=== PATIENT | male | born 1970 | race Caucasian/White ===

== ENCOUNTER 2017-07-26 08:00 | Outpatient (RCR) | payer BC, SELFPAY ==
[2017-07-10 00:21] VITALS: BP 144/87; PULSE 74; RESP 18; TEMP 37.1
[2017-07-12 08:12] VITALS: BP 148/92; PULSE 90; RESP 18; TEMP 36
[2017-07-19 08:14] VITALS: BP 126/89; PULSE 89; RESP 16; TEMP 36.4
--- NOTE | 2017-07-19 08:40 | PCM.WC.PN ---
(1) Ulcer of right foot with fat layer exposed Status: Chronic Current Visit: Yes Code(s): L97.512 - Non-pressure chronic ulcer of other part of right foot with fat layer exposed (2) Diabetes mellitus with neuropathy Status: Chronic Current Visit: Yes Qualifiers: Diabetes mellitus type: type 2 Code(s): E11.40 - Type 2 diabetes mellitus with diabetic neuropathy, unspecified (3) Hallux limitus of right foot Status: Chronic Current Visit: Yes Code(s): M20.5X1 - Other deformities of toe(s) (acquired), right foot (4) Malnutrition Status: Chronic Current Visit: Yes Code(s): E46 - Unspecified protein-calorie malnutrition Type of Wound Date of Service: 07/19/17 Chief Complaint: right great toe wound that is recurrent History of Wound: This 46-year-old pleasant male returns to clinic for recurrent right great toe ulceration. This is recurrent. He denies fever, chill, nausea, vomiting, loss of appetite. He kept his dressing intact over the last week as advised. Progress of Wound: Improving - Physical Exam Vital Signs Temp Pulse Resp BP 97.5 F L 89 16 126/89 H 07/19/17 08:14 07/19/17 08:14 07/19/17 08:14 07/19/17 08:14 General: Alert, Oriented x3, Cooperative Extremities: No cyanosis, Capillary Refill Less than 3 Seconds, No Calf Tenderness, Diminished Peripheral Pulses Skin: Ulcer/ Wound - Significant reduction in wound size. The base is 100% granular and healthy Wound Measurements and Assessment JENNIFER - Nurse 1 - General Ulcer Measurement Start: 07/12/17 08:12 Freq: Status: Active Protocol: Activity Type Activity Date Activity User E-Sign Co-Sign Detail Recorded Client Recorded Date Recorded By Document 07/19/17 08:14 MW [id number] 07/19/17 08:24 MW 07/19/17 08:14 Wound Center Nurse 1 [Ulcer Assessment Protocol: JENNIFER.WD.LOC] 2/#1 R Grt Toe -Combined with other wound No -Current Size (cm) - Length 0.2 -Current Size (cm) - Width 0.2 -Current Size (cm) - Depth 0.1 -Total Square Cm 0.04 -Date of Last Picture (Recall this 07/19/17 field) -Photo Taken Yes -Epithelialization None Present -Tunneling No -Undermining/Tunneling No -Circular Undermining No -Exudate Amt None Present (0 %) -Wound Margin Flat & Intact -Granulation Amt None Present (0 %) -Granulation Quality N/A -Slough/Fibrin Yes -Necrosis Amt Large (67-100%) -Necrotic Tissue Type Adherent Slough -Structure Exposed N/A -Texture (Shahnaz-wound Skin Appearance) Assessed Callus -Moisture (Shahnaz-wound Skin Appearance Assessed ) Dry/Scaly -Color (Shahnaz-wound Skin Appearance) No Abnormality Assessed -Temperature (Shahnaz-wound Skin No Abnormality Appearance) (Pt Warm) -Tenderness on Palpation (Shahnaz-wound Yes Skin Appearance) -Ulcer Cleansing Rinsed/ Irrigated with Saline -Foul Odor after Cleansing No -Anesthetic Used 5% Lidocaine Gel [Edema Assessment] -Lower Limb Edema Present No WC - Nurse 2 - General Ulcer CM Notes Start: 07/12/17 08:12 Freq: Status: Active Protocol: Activity Type Activity Date Activity User E-Sign Co-Sign Detail Recorded Client Recorded Date Recorded By Document 07/19/17 08:30 [id number] 07/19/17 08:32 ASUNCION 07/19/17 08:30 Wound Center Nurse 2 [Procedure/Treatment] 2/#1 R Grt Toe -Time 08:31 -Correct Patient Yes -Correct Side, Site, Position Yes -Correct Procedure Yes -Procedure Performed Yes -Type of Procedure Debridement -Clinical Debridement Subcutaneous -Post Debridement Size (cm) - Length 0.3 -Post Debridement Size (cm) - Width 0.2 -Post Debridement Size (cm) - Depth 0.1 -Total Square Cm 0.06 -Wound/Ulcer Outcome Not Healed -Ulcer Cleansing Rinsed/ Irrigated with Saline -Foul Odor after Cleansing No -Bioengineered Tissue No -Cetacaine [place] No -Bleeding Controlled with Pressure -Treatment Response Procedure Tolerated Well [See Physician Procedure note for Specifics] Pain Scale: 0-10 Numeric [Pain] -Is Patient Pain Free? Yes Musculoskeletal: No Tenderness to Palpation of Joints or Extremities, No Muscle Wasting, - - Decreased loaded first metatarsophalangeal joint right. Compartments are soft and there is no crepitus on palpation right foot Neurological: - - lack of epicritic sensation light touch bilateral lower extremity Psych/Mental Status: Normal Affect, Appropriate Debridement Note Post-Debridement Measurements/Treatment WC - Nurse 2 - General Ulcer CM Notes Start: 07/12/17 08:12 Freq: Status: Active Protocol: Activity Type Activity Date Activity User E-Sign Co-Sign Detail Recorded Client Recorded Date Recorded By Document 07/12/17 08:39 [id number] 07/12/17 08:40 Document 07/19/17 08:30 [id number] 07/19/17 08:32 07/12/17 07/19/17 08:39 08:30 Wound Center Nurse 2 2/#1 R Grt Toe -Time 08:39 08:31 -Correct Patient Yes Yes -Correct Side, Site, Position Yes Yes -Correct Procedure Yes Yes -Procedure Performed Yes Yes -Type of Procedure Debridement Debridement -Clinical Debridement Subcutaneous Subcutaneous -Post Debridement Size (cm) - Length 0.4 0.3 -Post Debridement Size (cm) - Width 0.3 0.2 -Post Debridement Size (cm) - Depth 0.1 0.1 -Total Square Cm 0.12 0.06 -Wound/Ulcer Outcome Not Healed Not Healed -Ulcer Cleansing Rinsed/ Rinsed/ Irrigated with Irrigated with Saline Saline -Foul Odor after Cleansing No No -Bioengineered Tissue Yes No -Type of bioengineered Tissue EPIFIX -Expiration Date 04/09/22 -Product Lot Number [id number] -Percent Used 100 -Cetacaine [place] No No -Bleeding Controlled with Pressure Pressure -Other [id number] saline -Treatment Response Procedure Procedure Tolerated Well Tolerated Well Pain Scale: 0-10 Numeric Is Patient Pain Free? Yes Yes Wound debrided: Plantar hallux Laterality: Right Wound Grade/Stage: Grade 1 Type of Debridement: Excisional debridement Anesthesia Used: 5% Lidocaine Gel Depth: in the subcutaneous layer Percentage of wound debrided: 100 Instrument Used: #15 blade Tissue Removed: Fibers, devitalized subcutaneous, biofilm, slough Severity: Fat Layer Exposed Amount of bleeding with debridement: Mild Bleeding Controlled with: Pressure Patient tolerated procedure well Assessment/Plan Active Problems Ulcer of right foot with fat layer exposed (Chronic) Diabetes mellitus with neuropathy (Chronic) Hallux limitus of right foot (Chronic) Malnutrition (Chronic) Assessment: right hallux diabetic foot ulceration. Diabetes type II with neuropathy. hallux limitus right. exogenous obesity Plan: Reviewed and discussed his case. Ulcer debridement was performed as noted in the clinical panel. Yana was applied today and it is noted the wound has significantly reduced in size. He was advised to change this dressing daily. He tolerated the procedure well. Continue offloading heel weightbear with his surgical shoe and offloading felt. I do recommend a curative foot surgical procedure, for example Alston arthroplasty. I recommend performing the surgery once his hemoglobin A1c is at a goal rate of less than 8%. A nutritional referral was provided and he has been attending. He relates this is helpful in regards to his improved sugar control, weight loss, and wound healing. It is noted he had to reschedule some of the classes due to his work schedule. . He understands his inability to adhere to a compliant plan by working walk on this each day is slowing his healing. He is now considered complex care program due to lack of healing and inability to keep weight off of the site. 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 He was reassured no infection is noted. To return to clinic in 1 week or call sooner for any problems.
--- NOTE | 2017-07-19 08:47 | PN.PCM_ITS ---
(1) Ulcer of right foot with fat layer exposed Status: Chronic Current Visit: Yes Code(s): L97.512 - Non-pressure chronic ulcer of other part of right foot with fat layer exposed (2) Diabetes mellitus with neuropathy Status: Chronic Current Visit: Yes Qualifiers: Diabetes mellitus type: type 2 Code(s): E11.40 - Type 2 diabetes mellitus with diabetic neuropathy, unspecified (3) Hallux limitus of right foot Status: Chronic Current Visit: Yes Code(s): M20.5X1 - Other deformities of toe(s) (acquired), right foot (4) Malnutrition Status: Chronic Current Visit: Yes Code(s): E46 - Unspecified protein- calorie malnutrition Type of Wound Date of Service: 07/19/17 Chief Complaint: right great toe wound that is recurrent History of Wound: This 46-year-old pleasant male returns to clinic for recurrent right great toe ulceration. This is recurrent. He denies fever, chill, nausea, vomiting, loss of appetite. He kept his dressing intact over the last week as advised. Progress of Wound: Improving - Physical Exam Vital Signs Temp Pulse Resp BP 97.5 F L 89 16 126/89 H 07/19/17 08:14 07/19/17 08:14 07/19/17 08:14 07/19/17 08:14 General: Alert, Oriented x3, Cooperative Extremities: No cyanosis, Capillary Refill Less than 3 Seconds, No Calf Tenderness, Diminished Peripheral Pulses Skin: Ulcer/ Wound - Significant reduction in wound size. The base is 100% granular and healthy Wound Measurements and Assessment JENNIFER - Nurse 1 - General Ulcer Measurement Start: 07/12/17 08:12 Freq: Status: Active Protocol: Activity Type Activity Date Activity User E-Sign Co-Sign Detail Recorded Client Recorded Date Recorded By Document 07/19/17 08:14 MW [id number] 07/19/17 08:24 MW 07/19/17 08:14 Wound Center Nurse 1 [Ulcer Assessment Protocol: JENNIFER.WD.LOC] 2/#1 R Grt Toe -Combined with other wound No -Current Size (cm) - Length 0.2 -Current Size (cm) - Width 0.2 -Current Size (cm) - Depth 0.1 -Total Square Cm 0.04 -Date of Last Picture (Recall this 07/19/17 field) -Photo Taken Yes -Epithelialization None Present -Tunneling No -Undermining/Tunneling No -Circular Undermining No -Exudate Amt None Present (0 %) -Wound Margin Flat & Intact -Granulation Amt None Present (0 %) -Granulation Quality N/A -Slough/Fibrin Yes -Necrosis Amt Large (67-100%) -Necrotic Tissue Type Adherent Slough -Structure Exposed N/A -Texture (Shahnaz-wound Skin Appearance) Assessed Callus -Moisture (Shahnaz-wound Skin Appearance Assessed ) Dry/Scaly -Color (Shahnaz-wound Skin Appearance) No Abnormality Assessed -Temperature (Shahnaz-wound Skin No Abnormality Appearance) (Pt Warm) -Tenderness on Palpation (Shahnaz-wound Yes Skin Appearance) -Ulcer Cleansing Rinsed/ Irrigated with Saline -Foul Odor after Cleansing No -Anesthetic Used 5% Lidocaine Gel [Edema Assessment] -Lower Limb Edema Present No WC - Nurse 2 - General Ulcer CM Notes Start: 07/12/17 08:12 Freq: Status: Active Protocol: Activity Type Activity Date Activity User E-Sign Co-Sign Detail Recorded Client Recorded Date Recorded By Document 07/19/17 08:30 [id number] 07/19/17 08:32 ASUNCION 07/19/17 08:30 Wound Center Nurse 2 [Procedure/Treatment] 2/#1 R Grt Toe -Time 08:31 -Correct Patient Yes -Correct Side, Site, Position Yes -Correct Procedure Yes -Procedure Performed Yes -Type of Procedure Debridement -Clinical Debridement Subcutaneous -Post Debridement Size (cm) - Length 0.3 -Post Debridement Size (cm) - Width 0.2 -Post Debridement Size (cm) - Depth 0.1 -Total Square Cm 0.06 -Wound/Ulcer Outcome Not Healed -Ulcer Cleansing Rinsed/ Irrigated with Saline -Foul Odor after Cleansing No -Bioengineered Tissue No -Cetacaine [place] No -Bleeding Controlled with Pressure -Treatment Response Procedure Tolerated Well [See Physician Procedure note for Specifics] Pain Scale: 0-10 Numeric [Pain] -Is Patient Pain Free? Yes Musculoskeletal: No Tenderness to Palpation of Joints or Extremities, No Muscle Wasting, - - Decreased loaded first metatarsophalangeal joint right. Compartments are soft and there is no crepitus on palpation right foot Neurological: - - lack of epicritic sensation light touch bilateral lower extremity Psych/Mental Status: Normal Affect, Appropriate Debridement Note Post-Debridement Measurements/Treatment WC - Nurse 2 - General Ulcer CM Notes Start: 07/12/17 08:12 Freq: Status: Active Protocol: Activity Type Activity Date Activity User E-Sign Co-Sign Detail Recorded Client Recorded Date Recorded By Document 07/12/17 08:39 [id number] 07/12/17 08:40 Document 07/19/17 08:30 [id number] 07/19/17 08:32 07/12/17 07/19/17 08:39 08:30 Wound Center Nurse 2 2/#1 R Grt Toe -Time 08:39 08:31 -Correct Patient Yes Yes -Correct Side, Site, Position Yes Yes -Correct Procedure Yes Yes -Procedure Performed Yes Yes -Type of Procedure Debridement Debridement -Clinical Debridement Subcutaneous Subcutaneous -Post Debridement Size (cm) - Length 0.4 0.3 -Post Debridement Size (cm) - Width 0.3 0.2 -Post Debridement Size (cm) - Depth 0.1 0.1 -Total Square Cm 0.12 0.06 -Wound/Ulcer Outcome Not Healed Not Healed -Ulcer Cleansing Rinsed/ Rinsed/ Irrigated with Irrigated with Saline Saline -Foul Odor after Cleansing No No -Bioengineered Tissue Yes No -Type of bioengineered Tissue EPIFIX -Expiration Date 04/09/22 -Product Lot Number [id number] -Percent Used 100 -Cetacaine [place] No No -Bleeding Controlled with Pressure Pressure -Other [id number] saline -Treatment Response Procedure Procedure Tolerated Well Tolerated Well Pain Scale: 0-10 Numeric Is Patient Pain Free? Yes Yes Wound debrided: Plantar hallux Laterality: Right Wound Grade/Stage: Grade 1 Type of Debridement: Excisional debridement Anesthesia Used: 5% Lidocaine Gel Depth: in the subcutaneous layer Percentage of wound debrided: 100 Instrument Used: #15 blade Tissue Removed: Fibers, devitalized subcutaneous, biofilm, slough Severity: Fat Layer Exposed Amount of bleeding with debridement: Mild Bleeding Controlled with: Pressure Patient tolerated procedure well Assessment/Plan Active Problems Ulcer of right foot with fat layer exposed (Chronic) Diabetes mellitus with neuropathy (Chronic) Hallux limitus of right foot (Chronic) Malnutrition (Chronic) Assessment: right hallux diabetic foot ulceration. Diabetes type II with neuropathy. hallux limitus right. exogenous obesity Plan: Reviewed and discussed his case. Ulcer debridement was performed as noted in the clinical panel. Yana was applied today and it is noted the wound has significantly reduced in size. He was advised to change this dressing daily. He tolerated the procedure well. Continue offloading heel weightbear with his surgical shoe and offloading felt. I do recommend a curative foot surgical procedure, for example Alston arthroplasty. I recommend performing the surgery once his hemoglobin A1c is at a goal rate of less than 8 %. A nutritional referral was provided and he has been attending. He relates this is helpful in regards to his improved sugar control, weight loss, and wound healing. It is noted he had to reschedule some of the classes due to his work schedule. . He understands his inability to adhere to a compliant plan by working walk on this each day is slowing his healing. He is now considered complex care program due to lack of healing and inability to keep weight off of the site. 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 He was reassured no infection is noted. To return to clinic in 1 week or call sooner for any problems.
[2017-07-26 08:11] VITALS: BP 138/88; PULSE 84; RESP 18; TEMP 36.5
--- NOTE | 2017-07-26 13:53 | PCM.WC.PN ---
(1) Ulcer of right foot with fat layer exposed Status: Resolved Code(s): L97.512 - Non-pressure chronic ulcer of other part of right foot with fat layer exposed (2) Diabetes mellitus with neuropathy Status: Chronic Qualifiers: Diabetes mellitus type: type 2 Code(s): E11.40 - Type 2 diabetes mellitus with diabetic neuropathy, unspecified (3) Hallux limitus of right foot Status: Chronic Code(s): M20.5X1 - Other deformities of toe(s) (acquired), right foot (4) Malnutrition Status: Chronic Code(s): E46 - Unspecified protein-calorie malnutrition Type of Wound Date of Service: 07/30/17 Chief Complaint: right great toe wound History of Wound: This 47-year-old pleasant male returns to clinic for recurrent right great toe ulceration. This is recurrent. He denies drainage this past week and thinks the wound has healed. He denies fever, chill, nausea, vomiting, loss of appetite. He has performed the recommended daily dressing care. Progress of Wound: Healed - Physical Exam Vital Signs Temp Pulse Resp BP 97.7 F L 84 18 138/88 H 07/26/17 08:11 07/26/17 08:11 07/26/17 08:11 07/26/17 08:11 General: Alert, Oriented x3, Cooperative Extremities: No cyanosis, No edema, Capillary Refill Less than 3 Seconds, No Calf Tenderness - Negative Rinku and Damon sign bilateral, Peripheral Pulses Normal Skin: Ulcer/ Wound - No purulence, no erythema, no streaking, no odor, no infection bilateral. There is full epithelialization at the previous ulcer site with no drainage; the ulcer is healed. Wound Measurements and Assessment - Nurse 1 - General Ulcer Measurement Start: 07/12/17 08:12 Freq: Status: Active Protocol: Activity Type Activity Date Activity User E-Sign Co-Sign Detail Recorded Client Recorded Date Recorded By Document 07/26/17 08:11 DL [id number] 07/26/17 08:17 DL 07/26/17 08:11 Wound Center Nurse 1 [Ulcer Assessment Protocol: JENNIFER.WD.LOC] 2/#1 R Grt Toe -Current Size (cm) - Length 0.1 -Current Size (cm) - Width 0.1 -Current Size (cm) - Depth 0.1 -Total Square Cm 0.01 -Photo Taken No -Exudate Amt None Present (0 %) -Wound Margin Thickened -Granulation Amt Large (67-100%) -Granulation Quality Pale -Necrosis Amt Small (1-33%) -Necrotic Tissue Type Adherent Slough -Structure Exposed N/A -Texture (Shahnaz-wound Skin Appearance) Callus -Moisture (Shahnaz-wound Skin Appearance Dry/Scaly ) -Color (Shahnaz-wound Skin Appearance) No Abnormality -Temperature (Shahnaz-wound Skin No Abnormality Appearance) (Pt Warm) -Ulcer Cleansing Rinsed/ Irrigated with Saline -Anesthetic Used 4% Lidocaine Solution - Nurse 2 - General Ulcer CM Notes Start: 07/12/17 08:12 Freq: Status: Active Protocol: Activity Type Activity Date Activity User E-Sign Co-Sign Detail Recorded Client Recorded Date Recorded By Document 07/26/17 08:29 [id number] 07/26/17 08:34 07/26/17 08:29 Wound Center Nurse 2 [Procedure/Treatment] -Time 08:29 -Correct Patient Yes -Correct Side, Site, Position Yes -Correct Procedure Yes -Procedure Performed Yes -Post Debridement Size (cm) - Length 0 -Post Debridement Size (cm) - Width 0 -Post Debridement Size (cm) - Depth 0 -Total Square Cm 0 -Wound/Ulcer Outcome Healed- Epithelialized -Ulcer Cleansing Rinsed/ Irrigated with Saline -Foul Odor after Cleansing No -Bioengineered Tissue No -Cetacaine [place] No -Bleeding Controlled with NA -Treatment Response Procedure Tolerated Well [See Physician Procedure note for Specifics] Pain Scale: 0-10 Numeric [Pain] -Is Patient Pain Free? Yes Musculoskeletal: No Tenderness to Palpation of Joints or Extremities, No Muscle Wasting, - - Limited hallux first metatarsal phalangeal joint range of motion consistent with hallux limitus right foot Neurological: - - Lack of epicritic sensation light touch bilateral lower extremities Psych/Mental Status: Normal Affect, Appropriate Debridement Note Post-Debridement Measurements/Treatment - Nurse 2 - General Ulcer CM Notes Start: 07/12/17 08:12 Freq: Status: Active Protocol: Activity Type Activity Date Activity User E-Sign Co-Sign Detail Recorded Client Recorded Date Recorded By Document 07/12/17 08:39 [id number] 07/12/17 08:40 Document 07/19/17 08:30 [id number] 07/19/17 08:32 JF Document 07/26/17 08:29 TM [id number] 07/26/17 08:34 TM 07/12/17 07/19/17 07/26/17 08:39 08:30 08:29 Wound Center Nurse 2 2/#1 R Grt Toe -Time 08:39 08:31 08:29 -Correct Patient Yes Yes Yes -Correct Side, Site, Position Yes Yes Yes -Correct Procedure Yes Yes Yes -Procedure Performed Yes Yes Yes -Type of Procedure Debridement Debridement -Clinical Debridement Subcutaneous Subcutaneous -Post Debridement Size (cm) - Length 0.4 0.3 0 -Post Debridement Size (cm) - Width 0.3 0.2 0 -Post Debridement Size (cm) - Depth 0.1 0.1 0 -Total Square Cm 0.12 0.06 0 -Wound/Ulcer Outcome Not Healed Not Healed Healed- Epithelialized -Ulcer Cleansing Rinsed/ Rinsed/ Rinsed/ Irrigated with Irrigated with Irrigated with Saline Saline Saline -Foul Odor after Cleansing No No No -Bioengineered Tissue Yes No No -Type of bioengineered Tissue EPIFIX -Expiration Date 04/09/22 -Product Lot Number [id number] -Percent Used 100 -Cetacaine [place] No No No -Bleeding Controlled with Pressure Pressure NA -Other [id number] saline -Treatment Response Procedure Procedure Procedure Tolerated Well Tolerated Well Tolerated Well Pain Scale: 0-10 Numeric Is Patient Pain Free? Yes Yes Yes No debridement was completed today - The ulcer site has healed Assessment/Plan Assessment: right hallux diabetic foot ulceration - Healed today. Diabetes type II with neuropathy. hallux limitus right. exogenous obesity Plan: Reviewed and discussed his case. Ulcer debridement was not performed because the ulcer is healed. He was advised it is okay to discontinue daily dressing care. He understands he is high risk for ulcer recurrence and he will check this site daily. He was advised to transition from his offloading surgical shoe to his work boot and sneaker with modified insole that has a cut out adjacent to his recently healed ulcer site. I do recommend a curative foot surgical procedure, for example Alston arthroplasty. I recommend performing the surgery once his hemoglobin A1c is at a goal rate of less than 8%. A nutritional referral was provided and he has been attending. He relates this is helpful in regards to his improved sugar control, weight loss, and wound healing. He was reassured no infection or ulcer is noted at this time. He is discharged from the wound care center today. He was advised to follow-up at the foot [facility] ankle center in 1 month with a repeat hemoglobin A1c level. If significant improvement is noted will consider performing a Alston arthroplasty. I answered all his questions.
== END 2017-08-09 23:59 ==
LOC: WC 08:00
PROVIDERS: Family Provider Nurse Practitioner Family; PCP Nurse Practitioner Family; Visit Provider Podiatrist
DX: E11.621 Type 2 diabetes mellitus with foot ulcer (principal); E11.40 Type 2 diabetes mellitus with diabetic neuropathy, unspecified; L97.512 Non-pressure chronic ulcer of other part of right foot with fat layer exposed; M20.5X1 Other deformities of toe(s) (acquired), right foot; E66.9 Obesity, unspecified; Z71.3 Dietary counseling and surveillance
CPT/HCPCS: 11042; 15275; 99213; Q4131; G0463

== ENCOUNTER 2017-07-31 17:08 | Outpatient (RCR) | payer BC, SELFPAY | END 2017-08-09 23:59 | LOC: DC 17:08 | PROVIDERS: Family Provider Nurse Practitioner Family; PCP Nurse Practitioner Family; Visit Provider Podiatrist | DX: E11.42 Type 2 diabetes mellitus with diabetic polyneuropathy (principal); E46 Unspecified protein-calorie malnutrition; L97.512 Non-pressure chronic ulcer of other part of right foot with fat layer exposed; Z71.3 Dietary counseling and surveillance | CPT/HCPCS: 97803; G0108 ==

== ENCOUNTER → 2017-08-10 06:10 | Outpatient (CLI) | payer BC, SELFPAY ==
[2017-08-10 08:56] LABS: Hemoglobin A1c 7.5 % (4.2-6.3)
== END ==
PROVIDERS: Family Provider Nurse Practitioner Family; PCP Nurse Practitioner Family; Visit Provider Podiatrist
DX: E11.40 Type 2 diabetes mellitus with diabetic neuropathy, unspecified (principal)
CPT/HCPCS: 36415; 83036

== ENCOUNTER 2017-08-16 16:42 | Outpatient (RCR) | payer BC, SELFPAY ==
[2017-07-26 08:11] VITALS: BP 138/88
== END 2017-09-06 23:59 ==
LOC: DC 16:42
PROVIDERS: Family Provider Nurse Practitioner Family; PCP Nurse Practitioner Family; Visit Provider Podiatrist
DX: E11.42 Type 2 diabetes mellitus with diabetic polyneuropathy (principal); E46 Unspecified protein-calorie malnutrition; L97.512 Non-pressure chronic ulcer of other part of right foot with fat layer exposed; Z71.3 Dietary counseling and surveillance
CPT/HCPCS: G0108; G0109

== ENCOUNTER 2017-11-16 16:29 | Outpatient (RCR) | payer BC, SELFPAY | END 2017-12-07 23:59 | LOC: DC 16:29 | PROVIDERS: Family Provider Nurse Practitioner Family; PCP Nurse Practitioner Family; Visit Provider Podiatrist | DX: E11.42 Type 2 diabetes mellitus with diabetic polyneuropathy (principal); E46 Unspecified protein-calorie malnutrition; L97.512 Non-pressure chronic ulcer of other part of right foot with fat layer exposed; Z71.3 Dietary counseling and surveillance ==

== ENCOUNTER 2018-02-21 16:08 | Emergency (ER) | payer BC, SELFPAY ==
[2018-02-21 16:09] VITALS: BP 152/85; PULSE 79; RESP 18; TEMP 36.8; O2SAT 99; BMI 46.3
--- NOTE | 2018-02-21 16:30 | ED.VISSUMM ---
- ER Visit Summary Date of Service: 02/21/18 Chief Complaint: Left hand pain History of Present Illness: The patient is a 47 M who presents with left hand pain that has been getting worse over the past week and a half. Patient denies any specific trauma or injury. Patient noted some swelling over the palmar aspect of his left hand. Patient states the pain is worse with flexion of his hands and wrists. Patient describes the pain as throbbing. Patient denies any paresthesias or weakness. Patient does not think there is a foreign body in his hand. Physical Examination: Vital signs are stable. Patient is afebrile. Patient is in no acute distress. Oral mucosa is pink and moist. Neck is supple. There is no JVD noted. There is some tenderness and edema over the palmar aspect of the left hand. There is no erythema or fluctuance. There is no tenderness over the median nerve. Sensation was intact to light touch in the radial, median, and ulnar areas. Strength is 5/5 in the radial, median, and ulnar areas. Physical exam is within normal limits. Test Results: X-rays of the left hand did not reveal any foreign body. Emergency Department Course and Treatment: Patient was instructed to keep the hand clean. Patient was given a prescription for Bactrim. Patient was instructed to follow-up with his primary care physician in 5-7 days. Patient understood and was agreeable with the plan. All questions were answered. Disposition: Discharge home Impression: Cellulitis left hand This note was generated with [employer] dictation software. It may contain incorrect words, spelling, and punctuation that were not noted in review of the chart prior to signing ED Disposition - Plan for ED Patient: Disposition: Home or Assisted Living Chief Complaint: Upper Extremity Injury Diagnosis: Cellulitis of hand, left Instructions: ED Infec Skin Cellulitis Prescriptions: Smz/Tmp Ds [Bactrim Ds] 1 tab PO BID #14 tab Referrals: Emil Carranza NP-C [Primary Care Provider] -
[2018-02-21 17:58] VITALS: PULSE 69; RESP 17; O2SAT 99
--- NOTE | 2018-02-21 17:58 | ED.RN ---
pt educated on written and verbal discharge instructions and home going prescriptions. educated on worsening s/sx of cellulitis, to return to ed for worsening sx. pt verbalizes understanding and denies any further questions. pt ambulates out of ed by self.
== END 2018-02-21 18:00 | disposition home or self-care (01) ==
PROVIDERS: Emergency Provider Emergency Medicine; Family Provider Nurse Practitioner Family; PCP Nurse Practitioner Family
DX: L03.114 Cellulitis of left upper limb (principal); E66.9 Obesity, unspecified; E11.9 Type 2 diabetes mellitus without complications; Z79.82 Long term (current) use of aspirin; Z79.4 Long term (current) use of insulin; Z79.84 Long term (current) use of oral hypoglycemic drugs
CPT/HCPCS: 73130; 99282

== ENCOUNTER 2018-03-15 12:04 | Outpatient (RCR) | payer BC, SELFPAY | END 2018-04-08 23:59 | LOC: DC 12:04 | PROVIDERS: Family Provider Nurse Practitioner Family; PCP Nurse Practitioner Family; Visit Provider Podiatrist | DX: E11.42 Type 2 diabetes mellitus with diabetic polyneuropathy (principal); E46 Unspecified protein-calorie malnutrition; L97.512 Non-pressure chronic ulcer of other part of right foot with fat layer exposed; Z71.3 Dietary counseling and surveillance ==

== ENCOUNTER 2018-07-29 13:50 | Observation (INO) | payer BC, SELFPAY ==
[2018-07-29] VITALS (8 sets, daily range): BP systolic 140–168; BP diastolic 77–97; PULSE 72–89; RESP 16–18; TEMP 36.8–36.9; O2SAT 96–99; BMI 47.7; BMI 47.0; BMI 47.1
--- NOTE | 2018-07-29 14:12 | EKG12_ITS ---
Test Reason : DIZZINESS Blood Pressure : / mmHG Vent. Rate : 092 BPM Atrial Rate : 092 BPM P-R Int : 162 ms QRS Dur : 092 ms QT Int : 342 ms P-R-T Axes : 064 -08 032 degrees QTc Int : 422 ms Sinus rhythm with occasional Premature ventricular complexes Otherwise normal ECG Confirmed by RENAE SIFUENTES, MEHDI ([id number]), editor city TABBY CASTILLO ([id number]) on 07/31/2018 12:58:28 PM Referred By: MR Confirmed By:MEHDI MACDONALD MD
--- NOTE | 2018-07-29 14:12 | CT_ITS ---
STUDY: CT BRAIN WITHOUT CONTRAST REASON FOR EXAM: Male, 48 years old. EPISODE AT WORK MONDAY OF LIGHT HEADED AND DISORIENTED, STILL FEELS OFF BALANCE AND FEELS LIKE HE IS LEANING TO THE LEFT, LT SIDE FEELS WEAKER THAN RIGHT, SLEEP APNEA, DB RADIATION DOSAGE (If Supplied By Facility): CTDIvol = ( 44.99 ) mGy, DLP = ( 779.24 ) mGycm TECHNIQUE: Transaxial CT imaging of the brain was performed without administration of intravenous contrast material. Individualized dose optimization techniques were used for this CT. COMPARISON: None. FINDINGS: Normal soft tissue structures. Normal calvarium. Normal size ventricles and extra-axial spaces for the patient's age. Normal white matter tracts of the cerebral hemispheres. Normal basal ganglia and thalami. Normal brainstem. Normal cerebellum. There is calcification of the anterior falx of doubtful clinical significance. There is no intracranial hemorrhage. There are no findings of an acute ischemic infarction. Normal visualized paranasal sinuses. CT/Brain/Head without Contrast IMPRESSION: Normal unenhanced CT scan of the brain. Electronically Signed: Christian Lam MD at 15:34 EST , Service support ,
--- NOTE | 2018-07-29 14:13 | CT_ITS ---
STUDY: CT CERVICAL SPINE WITHOUT CONTRAST REASON FOR EXAM: Male, 48 years old. EPISODE AT WORK MONDAY OF LIGHT HEADED AND DISORIENTED, STILL FEELS OFF BALANCE AND FEELS LIKE HE IS LEANING TO THE LEFT, LT SIDE FEELS WEAKER THAN RIGHT, SLEEP APNEA, DB RADIATION DOSAGE (If Supplied By Facility): CTDIvol = ( 31.73 ) mGy, DLP = ( 742.91 ) mGycm TECHNIQUE: High resolution transaxial imaging was performed without contrast material. Sagittal and coronal images were reconstructed. Individualized dose optimization techniques were used for this CT. COMPARISON: None FINDINGS: Normal craniovertebral junction. Normal anterior atlantoaxial articulation. Normal odontoid process. Normal cervical lordosis. Normal vertebral bodies and posterior osseous elements. C2-3: Normal endplates. Normal disc height and morphology. Normal central canal and intervertebral neuroforamina. C3-4: Normal endplates. Normal disc height and morphology. Normal central canal and intervertebral neuroforamina. C4-5: Normal endplates. Normal disc height and morphology. Normal central canal and intervertebral neuroforamina. C5-6: Normal endplates. Normal disc height and morphology. Normal central canal and intervertebral neuroforamina. C6-7: Normal endplates. Normal disc height and morphology. Normal central canal and intervertebral neuroforamina. C7-T1: Normal endplates. Normal disc height and morphology. Normal central canal and intervertebral neuroforamina. Normal visualized soft tissue structures. CT/Spine Cervical without Contras IMPRESSION: Normal unenhanced CT examination of the cervical spine. Electronically Signed: Christian Lam MD at 15:34 EST , Service support ,
[2018-07-29 15:00] LABS: Anion Gap 9 (5-15); BUN 13 mg/dL (7-18); BUN/Creat Ratio 17.4 RATIO (10-20); Calcium,Total 8.7 mg/dL (8.5-10.1); Chloride 106 mmol/L (98-107); Creatinine, Serum 0.74 mg/dL (0.70-1.30); EST Glomerular Filtration Rate 120 mL/min (>60); Est Glom Filt Rate - Afr Amer 145 mL/min (>60); Estimated Creatinine Clearance 127.42 ml/min; Glucose 279 mg/dL (74-106); Potassium 3.9 mmol/L (3.5-5.1); Sodium Level 141 mmol/L (136-145)
[2018-07-29 15:06] LABS: Absolute Lymphocyte Count 1.99 X10^3/ul (0.83-4.51); Absolute Neutrophil Count 5.5 X10^3/uL (2.0-7.7); Basophil# 0.05 X10^3/uL; Basophil% 0.6 % (0-1); Eosinophil# 0.12 X10^3/uL; Eosinophils% 1.5 % (0-5); Hematocrit 44.7 % (40-54); Hemoglobin 14.6 g/dl (13.0-16.5); Lymphocyte # 1.99 X10^3/ul (4.0); Lymphocyte % 24.6 % (19-41); Mean Corp Hgb Conc 32.7 g/gl (32-36); Mean Corpuscular Hgb 28.2 pg (27.0-32.0); Mean Corpuscular Volume 86.3 fL (80-94); Mean Platelet Vol. 11.4 fl (6.2-12.0); Monocyte# 0.42 X10^3/uL; Monocyte% 5.2 % (0-10); Neutrophil # 5.49 X10^3/uL (2.7-7.7); Neutrophil % 67.9 % (47-70); Platelet Count 154 K/mm3 (150-450); RBC Distribution Width CV 13.2 % (11.6-14.6); RBC Distribution Width SD 41.9 fl (35.1-43.9); Red Blood Count 5.18 M/mm3 (4.6-6.2); White Blood Count 8.1 K/mm3 (4.4-11.0)
[2018-07-29 15:08] LABS: POSITIVE COUNT NO; POSITIVE DIFFERENTIAL NO; POSITIVE MORPHOLOGY NO
[2018-07-29 15:12] LABS: Prothrombin Time (Protime)PT. 12.7 SECONDS (11.7-14.9)
[2018-07-29 15:13] LABS: Partial Thromboplast Time 28.4 Seconds (24.1-36.2)
--- NOTE | 2018-07-29 16:12 | ED.VISSUMM ---
- ER Visit Summary Date of Service: 07/29/18 Chief Complaint: Not feeling right History of Present Illness: The patient is a 48 M presenting for evaluation secondary to abnormal feeling. Patient states that since Monday he was at work and had a sudden onset where he almost passed out, went down to his knees, and upon standing he has been having issues with falling to his left, and left-sided numbness. He denies any visual changes. He denies any weakness associated with this or any speech difficulty. This been a continuous issue since then, with no exacerbating relieving factors. Denies any presence of chest pain. Patient does have an underlying history of diabetes high cholesterol and a family history of vascular disease. Review of systems otherwise negative. Physical Examination: Vital signs are within normal limits, patient is afebrile. General: Patient is well-nourished well-developed and in no acute distress. Head: Normocephalic, atraumatic Eyes: Pupils equal round and reactive bilaterally, extra occular motion intact bialterally ENT: Moist mucous membranes Neck: Supple, no lymphadenopathy, no JVD, no meningismus CVS: Heart regular rate and rhythm, no murmurs, rubs or gallops, radial pulses 2+ bilaterally Resp: Respirations nondistressed, lung sounds clear bilaterally Abdomen: Soft, nontender, nondistended, no palpable masses, normal bowel sounds Back: Nontender Extremities: Nontender, atraumatic, active full range of motion, no peripheral edema Skin: warm, no rashes, no petechia Neuro: Alert and oriented x 4, CN 2-12 intact, patient complains of left-sided paresthesias of the arm and the leg, NIH stroke scale is 1, normal cerebellar testing Psyc: Normal affect Test Results: EKG demonstrates sinus rate of 92 with PVCs no evidence of ischemia. CBC chemistry troponin are negative. CT imaging found to be negative of the brain. Emergency Department Course and Treatment: Patient presented with left-sided paresthesia. Workup was found to be negative. Patient's ABCD 2 score is moderate risk. I do believe that he requires inpatient rule out of stroke. Patient will be admitted under the hospitalist. Disposition: Admission Impression: 1. Left-sided paresthesia 2. History of diabetes hyperlipidemia and family history of cerebrovascular disease This note was generated with CerRxation software. It may contain incorrect words, spelling, and punctuation that were not noted in review of the chart prior to signing ED Disposition - Plan for ED Patient: Chief Complaint: Dizziness Referrals: Emil Carranza, PROFILING MACHINE SET UP OPERATOR-C [Primary Care Provider] -
--- NOTE | 2018-07-29 17:19 | CT_ITS ---
STUDY: CTA NECK WITH CONTRAST REASON FOR EXAM: Male, 48 years old. Left-sided weakness. RADIATION DOSAGE (If Supplied By Facility): CTDIvol = ( 25.88 ) mGy, DLP = ( 897.40 ) mGycm TECHNIQUE: CT angiography with multi-detector data acquisition was performed from the aortic arch to the skull base following intravenous administration of 100 ml of Isovue 370 contrast. MIP images were reconstructed from the axial data set. Post-processing of the angiographic images was performed, with multiplanar reformation and 3D reconstruction. Individualized dose optimization techniques were used for this CT. COMPARISON: None. FINDINGS: AORTIC ARCH: Normal visualized aortic arch. Normal origins of the brachiocephalic, left common carotid, and left subclavian arteries. RIGHT CAROTID ARTERIES: Normal right common carotid artery (CCA). Normal right common carotid bulb. Normal origin of the right internal carotid (ICA) artery without a hemodynamically significant stenosis. Normal visualized cervical portion of the right internal carotid artery. Normal origin of the right external carotid artery (ECA). LEFT CAROTID ARTERIES: Normal left common carotid artery (CCA). Normal left common carotid bulb. Normal origin of the left internal carotid (ICA) artery without a hemodynamically significant stenosis. Normal visualized cervical portion of the left internal carotid artery. Normal origin of the left external carotid artery (ECA). VERTEBRAL ARTERIES: There is enhancement within the bilateral vertebral arteries with a small left vertebral artery, and a dominant right vertebral artery. CT/CTA Neck W/WO Contrast IMPRESSION: Normal bilateral cervical carotid and vertebral arteries. Electronically Signed: Piero Redd MD at 19:07 EST , Service support ,
--- NOTE | 2018-07-29 17:19 | CT_ITS ---
STUDY: CTA OF THE BRAIN REASON FOR EXAM: Male, 48 years old. Left-sided weakness, off balance. RADIATION DOSAGE (If Supplied By Facility): CTDIvol = ( 25.88 ) mGy, DLP = ( 897.4 ) mGycm TECHNIQUE: CT angiography was performed with a multi-detector CT scanner. Data acquisition was obtained from the skull base through the vertex following intravenous administration of ml of . MIP images were reconstructed from the axial data set. Post-processing of the angiographic images was performed, with multiplanar reformation and 3D reconstruction. Individualized dose optimization techniques were used for this CT. COMPARISON: None. FINDINGS: Reformatted imaging is suboptimal. Normal bilateral petrous carotid arteries. Normal right cavernous carotid artery with a normal supraclinoid bifurcation. Normal left cavernous carotid artery with a normal supraclinoid bifurcation. Normal right A1 segments of the anterior cerebral artery. Normal left A1 segments of the anterior cerebral artery. Normal intact anterior communicating artery (ACOM). Normal bilateral A2 segments of the anterior cerebral arteries. Normal right M1 and M2 segments of the middle cerebral arteries, with a normal M1 bifurcation. Normal left M1 and M2 segments of the middle cerebral arteries, with a normal M1 bifurcation. There is non-visualization of the right posterior communicating artery (PCOM). There is non-visualization of the left posterior communicating artery (PCOM). There is a right dominant vertebral artery. The left vertebral artery terminates as the posterior inferior cerebellar artery. This is a normal variant. Normal basilar artery with a normal basilar bifurcation. The visualized bilateral superior cerebellar (SCA) arteries are normal. Normal bilateral P1, P2 and visualized P3 segments of the posterior cerebral arteries. There is no demonstrated aneurysm of the levelock of Nascimento. CT/CTA Head W/WO Contrast IMPRESSION: Normal levelock of Nascimento without a demonstrated aneurysm or significant stenosis. Electronically Signed: Jackie Newton MD at 19:40 EST Tel , Service support ,
--- NOTE | 2018-07-29 17:21 | HP.PCM_ITS ---
Problem List (1) Chest pain Status: Acute (2) Disequilibrium Status: Acute (3) Diabetes mellitus with neuropathy Status: Chronic Qualifiers: Diabetes mellitus type: type 2 (4) Exogenous obesity Status: Chronic (5) Ingrown nail Status: Chronic (6) Hallux limitus of right foot Status: Chronic (7) Diabetes mellitus, type II Status: Chronic Qualifiers: Diabetes mellitus complication detail: with polyneuropathy (8) Elevated BP without diagnosis of hypertension Status: Acute History of Present Illness Date of Admission: 07/29/18 Chief Complaint: dizziness, chest pain, palpitations, Left shoulder and arm pain The patient is a 48 year old M with a past medical history of diabetes mellitus type 2, asthma, diabetic polyneuropathy, morbid obesity, hyperlipidemia and multiple non-healing diabetic foot ulcers in the past who presented to the ED at [facility] on 07/29/2018 c/o not feeling right since Monday. He complains of lightheadedness and also pain in his left shoulder, pain in the left arm, transient shooting pain in the medial left calf. Denies vertigo, N/V, syncope and diaphoresis. He was at work on Monday and suddenly felt lightheaded. He did not fall down .....he caught himself on a table. He did not feel as though his blood sugar was low but did not check it. He finished work and when he got home the blood sugar was normal. He has had intermittent left shoulder pain and some left arm pain since then. He has numbness in the left arm/hand that gets worse when sleeping and wakes him up. He has no weakness of the LUE. Last night while standing playing darts for a long time he got a shooting Pain in the medial calf. It was very fleeting and he has had no left leg weakness. No difficulty swallowing and no trouble with speech. Has never had a CVA or a TIA. He feels lightheaded and like he is falling to the left. No falls however. CT scan of the brain in the ED was negative for any acute findings. CT cervical spine is normal. NIH is 0 at the time of my exam. Negative romberg. On further questioning he has been having Left chest pain that is associated with SOB and radiates to his left arm. He sometimes gets sweaty. Sometimes he has palpitations with this. sometimes the palpitations last and he has to lie down on the bed for a few minutes to make them go away. He gets CP with sex. Sometimes he has CP at rest. Has never had a stress test or a cardiac cath. There is a FH of CVD and strokes in his mother who at the age of 60. His father also had CVD and in his mid 70's. EKG in the ED without CP showed NSR with no significant ST or T wave changes. Past Medical History Past Medical History (Chronic Problems): Chronic Problems (Last Reviewed 07/29/18 @ 17:45 by Eugenia Mccollum DO) Diabetes mellitus, type II (Chronic) Diabetes mellitus with neuropathy (Chronic) Exogenous obesity (Chronic) Ingrown nail (Chronic) Hallux limitus of right foot (Chronic) Medical History: Medical History (Last Reviewed 07/29/18 @ 17:45 by Eugenia Mccollum DO) Diabetes type 2, controlled E11.9 Dx : 2007 Last exacerbation : DKA : never Hypoglycemic episode : never ER visit : never Early stage glaucoma H40.9 Vision problem H54.7 Allergies ibuprofen Adverse Reaction (Verified 07/29/18 13:50) Other Home Medications: Ambulatory Orders Medication Instructions Recorded Aspirin [Aspirin, Baby] 81 mg PO DAILY@0800 02/18/15 Dapagliflozin Propanediol [Farxiga] 5 mg PO DAILY 02/18/15 Metformin HCl [Glucophage] 1,000 mg PO BIDCM 02/18/15 insulin regular human U- 75 - 85 unit SC TIDCM ml 10/11/17 500concentrate 500 unit/mL subcutaneous soln Ascorbic Acid [Vitamin C] 500 mg PO DAILY@0800 07/29/18 Atorvastatin Calcium [Lipitor] 40 mg PO QHS 07/29/18 Cholecalciferol (VIT D3) [Vitamin 1,000 unit PO DAILY 07/29/18 D] Surgical History: noncontributory, - - podiatric surgeries Psychiatric History: No pertinent psych hx Lives: Spouse/ Significant Other Smoking Status: Current some day smoker Tobacco Use: Cigars Alcohol: Heavy - he does not drink during the week but on weekends he will down a 12 pack Drugs: None - *Family History Maternal Family History: Family History (Last Reviewed 07/29/18 @ 17:47 by Eugenia Mccollum DO) Daughter Asthma Seizures Son Seizures Sister Breast cancer Mother Diabetes Heart disease Hypertension CVA (cerebral vascular accident) Brother Diabetes Father Diabetes Heart disease Hypertension History Items: Heart Disease, Stroke Paternal Family History: Family History (Last Reviewed 07/29/18 @ 17:47 by uEgenia Mccollum DO) Daughter Asthma Seizures Son Seizures Sister Breast cancer Mother Diabetes Heart disease Hypertension CVA (cerebral vascular accident) Brother Diabetes Father Diabetes Heart disease Hypertension History Items: Heart Disease, - - his father was not really in his life and he does not know alot about the paternal side of his family Review of Systems Constitutional: Denies: Anorexia, Chills, Fever, Malaise, Weakness, Weight Change Eyes: Reports: - - has been having pain around the Left eye for the past week but denies any vision changes. Denies: Blurred vision, Vision Change HEENT: Reports: -. Denies: Head Aches, Sinus Congestion, Sinus Drainage, Sore Throat Cardiovascular: Reports: Chest Pressure, Chest Tightness, Light Headedness. Denies: Chest Pain, Edema, Orthopnea, Palpitations, Paroxysmal Noc. Dyspnea, Syncope Respiratory: Reports: Shortness of breath upon exertion. Denies: Cough, Shortness of breath at rest, Sputum production Gastrointestinal: Denies: Abdominal Pain, Nausea, Vomiting Genitourinary: Denies: Dysuria Musculoskeletal: Reports: Arm Pain - left, Shoulder Pain - left. Denies: Joint Pain, Joint Tenderness Skin: Denies: Rash, Wounds Neurological: Denies: Numbness, Tingling, Focal weakness Psychiatric: Denies: Anxiety, Depression, Homicidal Ideations, Suicidal Ideations Endocrine: Denies: Hx of Thyroiditis Hematologic/ Lymphatic: Denies: Easy Bruising, Easy Bleeding, Hx of blood clot VTE Information - Inpt Only VTE Present on Admission: No VTE Mechan Device Prophylaxis: Knee High BIANKA Hose VTE Pharm Prophylaxis ordered?: Yes Patient Problems: Active and Suspected Problems (Last Reviewed 07/29/18 @ 17:45 by Eugneia Mccollum DO) Chest pain (Acute) Disequilibrium (Acute) Elevated BP without diagnosis of hypertension (Acute) - Physical Exam General: Alert, Oriented x3, Cooperative, No apparent distress, Well developed, Well nourished HEENT: Atraumatic, PERRLA, EOMI, Normocephalic Oral: Moist Mucosa Neck: Supple, No JVD, Negative Carotid Bruits, No Nodes, No Nuchal Rigidity, Trachea Midline Lungs: Clear to auscultation, Normal air movement, No rhonchi, No wheeze, No rales Cardiovascular: Regular rate, Regular Rhythm, Normal S1, Normal S2, No murmurs, No rub noted, No Gallop, - - occasional PVC on the tele monitor Abdomen: Bowel Sounds Present, Soft, Non Tender, Non-Distended, Obese Extremities: No clubbing, No cyanosis, No edema, Capillary Refill Less than 3 Seconds, No Calf Tenderness, Peripheral Pulses Normal, - - he gets pain in the left shoulder and arm with Phalen's and rev phalen's. He has a + Tinel's sign on the left. He has pain in the anterior shoulder and pain increases with palpation along the proximal biceps tendon Skin: No rashes, No breakdown Musculoskeletal: No Tenderness to Palpation of Joints or Extremities, No Muscle Wasting Neurological: Cranial nerves II-XII grossly intact, Neuro grossly intact, Motor Exam 5/5 strength throughout, - - negative romberg. NIH is 0 Psych/Mental Status: Normal Affect, Appropriate Vital Signs Temp Pulse Resp BP Pulse Ox 98.3 F 83 18 140/80 H 96 07/29/18 13:54 07/29/18 15:42 07/29/18 15:42 07/29/18 15:42 07/29/18 15:42 Oxygen Delivery Method Room Air Weight: 328 lb Body Mass Index (BMI) 47.0 Laboratory Tests Past 24 Hrs 07/29/18 07/29/18 07/29/18 14:25 14:25 14:25 WBC 8.1 RBC 5.18 Hgb 14.6 Hct 44.7 MCV 86.3 MCH 28.2 MCHC 32.7 RDW 13.2 RDW Differential 41.9 Plt Count 154 MPV 11.4 Immature Gran % (Auto) 0.200 Neut % (Auto) 67.9 Lymph % (Auto) 24.6 [place] % (Auto) 5.2 Eos % (Auto) 1.5 Baso % (Auto) 0.6 Absolute Neuts (auto) 5.5 Absolute Lymphs (auto) 1.99 Total Counted Not Reportable PT 12.7 INR 1.0 APTT 28.4 Sodium 141 Potassium 3.9 Chloride 106 Carbon Dioxide 26.0 Anion Gap 9 BUN 13 Creatinine 0.74 Estim Creat Clear Calc 127.42 Est GFR (MDRD) Af Amer 145 Est GFR (MDRD) Non-Af 120 BUN/Creatinine Ratio 17.4 Glucose 279 H Calcium 8.7 Troponin I < 0.015 Assessment/Plan All Active Problems (Last Reviewed 07/29/18 @ 17:45 by Eugenia Mccollum, ) Chest pain (Acute) Disequilibrium (Acute) Elevated BP without diagnosis of hypertension (Acute) Diabetic toe ulcer (Resolved) Edema of right lower extremity (Resolved) Healed ulcer of right foot on examination (Resolved) Infected ulcer of skin (Resolved) Ulcer of right foot with fat layer exposed (Resolved) Ulcer of right foot with fat layer exposed (Resolved) Impressions 1. Non-specific lightheadedness and a feeling that he is falling to the left for 5 days with CTB negative for CVA. I doubt CVA. I think the left shoulder pain is due to Biceps tendonitis +/- CTS. I also think he has CTS on the left. The pain in the left medial calf with prolonged standing sounds radicular and was fleeting and not associated with weakness or paresthesias. NIH is 0. 2. CP in a pt with DMII (poorly controlled in the past), HLD, morbid obesity, smoker of cigars and strong FH of CVD is concerning. 3. Left Biceps tendonitis 4. left CTS 5. DM II 6. HLD 7. asthma - has not had to use his inhaler in over a year 8. morbid obesity 9. sustained palpitations intermittently 10. elevated BP in a pt who denies a hx of HTN Admit to a monitored bed on PCU ASA 81 mg PO daily SL NTG 0.4 mg PRN chest pain Serial Cardiac Enzymes Stat EKG PRN CP Chest XRAY Treadmill nuclear stress test in the AM if the cardiac enzymes are negative DVT prophylaxis ordered Start Lisinopril - on Losartan in the past for kidneys but, stopped and he does not know why CTA of the head and the neck tonight Code Visit OBSV E&M: 38160 Initial observation care L3
--- NOTE | 2018-07-29 17:27 | EKG12_ITS ---
Test Reason : CHEST PAIN Blood Pressure : / mmHG Vent. Rate : 085 BPM Atrial Rate : 085 BPM P-R Int : 160 ms QRS Dur : 090 ms QT Int : 342 ms P-R-T Axes : 051 -08 035 degrees QTc Int : 406 ms Normal sinus rhythm Normal ECG When compared with ECG of 29-JUL-2018 14:22, MANUAL COMPARISON REQUIRED, DATA IS UNCONFIRMED Confirmed by RENAE SIFUENTES, MEHDI ([id number]), video effects editor TABBY CASTILLO ([id number]) on 07/31/2018 1:13:54 PM Referred By: MARIANA Confirmed By:MEHDI MACDONALD MD
[2018-07-29 18:03] LABS: Magnesium 1.7 mg/dL (1.6-2.6)
[2018-07-29 18:06] LABS: Bedside Glucose 85 mg/dL (70-110)
[2018-07-29 18:39] LABS: Hemoglobin A1c 9.1 % (4.2-6.3)
[2018-07-29] MEDS: Atorvastatin Calcium 40 MG Tablet PO (22:06)
[2018-07-29 22:16] LABS: Bedside Glucose 70 mg/dL (70-110)
[2018-07-30] VITALS (7 sets, daily range): BP systolic 141–159; BP diastolic 78–90; PULSE 67–90; RESP 15–18; TEMP 36.5–36.8; O2SAT 95–99
--- NOTE | 2018-07-30 03:36 | NURSING ---
0330 PT REQUESTS BGT. RESULT IS 69. INTERVENTIONS TAKEN PER PROTOCOL. WILL CONTINUE TO MONITOR.
[2018-07-30 04:36] LABS: Bedside Glucose 69 mg/dL (70-110)
[2018-07-30 04:36] LABS: Bedside Glucose 69 mg/dL (70-110)
[2018-07-30 05:26] LABS: Bedside Glucose 85 mg/dL (70-110)
--- NOTE | 2018-07-30 05:55 | EKG12_ITS ---
Test Reason : AM EKG Blood Pressure : / mmHG Vent. Rate : 074 BPM Atrial Rate : 074 BPM P-R Int : 166 ms QRS Dur : 094 ms QT Int : 376 ms P-R-T Axes : 065 -03 010 degrees QTc Int : 417 ms Normal sinus rhythm Normal ECG When compared with ECG of 29-JUL-2018 17:32, MANUAL COMPARISON REQUIRED, DATA IS UNCONFIRMED Confirmed by RENAE SIFUENTES, MEHDI ([id number]), web editor TABBY CASTILLO ([id number]) on 07/31/2018 1:12:53 PM Referred By: MARIANA Confirmed By:MEHDI MACDONALD MD
[2018-07-30 06:11] LABS: Bedside Glucose 92 mg/dL (70-110)
[2018-07-30] MEDS: Dextrose 50%-Water 25 GM/50 ML DISP.SYRIN IV (06:23)
[2018-07-30] MEDS: 0.9% NaCl Peripheral Flush Adult/Peds IV (06:23)
[2018-07-30 06:27] LABS: Absolute Neutrophil Count 6.5 X10^3/uL (2.0-7.7); Basophil# 0.06 X10^3/uL; Basophil% 0.6 % (0-1); Eosinophil# 0.16 X10^3/uL; Eosinophils% 1.7 % (0-5); Hematocrit 42.8 % (40-54); Hemoglobin 14.3 g/dl (13.0-16.5); Lymphocyte % 24.1 % (19-41); Mean Corp Hgb Conc 33.4 g/gl (32-36); Mean Corpuscular Hgb 28.9 pg (27.0-32.0); Mean Corpuscular Volume 86.5 fL (80-94); Mean Platelet Vol. 11.4 fl (6.2-12.0); Monocyte# 0.48 X10^3/uL; Neutrophil # 6.51 X10^3/uL (2.7-7.7); Neutrophil % 68.4 % (47-70); Platelet Count 168 K/mm3 (150-450); RBC Distribution Width CV 13.5 % (11.6-14.6); RBC Distribution Width SD 41.5 fl (35.1-43.9); Red Blood Count 4.95 M/mm3 (4.6-6.2); White Blood Count 9.5 K/mm3 (4.4-11.0)
[2018-07-30] MEDS: Aspirin 81 MG TAB.CHEW PO (06:36)
[2018-07-30] MEDS: Lisinopril 5 MG Tablet PO (06:36)
[2018-07-30 06:43] LABS: AST(SGOT) 16 U/L (15-37); Alanine Aminotransfer ALT/SGPT 28 U/L (16-61); Albumin, Serum 3.2 g/dL (3.2-5.0); Alkaline Phosphatase 62 U/L (45-117); Anion Gap 7 (5-15); BUN 14 mg/dL (7-18); BUN/Creat Ratio 17.5 RATIO (10-20); Calcium,Total 8.4 mg/dL (8.5-10.1); Chloride 106 mmol/L (98-107); Cholesterol 128 mg/dL (200); EST Glomerular Filtration Rate 110 mL/min (>60); Est Glom Filt Rate - Afr Amer 134 mL/min (>60); Estimated Creatinine Clearance 117.86 ml/min; Globulin 3.2 g/dL (2.2-4.2); Glucose 90 mg/dL (74-106); High Density Lipoprotein 40 mg/dL; Magnesium 1.8 mg/dL (1.6-2.6); POSITIVE COUNT NO; POSITIVE DIFFERENTIAL NO; POSITIVE MORPHOLOGY NO; Potassium 3.6 mmol/L (3.5-5.1); Protein, Total 6.4 g/dL (6.4-8.2); Sodium Level 141 mmol/L (136-145); Triglycerides 137 mg/dL; Very Low Density Lipoprotein 27 mg/dL (5-40)
[2018-07-30 06:46] LABS: International Normalized Ratio 1.1; Prothrombin Time (Protime)PT. 13.8 SECONDS (11.7-14.9)
--- NOTE | 2018-07-30 07:45 | RAD_ITS ---
STUDY: X-RAY CHEST REASON FOR EXAM: Male, 48 years old. Dyspnea and shortness of breath. TECHNIQUE: PA and lateral views of the chest. COMPARISON: None. FINDINGS: The lungs are clear and expanded. There is no demonstrated pleural abnormality. Normal size heart. Normal mediastinum and eneida. Normal visualized pulmonary arteries. Normal visualized aortic arch and descending thoracic aorta. There are mild degenerative changes of the visualized thoracic spine. Normal visualized ribs, clavicles, and shoulders. There is no demonstrated abnormality of the visualized soft tissue structures of the upper abdomen. RAD/Chest PA and Lateral IMPRESSION: Normal x-ray examination of the chest. Electronically Signed: Eliceo Taylor MD at 11:17 EST Tel [phone], Service support ,
--- NOTE | 2018-07-30 08:31 | STRESSREP ---
Stress Test Report Upsloping ST changes only were noted not meeting criteria for ischemia. No arrhythmias were noted no clinical angina was noted. The patient complained of shortness of breath. The resting blood pressure was 148/86 with a peak blood pressure 192/94. Myocardial perfusion protocol. 14.8 mCi of technetium 99m sestamibi was injected at rest. The patient exercised according to regular De protocol for 6 minutes and 40 seconds at peak exercise 44.5 mCi of technetium 99m sestamibi was injected stress images were obtained stress and rest images were reconstructed and compared in the short axis vertical long horizontal long axis. Gated images were also obtained next Perfusion SPECT analysis: Review of the stress images demonstrate normal uptake of tracer noted in all areas of myocardium. The resting images similarly demonstrate normal uptake of tracer noted in all areas of myocardium. No areas of reversibility are noted suggest ischemia no previous infarct is noted. Gated SPECT analysis: The gated ejection fraction is noted to be 56%. Conclusion: Normal exercise myocardial perfusion stress test. Preserved ejection fraction. Exercise myocardial perfusion stress test. 48-year-old male with a history of chest pain. Medications: Lipitor, Humulin, Zestril,. Stress protocol: Resting EKG demonstrates normal sinus rhythm with a rate of 73 bpm normal intervals are noted resting blood pressure 148/86 mmHg. The patient exercised according to regular De protocol for total duration of 6 minutes and 40 seconds completing 40 seconds into stage III of the De protocol. The patient maintained sinus rhythm throughout the recording. At rest there were no ST or T wave changes noted suggest ischemia at peak exercise
[2018-07-30] MEDS: Empagliflozin 10 MG Tablet PO (08:59)
[2018-07-30] MEDS: Enoxaparin 40 MG/0.4 ML Syringe SC (09:00)
[2018-07-30 09:06] LABS: Bedside Glucose 149 mg/dL (70-110)
--- NOTE | 2018-07-30 10:14 | PCM.DC ---
- Discharge Diagnoses Current Active Problems: Current Active and Chronic Problems (Last Reviewed 07/29/18 @ 17:45 by Eugenia Mccollum DO) Chest pain (Acute) Disequilibrium (Acute) Diabetes mellitus, type II (Chronic) Elevated BP without diagnosis of hypertension (Acute) You will use the following diet at home:: Calorie/Carbohydrate Controlled (specify 1200, 1400, etc) Discharge Activity: Return to Normal Activity Call your doctor if you observe: Shortness of breath, Dizziness, Fainting spells, Chest pain Allergies/Adverse Reactions: Allergies ibuprofen Adverse Reaction (Verified 07/29/18 13:50) Other Medications to take at Discharge Aspirin [Aspirin, Baby] 81 mg PO DAILY@0800 02/18/15 Dapagliflozin Propanediol [Farxiga] 5 mg PO DAILY 02/18/15 Metformin HCl [Glucophage] 1,000 mg PO BIDCM 02/18/15 insulin regular human U- 500concentrate 500 unit/mL subcutaneous soln 75 - 85 unit SC TIDCM ml 10/11/17 Ascorbic Acid [Vitamin C] 500 mg PO DAILY@0800 07/29/18 Atorvastatin Calcium [Lipitor] 40 mg PO QHS 07/29/18 Cholecalciferol (VIT D3) [Vitamin D3] 1,000 unit PO DAILY 07/29/18 Lisinopril [Zestril] 10 mg PO DAILY #30 tablet 07/30/18 The following prescriptions were given: Lisinopril [Zestril] 10 mg PO DAILY #30 tablet Primary Care Physician: Emil Carranza NP-C [Primary Care Provider] - Please follow up with your Primary Care Physician in: 1 Week Test Results: Test results from this visit will be discussed in further detail at your follow-up appointment, if applicable. Please Follow Up With: Jeison Monge MD - Ortho, When: Call for appt for shoulder pain, left hand/arm pain Please Follow Up With: Lola Thibodeaux NP-C When: 1 Week Proposed Discharge Date: 07/30/18
--- NOTE | 2018-07-30 10:18 | DCINST_ITS ---
- Discharge Diagnoses Current Active Problems: Current Active and Chronic Problems (Last Reviewed 07/29/18 @ 17:45 by Eugenia Mccollum DO) Chest pain (Acute) Disequilibrium (Acute) Diabetes mellitus, type II (Chronic) Elevated BP without diagnosis of hypertension (Acute) You will use the following diet at home:: Calorie/Carbohydrate Controlled (specify 1200, 1400, etc) Discharge Activity: Return to Normal Activity Call your doctor if you observe: Shortness of breath, Dizziness, Fainting spells, Chest pain Allergies/Adverse Reactions: Allergies ibuprofen Adverse Reaction (Verified 07/29/18 13:50) Other Medications to take at Discharge Aspirin [Aspirin, Baby] 81 mg PO DAILY@0800 02/18/15 Dapagliflozin Propanediol [Farxiga] 5 mg PO DAILY 02/18/15 Metformin HCl [Glucophage] 1,000 mg PO BIDCM 02/18/15 insulin regular human U- 500concentrate 500 unit/mL subcutaneous soln 75 - 85 unit SC TIDCM ml 10/11/17 Ascorbic Acid [Vitamin C] 500 mg PO DAILY@0800 07/29/18 Atorvastatin Calcium [Lipitor] 40 mg PO QHS 07/29/18 Cholecalciferol (VIT D3) [Vitamin D3] 1,000 unit PO DAILY 07/29/18 Lisinopril [Zestril] 10 mg PO DAILY #30 tablet 07/30/18 The following prescriptions were given: Lisinopril [Zestril] 10 mg PO DAILY #30 tablet Primary Care Physician: Emil Carranza NP-C [Primary Care Provider] - Please follow up with your Primary Care Physician in: 1 Week Test Results: Test results from this visit will be discussed in further detail at your follow- up appointment, if applicable. Please Follow Up With: Jeison Monge MD - Ortho, When: Call for appt for shoulder pain, left hand/arm pain Please Follow Up With: Lola Thibodeaux NP-C When: 1 Week Proposed Discharge Date: 07/30/18
--- NOTE | 2018-07-30 10:21 | PCM.DC.SUM ---
<Brinda Pérez - Last Filed: 07/30/18 10:43> Discharge Date and Diagnosis Date of Admission: 07/29/18 Date of Discharge: 07/30/18 - Primary Discharge Diagnosis Active and Suspected Problems (Last Reviewed 07/29/18 @ 17:45 by Eugenia Mccollum DO) 1. Atypical chest pain- ACS ruled out 2. Elevated BP without diagnosis of hypertension 3. Lightheadedness, suspected secondary to #2 4. Left shoulder pain, suspected biceps tendonitis 5. Suspected left hand carpel tunnel syndrome 6. Type 2 diabetes mellitus, poorly controlled 7. Hyperlipidemia 8. Mild intermittent asthma 9. 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 Electronically Signed: Christian Lam MD at 15:34 EST , Service support , Cervical Spine CT 07/29/18 14:13 IMPRESSION: Normal unenhanced CT examination of the cervical spine. Electronically Signed: Christian Lam MD at 15:34 EST , Service support , Head CTA 07/29/18 17:19 IMPRESSION: Normal clark's point of [place] without a demonstrated aneurysm or significant stenosis. Electronically Signed: Jackie Newton MD at 19:40 EST Tel , Service support , Neck CTA 07/29/18 17:19 IMPRESSION: Normal bilateral cervical carotid and vertebral arteries. Electronically Signed: Piero Redd MD at 19:07 EST , Service support , Operations: None Procedures: 2-D Echocardiogram, Stress test Summary of Care Provided: The patient is a 48 year old M admitted 07/29/18 due to dizziness, chest pain, palpitations and left shoulder/left arm pain. 1. Atypical chest pain- ACS ruled out. Troponin negative. EKG without ST-T changes. Patient underwent nuclear stress test which was negative for ischemia. Echocardiogram completed, results pending. Will be reviewed prior to discharge. 2. Elevated BP without diagnosis of hypertension-started on lisinopril 10 mg daily. Will need further outpatient monitoring. 3. Lightheadedness, suspected secondary to #2-brain CT, cervical spine CT, head and neck CTA all normal. 4. Left shoulder pain, suspected biceps tendonitis-refer to ortho as outpatient. This has been an ongoing sx for patient. He does repetitive movement for work. 5. Suspected left hand carpel tunnel syndrome-refer to ortho as outpatient. Sx have been ongoing. He does repetitive movement for work. 6. Type 2 diabetes mellitus, poorly controlled-hemoglobin A1c 9.1%. Patient follows NADINE Thibodeaux. Follow up in 1 Week. 7. Hyperlipidemia- continue statin. 8. Mild intermittent asthma-no acute exacerbation. 9. Morbid obesity-encouraged diet and lifestyle modifications. General: Alert, Oriented x3, Cooperative, No apparent distress HEENT: Atraumatic, PERRLA, EOMI, Normocephalic Oral: Moist Mucosa Neck: Supple, No JVD, Negative Carotid Bruits, No Nodes Lungs: Clear to auscultation, Normal air movement Cardiovascular: Regular rate, Regular Rhythm, Normal S1, Normal S2, No murmurs Abdomen: Bowel Sounds Present, Soft, Non Tender, Non-Distended, Obese Extremities: No clubbing, No cyanosis, No edema Skin: No rashes, No breakdown Musculoskeletal: No Tenderness to Palpation of Joints or Extremities, No Muscle Wasting Neurological: Cranial nerves II-XII grossly intact, Neuro grossly intact Psych/Mental Status: Normal Affect, Appropriate Patient seen and examined prior to discharge. Physical assessment as noted above. Patient is stable for discharge with follow up recommendations as noted above. This patient was seen by JUSTIN Monterroso under the supervision of Dr. Salazar. - Physical Exam Vital Signs Temp Pulse Resp BP Pulse Ox 98.3 F 83 18 141/78 H 95 07/30/18 08:25 07/30/18 08:25 07/30/18 08:25 07/30/18 08:25 07/30/18 08:25 Oxygen Delivery Method Room Air Weight: 328 lb Body Mass Index (BMI) 47.0 Intake and Output for Last 24 Hours 07/28/18 07/29/18 07/30/18 23:59 23:59 23:59 Intake Total 100 / 100 1600 / 1600 Balance 100 / 100 1600 / 1600 Laboratory Tests Past 24 Hrs 07/29/18 07/29/18 07/29/18 14:25 14:25 14:25 WBC 8.1 RBC 5.18 Hgb 14.6 Hct 44.7 MCV 86.3 MCH 28.2 MCHC 32.7 RDW 13.2 RDW Differential 41.9 Plt Count 154 MPV 11.4 Immature Gran % (Auto) 0.200 Neut % (Auto) 67.9 Lymph % (Auto) 24.6 [place] % (Auto) 5.2 Eos % (Auto) 1.5 Baso % (Auto) 0.6 Absolute Neuts (auto) 5.5 Absolute Lymphs (auto) 1.99 Total Counted Not Reportable PT 12.7 INR 1.0 APTT 28.4 Sodium 141 Potassium 3.9 Chloride 106 Carbon Dioxide 26.0 Anion Gap 9 BUN 13 Creatinine 0.74 Estim Creat Clear Calc 127.42 Est GFR (MDRD) Af Amer 145 Est GFR (MDRD) Non-Af 120 BUN/Creatinine Ratio 17.4 Glucose 279 H Hemoglobin A1c Calcium 8.7 Magnesium Total Bilirubin AST ALT Alkaline Phosphatase Troponin I < 0.015 Total Protein Albumin Globulin Albumin/Globulin Ratio Triglycerides Cholesterol LDL Cholesterol VLDL Cholesterol HDL Cholesterol 07/29/18 07/29/18 07/29/18 14:25 17:35 20:30 WBC RBC Hgb Hct MCV MCH MCHC RDW RDW Differential Plt Count MPV Immature Gran % (Auto) Neut % (Auto) Lymph % (Auto) [place] % (Auto) Eos % (Auto) Baso % (Auto) Absolute Neuts (auto) Absolute Lymphs (auto) Total Counted PT INR APTT Sodium Potassium Chloride Carbon Dioxide Anion Gap BUN Creatinine Estim Creat Clear Calc Est GFR (MDRD) Af Amer Est GFR (MDRD) Non-Af BUN/Creatinine Ratio Glucose Hemoglobin A1c 9.1 H Calcium Magnesium 1.7 Total Bilirubin AST ALT Alkaline Phosphatase Troponin I < 0.015 < 0.015 Total Protein Albumin Globulin Albumin/Globulin Ratio Triglycerides Cholesterol LDL Cholesterol VLDL Cholesterol HDL Cholesterol 07/30/18 07/30/18 07/30/18 05:33 05:33 05:33 WBC 9.5 RBC 4.95 Hgb 14.3 Hct 42.8 MCV 86.5 MCH 28.9 MCHC 33.4 RDW 13.5 RDW Differential 41.5 Plt Count 168 MPV 11.4 Immature Gran % (Auto) 0.200 Neut % (Auto) 68.4 Lymph % (Auto) 24.1 [place] % (Auto) 5.0 Eos % (Auto) 1.7 Baso % (Auto) 0.6 Absolute Neuts (auto) 6.5 Absolute Lymphs (auto) 2.30 Total Counted Not Reportable PT 13.8 INR 1.1 APTT 29.0 Sodium 141 Potassium 3.6 Chloride 106 Carbon Dioxide 28.0 Anion Gap 7 BUN 14 Creatinine 0.80 Estim Creat Clear Calc 117.86 Est GFR (MDRD) Af Amer 134 Est GFR (MDRD) Non-Af 110 BUN/Creatinine Ratio 17.5 Glucose 90 Hemoglobin A1c Calcium 8.4 L Magnesium 1.8 Total Bilirubin 0.30 AST 16 ALT 28 Alkaline Phosphatase 62 Troponin I Total Protein 6.4 Albumin 3.2 Globulin 3.2 Albumin/Globulin Ratio 1.0 Triglycerides 137 Cholesterol 128 LDL Cholesterol 61 VLDL Cholesterol 27 HDL Cholesterol 40 POC Glucose 07/30/18 07/30/18 07/30/18 08:58 06:03 05:20 POC Glucose 149 H 92 85 07/30/18 07/30/18 07/29/18 04:31 03:25 22:06 POC Glucose 69 L 69 L 70 07/29/18 18:02 POC Glucose 85 Discharge Diet: 1800 Calorie Control Diet, Carb Control Diet Discharge Activity: Return to Normal Activity Call your doctor if you observe: Shortness of breath, Dizziness, Fainting spells, Chest pain Home Medications: Medications to take at Discharge Aspirin [Aspirin, Baby] 81 mg PO DAILY@0800 02/18/15 Dapagliflozin Propanediol [Farxiga] 5 mg PO DAILY 02/18/15 Metformin HCl [Glucophage] 1,000 mg PO BIDCM 02/18/15 insulin regular human U- 500concentrate 500 unit/mL subcutaneous soln 75 - 85 unit SC TIDCM ml 10/11/17 Ascorbic Acid [Vitamin C] 500 mg PO DAILY@0800 07/29/18 Atorvastatin Calcium [Lipitor] 40 mg PO QHS 07/29/18 Cholecalciferol (VIT D3) [Vitamin D3] 1,000 unit PO DAILY 07/29/18 Lisinopril [Zestril] 10 mg PO DAILY #30 tablet 07/30/18 Following Prescrptions Were Given to Patient: Lisinopril [Zestril] 10 mg PO DAILY #30 tablet Primary Care Physician: Emil Carranza, [employer]UTIONS DIRECTOR-C [Primary Care Provider] - Please follow up with your Primary Care Physician in: 1 Week Please Follow Up With: Jeison Monge MD - Ortho, When: Call for appt for shoulder pain, left hand/arm pain Please Follow Up With: Lola Thibodeaux NP-C When: 1 Week Disposition: Home Minutes spent on discharge:: 35 Patient Condition:: Stable Medical Necessity - Tobacco Use Smoking Status: Current some day smoker Tobacco Use: Cigars Meaningful Use Info Meaningful Use Diagnoses (Choose all that apply): None applicable <German Salazar - Last Filed: 07/30/18 15:27> Discharge Date and Diagnosis - Secondary Discharge Diagnosis Chronic Problems (Last Reviewed 07/29/18 @ 17:45 by Eugenia Mccollum DO) Diabetes mellitus, type II (Chronic) 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 Data reviewed. I agree with the above note by the nurse practitioner. The patient is a 48 year old M presents with chest pain. Patient underwent a stress test that was unremarkable. Patient was complained of some dizziness but that overall seem to be improved. Patient was also noted to be on the lisinopril. Patient continue with that. Patient also did complain of some somatic complaints in his left upper extremity. Involving the medial aspect of his forearm. Concern is the patient may have some ulnar neuropathy and advised to try to keep his arm straight while asleep either talking his arm between his legs or wrapping with a towel or some other substance substance to prevent from bending his arm when he sleeps. Patient will be following up with orthopedics for further evaluation. [] - Physical Exam General: Alert, Cooperative, No apparent distress HEENT: Atraumatic, Normocephalic Oral: Moist Mucosa, No Gingival or Mucosal Lesions/ Ulcerations Lungs: Clear to auscultation, Normal air movement, No rhonchi, No wheeze Cardiovascular: Regular rate, Regular Rhythm, Normal S1, Normal S2, No murmurs Vital Signs Temp Pulse Resp BP Pulse Ox 36.8 C 78 18 149/83 H 95 07/30/18 08:25 07/30/18 11:04 07/30/18 08:25 07/30/18 11:04 07/30/18 08:25 Oxygen Delivery Method Room Air Weight: 148.778 kg Body Mass Index (BMI) 47.0 Intake and Output for Last 24 Hours 07/28/18 07/29/18 07/30/18 23:59 23:59 23:59 Intake Total 100 / 100 1600 / 1600 Balance 100 / 100 1600 / 1600 Laboratory Tests Past 24 Hrs 07/29/18 07/29/18 07/29/18 14:25 17:35 20:30 WBC RBC Hgb Hct MCV MCH MCHC RDW RDW Differential Plt Count MPV Immature Gran % (Auto) Neut % (Auto) Lymph % (Auto) [place] % (Auto) Eos % (Auto) Baso % (Auto) Absolute Neuts (auto) Absolute Lymphs (auto) Total Counted PT INR APTT Sodium Potassium Chloride Carbon Dioxide Anion Gap BUN Creatinine Estim Creat Clear Calc Est GFR (MDRD) Af Amer Est GFR (MDRD) Non-Af BUN/Creatinine Ratio Glucose Hemoglobin A1c 9.1 H Calcium Magnesium 1.7 Total Bilirubin AST ALT Alkaline Phosphatase Troponin I < 0.015 < 0.015 Total Protein Albumin Globulin Albumin/Globulin Ratio Triglycerides Cholesterol LDL Cholesterol VLDL Cholesterol HDL Cholesterol 07/30/18 07/30/18 07/30/18 05:33 05:33 05:33 WBC 9.5 RBC 4.95 Hgb 14.3 Hct 42.8 MCV 86.5 MCH 28.9 MCHC 33.4 RDW 13.5 RDW Differential 41.5 Plt Count 168 MPV 11.4 Immature Gran % (Auto) 0.200 Neut % (Auto) 68.4 Lymph % (Auto) 24.1 [place] % (Auto) 5.0 Eos % (Auto) 1.7 Baso % (Auto) 0.6 Absolute Neuts (auto) 6.5 Absolute Lymphs (auto) 2.30 Total Counted Not Reportable PT 13.8 INR 1.1 APTT 29.0 Sodium 141 Potassium 3.6 Chloride 106 Carbon Dioxide 28.0 Anion Gap 7 BUN 14 Creatinine 0.80 Estim Creat Clear Calc 117.86 Est GFR (MDRD) Af Amer 134 Est GFR (MDRD) Non-Af 110 BUN/Creatinine Ratio 17.5 Glucose 90 Hemoglobin A1c Calcium 8.4 L Magnesium 1.8 Total Bilirubin 0.30 AST 16 ALT 28 Alkaline Phosphatase 62 Troponin I Total Protein 6.4 Albumin 3.2 Globulin 3.2 Albumin/Globulin Ratio 1.0 Triglycerides 137 Cholesterol 128 LDL Cholesterol 61 VLDL Cholesterol 27 HDL Cholesterol 40 POC Glucose 07/30/18 07/30/18 07/30/18 08:58 06:03 05:20 POC Glucose 149 H 92 85 07/30/18 07/30/18 07/29/18 04:31 03:25 22:06 POC Glucose 69 L 69 L 70 07/29/18 18:02 POC Glucose 85 Discharge Diet: 1800 Calorie Control Diet, Carb Control Diet Discharge Activity: Return to Normal Activity Call your doctor if you observe: Shortness of breath, Dizziness, Fainting spells, Chest pain Disposition: Home Minutes spent on discharge:: 35 Patient Condition:: Stable Medical Necessity - Tobacco Use Smoking Status: Current some day smoker Tobacco Use: Cigars Meaningful Use Info Meaningful Use Diagnoses (Choose all that apply): None applicable Code Visit OBSV E&M: 24777 Observation care discharge
--- NOTE | 2018-07-30 10:26 | DS.PCM_ITS ---
<Brinda Pérez - Last Filed: 07/30/18 10:43> Discharge Date and Diagnosis Date of Admission: 07/29/18 Date of Discharge: 07/30/18 - Primary Discharge Diagnosis Active and Suspected Problems (Last Reviewed 07/29/18 @ 17:45 by Eugenia Mccollum DO) 1. Atypical chest pain- ACS ruled out 2. Elevated BP without diagnosis of hypertension 3. Lightheadedness, suspected secondary to #2 4. Left shoulder pain, suspected biceps tendonitis 5. Suspected left hand carpel tunnel syndrome 6. Type 2 diabetes mellitus, poorly controlled 7. Hyperlipidemia 8. Mild intermittent asthma 9. 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 Electronically Signed: Christian Lam MD at 15:34 EST , Service support , Cervical Spine CT 07/29/18 14:13 IMPRESSION: Normal unenhanced CT examination of the cervical spine. Electronically Signed: Christian aLm MD at 15:34 EST , Service support , Head CTA 07/29/18 17:19 IMPRESSION: Normal [place] without a demonstrated aneurysm or significant stenosis. Electronically Signed: Jackie Newton MD at 19:40 EST Tel , Service support , Neck CTA 07/29/18 17:19 IMPRESSION: Normal bilateral cervical carotid and vertebral arteries. Electronically Signed: Piero Redd MD at 19:07 EST , Service support , Operations: None Procedures: 2-D Echocardiogram, Stress test Summary of Care Provided: The patient is a 48 year old M admitted 07/29/18 due to dizziness, chest pain, palpitations and left shoulder/left arm pain. 1. Atypical chest pain- ACS ruled out. Troponin negative. EKG without ST-T changes. Patient underwent nuclear stress test which was negative for ischemia. Echocardiogram completed, results pending. Will be reviewed prior to discharge. 2. Elevated BP without diagnosis of hypertension-started on lisinopril 10 mg daily. Will need further outpatient monitoring. 3. Lightheadedness, suspected secondary to #2-brain CT, cervical spine CT, head and neck CTA all normal. 4. Left shoulder pain, suspected biceps tendonitis-refer to ortho as outpatient. This has been an ongoing sx for patient. He does repetitive movement for work. 5. Suspected left hand carpel tunnel syndrome-refer to ortho as outpatient. Sx have been ongoing. He does repetitive movement for work. 6. Type 2 diabetes mellitus, poorly controlled-hemoglobin A1c 9.1%. Patient follows [facility] Thibodeaux. Follow up in 1 Week. 7. Hyperlipidemia- continue statin. 8. Mild intermittent asthma-no acute exacerbation. 9. Morbid obesity-encouraged diet and lifestyle modifications. General: Alert, Oriented x3, Cooperative, No apparent distress HEENT: Atraumatic, PERRLA, EOMI, Normocephalic Oral: Moist Mucosa Neck: Supple, No JVD, Negative Carotid Bruits, No Nodes Lungs: Clear to auscultation, Normal air movement Cardiovascular: Regular rate, Regular Rhythm, Normal S1, Normal S2, No murmurs Abdomen: Bowel Sounds Present, Soft, Non Tender, Non-Distended, Obese Extremities: No clubbing, No cyanosis, No edema Skin: No rashes, No breakdown Musculoskeletal: No Tenderness to Palpation of Joints or Extremities, No Muscle Wasting Neurological: Cranial nerves II-XII grossly intact, Neuro grossly intact Psych/Mental Status: Normal Affect, Appropriate Patient seen and examined prior to discharge. Physical assessment as noted above. Patient is stable for discharge with follow up recommendations as noted above. This patient was seen by JUSTIN Monterroso under the supervision of Dr. Salazar. - Physical Exam Vital Signs Temp Pulse Resp BP Pulse Ox 98.3 F 83 18 141/78 H 95 07/30/18 08:25 07/30/18 08:25 07/30/18 08:25 07/30/18 08:25 07/30/18 08:25 Oxygen Delivery Method Room Air Weight: 328 lb Body Mass Index (BMI) 47.0 Intake and Output for Last 24 Hours 07/28/18 07/29/18 07/30/18 23:59 23:59 23:59 Intake Total 100 / 100 1600 / 1600 Balance 100 / 100 1600 / 1600 Laboratory Tests Past 24 Hrs 07/29/18 07/29/18 07/29/18 14:25 14:25 14:25 WBC 8.1 RBC 5.18 Hgb 14.6 Hct 44.7 MCV 86.3 MCH 28.2 MCHC 32.7 RDW 13.2 RDW Differential 41.9 Plt Count 154 MPV 11.4 Immature Gran % (Auto) 0.200 Neut % (Auto) 67.9 Lymph % (Auto) 24.6 Dickens % (Auto) 5.2 Eos % (Auto) 1.5 Baso % (Auto) 0.6 Absolute Neuts (auto) 5.5 Absolute Lymphs (auto) 1.99 Total Counted Not Reportable PT 12.7 INR 1.0 APTT 28.4 Sodium 141 Potassium 3.9 Chloride 106 Carbon Dioxide 26.0 Anion Gap 9 BUN 13 Creatinine 0.74 Estim Creat Clear Calc 127.42 Est GFR (MDRD) Af Amer 145 Est GFR (MDRD) Non-Af 120 BUN/Creatinine Ratio 17.4 Glucose 279 H Hemoglobin A1c Calcium 8.7 Magnesium Total Bilirubin AST ALT Alkaline Phosphatase Troponin I < 0.015 Total Protein Albumin Globulin Albumin/Globulin Ratio Triglycerides Cholesterol LDL Cholesterol VLDL Cholesterol HDL Cholesterol 07/29/18 07/29/18 07/29/18 14:25 17:35 20:30 WBC RBC Hgb Hct MCV MCH MCHC RDW RDW Differential Plt Count MPV Immature Gran % (Auto) Neut % (Auto) Lymph % (Auto) Dickens % (Auto) Eos % (Auto) Baso % (Auto) Absolute Neuts (auto) Absolute Lymphs (auto) Total Counted PT INR APTT Sodium Potassium Chloride Carbon Dioxide Anion Gap BUN Creatinine Estim Creat Clear Calc Est GFR (MDRD) Af Amer Est GFR (MDRD) Non-Af BUN/Creatinine Ratio Glucose Hemoglobin A1c 9.1 H Calcium Magnesium 1.7 Total Bilirubin AST ALT Alkaline Phosphatase Troponin I < 0.015 < 0.015 Total Protein Albumin Globulin Albumin/Globulin Ratio Triglycerides Cholesterol LDL Cholesterol VLDL Cholesterol HDL Cholesterol 07/30/18 07/30/18 07/30/18 05:33 05:33 05:33 WBC 9.5 RBC 4.95 Hgb 14.3 Hct 42.8 MCV 86.5 MCH 28.9 MCHC 33.4 RDW 13.5 RDW Differential 41.5 Plt Count 168 MPV 11.4 Immature Gran % (Auto) 0.200 Neut % (Auto) 68.4 Lymph % (Auto) 24.1 Dickens % (Auto) 5.0 Eos % (Auto) 1.7 Baso % (Auto) 0.6 Absolute Neuts (auto) 6.5 Absolute Lymphs (auto) 2.30 Total Counted Not Reportable PT 13.8 INR 1.1 APTT 29.0 Sodium 141 Potassium 3.6 Chloride 106 Carbon Dioxide 28.0 Anion Gap 7 BUN 14 Creatinine 0.80 Estim Creat Clear Calc 117.86 Est GFR (MDRD) Af Amer 134 Est GFR (MDRD) Non-Af 110 BUN/Creatinine Ratio 17.5 Glucose 90 Hemoglobin A1c Calcium 8.4 L Magnesium 1.8 Total Bilirubin 0.30 AST 16 ALT 28 Alkaline Phosphatase 62 Troponin I Total Protein 6.4 Albumin 3.2 Globulin 3.2 Albumin/Globulin Ratio 1.0 Triglycerides 137 Cholesterol 128 LDL Cholesterol 61 VLDL Cholesterol 27 HDL Cholesterol 40 POC Glucose 07/30/18 07/30/18 07/30/18 08:58 06:03 05:20 POC Glucose 149 H 92 85 07/30/18 07/30/18 07/29/18 04:31 03:25 22:06 POC Glucose 69 L 69 L 70 07/29/18 18:02 POC Glucose 85 Discharge Diet: 1800 Calorie Control Diet, Carb Control Diet Discharge Activity: Return to Normal Activity Call your doctor if you observe: Shortness of breath, Dizziness, Fainting spells, Chest pain Home Medications: Medications to take at Discharge Aspirin [Aspirin, Baby] 81 mg PO DAILY@0800 02/18/15 Dapagliflozin Propanediol [Farxiga] 5 mg PO DAILY 02/18/15 Metformin HCl [Glucophage] 1,000 mg PO BIDCM 02/18/15 insulin regular human U- 500concentrate 500 unit/mL subcutaneous soln 75 - 85 unit SC TIDCM ml 10/11/17 Ascorbic Acid [Vitamin C] 500 mg PO DAILY@0800 07/29/18 Atorvastatin Calcium [Lipitor] 40 mg PO QHS 07/29/18 Cholecalciferol (VIT D3) [Vitamin D3] 1,000 unit PO DAILY 07/29/18 Lisinopril [Zestril] 10 mg PO DAILY #30 tablet 07/30/18 Following Prescrptions Were Given to Patient: Lisinopril [Zestril] 10 mg PO DAILY #30 tablet Primary Care Physician: Emil Carranza, [employer]-C [Primary Care Provider] - Please follow up with your Primary Care Physician in: 1 Week Please Follow Up With: Jeison Monge MD - Ortho, When: Call for appt for shoulder pain, left hand/arm pain Please Follow Up With: Lola Thibodeaux NP-C When: 1 Week Disposition: Home Minutes spent on discharge:: 35 Patient Condition:: Stable Medical Necessity - Tobacco Use Smoking Status: Current some day smoker Tobacco Use: Cigars Meaningful Use Info Meaningful Use Diagnoses (Choose all that apply): None applicable <German Salazar - Last Filed: 07/30/18 15:27> Discharge Date and Diagnosis - Secondary Discharge Diagnosis Chronic Problems (Last Reviewed 07/29/18 @ 17:45 by Eugenia Mccollum DO) Diabetes mellitus, type II (Chronic) 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 Data reviewed. I agree with the above note by the nurse practitioner. The patient is a 48 year old M presents with chest pain. Patient underwent a stress test that was unremarkable. Patient was complained of some dizziness but that overall seem to be improved. Patient was also noted to be on the lisinopril. Patient continue with that. Patient also did complain of some somatic complaints in his left upper extremity. Involving the medial aspect of his forearm. Concern is the patient may have some ulnar neuropathy and advised to try to keep his arm straight while asleep either talking his arm between his legs or wrapping with a towel or some other substance substance to prevent from bending his arm when he sleeps. Patient will be following up with orthopedics for further evaluation. [] - Physical Exam General: Alert, Cooperative, No apparent distress HEENT: Atraumatic, Normocephalic Oral: Moist Mucosa, No Gingival or Mucosal Lesions/ Ulcerations Lungs: Clear to auscultation, Normal air movement, No rhonchi, No wheeze Cardiovascular: Regular rate, Regular Rhythm, Normal S1, Normal S2, No murmurs Vital Signs Temp Pulse Resp BP Pulse Ox 36.8 C 78 18 149/83 H 95 07/30/18 08:25 07/30/18 11:04 07/30/18 08:25 07/30/18 11:04 07/30/18 08:25 Oxygen Delivery Method Room Air Weight: 148.778 kg Body Mass Index (BMI) 47.0 Intake and Output for Last 24 Hours 07/28/18 07/29/18 07/30/18 23:59 23:59 23:59 Intake Total 100 / 100 1600 / 1600 Balance 100 / 100 1600 / 1600 Laboratory Tests Past 24 Hrs 07/29/18 07/29/18 07/29/18 14:25 17:35 20:30 WBC RBC Hgb Hct MCV MCH MCHC RDW RDW Differential Plt Count MPV Immature Gran % (Auto) Neut % (Auto) Lymph % (Auto) Dickens % (Auto) Eos % (Auto) Baso % (Auto) Absolute Neuts (auto) Absolute Lymphs (auto) Total Counted PT INR APTT Sodium Potassium Chloride Carbon Dioxide Anion Gap BUN Creatinine Estim Creat Clear Calc Est GFR (MDRD) Af Amer Est GFR (MDRD) Non-Af BUN/Creatinine Ratio Glucose Hemoglobin A1c 9.1 H Calcium Magnesium 1.7 Total Bilirubin AST ALT Alkaline Phosphatase Troponin I < 0.015 < 0.015 Total Protein Albumin Globulin Albumin/Globulin Ratio Triglycerides Cholesterol LDL Cholesterol VLDL Cholesterol HDL Cholesterol 07/30/18 07/30/18 07/30/18 05:33 05:33 05:33 WBC 9.5 RBC 4.95 Hgb 14.3 Hct 42.8 MCV 86.5 MCH 28.9 MCHC 33.4 RDW 13.5 RDW Differential 41.5 Plt Count 168 MPV 11.4 Immature Gran % (Auto) 0.200 Neut % (Auto) 68.4 Lymph % (Auto) 24.1 Dickens % (Auto) 5.0 Eos % (Auto) 1.7 Baso % (Auto) 0.6 Absolute Neuts (auto) 6.5 Absolute Lymphs (auto) 2.30 Total Counted Not Reportable PT 13.8 INR 1.1 APTT 29.0 Sodium 141 Potassium 3.6 Chloride 106 Carbon Dioxide 28.0 Anion Gap 7 BUN 14 Creatinine 0.80 Estim Creat Clear Calc 117.86 Est GFR (MDRD) Af Amer 134 Est GFR (MDRD) Non-Af 110 BUN/Creatinine Ratio 17.5 Glucose 90 Hemoglobin A1c Calcium 8.4 L Magnesium 1.8 Total Bilirubin 0.30 AST 16 ALT 28 Alkaline Phosphatase 62 Troponin I Total Protein 6.4 Albumin 3.2 Globulin 3.2 Albumin/Globulin Ratio 1.0 Triglycerides 137 Cholesterol 128 LDL Cholesterol 61 VLDL Cholesterol 27 HDL Cholesterol 40 POC Glucose 07/30/18 07/30/18 07/30/18 08:58 06:03 05:20 POC Glucose 149 H 92 85 07/30/18 07/30/18 07/29/18 04:31 03:25 22:06 POC Glucose 69 L 69 L 70 07/29/18 18:02 POC Glucose 85 Discharge Diet: 1800 Calorie Control Diet, Carb Control Diet Discharge Activity: Return to Normal Activity Call your doctor if you observe: Shortness of breath, Dizziness, Fainting spells, Chest pain Disposition: Home Minutes spent on discharge:: 35 Patient Condition:: Stable Medical Necessity - Tobacco Use Smoking Status: Current some day smoker Tobacco Use: Cigars Meaningful Use Info Meaningful Use Diagnoses (Choose all that apply): None applicable Code Visit OBSV E&M: 27616 Observation care discharge
--- NOTE | 2018-07-30 10:49 | PHA.DC.MC ---
Pharmacy Service has performed discharge medication reconciliation and counseling for this patient. The patient's discharge medication list was reviewed for discrepancies and discrepancies were resolved. The patient was counseled on the following discharge medications and changes in medications for homegoing were reviewed. LISINOPRIL 10M TABLET PO DAILY The Reason for Use, instructions for use, and potential side effects were reviewed for all new medications. The patient's questions regarding all of their medications were answered. The patient was able to verbally demonstrate an understanding of their discharge medications. Of note, pt takes U-500 medication at home. Pt was able to inform me he takes the injector pen formulation of this medication. Was able to demonstrate competency in use, signs and symptoms of hypoglycemia, and how to treat hypoglycemia. All patient questions were addressed and answered. Home Medications Aspirin [Aspirin, Baby] 81 mg PO DAILY@0800 02/18/15 Dapagliflozin Propanediol [Farxiga] 5 mg PO DAILY 02/18/15 Metformin HCl [Glucophage] 1,000 mg PO BIDCM 02/18/15 insulin regular human U- 500concentrate 500 unit/mL subcutaneous soln 75 - 85 unit SC TIDCM ml 10/11/17 Ascorbic Acid [Vitamin C] 500 mg PO DAILY@0800 07/29/18 Atorvastatin Calcium [Lipitor] 40 mg PO QHS 07/29/18 Cholecalciferol (VIT D3) [Vitamin D3] 1,000 unit PO DAILY 07/29/18 Lisinopril [Zestril] 10 mg PO DAILY #30 tablet 07/30/18
--- OUTSIDE RECORDS SUMMARY | 2018-10-01 11:51 | XMS RPT_ITS ---
:1970 Author Organization [facility] Support Name Relationship Address Phone KITTY Unavailable [address] + [place] [address] ERNESTO COLLINS Unavailable [address] [place] [address] JODI COLLINS JR Unavailable Unavailable + [place] [address] KITTY Unavailable [address] + [place] [address] ERNESTO COLLINS Unavailable [address] [place] [address] JODI COLLINS JR Unavailable Unavailable + [place] [address] KITTY Unavailable [address] + [place] [address] ERNESTO COLLINS Unavailable [address] [place] [address] JODI COLLINS JR Unavailable Unavailable + [place] [address] ERNESTO COLLINS Unavailable Unavailable + JODI COLLINS Unavailable Unavailable + JODI COLLINS Unavailable Unavailable + KITTY Unavailable [address] + [place] [address] ERNESTO COLLINS Unavailable [address] [place] [address] JODI COLLINS JR Unavailable Unavailable + [place] [address] KITTY Unavailable [address] + [place] [address] ERNESTO COLLINS Unavailable [address] [place] [address] JODI COLLINS JR Unavailable Unavailable + [place] [address] KITTY Unavailable [address] + [place] [address] ERNESTO COLLINS Unavailable [address] [place] [address] JODI COLLINS JR Unavailable Unavailable + [place] [address] KITTY Unavailable [address] + [place] [address] ERNESTO COLLINS Unavailable [address] [place] [address] JODI COLLINS JR Unavailable [address] + [facility] [place] [address] ERNESTO COLLINS Unavailable Unavailable + JODI COLLINS Unavailable Unavailable + JODI COLLINS Unavailable Unavailable + KITTY Unavailable [address] + [place] [address] ERNESTO COLLINS Unavailable [address] [place] [address] JODI COLLINS JR Unavailable [address] + [facility] [place] [address] KITTY Unavailable [address] + [place] [address] ERNESTO COLLINS Unavailable [address] [place] [address] JODI COLLINS JR Unavailable [address] + [place] [address] KITTY Unavailable [address] + [place] [address] ERNESTO COLLINS Unavailable [address] [place] [address] JODI COLLINS JR Unavailable [address] + [place] [address] KITTY Unavailable [address] + [place] [address] ERNESTO COLLINS Unavailable [address] [place] [address] JODI COLLINS JR Unavailable [address] + [place] [address] KITTY Unavailable [address] + [place] [address] BRET COLLINSN Unavailable [address] [place] [address] JODI COLLINS JR Unavailable [address] + [place] [address] Care Team Providers Name Role Phone EMIL CARRANZA CNP Attending Unavailable EMIL CARRANZA CNP Primary Care Unavailable EMIL CARRANZA CNP Attending Unavailable TEREEMIL DELAROSA CNP Primary Care Unavailable Emil Carranza HEALTHCARE CUSTOMER SERVICE-C Primary Care Unavailable Sementi, Neda Admitting Unavailable Jopperi, German Attending Unavailable Sementi, Neda Admitting Unavailable Mariana, Neda Attending Unavailable Emil Carranza HEALTHCARE CUSTOMER SERVICE-C Primary Care Unavailable Timoteoti, Neda Consulting Unavailable Abbyone, Latrice Attending Unavailable Rj, Latrice Referring Unavailable Emil Carranza HEALTHCARE CUSTOMER SERVICE-C Primary Care Unavailable Abbyone, Latrice Attending Unavailable Emil Carranza HEALTHCARE CUSTOMER SERVICE-C Primary Care Unavailable Rj, Latrice Attending Unavailable Emil Carranza HEALTHCARE CUSTOMER SERVICE-C Primary Care Unavailable Sementi, Neda Admitting Unavailable Brinda Pérez NP-Sofi Attending Unavailable Emil Carranza HEALTHCARE CUSTOMER SERVICE-C Primary Care Unavailable Jovannapperi, German Consulting Unavailable Abbyone, Latrice Attending Unavailable Abbyone, Latrice Referring Unavailable Emil Carranza HEALTHCARE CUSTOMER SERVICE-C Primary Care Unavailable Lola Thibodeaux HEALTHCARE CUSTOMER SERVICE-C Attending Unavailable Emil Carranza HEALTHCARE CUSTOMER SERVICE-C Referring Unavailable Emil Carranza HEALTHCARE CUSTOMER SERVICE-C Primary Care Unavailable Abbyone, Latrice Attending Unavailable Rj, Latrice Referring Unavailable Emil Carranza HEALTHCARE CUSTOMER SERVICE-C Primary Care Unavailable Lola Thibodeaux HEALTHCARE CUSTOMER SERVICE-C Attending Unavailable Emil Cararnza HEALTHCARE CUSTOMER SERVICE-C Referring Unavailable Emil Carranza HEALTHCARE CUSTOMER SERVICE-C Primary Care Unavailable German Peralta Attending Unavailable Fascione, Latrice Attending Unavailable Fascione, Latrice Referring Unavailable Emil Carranza HEALTHCARE CUSTOMER SERVICE-C Primary Care Unavailable PROBLEMS PROBLEMS DATE TYPE CONDITION / CODE ATTENDING STATUS SOURCE 05/21/2018 Admitting Hyperlipidemia, TERE AQUACULTURIST, Active [facility] Diagnosis unspecified / EMIL VyasSouleymane Fanny E78.5(ICD-10) Repository 05/21/2018 Admitting Essential (primary) TERE AQUACULTURIST, Active [facility] Diagnosis hypertension / EMIL Jeane Fanny I10(ICD-10) Repository 04/09/2018 Unknown E11.42 - Type 2 Fascione, Active [place] diabetes mellitus [facility] with diabetic Hospital polyneuropathy / Repository E11.42(ICD-10) 08/10/2017 Unknown I82.401 - Acute Fascione, Active [place] embolism and [facility] thrombosis of Hospital unspecified deep Repository veins of right lower extremity / I82.401(ICD-10) 08/10/2017 Unknown R60.0 - Localized Fascione, Active [place] edema / [facility] R60.0(ICD-10) Hospital Repository 08/10/2017 Unknown M79.604 - Pain in Fascione, Active [place] right leg / [facility] M79.604(ICD-10) Hospital Repository PROCEDURES PROCEDURES No Procedure Records FoundRESULTS RESULTS 12 LEAD ELECTROCARDIOGRAM Observed: 07/31/2018 Status: F Source: [place] 1:14 PM [facility] REPOSITORY [facility] Cardiovascular Services [address] [place] [address] 12 Lead EKG 07/29/18 1732 MR#: [id number] Acct: [id number] Name: JODI COLLINS Rep #: [id number] : 1970 48 From: Turner Morales MD Attending Dr: German Salazar DO Status: DIS ETTA Ordering Dr: Eugenia Mccollum DO Date: 07/29/18 Location: [facility] Sex: M C Admitted: 07/29/18 Test Reason : CHEST PAIN Blood Pressure : / mmHG Vent. Rate : 085 BPM Atrial Rate : 085 BPM P-R Int : 160 ms QRS Dur : 090 ms QT Int : 342 ms P-R-T Axes : 051 -08 035 degrees QTc Int : 406 ms Normal sinus rhythm Normal ECG When compared with ECG of 29-JUL-2018 14:22, MANUAL COMPARISON REQUIRED, DATA IS UNCONFIRMED Confirmed by TURNER MORALES MD ([id number]), content editor TABBY CASTILLO ([id number]) on 07/31/2018 1:13:54 PM Referred By: MARIANA Confirmed By:TURNER MORALES MD 07/31/18 1314 Date Turner Morales MD CC: HEALTHCARE CUSTOMER SERVICE-C Emil Carranza; Neda Mccollum; German Salazar DO Signed 12 LEAD ELECTROCARDIOGRAM Observed: 07/31/2018 Status: F Source: [place] 1:13 PM [facility] REPOSITORY [facility] Cardiovascular Services [address] [place] [address] 12 Lead EKG 07/30/18 0527 MR#: [id number] Acct: [id number] Name: JODI COLLINS Rep #: [id number] : 1970 48 From: Turner Morales MD Attending Dr: German Salazar DO Status: DIS ETTA Ordering Dr: Eugenia Mccollum DO Date: 07/30/18 Location: [facility] Sex: M C Admitted: 07/29/18 Test Reason : AM EKG Blood Pressure : / mmHG Vent. Rate : 074 BPM Atrial Rate : 074 BPM P-R Int : 166 ms QRS Dur : 094 ms QT Int : 376 ms P-R-T Axes : 065 -03 010 degrees QTc Int : 417 ms Normal sinus rhythm Normal ECG When compared with ECG of 29-JUL-2018 17:32, MANUAL COMPARISON REQUIRED, DATA IS UNCONFIRMED Confirmed by TURNER MORALES MD ([id number]), content editor TABBY CASTILLO ([id number]) on 07/31/2018 1:12:53 PM Referred By: MARIANA Confirmed By:TURNER MORALES MD 07/31/18 1313 Date Turner Morales MD CC: HEALTHCARE CUSTOMER SERVICE-C Emil Carranza; Neda Mccollum; German Salazar DO Signed 12 LEAD ELECTROCARDIOGRAM Observed: 07/31/2018 Status: F Source: [place] 12:58 PM [facility] REPOSITORY [facility] Cardiovascular Services [address] [place] [address] 12 Lead EKG 07/29/18 1422 MR#: [id number] Acct: [id number] Name: KARINAJODI Eugenia Rep #: [id number] : 1970 48 From: Turner Morales MD Attending Dr: German Salazar DO Status: DIS ETTA Ordering Dr: Jatin Levin MD Date: 07/29/18 Location: [facility] Sex: M C Admitted: 07/29/18 Test Reason : DIZZINESS Blood Pressure : / mmHG Vent. Rate : 092 BPM Atrial Rate : 092 BPM P-R Int : 162 ms QRS Dur : 092 ms QT Int : 342 ms P-R-T Axes : 064 -08 032 degrees QTc Int : 422 ms Sinus rhythm with occasional Premature ventricular complexes Otherwise normal ECG Confirmed by TURNER MORALES MD ([id number]), content editor TABBY CASTILLO ([id number]) on 07/31/2018 12:58:28 PM Referred By: MR Confirmed By:TURNER MORALES MD 07/31/18 1258 Date Turner Morales MD CC: HEALTHCARE CUSTOMER SERVICE-Sofi Carranza; German Salazar DO; Jatin Levin Signed STRESS REPORT Observed: 07/30/2018 Status: F Source: [place] 4:27 PM [facility] REPOSITORY [facility] Cardiovascular Services [address] [place] [address] MR#: [id number] Acct: [id number] Name: JODI COLLINS Rep #: [id number] : 1970 48 From: Turner Morales MD Primary Care: JUSTIN Hernandez Status: DIS ETTA Ordering Dr: Sex: M C Stress Test Report Upsloping ST changes only were noted not meeting criteria for ischemia. No arrhythmias were noted no clinical angina was noted. The patient complained of shortness of breath. The resting blood pressure was 148/86 with a peak blood pressure 192/94. Myocardial perfusion protocol. 14.8 mCi of technetium 99m sestamibi was injected at rest. The patient exercised according to regular De protocol for 6 minutes and 40 seconds at peak exercise 44.5 mCi of technetium 99m sestamibi was injected stress images were obtained stress and rest images were reconstructed and compared in the short axis vertical long horizontal long axis. Gated images were also obtained next Perfusion SPECT analysis: Review of the stress images demonstrate normal uptake of tracer noted in all areas of myocardium. The resting images similarly demonstrate normal uptake of tracer noted in all areas of myocardium. No areas of reversibility are noted suggest ischemia no previous infarct is noted. Gated SPECT analysis: The gated ejection fraction is noted to be 56%. Conclusion: Normal exercise myocardial perfusion stress test. Preserved ejection fraction. Exercise myocardial perfusion stress test. 48-year-old male with a history of chest pain. Medications: Lipitor, Humulin, Zestril,. Stress protocol: Resting EKG demonstrates normal sinus rhythm with a rate of 73 bpm normal intervals are noted resting blood pressure 148/86 mmHg. The patient exercised according to regular De protocol for total duration of 6 minutes and 40 seconds completing 40 seconds into stage III of the De protocol. The patient maintained sinus rhythm throughout the recording. At rest there were no ST or T wave changes noted suggest ischemia at peak exercise 07/30/18 1627 <Electronically signed by Turner Morales MD> Date Turner Morales MD CC: HEALTHCARE CUSTOMER SERVICE-C Emil Salazar DO Date Dictated: 07/30/18830 Date Transcribed: 07/30/18830 Veterinary Parasitologist: [place] Signed DISCHARGE SUMMARY Observed: 07/30/2018 Status: F Source: [place] 3:28 PM [facility] REPOSITORY [facility] Medical Records Department [address] [place] [address] Discharge Summary 07/30/18 1021 MR#: [id number] Acct: [id number] Name: JODI COLLINS Rep #: [id number] : 1970 48 From: Brinda Pérez HEALTHCARE CUSTOMER SERVICE-C PCP: MONTY HernandezC Status: DIS ETTA Y Location: [place] [address] <Brinda Pérez - Last Filed: 07/30/18 10:43> Discharge Date and Diagnosis Date of Admission: 07/29/18 Date of Discharge: 07/30/18 - Primary Discharge Diagnosis Active and Suspected Problems (Last Reviewed 07/29/18 @ 17:45 by Eugenia Mccollum DO) 1. Atypical chest pain- ACS ruled out 2. Elevated BP without diagnosis of hypertension 3. Lightheadedness, suspected secondary to #2 4. Left shoulder pain, suspected biceps tendonitis 5. Suspected left hand carpel tunnel syndrome 6. Type 2 diabetes mellitus, poorly controlled 7. Hyperlipidemia 8. Mild intermittent asthma 9. 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 Electronically Signed: Christian Lam MD at 15:34 EST , Service support , Cervical Spine CT 07/29/18 14:13 IMPRESSION: Normal unenhanced CT examination of the cervical spine. Electronically Signed: Christian Lam MD at 15:34 EST , Service support , Head CTA 07/29/18 17:19 IMPRESSION: Normal [place] without a demonstrated aneurysm or significant stenosis. Electronically Signed: Jackie Newton MD at 19:40 EST Tel , Service support , Neck CTA 07/29/18 17:19 IMPRESSION: Normal bilateral cervical carotid and vertebral arteries. Electronically Signed: Piero Redd MD at 19:07 EST , Service support , Operations: None Procedures: 2-D Echocardiogram, Stress test Summary of Care Provided: The patient is a 48 year old M admitted 07/29/18 due to dizziness, chest pain, palpitations and left shoulder/left arm pain. 1. Atypical chest pain- ACS ruled out. Troponin negative. EKG without ST-T changes. Patient underwent nuclear stress test which was negative for ischemia. Echocardiogram completed, results pending. Will be reviewed prior to discharge. 2. Elevated BP without diagnosis of hypertension-started on lisinopril 10 mg daily. Will need further outpatient monitoring. 3. Lightheadedness, suspected secondary to #2-brain CT, cervical spine CT, head and neck CTA all normal. 4. Left shoulder pain, suspected biceps tendonitis-refer to ortho as outpatient. This has been an ongoing sx for patient. He does repetitive movement for work. 5. Suspected left hand carpel tunnel syndrome-refer to ortho as outpatient. Sx have been ongoing. He does repetitive movement for work. 6. Type 2 diabetes mellitus, poorly controlled-hemoglobin A1c 9.1%. Patient follows NADINE Thibodeaux. Follow up in 1 Week. 7. Hyperlipidemia- continue statin. 8. Mild intermittent asthma-no acute exacerbation. 9. Morbid obesity-encouraged diet and lifestyle modifications. General: Alert, Oriented x3, Cooperative, No apparent distress HEENT: Atraumatic, PERRLA, EOMI, Normocephalic Oral: Moist Mucosa Neck: Supple, No JVD, Negative Carotid Bruits, No Nodes Lungs: Clear to auscultation, Normal air movement Cardiovascular: Regular rate, Regular Rhythm, Normal S1, Normal S2, No murmurs Abdomen: Bowel Sounds Present, Soft, Non Tender, Non-Distended, Obese Extremities: No clubbing, No cyanosis, No edema Skin: No rashes, No breakdown Musculoskeletal: No Tenderness to Palpation of Joints or Extremities, No Muscle Wasting Neurological: Cranial nerves II-XII grossly intact, Neuro grossly intact Psych/Mental Status: Normal Affect, Appropriate Patient seen and examined prior to discharge. Physical assessment as noted above. Patient is stable for discharge with follow up recommendations as noted above. This patient was seen by JUSTIN Monterroso under the supervision of Dr. Salazar. - Physical Exam Vital Signs Temp Pulse Resp BP Pulse Ox 98.3 F 83 18 141/78 H 95 07/30/18 08:25 07/30/18 08:25 07/30/18 08:25 07/30/18 08:25 07/30/18 08:25 Oxygen Delivery Method Room Air Weight: 328 lb Body Mass Index (BMI) 47.0 Intake and Output for Last 24 Hours Intake Total 100 / 100 1600 / 1600 Balance 100 / 100 1600 / 1600 Laboratory Tests Past 24 Hrs WBC 8.1 RBC 5.18 Hgb 14.6 Hct 44.7 WBC RBC Hgb Hct MCV MCH MCHC RDW RDW Differential WBC 9.5 RBC 4.95 Hgb 14.3 Hct 42.8 MCV 86.5 MCH 28.9 MCHC 33.4 POC Glucose POC Glucose 149 H 92 85 POC Glucose 69 L 69 L 70 POC Glucose 85 Discharge Diet: 1800 Calorie Control Diet, Carb Control Diet Discharge Activity: Return to Normal Activity Call your doctor if you observe: Shortness of breath, Dizziness, Fainting spells, Chest pain Home Medications: Medications to take at Discharge Aspirin [Aspirin, Baby] 81 mg PO DAILY@0800 02/18/15 Dapagliflozin Propanediol [Farxiga] 5 mg PO DAILY 02/18/15 Metformin HCl [Glucophage] 1,000 mg PO BIDCM 02/18/15 insulin regular human U- 500concentrate 500 unit/mL subcutaneous soln 75 - 85 unit SC TIDCM ml 10/11/17 Ascorbic Acid [Vitamin C] 500 mg PO DAILY@0800 07/29/18 Atorvastatin Calcium [Lipitor] 40 mg PO QHS 07/29/18 Cholecalciferol (VIT D3) [Vitamin D3] 1,000 unit PO DAILY 07/29/18 Lisinopril [Zestril] 10 mg PO DAILY #30 tablet 07/30/18 Following Prescrptions Were Given to Patient: Lisinopril [Zestril] 10 mg PO DAILY #30 tablet Primary Care Physician: Emil Carranza NP-C [Primary Care Provider] - Please follow up with your Primary Care Physician in: 1 Week Please Follow Up With: Jeison Monge MD - Ortho, When: Call for appt for shoulder pain, left hand/arm pain Please Follow Up With: Lola Thibodeaux NP-C When: 1 Week Disposition: Home Minutes spent on discharge:: 35 Patient Condition:: Stable Medical Necessity - Tobacco Use Smoking Status: Current some day smoker Tobacco Use: Cigars Meaningful Use Info Meaningful Use Diagnoses (Choose all that apply): None applicable <German Salazar - Last Filed: 07/30/18 15:27> Discharge Date and Diagnosis - Secondary Discharge Diagnosis Chronic Problems (Last Reviewed 07/29/18 @ 17:45 by Eugenia Mccollum DO) Diabetes mellitus, type II (Chronic) 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 Data reviewed. I agree with the above note by the nurse practitioner. The patient is a 48 year old M presents with chest pain. Patient underwent a stress test that was unremarkable. Patient was complained of some dizziness but that overall seem to be improved. Patient was also noted to be on the lisinopril. Patient continue with that. Patient also did complain of some somatic complaints in his left upper extremity. Involving the medial aspect of his forearm. Concern is the patient may have some ulnar neuropathy and advised to try to keep his arm straight while asleep either talking his arm between his legs or wrapping with a towel or some other substance substance to prevent from bending his arm when he sleeps. Patient will be following up with orthopedics for further evaluation. [] - Physical Exam General: Alert, Cooperative, No apparent distress HEENT: Atraumatic, Normocephalic Oral: Moist Mucosa, No Gingival or Mucosal Lesions/ Ulcerations Lungs: Clear to auscultation, Normal air movement, No rhonchi, No wheeze Cardiovascular: Regular rate, Regular Rhythm, Normal S1, Normal S2, No murmurs Vital Signs Temp Pulse Resp BP Pulse Ox 36.8 C 78 18 149/83 H 95 07/30/18 08:25 07/30/18 11:04 07/30/18 08:25 07/30/18 11:04 07/30/18 08:25 Oxygen Delivery Method Room Air Weight: 148.778 kg Body Mass Index (BMI) 47.0 Intake and Output for Last 24 Hours Intake Total 100 / 100 1600 / 1600 Balance 100 / 100 1600 / 1600 Laboratory Tests Past 24 Hrs WBC RBC Hgb Hct MCV MCH MCHC RDW RDW Differential WBC 9.5 RBC 4.95 Hgb 14.3 Hct 42.8 MCV 86.5 MCH 28.9 MCHC 33.4 POC Glucose POC Glucose 149 H 92 85 POC Glucose 69 L 69 L 70 POC Glucose 85 Discharge Diet: 1800 Calorie Control Diet, Carb Control Diet Discharge Activity: Return to Normal Activity Call your doctor if you observe: Shortness of breath, Dizziness, Fainting spells, Chest pain Disposition: Home Minutes spent on discharge:: 35 Patient Condition:: Stable Medical Necessity - Tobacco Use Smoking Status: Current some day smoker Tobacco Use: Cigars Meaningful Use Info Meaningful Use Diagnoses (Choose all that apply): None applicable Code Visit OBSV E AND M: 77658 Observation care discharge 07/30/18 1043 <Electronically signed by Brinda ANDERSON> Date Brinda ANDERSON 07/30/18 1528<Electronically signed by German Salazar DO> Cosigner Signature (if applicable): Date German Salazar DO CC: JUSTIN Pérez; JUSTIN Carranza; German Salazar DO Signed DISCHARGE INSTRUCTION Observed: 07/30/2018 Status: F Source: [place] 10:21 AM [facility] REPOSITORY [facility] Medical Records Department [address] [place] [address] Instructions for Home/Discharge Instructions 07/30/18 1014 MR#: [id number] Acct: [id number] Name: JODI COLLINS Rep #: [id number] : 1970 48 From: Brinda ANDERSON PCP: JUSTIN Hernandez Status: ADM ETTA - Discharge Diagnoses Current Active Problems: Current Active and Chronic Problems (Last Reviewed 07/29/18 @ 17:45 by Eugenia Mccollum DO) Chest pain (Acute) Disequilibrium (Acute) Diabetes mellitus, type II (Chronic) Elevated BP without diagnosis of hypertension (Acute) You will use the following diet at home:: Calorie/Carbohydrate Controlled (specify 1200, 1400, etc) Discharge Activity: Return to Normal Activity Call your doctor if you observe: Shortness of breath, Dizziness, Fainting spells, Chest pain Allergies/Adverse Reactions: Allergies ibuprofen Adverse Reaction (Verified 07/29/18 13:50) Other Medications to take at Discharge Aspirin [Aspirin, Baby] 81 mg PO DAILY@0800 02/18/15 Dapagliflozin Propanediol [Farxiga] 5 mg PO DAILY 02/18/15 Metformin HCl [Glucophage] 1,000 mg PO BIDCM 02/18/15 insulin regular human U- 500concentrate 500 unit/mL subcutaneous soln 75 - 85 unit SC TIDCM ml 10/11/17 Ascorbic Acid [Vitamin C] 500 mg PO DAILY@0800 07/29/18 Atorvastatin Calcium [Lipitor] 40 mg PO QHS 07/29/18 Cholecalciferol (VIT D3) [Vitamin D3] 1,000 unit PO DAILY 07/29/18 Lisinopril [Zestril] 10 mg PO DAILY #30 tablet 07/30/18 The following prescriptions were given: Lisinopril [Zestril] 10 mg PO DAILY #30 tablet Primary Care Physician: Emil Carranza NP-C [Primary Care Provider] - Please follow up with your Primary Care Physician in: 1 Week Test Results: Test results from this visit will be discussed in further detail at your follow-up appointment, if applicable. Please Follow Up With: Jeison Monge MD - Ortho, When: Call for appt for shoulder pain, left hand/arm pain Please Follow Up With: Lola Thibodeaux NP-C When: 1 Week Proposed Discharge Date: 07/30/18 07/30/18 1021 <Electronically signed by Brinda ANDERSON> Date Brinda ANDERSON CC: JUSTIN Carranza Signed BEDSIDE GLUCOSE Collected: 07/30/2018 Status: F Source: [place] 8:58 AM [facility] REPOSITORY TYPE CODE TESTS RESULT OUT OF REFERENCE UNITS RANGE LAB L501.080 70-110 mg/dL High BEDSIDE GLU 149 Result Comment: MANAGEMENT OF PATIENT CARE PER NURSING PROTOCOL Performed By: #### L501.080 #### [facility] Point of Care [address] [place], [place] [address] BEDSIDE GLUCOSE Collected: 07/30/2018 Status: F Source: [place] 6:03 AM [facility] REPOSITORY TYPE CODE TESTS RESULT OUT OF RANGE REFERENCE UNITS LAB L501.080 70-110 mg/dL Normal BEDSIDE GLU 92 Result Comment: MANAGEMENT OF PATIENT CARE PER NURSING PROTOCOL Performed By: #### L501.080 #### [facility] Point of Care [address] [facility] [place] [address] CBC W/DIFF, AUTOMATED Collected: 07/30/2018 Status: F Source: [place] 5:33 AM [facility] REPOSITORY TYPE CODE TESTS RESULT OUT OF RANGE REFERENCE UNITS LAB L100.1000 4.4-11.0 K/mm3 Normal WBC 9.5 LAB L100.1200 4.6-6.2 M/mm3 Normal RBC 4.95 LAB L100.1300 13.0-16.5 g/dl Normal HGB 14.3 LAB L100.1400 40-54 % Normal HCT 42.8 LAB L100.1500 80-94 fL Normal MCV 86.5 LAB L100.1600 27.0-32.0 pg Normal MCH 28.9 LAB L100.1700 32-36 g/gl Normal MCHC 33.4 LAB L100.1810 11.6-14.6 % Normal RDW CV 13.5 LAB L100.1820 35.1-43.9 fl Normal RDW SD 41.5 LAB L100.1900 150-450 K/mm3 Normal PLT 168 LAB L100.2000 6.2-12.0 fl Normal MPV 11.4 LAB L100.2100 47-70 % Normal NEUT% 68.4 LAB L100.2200 19-41 % Normal LY% 24.1 LAB L100.2300 0-10 % Normal MONO% 5.0 LAB L100.2400 0-5 % Normal EO% 1.7 LAB L100.2500 0-1 % Normal BASO% 0.6 LAB L100.2550 0.0-0.9 % Normal IM GRAN % 0.200 Result Comment: IG% - Immature Granulocytes (promyelocytes, myelocytes and metamyelocytes) > 1% indicates that a LEFT SHIFT is Present. LAB L100.2620 2.0-7.7 X10 3/uL Normal Absolute Neut 6.5 LAB L100.2720 0.83-4.51 X10 3/ul Normal Absolute Lymph 2.30 Performed By: #### L100.0100 #### [facility] [address] [place], [address] COMPREHENSIVE METABOLIC Collected: 07/30/2018 Status: F Source: [facility] 5:33 AM [facility] REPOSITORY TYPE CODE TESTS RESULT OUT OF RANGE REFERENCE UNITS LAB L501.0100 74-106 mg/dL Normal GLU 90 Result Comment: Please note revised GLUCOSE reference range effective 2017. LAB L501.1000 7-18 mg/dL Normal BUN 14 LAB L501.1100 0.70-1.30 mg/dL Normal CREAT,SERUM 0.80 Result Comment: The validity of the calculated GFR AND GFRAA in patients over 70 years has not been determined. Clinical correlation is essential. LAB L501.1110 >60 mL/min Normal EST GFR 110 Result Comment: Non- GFR Calc LAB L501.1115 >60 mL/min Normal EST GFR - AA 134 Result Comment: GFR Calc LAB L501.1255 ml/min Normal Estimated CRCL 117.86 LAB L501.1300 10-20 RATIO BUN/CRE Normal 17.5 LAB L501.1500 6.4-8. g/dL 2 T PROT Normal 6.4 LAB L501.1800 3.2-5. g/dL 0 ALB Normal 3.2 LAB L501.1950 2.2-4. g/dL 2 GLOB Normal 3.2 LAB L501.2000 0.9-2. RATIO 4 A/G Normal 1.0 LAB L501.2200 8.5-10 mg/dL Low .1 CA 8.4 LAB L501.4100 15-37 U/L AST Normal 16 LAB L501.4305 45-117 U/L ALK P Normal 62 LAB L501.4405 16-61 U/L ALT Normal 28 LAB L501.4600 0.20-1 mg/dL .00 T BILI Normal 0.30 LAB L501.5300 136-14 mmol/L 5 NA Normal 141 LAB L501.5600 3.5-5. mmol/L 1 K Normal 3.6 LAB L501.5900 98-107 mmol/L CL Normal 106 LAB L501.6100 21.0-3 mmol/L 2.0 CO2 Normal 28.0 LAB L501.6200 5-15 GAP Normal 7 Performed By: #### L500.4050, L500.4100, L501.5200 #### [facility] [address] [place], [address] LIPID PROFILE Collected: 07/30/2018 Status: F Source: [facility] 5:33 AM [facility] REPOSITORY TYPE CODE TESTS RESULT OUT OF RANGE REFERENCE UNITS LAB L501.4900 200 mg/dL Normal CHOL 128 Result Comment: <200 mg/dL Desirable 200-240 mg/dL Borderline >240 mg/dL High Risk LAB L501.5000 mg/dL Normal TRIG 137 Result Comment: The drugs N-Acetylcysteine and Metamizole may falsely depress this assay. Serum Triglycerides Reference Interval Normal <150 mg/dL Borderline high 150 - 199 mg/dL High 200 - 499 mg/dL Very High > or = 500 mg/dL LAB L501.6400 mg/dL Normal HDL 40 Result Comment: The drugs N-Acetylcysteine and Metamizole may falsely depress this assay. Reference Range HDL <40 mg/dL Low HDL Cholesterol HDL >or= 60 mg/dL High HDL Cholesterol LAB L501.6500 0-130 mg/dL Normal LDL 61 LAB L501.6600 5-40 mg/dL Normal VLDL 27 Performed By: #### L500.4050, L500.4100, L501.5200 #### [facility] [address] [place], [address] MAGNESIUM Collected: 07/30/2018 Status: F Source: [facility] 5:33 AM [facility] REPOSITORY TYPE CODE TESTS RESULT OUT OF RANGE REFERENCE UNITS LAB L501.5200 1.6-2.6 mg/dL Normal MG 1.8 Performed By: #### L500.4050, L500.4100, L501.5200 #### [facility] [address] [place], [address] PROTHROMBIN TIME W/INR Collected: 07/30/2018 Status: F Source: [facility] 5:33 AM [facility] REPOSITORY TYPE CODE TESTS RESULT OUT OF RANGE REFERENCE UNITS LAB L300.4150 11.7-14.9 SECONDS Normal PROTIME 13.8 LAB L300.4200 Normal INR 1.1 Performed By: #### L300.3900, L300.4310 #### [facility] [address] [place], [address] PARTIAL THROMBOPLAST Collected: 07/30/2018 Status: F Source: [facility] TIME 5:33 AM [facility] REPOSITORY TYPE CODE TESTS RESULT OUT OF RANGE REFERENCE UNITS LAB L300.4310 24.1-36.2 Seconds Normal PTT 29.0 Performed By: #### L300.3900, L300.4310 #### [facility] [address] [place], [address] BEDSIDE GLUCOSE Collected: 07/30/2018 Status: F Source: [facility] 5:20 AM [facility] REPOSITORY TYPE CODE TESTS RESULT OUT OF RANGE REFERENCE UNITS LAB L501.080 70-110 mg/dL Normal BEDSIDE GLU 85 Result Comment: MANAGEMENT OF PATIENT CARE PER NURSING PROTOCOL Performed By: #### L501.080 #### [facility] Point of Care [address] [place] [address] BEDSIDE GLUCOSE Collected: 07/30/2018 Status: F Source: [facility] 4:31 AM [facility] REPOSITORY TYPE CODE TESTS RESULT OUT OF REFERENCE UNITS RANGE LAB L501.080 70-110 mg/dL Low BEDSIDE GLU 69 Result Comment: MANAGEMENT OF PATIENT CARE PER NURSING PROTOCOL Performed By: #### L501.080 #### [facility] Point of Care [address] [place] [address] BEDSIDE GLUCOSE Collected: 07/30/2018 Status: F Source: [facility] 3:25 AM [facility] REPOSITORY TYPE CODE TESTS RESULT OUT OF REFERENCE UNITS RANGE LAB L501.080 70-110 mg/dL Low BEDSIDE GLU 69 Result Comment: MANAGEMENT OF PATIENT CARE PER NURSING PROTOCOL Performed By: #### L501.080 #### [facility] Point of Care [address] [place] [address] CHEST PA AND LATERAL Observed: 07/30/2018 Status: F Source: [facility] 12:00 AM [facility] REPOSITORY [facility] Imaging Services [address] [place] [address] Chest PA and Lateral MR#: [id number] Acct: [id number] Name: JODI COLLINS Rep #: [id number] : 1970 M 48 From: Eliceo Tyalor MD PCP: JUSTIN Hernandez Status: ADM ETTA Study: Chest PA and Lateral Date of Exam: 07/30/18 Exam# [id number] Ordering Dr: Eugenia Mccollum DO STUDY: X-RAY CHEST REASON FOR EXAM: Male, 48 years old. Dyspnea and shortness of breath. TECHNIQUE: PA and lateral views of the chest. COMPARISON: None. FINDINGS: The lungs are clear and expanded. There is no demonstrated pleural abnormality. Normal size heart. Normal mediastinum and eneida. Normal visualized pulmonary arteries. Normal visualized aortic arch and descending thoracic aorta. There are mild degenerative changes of the visualized thoracic spine. Normal visualized ribs, clavicles, and shoulders. There is no demonstrated abnormality of the visualized soft tissue structures of the upper abdomen. RAD/Chest PA and Lateral IMPRESSION: Normal x-ray examination of the chest. Electronically Signed: Eliceo Taylor MD at 11:17 EST Tel [phone], Service support , CC: JUSTIN Carranza; Neda Mccollum Veterinary Parasitologist: Signed BEDSIDE GLUCOSE Collected: 07/29/2018 Status: F Source: [facility] 10:06 PM [facility] REPOSITORY TYPE CODE TESTS RESULT OUT OF RANGE REFERENCE UNITS LAB L501.080 70-110 mg/dL Normal BEDSIDE GLU 70 Result Comment: MANAGEMENT OF PATIENT CARE PER NURSING PROTOCOL Performed By: #### L501.080 #### [facility] Point of Care [address] [place] [address] TROPONIN-I Collected: 07/29/2018 Status: F Source: [facility] 8:30 PM [facility] REPOSITORY Order Comment: 'TROP' Serial specimen #1, #2 or #3: 3 TYPE CODE TESTS RESULT OUT OF RANGE REFERENCE UNITS LAB L501.4010 <0.045 ng/mL Normal < 0.015 TROPONIN-I Result Comment: TROPONIN-I EXPECTED VALUES <0.045 Negative 0.045 - 0.590 Consistent with Cardiac Damage > OR = 0.600 Critical Value Not every elevated troponin is indicative of VA. These values should be used with clinical judgement in examining the patient's clinical picture for diagnosis. To establish a diagnosis of VA versus myocardial injury, there must be a demonstrated rise and/or fall in the troponin values, in addition to ischemic symptoms, EKG changes, new regional wall motion abnormality, and/or angiographical evidence. PLEASE NOTE: REFERENCE RANGES EDITED 17 Performed By: #### L501.4010 #### [facility] [address] [place], [address] HISTORY AND PHYSICAL Observed: 07/29/2018 Status: F Source: [facility] EXAM 6:07 PM [facility] REPOSITORY [facility] Medical Records Department [address] [place] [address] History and Physical 07/29/18 1717 MR#: [id number] Acct: [id number] Name: JODI COLLINS Rep #: [id number] : 1970 48 From: Eugenia Mccollum DO PCP: Emil Carranza, HEALTHCARE CUSTOMER SERVICE-C Status: ADM ETTA Y Location: [place] [address] Problem List (1) Chest pain Status: Acute (2) Disequilibrium Status: Acute (3) Diabetes mellitus with neuropathy Status: Chronic Qualifiers: Diabetes mellitus type: type 2 (4) Exogenous obesity Status: Chronic (5) Ingrown nail Status: Chronic (6) Hallux limitus of right foot Status: Chronic (7) Diabetes mellitus, type II Status: Chronic Qualifiers: Diabetes mellitus complication detail: with polyneuropathy (8) Elevated BP without diagnosis of hypertension Status: Acute History of Present Illness Date of Admission: 07/29/18 Chief Complaint: dizziness, chest pain, palpitations, Left shoulder and arm pain The patient is a 48 year old M with a past medical history of diabetes mellitus type 2, asthma, diabetic polyneuropathy, morbid obesity, hyperlipidemia and multiple non-healing diabetic foot ulcers in the past who presented to the ED at [facility] on 07/29/2018 c/o not feeling right since Monday. He complains of lightheadedness and also pain in his left shoulder, pain in the left arm, transient shooting pain in the medial left calf. Denies vertigo, N/V, syncope and diaphoresis. He was at work on Monday and suddenly felt lightheaded. He did not fall down .....he caught himself on a table. He did not feel as though his blood sugar was low but did not check it. He finished work and when he got home the blood sugar was normal. He has had intermittent left shoulder pain and some left arm pain since then. He has numbness in the left arm/hand that gets worse when sleeping and wakes him up. He has no weakness of the LUE. Last night while standing playing darts for a long time he got a shooting Pain in the medial calf. It was very fleeting and he has had no left leg weakness. No difficulty swallowing and no trouble with speech. Has never had a CVA or a TIA. He feels lightheaded and like he is falling to the left. No falls however. CT scan of the brain in the ED was negative for any acute findings. CT cervical spine is normal. NIH is 0 at the time of my exam. Negative romberg. On further questioning he has been having Left chest pain that is associated with SOB and radiates to his left arm. He sometimes gets sweaty. Sometimes he has palpitations with this. sometimes the palpitations last and he has to lie down on the bed for a few minutes to make them go away. He gets CP with sex. Sometimes he has CP at rest. Has never had a stress test or a cardiac cath. There is a FH of CVD and strokes in his mother who at the age of 60. His father also had CVD and in his mid 70's. EKG in the ED without CP showed NSR with no significant ST or T wave changes. Past Medical History Past Medical History (Chronic Problems): Chronic Problems (Last Reviewed 07/29/18 @ 17:45 by Eugenia Mccollum DO) Diabetes mellitus, type II (Chronic) Diabetes mellitus with neuropathy (Chronic) Exogenous obesity (Chronic) Ingrown nail (Chronic) Hallux limitus of right foot (Chronic) Medical History: Medical History (Last Reviewed 07/29/18 @ 17:45 by Eugenia Mccollum DO) Diabetes type 2, controlled E11.9 Dx : 2007 Last exacerbation : DKA : never Hypoglycemic episode : never ER visit : never Early stage glaucoma H40.9 Vision problem H54.7 Allergies ibuprofen Adverse Reaction (Verified 07/29/18 13:50) Other Home Medications: Ambulatory Orders Medication Instructions Recorded Aspirin [Aspirin, Baby] 81 mg PO DAILY@0800 02/18/15 Dapagliflozin Propanediol [Farxiga] 5 mg PO DAILY 02/18/15 Surgical History: noncontributory, - - podiatric surgeries Psychiatric History: No pertinent psych hx Lives: Spouse/ Significant Other Smoking Status: Current some day smoker Tobacco Use: Cigars Alcohol: Heavy - he does not drink during the week but on weekends he will down a 12 pack Drugs: None - *Family History Maternal Family History: Family History (Last Reviewed 07/29/18 @ 17:47 by Eugenia Mccollum DO) Daughter Asthma Seizures Son Seizures Sister Breast cancer Mother Diabetes Heart disease Hypertension CVA (cerebral vascular accident) Brother Diabetes Father Diabetes Heart disease Hypertension History Items: Heart Disease, Stroke Paternal Family History: Family History (Last Reviewed 07/29/18 @ 17:47 by Eugenia Mccollum DO) Daughter Asthma Seizures Son Seizures Sister Breast cancer Mother Diabetes Heart disease Hypertension CVA (cerebral vascular accident) Brother Diabetes Father Diabetes Heart disease Hypertension History Items: Heart Disease, - - his father was not really in his life and he does not know alot about the paternal side of his family Review of Systems Constitutional: Denies: Anorexia, Chills, Fever, Malaise, Weakness, Weight Change Eyes: Reports: - - has been having pain around the Left eye for the past week but denies any vision changes. Denies: Blurred vision, Vision Change HEENT: Reports: -. Denies: Head Aches, Sinus Congestion, Sinus Drainage, Sore Throat Cardiovascular: Reports: Chest Pressure, Chest Tightness, Light Headedness. Denies: Chest Pain, Edema, Orthopnea, Palpitations, Paroxysmal Noc. Dyspnea, Syncope Respiratory: Reports: Shortness of breath upon exertion. Denies: Cough, Shortness of breath at rest, Sputum production Gastrointestinal: Denies: Abdominal Pain, Nausea, Vomiting Genitourinary: Denies: Dysuria Musculoskeletal: Reports: Arm Pain - left, Shoulder Pain - left. Denies: Joint Pain, Joint Tenderness Skin: Denies: Rash, Wounds Neurological: Denies: Numbness, Tingling, Focal weakness Psychiatric: Denies: Anxiety, Depression, Homicidal Ideations, Suicidal Ideations Endocrine: Denies: Hx of Thyroiditis Hematologic/ Lymphatic: Denies: Easy Bruising, Easy Bleeding, Hx of blood clot VTE Information - Inpt Only VTE Present on Admission: No VTE Mechan Device Prophylaxis: Knee High BIANKA Hose VTE Pharm Prophylaxis ordered?: Yes Patient Problems: Active and Suspected Problems (Last Reviewed 07/29/18 @ 17:45 by Eugenia Mccollum DO) Chest pain (Acute) Disequilibrium (Acute) Elevated BP without diagnosis of hypertension (Acute) - Physical Exam General: Alert, Oriented x3, Cooperative, No apparent distress, Well developed, Well nourished HEENT: Atraumatic, PERRLA, EOMI, Normocephalic Oral: Moist Mucosa Neck: Supple, No JVD, Negative Carotid Bruits, No Nodes, No Nuchal Rigidity, Trachea Midline Lungs: Clear to auscultation, Normal air movement, No rhonchi, No wheeze, No rales Cardiovascular: Regular rate, Regular Rhythm, Normal S1, Normal S2, No murmurs, No rub noted, No Gallop, - - occasional PVC on the tele monitor Abdomen: Bowel Sounds Present, Soft, Non Tender, Non-Distended, Obese Extremities: No clubbing, No cyanosis, No edema, Capillary Refill Less than 3 Seconds, No Calf Tenderness, Peripheral Pulses Normal, - - he gets pain in the left shoulder and arm with Phalen's and rev phalen's. He has a + Tinel's sign on the left. He has pain in the anterior shoulder and pain increases with palpation along the proximal biceps tendon Skin: No rashes, No breakdown Musculoskeletal: No Tenderness to Palpation of Joints or Extremities, No Muscle Wasting Neurological: Cranial nerves II-XII grossly intact, Neuro grossly intact, Motor Exam 5/5 strength throughout, - - negative romberg. NIH is 0 Psych/Mental Status: Normal Affect, Appropriate Vital Signs Temp Pulse Resp BP Pulse Ox 98.3 F 83 18 140/80 H 96 07/29/18 13:54 07/29/18 15:42 07/29/18 15:42 07/29/18 15:42 07/29/18 15:42 Oxygen Delivery Method Room Air Weight: 328 lb Body Mass Index (BMI) 47.0 Laboratory Tests Past 24 Hrs Assessment/Plan All Active Problems (Last Reviewed 07/29/18 @ 17:45 by Eugenia Mccollum DO) Chest pain (Acute) Disequilibrium (Acute) Elevated BP without diagnosis of hypertension (Acute) Diabetic toe ulcer (Resolved) Edema of right lower extremity (Resolved) Healed ulcer of right foot on examination (Resolved) Infected ulcer of skin (Resolved) Ulcer of right foot with fat layer exposed (Resolved) Ulcer of right foot with fat layer exposed (Resolved) Impressions 1. Non-specific lightheadedness and a feeling that he is falling to the left for 5 days with CTB negative for CVA. I doubt CVA. I think the left shoulder pain is due to Biceps tendonitis +/- CTS. I also think he has CTS on the left. The pain in the left medial calf with prolonged standing sounds radicular and was fleeting and not associated with weakness or paresthesias. NIH is 0. 2. CP in a pt with DMII (poorly controlled in the past), HLD, morbid obesity, smoker of cigars and strong FH of CVD is concerning. 3. Left Biceps tendonitis 4. left CTS 5. DM II 6. HLD 7. asthma - has not had to use his inhaler in over a year 8. morbid obesity 9. sustained palpitations intermittently 10. elevated BP in a pt who denies a hx of HTN Admit to a monitored bed on PCU ASA 81 mg PO daily SL NTG 0.4 mg PRN chest pain Serial Cardiac Enzymes Stat EKG PRN CP Chest XRAY Treadmill nuclear stress test in the AM if the cardiac enzymes are negative DVT prophylaxis ordered Start Lisinopril - on Losartan in the past for kidneys but, stopped and he does not know why CTA of the head and the neck tonight Code Visit OBSV E AND M: [id number] Initial observation care L3 07/29/18 1807 <Electronically signed by Eugenia Mccollum DO> Date Eugenia Mccollum DO Cosign Signature: Date (if applicable) CC: HEALTHCARE CUSTOMER SERVICE-C Emil Carranza; Neda Mccollum; Emil Krishna MD Signed BEDSIDE GLUCOSE Collected: 07/29/2018 Status: F Source: [facility] 6:02 PM [facility] REPOSITORY TYPE CODE TESTS RESULT OUT OF RANGE REFERENCE UNITS LAB L501.080 70-110 mg/dL Normal BEDSIDE GLU 85 Result Comment: MANAGEMENT OF PATIENT CARE PER NURSING PROTOCOL Performed By: #### L501.080 #### [facility] Point [place] [address] TROPONIN-I Collected: 07/29/2018 Status: F Source: [facility] 5:35 PM [facility] REPOSITORY Order Comment: 'TROP' Serial specimen #1, #2 or #3: 2 TYPE CODE TESTS RESULT OUT OF RANGE REFERENCE UNITS LAB L501.4010 <0.045 ng/mL Normal < 0.015 TROPONIN-I Result Comment: TROPONIN-I EXPECTED VALUES <0.045 Negative 0.045 - 0.590 Consistent with Cardiac Damage > OR = 0.600 Critical Value Not every elevated troponin is indicative of VA. These values should be used with clinical judgement in examining the patient's clinical picture for diagnosis. To establish a diagnosis of VA versus myocardial injury, there must be a demonstrated rise and/or fall in the troponin values, in addition to ischemic symptoms, EKG changes, new regional wall motion abnormality, and/or angiographical evidence. PLEASE NOTE: REFERENCE RANGES EDITED 17 Performed By: #### L501.4010, L501.5200 #### [facility] [address] [place], [address] MAGNESIUM Collected: 07/29/2018 Status: F Source: [facility] 5:35 PM [facility] REPOSITORY Order Comment: 'TROP' Serial specimen #1, #2 or #3: 2 TYPE CODE TESTS RESULT OUT OF RANGE REFERENCE UNITS LAB L501.5200 1.6-2.6 mg/dL Normal MG 1.7 Performed By: #### L501.4010, L501.5200 #### [facility] [address] [place], [address] CTA NECK W/WO Observed: 07/29/2018 Status: F Source: [facility] CONTRAST 5:20 PM [facility] REPOSITORY [facility] Imaging Services [address] [place] [address] CTA Neck W/WO Contrast MR#: [id number] Acct: [id number] Name: JODI COLLINS Eugenia Rep #: [id number] : 1970 M 48 From: Piero Redd MD PCP: MONTY HernandezC Status: ADM ETTA Study: CTA Neck W/WO Contrast Date of Exam: 07/29/18 Exam# [id number] Ordering Dr: Eugenia Mccollum DO STUDY: CTA NECK WITH CONTRAST REASON FOR EXAM: Male, 48 years old. Left-sided weakness. RADIATION DOSAGE (If Supplied By Facility): CTDIvol = ( 25.88 ) mGy, DLP = ( 897.40 ) mGycm TECHNIQUE: CT angiography with multi-detector data acquisition was performed from the aortic arch to the skull base following intravenous administration of 100 ml of Isovue 370 contrast. MIP images were reconstructed from the axial data set. Post-processing of the angiographic images was performed, with multiplanar reformation and 3D reconstruction. Individualized dose optimization techniques were used for this CT. COMPARISON: None. FINDINGS: AORTIC ARCH: Normal visualized aortic arch. Normal origins of the brachiocephalic, left common carotid, and left subclavian arteries. RIGHT CAROTID ARTERIES: Normal right common carotid artery (CCA). Normal right common carotid bulb. Normal origin of the right internal carotid (ICA) artery without a hemodynamically significant stenosis. Normal visualized cervical portion of the right internal carotid artery. Normal origin of the right external carotid artery (ECA). LEFT CAROTID ARTERIES: Normal left common carotid artery (CCA). Normal left common carotid bulb. Normal origin of the left internal carotid (ICA) artery without a hemodynamically significant stenosis. Normal visualized cervical portion of the left internal carotid artery. Normal origin of the left external carotid artery (ECA). VERTEBRAL ARTERIES: There is enhancement within the bilateral vertebral arteries with a small left vertebral artery, and a dominant right vertebral artery. CT/CTA Neck W/WO Contrast IMPRESSION: Normal bilateral cervical carotid and vertebral arteries. Electronically Signed: Piero Redd MD at 19:07 EST , Service support , CC: JUSTIN Mccollum Veterinary Parasitologist: Signed CTA HEAD W/WO Observed: 07/29/2018 Status: F Source: [facility] CONTRAST 5:20 PM [facility] REPOSITORY [facility] Imaging Services [address] [place] [id number] CTA Head W/WO Contrast MR#: [id number] Acct: [id number] Name: JODI COLLINS Rep #: [id number] : 1970 M 48 From: Jackie Newton MD PCP: Emil Carranza, HEALTHCARE CUSTOMER SERVICE-C Status: ADM ETTA Study: CTA Head W/WO Contrast Date of Exam: 07/29/18 Exam# [id number] Ordering Dr: Eugenia Mccollum DO STUDY: CTA OF THE BRAIN REASON FOR EXAM: Male, 48 years old. Left-sided weakness, off balance. RADIATION DOSAGE (If Supplied By Facility): CTDIvol = ( 25.88 ) mGy, DLP = ( 897.4 ) mGycm TECHNIQUE: CT angiography was performed with a multi-detector CT scanner. Data acquisition was obtained from the skull base through the vertex following intravenous administration of ml of . MIP images were reconstructed from the axial data set. Post-processing of the angiographic images was performed, with multiplanar reformation and 3D reconstruction. Individualized dose optimization techniques were used for this CT. COMPARISON: None. FINDINGS: Reformatted imaging is suboptimal. Normal bilateral petrous carotid arteries. Normal right cavernous carotid artery with a normal supraclinoid bifurcation. Normal left cavernous carotid artery with a normal supraclinoid bifurcation. Normal right A1 segments of the anterior cerebral artery. Normal left A1 segments of the anterior cerebral artery. Normal intact anterior communicating artery (ACOM). Normal bilateral A2 segments of the anterior cerebral arteries. Normal right M1 and M2 segments of the middle cerebral arteries, with a normal M1 bifurcation. Normal left M1 and M2 segments of the middle cerebral arteries, with a normal M1 bifurcation. There is non-visualization of the right posterior communicating artery (PCOM). There is non-visualization of the left posterior communicating artery (PCOM). There is a right dominant vertebral artery. The left vertebral artery terminates as the posterior inferior cerebellar artery. This is a normal variant. Normal basilar artery with a normal basilar bifurcation. The visualized bilateral superior cerebellar (SCA) arteries are normal. Normal bilateral P1, P2 and visualized P3 segments of the posterior cerebral arteries. There is no demonstrated aneurysm of the [place]. CT/CTA Head W/WO Contrast IMPRESSION: Normal [place] without a demonstrated aneurysm or significant stenosis. Electronically Signed: Jackie Newton MD at 19:40 EST Tel , Service support , CC: JUSTIN Carranza; Neda Mccollum Veterinary Parasitologist: Signed EMERGENCY DEPARTMENT Observed: 07/29/2018 Status: F Source: [facility] SUMMARY 4:15 PM [facility] RE[facility] Medical Records Department [address] [place] [address] Emergency Department Summary 07/29/18 1612 MR#: [id number] Acct: [id number] Name: JODI COLLINS Rep #: [id number] : 1970 48 From: Jatin Levin MD PCP: JUSTIN Hernandez Status: ADM ETTA - ER Visit Summary Date of Service: 07/29/18 Chief Complaint: Not feeling right History of Present Illness: The patient is a 48 M presenting for evaluation secondary to abnormal feeling. Patient states that since Monday he was at work and had a sudden onset where he almost passed out, went down to his knees, and upon standing he has been having issues with falling to his left, and left-sided numbness. He denies any visual changes. He denies any weakness associated with this or any speech difficulty. This been a continuous issue since then, with no exacerbating relieving factors. Denies any presence of chest pain. Patient does have an underlying history of diabetes high cholesterol and a family history of vascular disease. Review of systems otherwise negative. Physical Examination: Vital signs are within normal limits, patient is afebrile. General: Patient is well-nourished well-developed and in no acute distress. Head: Normocephalic, atraumatic Eyes: Pupils equal round and reactive bilaterally, extra occular motion intact bialterally ENT: Moist mucous membranes Neck: Supple, no lymphadenopathy, no JVD, no meningismus CVS: Heart regular rate and rhythm, no murmurs, rubs or gallops, radial pulses 2+ bilaterally Resp: Respirations nondistressed, lung sounds clear bilaterally Abdomen: Soft, nontender, nondistended, no palpable masses, normal bowel sounds Back: Nontender Extremities: Nontender, atraumatic, active full range of motion, no peripheral edema Skin: warm, no rashes, no petechia Neuro: Alert and oriented x 4, CN 2-12 intact, patient complains of left-sided paresthesias of the arm and the leg, NIH stroke scale is 1, normal cerebellar testing Psyc: Normal affect Test Results: EKG demonstrates sinus rate of 92 with PVCs no evidence of ischemia. CBC chemistry troponin are negative. CT imaging found to be negative of the brain. Emergency Department Course and Treatment: Patient presented with left-sided paresthesia. Workup was found to be negative. Patient's ABCD 2 score is moderate risk. I do believe that he requires inpatient rule out of stroke. Patient will be admitted under the hospitalist. Disposition: Admission Impression: 1. Left-sided paresthesia 2. History of diabetes hyperlipidemia and family history of cerebrovascular disease This note was generated with FreeDrive dictation software. It may contain incorrect words, spelling, and punctuation that were not noted in review of the chart prior to signing ED Disposition - Plan for ED Patient: Chief Complaint: Dizziness Referrals: Emil Carranza NP-C [Primary Care Provider] - What to do if you have Problems For any increased pain, shortness of breath, bleeding, nausea or vomiting, chest pain, or any unexpected problems, contact your Primary Care Provider. Call [facility] ([phone]) or report to the closest Emergency Room. Call 911 if necessary. 07/29/18 9245 <Electronically signed by Jatin Levin MD> Date Jatin Levin MD Cosigner Signature (If Indicated): Date CC: JUSTIN Nuneznis Tere BASIC METABOLIC Collected: 07/29/2018 Status: F Source: [facility] PROFILE (BMP) 2:25 PM [facility] REPOSITORY TYPE CODE TESTS RESULT OUT OF RANGE REFERENCE UNITS LAB L501.0100 74-106 mg/dL High GLU 279 Result Comment: Glucose result greater than or equal to 200 mg/dL suggests DIABETES MELLITUS per A.D.A. criteria. Please note revised GLUCOSE reference range effective 2017. LAB L501.1000 7-18 mg/dL Normal BUN 13 LAB L501.1100 0.70-1.30 mg/dL Normal CREAT,SERUM 0.74 Result Comment: The validity of the calculated GFR AND GFRAA in patients over 70 years has not been determined. Clinical correlation is essential. LAB L501.1110 >60 mL/min Normal EST GFR 120 Result Comment: Non- GFR Calc LAB L501.1115 >60 mL/min Normal EST GFR - AA 145 Result Comment: GFR Calc LAB L501.1255 ml/min Normal Estimated CRCL 127.42 LAB L501.1300 10-20 RATIO BUN/CRE Normal 17.4 LAB L501.2200 8.5-10 mg/dL .1 CA Normal 8.7 LAB L501.5300 136-14 mmol/L 5 NA Normal 141 LAB L501.5600 3.5-5. mmol/L 1 K Normal 3.9 LAB L501.5900 98-107 mmol/L CL Normal 106 LAB L501.6100 21.0-3 mmol/L 2.0 CO2 Normal 26.0 LAB L501.6200 5-15 GAP Normal 9 Performed By: #### L500.2500, L501.4010 #### [facility] [address] [place], [address] TROPONIN-I Collected: 07/29/2018 Status: F Source: [facility] 2:25 PM [facility] REPOSITORY TYPE CODE TESTS RESULT OUT OF RANGE REFERENCE UNITS LAB L501.4010 <0.045 ng/mL Normal < 0.015 TROPONIN-I Result Comment: TROPONIN-I EXPECTED VALUES <0.045 Negative 0.045 - 0.590 Consistent with Cardiac Damage > OR = 0.600 Critical Value Not every elevated troponin is indicative of VA. These values should be used with clinical judgement in examining the patient's clinical picture for diagnosis. To establish a diagnosis of VA versus myocardial injury, there must be a demonstrated rise and/or fall in the troponin values, in addition to ischemic symptoms, EKG changes, new regional wall motion abnormality, and/or angiographical evidence. PLEASE NOTE: REFERENCE RANGES EDITED 17 Performed By: #### L500.2500, L501.4010 #### [facility] [place] [address], [address] CBC W/DIFF, AUTOMATED Collected: 07/29/2018 Status: F Source: [facility] 2:25 PM [facility] REPOSITORY TYPE CODE TESTS RESULT OUT OF RANGE REFERENCE UNITS LAB L100.1000 4.4-11.0 K/mm3 Normal WBC 8.1 LAB L100.1200 4.6-6.2 M/mm3 Normal RBC 5.18 LAB L100.1300 13.0-16.5 g/dl Normal HGB 14.6 LAB L100.1400 40-54 % Normal HCT 44.7 LAB L100.1500 80-94 fL Normal MCV 86.3 LAB L100.1600 27.0-32.0 pg Normal MCH 28.2 LAB L100.1700 32-36 g/gl Normal MCHC 32.7 LAB L100.1810 11.6-14.6 % Normal RDW CV 13.2 LAB L100.1820 35.1-43.9 fl Normal RDW SD 41.9 LAB L100.1900 150-450 K/mm3 Normal PLT 154 LAB L100.2000 6.2-12.0 fl Normal MPV 11.4 LAB L100.2100 47-70 % Normal NEUT% 67.9 LAB L100.2200 19-41 % Normal LY% 24.6 LAB L100.2300 0-10 % Normal MONO% 5.2 LAB L100.2400 0-5 % Normal EO% 1.5 LAB L100.2500 0-1 % Normal BASO% 0.6 LAB L100.2550 0.0-0.9 % Normal IM GRAN % 0.200 Result Comment: IG% - Immature Granulocytes (promyelocytes, myelocytes and metamyelocytes) > 1% indicates that a LEFT SHIFT is Present. LAB L100.2620 2.0-7.7 X10 3/uL Normal Absolute Neut 5.5 LAB L100.2720 0.83-4.51 X10 3/ul Normal Absolute Lymph 1.99 Performed By: #### L100.0100 #### [facility] [address] [place], [address] PROTHROMBIN TIME W/INR Collected: 07/29/2018 Status: F Source: [facility] 2:25 PM [facility] REPOSIT[facility] TYPE CODE TESTS RESULT OUT OF RANGE REFERENCE UNITS LAB L300.4150 11.7-14.9 SECONDS Normal PROTIME 12.7 LAB L300.4200 Normal INR 1.0 Performed By: #### L300.3900, L300.4310 #### [facility] [address] [place], [address] PARTIAL THROMBOPLAST Collected: 07/29/2018 Status: F Source: [facility] TIME 2:25 PM [facility] REPOSITORY TYPE CODE TESTS RESULT OUT OF RANGE REFERENCE UNITS LAB L300.4310 24.1-36.2 Seconds Normal PTT 28.4 Performed By: #### L300.3900, L300.4310 #### [facility] [address] [place], [address] HEMOGLOBIN A1C Collected: 07/29/2018 Status: F Source: [facility] 2:25 PM [facility] REPOSITORY TYPE CODE TESTS RESULT OUT OF RANGE REFERENCE UNITS LAB L501.9985 4.2-6.3 % High HGB A1C 9.1 Performed By: #### L501.9985 #### [facility] [address] [place], [address] BRAIN/HEAD WITHOUT Observed: 07/29/2018 Status: F Source: [facility] CONTRAST 2:14 PM [facility] REPOSITORY [facility] Imaging Services [address] [place] [address] Brain/Head without Contrast MR#: [id number] Acct: [id number] Name: JODI COLLINS Eugenia Rep #: [id number] : 1970 M 48 From: Christian Lam MD PCP: Emil Carranza NP-C Status: REG ER Study: Brain/Head without Contrast Date of Exam: 07/29/18 Exam# [id number] Ordering Dr: Jatin Levin MD STUDY: CT BRAIN WITHOUT CONTRAST REASON FOR EXAM: Male, 48 years old. EPISODE AT WORK MONDAY OF LIGHT HEADED AND DISORIENTED, STILL FEELS OFF BALANCE AND FEELS LIKE HE IS LEANING TO THE LEFT, LT SIDE FEELS WEAKER THAN RIGHT, SLEEP APNEA, DB RADIATION DOSAGE (If Supplied By Facility): CTDIvol = ( 44.99 ) mGy, DLP = ( 779.24 ) mGycm TECHNIQUE: Transaxial CT imaging of the brain was performed without administration of intravenous contrast material. Individualized dose optimization techniques were used for this CT. COMPARISON: None. FINDINGS: Normal soft tissue structures. Normal calvarium. Normal size ventricles and extra-axial spaces for the patient's age. Normal white matter tracts of the cerebral hemispheres. Normal basal ganglia and thalami. Normal brainstem. Normal cerebellum. There is calcification of the anterior falx of doubtful clinical significance. There is no intracranial hemorrhage. There are no findings of an acute ischemic infarction. Normal visualized paranasal sinuses. CT/Brain/Head without Contrast IMPRESSION: Normal unenhanced CT scan of the brain. Electronically Signed: Christian Lam MD at 15:34 EST , Service support , CC: HEALTHCARE CUSTOMER SERVICE-C Emil Carranza; Jatin Levin Veterinary Parasitologist: Signed SPINE CERVICAL Observed: 07/29/2018 Status: F Source: [place] WITHOUT CONTRAS 2:14 PM [facility] REPOS[facility] Imaging Services [address] [place] [address] Spine Cervical without Contras MR#: [id number] Acct: [id number] Name: JODI COLLINS Rep #: [id number] : 1970 M 48 From: Christian Lam MD PCP: Emil Carranza, HEALTHCARE CUSTOMER SERVICE-C Status: REG ER Study: Spine Cervical without Contras Date of Exam: 07/29/18 Exam# [id number] Ordering Dr: Jatin Levin MD STUDY: CT CERVICAL SPINE WITHOUT CONTRAST REASON FOR EXAM: Male, 48 years old. EPISODE AT WORK MONDAY OF LIGHT HEADED AND DISORIENTED, STILL FEELS OFF BALANCE AND FEELS LIKE HE IS LEANING TO THE LEFT, LT SIDE FEELS WEAKER THAN RIGHT, SLEEP APNEA, DB RADIATION DOSAGE (If Supplied By Facility): CTDIvol = ( 31.73 ) mGy, DLP = ( 742.91 ) mGycm TECHNIQUE: High resolution transaxial imaging was performed without contrast material. Sagittal and coronal images were reconstructed. Individualized dose optimization techniques were used for this CT. COMPARISON: None FINDINGS: Normal craniovertebral junction. Normal anterior atlantoaxial articulation. Normal odontoid process. Normal cervical lordosis. Normal vertebral bodies and posterior osseous elements. C2-3: Normal endplates. Normal disc height and morphology. Normal central canal and intervertebral neuroforamina. C3-4: Normal endplates. Normal disc height and morphology. Normal central canal and intervertebral neuroforamina. C4-5: Normal endplates. Normal disc height and morphology. Normal central canal and intervertebral neuroforamina. C5-6: Normal endplates. Normal disc height and morphology. Normal central canal and intervertebral neuroforamina. C6-7: Normal endplates. Normal disc height and morphology. Normal central canal and intervertebral neuroforamina. C7-T1: Normal endplates. Normal disc height and morphology. Normal central canal and intervertebral neuroforamina. Normal visualized soft tissue structures. CT/Spine Cervical without Contras IMPRESSION: Normal unenhanced CT examination of the cervical spine. Electronically Signed: Christian Lam MD at 15:34 EST , Service support , CC: JUSTIN Carranza; Jatin Levin Veterinary Parasitologist: Signed CBC Collected: 05/21/2018 Status: F Source: [facility] 3:35 [facility] REPOSITORY TYPE CODE TESTS RESULT OUT OF REFERENCE UNITS RANGE LAB WBC(LOINC) 4.60-10.80 10 3/mcL High WBC 11.70 LAB RBCCT(LOINC 4.04-6.13 10 6/mcL ) RBC 5.73 LAB HGB(LOINC) 14.0-18.0 G/dL Hgb 15.7 LAB HCT(LOINC) 42.0-52.0 % Hct 48.0 LAB MCV(LOINC) 80.0-94.0 fL MCV 83.7 LAB MCH(LOINC) 27.0-31.2 pg MCH 27.4 LAB MCHC(LOINC) 31.8-35.4 G/dL MCHC 32.7 LAB RDW(LOINC) 11.5-14.5 % RDW 14.4 LAB PLT(LOINC) 130-400 10 3/mcL Platelet 187 LAB MPV(LOINC) 7.4-10.4 fL MPV 9.8 Performed By: #### CBC, ADIFF, ANEU #### [address] [address] #### CMP, LIPID, GFR #### [address] [address] .AUTO DIFF Collected: 05/21/2018 Status: F Source: [facility] 3:35 [facility] REPOSITORY TYPE CODE TESTS RESULT OUT OF REFERENCE UNITS RANGE LAB MAYTE(LOINC) 37.0-80.0 % Neutrophil % 72.6 LAB LYM(LOINC) 10.0-50.0 % Lymphocyte % 20.9 LAB MON(LOINC) 1.7-13.0 % Monocyte % 4.9 LAB EO(LOINC) 0.0-7.0 % Eosinophil % 0.8 LAB BAS(LOINC) 0.0-2.5 % Basophil % 0.8 LAB ABLYM(LOIN 0.77-3.85 10 3/mcL C) Lymphocyte, 2.40 Absolute LAB BRYAN(LOINC 0.15-1.00 10 3/mcL ) Monocyte, 0.60 Absolute LAB AEOS(LOINC 0.00-0.40 10 3/mcL ) Eosinophil, 0.10 Absolute LAB ABAS(LOINC 0.00-0.19 10 3/mcL ) Basophil, 0.10 Absolute Performed By: #### CBC, ADIFF, ANEU #### [address] [address] #### CMP, LIPID, GFR #### [address] [address] .NEUABS Collected: 05/21/2018 Status: F Source: [facility] 3:35 PM [facility] REPOSITORY TYPE CODE TESTS RESULT OUT OF REFERENCE UNITS RANGE LAB ANEU(LOINC) 2.85-6.16 10 3/mcL High Neutrophil, 8.50 Absolute Performed By: #### CBC, ADIFF, ANEU #### [address] [address] #### CMP, LIPID, GFR #### [address] [address] CMP Collected: 05/21/2018 Status: F Source: [facility] 3:35 PM [facility] REPOSITORY TYPE CODE TESTS RESULT OUT OF REFERENCE UNITS RANGE LAB GLU(LOINC) 70-105 mg/dL Glucose Level 78 LAB NA(LOINC) 136-145 mmol/L Sodium Level 138 LAB K(LOINC) 3.5-5.1 mmol/L Potassium Level 4.1 LAB CL(LOINC) 98-107 mmol/L Chloride 100 LAB CO2(LOINC) 22-29 mmol/L CO2 High 30 LAB EBAL(LOINC mEq/L ) Electrolyte Balance 8.0 LAB BUN(LOINC) 7-18 mg/dL BUN 18 LAB CRE(LOINC) 0.70-1.30 mg/dL Creatinine Lvl (s) 0.86 LAB BC(LOINC) 7-27 ratio BUN/Creatinine 21 Ratio LAB CA(LOINC) 8.4-10.2 mg/dL Calcium Lvl 9.1 LAB PROT(LOINC 6.4-8.2 G/dL ) Total Protein 7.4 LAB ALB(LOINC) 3.5-5.0 G/dL Albumin Level 4.1 LAB GLB(LOINC) G/dL Globulin 3.3 LAB AG(LOINC) 1.1-2.5 ratio A/G Ratio 1.2 LAB BILT(LOINC 0.2-1.0 mg/dL ) Bili Total 0.5 LAB AP(LOINC) 40-135 U/L Alk Phos 68 LAB AST(LOINC) 10-40 U/L AST/SGOT 23 LAB ALT(LOINC) 10-35 U/L ALT/SGPT 32 Performed By: #### CBC, ADIFF, ANEU #### [address] [address] #### CMP, LIPID, GFR #### [address] [address] LIPID Collected: 05/21/2018 Status: F Source: [facility] 3:35 PM [facility] REPOSITORY TYPE CODE TESTS RESULT OUT OF REFERENCE UNITS RANGE LAB CHOL(LOINC 0-200 mg/dL ) Cholesterol High 216 Result Comment: Cholesterol Reference Interval: Less than 200 Desirable 200-239 Borderline high risk 240 and above High risk LAB TRIG(LOINC) 0-150 mg/dL Triglycerides High 156 Result Comment: Triglyceride Reference Interval: Less than 150 Normal 150-199 Borderline high risk 200-499 High risk 500 or higher Very high risk LAB HD(LOINC) 40-60 mg/dL HDL Cholesterol 44 LAB LDL(LOINC) 0-130 mg/dL LDL High Cholesterol 141 Performed By: #### CBC, ADIFF, ANEU #### [address] [address] #### CMP, LIPID, GFR #### [address] [address] .GFR Collected: 05/21/2018 Status: F Source: [employer] 3:35 PM [facility] REPOSITORY TYPE CODE TESTS RESULT OUT OF REFERENCE UNITS RANGE LAB GFRAA(LOINC ml/min/1.73 ) sqm GFR 116 [place] Result Comment: GFR Population mean for , Non- Americans Ages 20-29 = 116 mL/min/1.73 sq.m. Ages 30-39 = 107 mL/min/1.73 sq.m. Ages 40-49 = 99 mL/min/1.73 sq.m. Ages 50-59 = 93 mL/min/1.73 sq.m. Ages 60-69 = 85 mL/min/1.73 sq.m. Ages 70+ = 75 mL/min/1.73 sq.m. Chronic Kidney Disease: Less than 60 mL/min/1.73 square meters End Stage Renal Disease: Less than 15 mL/min/1.73 square meters LAB GFRNO(LOINC) ml/min/1.73sqm GFR Non- 96 Result Comment: GFR Population mean for , Non- Americans Ages 20-29 = 116 mL/min/1.73 sq.m. Ages 30-39 = 107 mL/min/1.73 sq.m. Ages 40-49 = 99 mL/min/1.73 sq.m. Ages 50-59 = 93 mL/min/1.73 sq.m. Ages 60-69 = 85 mL/min/1.73 sq.m. Ages 70+ = 75 mL/min/1.73 sq.m. Chronic Kidney Disease: Less than 60 mL/min/1.73 square meters End Stage Renal Disease: Less than 15 mL/min/1.73 square meters Performed By: #### CBC, ADIFF, ANEU #### [address] [address] #### CMP, LIPID, GFR #### [address] [address] EMERGENCY DEPARTMENT Observed: 02/21/2018 Status: F Source: [facility] SUMMARY 11:39 PM [facility] REPOSIT[facility] Medical Records Department [address] [place] [address] Emergency Department Summary 02/21/18 1630 MR#: [id number] Acct: [id number] Name: JODI COLLINS Rep #: [id number] : 1970 47 From: German Peralta DO PCP: JUSTIN Hernandez Status: DEP ER - ER Visit Summary Date of Service: 02/21/18 Chief Complaint: Left hand pain History of Present Illness: The patient is a 47 M who presents with left hand pain that has been getting worse over the past week and a half. Patient denies any specific trauma or injury. Patient noted some swelling over the palmar aspect of his left hand. Patient states the pain is worse with flexion of his hands and wrists. Patient describes the pain as throbbing. Patient denies any paresthesias or weakness. Patient does not think there is a foreign body in his hand. Physical Examination: Vital signs are stable. Patient is afebrile. Patient is in no acute distress. Oral mucosa is pink and moist. Neck is supple. There is no JVD noted. There is some tenderness and edema over the palmar aspect of the left hand. There is no erythema or fluctuance. There is no tenderness over the median nerve. Sensation was intact to light touch in the radial, median, and ulnar areas. Strength is 5/5 in the radial, median, and ulnar areas. Physical exam is within normal limits. Test Results: X-rays of the left hand did not reveal any foreign body. Emergency Department Course and Treatment: Patient was instructed to keep the hand clean. Patient was given a prescription for Bactrim. Patient was instructed to follow-up with his primary care physician in 5-7 days. Patient understood and was agreeable with the plan. All questions were answered. Disposition: Discharge home Impression: Cellulitis left hand This note was generated with FreeDrive dictation software. It may contain incorrect words, spelling, and punctuation that were not noted in review of the chart prior to signing ED Disposition - Plan for ED Patient: Disposition: Home or Assisted Living Chief Complaint: Upper Extremity Injury Diagnosis: Cellulitis of hand, left Instructions: ED Infec Skin Cellulitis Prescriptions: Smz/Tmp Ds [Bactrim Ds] 1 tab PO BID #14 tab Referrals: Emil Carranza, HEALTHCARE CUSTOMER SERVICE-C [Primary Care Provider] - What to do if you have Problems For any increased pain, shortness of breath, bleeding, nausea or vomiting, chest pain, or any unexpected problems, contact your Primary Care Provider. Call [facility] ([phone]) or report to the closest Emergency Room. Call 911 if necessary. 02/21/18 2020 <Electronically signed by German Peralta DO> Date German Peralta DO Cosigner Signature (If Indicated): Date CC: HEALTHCARE CUSTOMER SERVICE-C Emil Carranza HAND MIN 3 VIEWS Observed: 02/21/2018 Status: F Source: [place] 4:26 PM [facility] RE[facility] Imaging Services [address] [place] [address] Hand Min 3 Views MR#: [id number] Acct: [id number] Name: JODI COLLINS Rep #: [id number] : 1970 M 47 From: Joaquim Nino MD PCP: JUSTIN Hernandez Status: REG ER Study: Hand Min 3 Views Date of Exam: 02/21/18 Exam# [id number] Ordering Dr: German Peralta DO STUDY: X-RAY - LEFT HAND REASON FOR EXAM: Male, 47 years old. Pain times several days, no known injury TECHNIQUE: 3 view(s) of the hand. COMPARISON: None. FINDINGS: Normal radiocarpal articulation. Normal distal radioulnar joint. Normal visualized carpal bones. Normal carpal articulations Normal carpometacarpal articulation of the thumb. Normal second through fifth carpometacarpal joints. Normal metacarpi. Normal metacarpophalangeal joint of the thumb. Normal interphalangeal joint of the thumb. Normal proximal and distal phalanges of the thumb. Normal metacarpophalangeal joints of the second through fifth fingers. Normal proximal and distal interphalangeal joints of the second through fifth fingers. Normal phalanges of the second through fifth fingers. The soft tissue structures are unremarkable. RAD/Hand Min 3 Views IMPRESSION: Normal x-ray examination of the hand. Electronically Signed: Joaquim Nino MD at 17:08 EDT , Service support , CC: JUSTIN Carranza; German Peralta DO Veterinary Parasitologist: Signed CBC Collected: 11/19/2017 Status: F Source: [facility] 1:10 PM [facility] REPOSITORY TYPE CODE TESTS RESULT OUT OF REFERENCE UNITS RANGE LAB WBC(LOINC) 4.60-10.80 10 3/mcL WBC 9.60 LAB RBCCT(LOINC 4.04-6.13 10 6/mcL ) RBC 5.38 LAB HGB(LOINC) 14.0-18.0 G/dL Hgb 14.9 LAB HCT(LOINC) 42.0-52.0 % Hct 43.5 LAB MCV(LOINC) 80.0-94.0 fL MCV 80.9 LAB MCH(LOINC) 27.0-31.2 pg MCH 27.7 LAB MCHC(LOINC) 31.8-35.4 G/dL MCHC 34.3 LAB RDW(LOINC) 11.5-14.5 % RDW 14.2 LAB PLT(LOINC) 130-400 10 3/mcL Platelet 152 LAB MPV(LOINC) 7.4-10.4 fL MPV 9.6 Performed By: #### CBC, ADIFF, ANEU, LIPID, CMP, GFR, A1C #### [place] [address] .AUTO DIFF Collected: 11/19/2017 Status: F Source: [facility] 1:10 [facility] REPOSITORY TYPE CODE TESTS RESULT OUT OF REFERENCE UNITS RANGE LAB MAYTE(LOINC) 37.0-80.0 % Neutrophil % 70.8 LAB LYM(LOINC) 10.0-50.0 % Lymphocyte % 21.8 LAB MON(LOINC) 1.7-13.0 % Monocyte % 5.0 LAB EO(LOINC) 0.0-7.0 % Eosinophil % 1.3 LAB BAS(LOINC) 0.0-2.5 % Basophil % 1.1 LAB ABLYM(LOIN 0.77-3.85 10 3/mcL C) Lymphocyte, 2.10 Absolute LAB BRYAN(LOINC 0.15-1.00 10 3/mcL ) Monocyte, 0.50 Absolute LAB AEOS(LOINC 0.00-0.40 10 3/mcL ) Eosinophil, 0.10 Absolute LAB ABAS(LOINC 0.00-0.19 10 3/mcL ) Basophil, 0.10 Absolute Performed By: #### CBC, ADIFF, ANEU, LIPID, CMP, GFR, A1C #### [place] [address] [place], [place] [address] .NEUABS Collected: 11/19/2017 Status: F Source: [facility] 1:10 PM [facility] REPOSITORY TYPE CODE TESTS RESULT OUT OF REFERENCE UNITS RANGE LAB ANEU(LOINC) 2.85-6.16 10 3/mcL High Neutrophil, 6.80 Absolute Performed By: #### CBC, ADIFF, ANEU, LIPID, CMP, GFR, A1C #### [facility] [address] [place], [place] [address] LIPID Collected: 11/19/2017 Status: F Source: [facility] 1:10 PM [facility] REPOSITORY TYPE CODE TESTS RESULT OUT OF REFERENCE UNITS RANGE LAB CHOL(LOINC 131-200 mg/dL ) Cholesterol 134 Result Comment: Cholesterol Reference Interval: Less than 200 Desirable 200-239 Borderline high risk 240 and above High risk LAB TRIG(LOINC) 40-150 mg/dL Triglycerides 81 Result Comment: Triglyceride Reference Interval: Less than 150 Normal 150-199 Borderline high risk 200-499 High risk 500 or higher Very high risk LAB HD(LOINC) 35-90 mg/dL HDL Cholesterol 51 Result Comment: HDL Reference Interval: Less than 40 Low - high risk 60 or above Optimal/lowers risk LAB LDL(LOINC) 0-130 mg/dL LDL Cholesterol 67 Result Comment: LDL is a calculated result and requires a 12-hr fast. LDL Reference Interval: Less than 100 Optimal 100-129 Near or above optimal 130-159 Borderline high risk 160-189 High risk 190 and above Very high risk Performed By: #### CBC, ADIFF, ANEU, LIPID, CMP, GFR, A1C #### [facility] [address] [place], [place] [address] CMP Collected: 11/19/2017 Status: F Source: [facility] 1:10 PM [facility] REPOSITORY TYPE CODE TESTS RESULT OUT OF REFERENCE UNITS RANGE LAB GLU(LOINC) 70-105 mg/dL Glucose High Level 124 LAB NA(LOINC) 136-146 mEq/L Sodium Level 141 LAB K(LOINC) 3.5-5.1 mEq/L Potassium Level 4.0 LAB CL(LOINC) 98-107 mEq/L Chloride 107 LAB CO2(LOINC) 22-29 mEq/L CO2 28 LAB EBAL(LOINC mEq/L ) Electrolyte Balance 6.0 LAB BUN(LOINC) 7.0-18.0 mg/dL BUN 16.7 LAB CRE(LOINC) 0.6-1.2 mg/dL Creatinine Lvl (s) 0.8 LAB BC(LOINC) 7-27 ratio BUN/Creatinine 21 Ratio LAB CA(LOINC) 8.4-10.2 mg/dL Calcium Lvl 9.4 LAB PROT(LOINC 6.0-8.3 G/dL ) Total Protein 6.8 LAB ALB(LOINC) 3.5-5.0 G/dL Albumin Level 4.1 LAB GLB(LOINC) G/dL Globulin 2.7 LAB AG(LOINC) 1.1-2.5 ratio A/G Ratio 1.5 LAB BILT(LOINC 0.2-1.0 mg/dL ) Bili Total 0.6 LAB AP(LOINC) 40-135 IU/L Alk Phos 76 LAB AST(LOINC) 10-40 IU/L AST/SGOT 19 LAB ALT(LOINC) 10-35 IU/L ALT/SGPT 21 Performed By: #### CBC, ADIFF, ANEU, LIPID, CMP, GFR, A1C #### [address] [address] .GFR Collected: 11/19/2017 Status: F Source: [facility] 1:10 PM [facility] REPOSITORY TYPE CODE TESTS RESULT OUT OF REFERENCE UNITS RANGE LAB GFRAA(LOINC ml/min/1.73 ) sqm GFR 128 Moroccan Result Comment: GFR Population mean for , Non- Americans Ages 20-29 = 116 mL/min/1.73 sq.m. Ages 30-39 = 107 mL/min/1.73 sq.m. Ages 40-49 = 99 mL/min/1.73 sq.m. Ages 50-59 = 93 mL/min/1.73 sq.m. Ages 60-69 = 85 mL/min/1.73 sq.m. Ages 70+ = 75 mL/min/1.73 sq.m. Chronic Kidney Disease: Less than 60 mL/min/1.73 square meters End Stage Renal Disease: Less than 15 mL/min/1.73 square meters LAB GFRNO(LOINC) ml/min/1.73sqm GFR Non- >60 Result Comment: GFR Population mean for , Non- Americans Ages 20-29 = 116 mL/min/1.73 sq.m. Ages 30-39 = 107 mL/min/1.73 sq.m. Ages 40-49 = 99 mL/min/1.73 sq.m. Ages 50-59 = 93 mL/min/1.73 sq.m. Ages 60-69 = 85 mL/min/1.73 sq.m. Ages 70+ = 75 mL/min/1.73 sq.m. Chronic Kidney Disease: Less than 60 mL/min/1.73 square meters End Stage Renal Disease: Less than 15 mL/min/1.73 square meters Performed By: #### CBC, ADIFF, ANEU, LIPID, CMP, GFR, A1C #### [address] [place], [place] [address] A1C Collected: 11/19/2017 Status: F Source: [employer] 1:10 PM [facility] REPOSITORY TYPE CODE TESTS RESULT OUT OF RANGE REFERENCE UNITS LAB A1C(LOINC) 4.8-5.9 % High Hgb A1c 6.9 Performed By: #### CBC, ADIFF, ANEU, LIPID, CMP, GFR, A1C #### [address] [place], [place] [address] ENDOCRINOLOGY VISIT Observed: 10/18/2017 Status: F Source: [facility] REPORT 10:07 AM [facility] REPOSITORY [facility] [address] [place] [address]. [address] [place] [address] OFFICE VISIT Date of Service: 10/11/17 MR#: [id number] Acct: [id number] Name: JODI COLLINS Rep #: [id number] : 1970 Provider: Lola Thibodeaux NP Age/Sex: 47/M Location: [facility] [place] Status: Signed HPI History of present illness Jodi Collins is a 47 year old male who presents for consult of diabetes type 2. Diagnosed in 2007. Accompanied by his . Has recently been under the care of the wound center for a foot ulcer that he states happened because of his work boots. Currently on U-500 insulin at 85 units twice daily. Takes insulin as prescribed. Pt denies difficulty with injections or self monitoring of BG. Denies any signs of infection or irritation at site of injections. At time of visit: -Pt denies symptoms of hypertensive emergency (CP,SOB,SEBASTIAN, or blurred vision) and hypotension(dizziness or lightheadedness) -Pt denies symptoms of hypoglycemia ( sweaty, confusion, anxiety, tremor, hunger, palpitations) and hyperglycemia ( polydipsia, polyuria) -Pt denies potential medication adverse effect. Hypoglycemia Aware of hypoglycemia: yes Able to self treat low BG: Yes Frequent low Blood sugar: No Has supply of glucagon: Yes Diet 3 meals daily Occ snacks Does not carb count SMBG Checks 2-4 times daily. 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 Type: type 2, insulin-requiring Glucose control symptoms: Reports high post-meal glucose Cardiopulmonary symptoms: Denies chest pain at rest, dyspnea on exertion, lightheadedness or myalgias GI symptoms: Denies constipation, diarrhea, nausea/dyspepsia or vomiting Skin and extremity symptoms: Denies erectile dysfunction Other symptoms: Denies blurry vision or change in vision Self monitoring: Yes Glucose testing: demonstrates correct use of meter Sick day education - understands ketone testing: Yes Physical activity: regular Exam Const General: healthy appearing, comfortable Nutritional Appearance: overweight Orientation: oriented x3 HENMT Head: normal to inspection, normocephalic Ears: hearing grossly normal bilaterally Mouth: oral mucosae normal, moist mucous membranes Eyes Eyelids: eyelids normal Conjunctivae: conjunctivae normal Pupils: PERRL Resp Effort AND Inspection: normal respiratory effort, able to speak in complete sentences, symmetric chest movement Auscultation: Bilateral: Clear to Auscultation Cardio Rate: regular rate Rhythm: regular rhythm Heart Sounds: S1 normal, S2 normal GI Inspection: normal to inspection Auscultation: normal bowel sounds Palpation: soft Skin General: no rashes or lesions noted Nails: normal Diabetic Foot Monofilament test: Left foot: abnormal, Right foot: abnormal Neuro General: moves all extremities Cognition: normal cognition Speech: speech normal Gait: normal gait Extrem General: normal to inspection, edema Psych Mental Status: mental status grossly normal Mood: congruent mood Affect: normal affect Speech and Movement: speech and movement normal Attitude: cooperative Thought Process: normal Thought Content: normal Intake Vital Signs10/11/17 Height 5 ft 10 in 10/11/17 Weight: 335 lb 6 oz 10/11/17 Body Mass Index (BMI) 48.1 10/11/17 Blood Pressure 123/82 10/11/17 Blood Pressure Location Lt popliteal 10/11/17 Blood Pressure Position Sitting 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: No Accompanied by: Is patient in pain?: No Allergies ibuprofen Adverse Reaction (Verified 10/11/17 16:13) Other Medications Aspirin [Aspirin, Baby] 81 mg PO DAILY@0800 02/18/15 [History Confirmed 10/11/17] Dapagliflozin Propanediol [Farxiga] 5 mg PO DAILY 02/18/15 [History Confirmed 10/11/17] Metformin HCl [Glucophage] 1,000 mg PO BIDCM 02/18/15 [History Confirmed 10/11/17] Atorvastatin Calcium [Lipitor] 20 mg PO DAILY 11/02/16 [History Confirmed 10/11/17] insulin regular human U-500concentrate 500 unit/mL subcutaneous soln 85 unit SC QHS ml 10/11/17 [History Confirmed 10/11/17] liraglutide 0.6 mg/0.1 mL (18 mg/3 mL) subcutaneous pen injector 1.8 mg SC QDAY ml 10/11/17 [History Confirmed 10/11/17] losartan 50 mg tablet 100 mg PO DAILY tab 10/11/17 [History Confirmed 10/11/17] Nurse's Note: blood sugars : low : 60 high : 260 PFSH Medical History Diabetes type 2, controlled (Acute) Early stage glaucoma (Acute) Vision problem (Acute) Family History Daughter Asthma Seizures Son Seizures Sister Breast cancer Mother Diabetes Heart disease Hypertension CVA (cerebral vascular accident) Brother Diabetes Father Diabetes Heart disease Hypertension Social History Smoking Status: Never smoker second hand exposure: No alcohol intake: current substance use type: does not use ROS Const Constitutional: No anorexia, body ache, chills, fatigue, fever(s), frequent falls, decreased energy, malaise, night sweats, weakness, weight change, sleep problems, abnormal sleep pattern, change in appetite, other, headache(s) or excessive sweating Eyes Eyes: Positive for other (injection in R eye for bleeding blood vessel in back of eye); no blurry vision, change in vision, double vision, discharge, dry eyes, bulging eyes, floaters, visual disturbances, eye pain, light sensitivity, spots in vision or tunnel vision ENT ENT: No abnormal hearing, ear pain, ear discharge, ear pressure, hearing loss, tinnitus, dizziness/vertigo, balance problems, nosebleed/epistaxis, nasal congestion, nasal obstruction, nose pain, sinus pressure, sinus pain, nasal discharge, post nasal drip, headache(s), facial pain, dental pain, dry mouth, bad breath, hoarseness, lip swelling, mouth lesions, mouth pain, sore throat, tongue swelling, throat swelling, other, difficulty swallowing or neck pain Cardio Cardiology: No chest pain at rest, chest pain with exertion, leg pain with exertion, excessive sweating, shortness of breath, dyspnea on exertion, generalized swelling, irregular heart rhythm, lightheadedness, orthopnea, radiating jaw, neck or arm pain, fast heart rate, slow heart rate, palpitations or other Gastro GI: No abdominal pain, belching, bloating, change in bowel habits, change in stool character, coffee ground emesis, constipation, cramping, diarrhea, heartburn, difficulty swallowing, feeling full early, excessive flatus, incontinent of stools, Vomiting blood/hematemesis, blood in stool, loose stools, Black,tarry stools, nausea/dyspepsia, pain with swallowing, vomiting or other Genitourinary Male: No difficulty urinating, burning urination, painful urination, urinary incontinence, urinary frequency, urinary urgency, urinary hesitancy, urinary retention, blood in urine, Frequent nighttime urination/ nocturia, post void dribbling, suprapubic fullness, side pain, sexual problems, genital lesions, genital itching, erectile dysfunction, penile discharge, difficulty with ejaculations, blood in semen, scrotal swelling, testicle lump, testicle pain or other Musc Musculoskeletal: No abnormal walking, joint pain, back pain, deformity, joint swelling, limited range of motion, loss of height, muscle cramps, muscle weakness, decreased muscle mass, body aches, neck pain, numbness, radiating pain into limb, stiffness, tingling or other Skin Skin: No acne, hair loss, change in hair, nail changes, boil, change in skin color, dry skin, redness, excessive hair growth, yellowing of the skin, lesions, itching, rash, skin pain, skin ulcer, sores, skin swelling, wounds or other Breast Breast: No other Neuro Neurology: No frequent falls, weakness, visual disturbances, abnormal hearing, headache(s), abnormal walking, numbness or tingling Psych Psychiatric: No abnormal sleep pattern, No change in appetite Endo Endocrine: No fatigue, other or excessive sweating Aller/Imm Allergy/Immunologic: No lip swelling, tongue swelling, throat swelling or itchy eyes Assessment AND Plan 1. Uncontrolled type 2 diabetes mellitus with complication, with long-term current use of insulin E11.8; E11.65; Z79.4 Patient Instructions Check BG routinely before meals. Use of glucose tablets to treat any low BG Maintain consist diet plan Avoid snack machine at work Monitor feet daily. Good foot wear necessary Orders Orders: Plan Detail Additional Comments 1. Please schedule follow up in 3-4 weeks. 2. Lab work one week before appointment. 3. Discussed importance of regular exercise and recommend starting or continuing a regular exercise program for good health. 4. The patient was encouraged to lose weight for good health 5. The importance of monitoring blood sugar regularly was reviewed. 6. The importance of monitoring the HBA1c level regularly was reviewed. 7. The importance of prper foot care and regularly checking feet to prevent sores and loss of limbs was reviewed. 8. The importance of keeping BP at or below 130/80 to prevent stroke, heart attacks, kidney failure, blindness was reviewed. Spent approximately 60 minutes with patient with over 50% of time spent in discussion and counseling regarding medication adjustment, symptoms and treatment of hypoglycemia, diet adherence, and checking BG before driving. 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 1. Little interest or pleasure in doing things: not at all 2. Feeling down, depressed, or hopeless: not at all Total score: 0 If score is 2 or greater, continue Source: Developed by Drs. Kalyan Wang, Jayla Hendricks, Mauricio Lagunas and colleagues, with an educational shyla from [employer]. Scoring: Total Score Depression Severity Action 1-4 Minimal depression No action needed 5-9 Mild depression Repeat PHQ-9 at follow up 10-14 Moderate depression Make tx plan,consider counseling, fup, prescription 10/18/17 1007 <Electronically signed by Lola ANDERSON> Date Lola ANDERSON Cosigner Signature: Date (if applicable) CC: HEMOGLOBIN A1C Collected: 08/10/2017 Status: F Source: [facility] 6:15 AM [facility] REPOSITORY TYPE CODE TESTS RESULT OUT OF RANGE REFERENCE UNITS LAB L501.9985 4.2-6.3 % High HGB A1C 7.5 Performed By: #### L501.9985 #### [facility] [address] [place], [place], [address] ALLERGIES ALLERGIES DATE TYPE / CODE NAME / CODE REACTION SEVERITY SOURCE 07/29/2018 Drug ibuprofen/F0 Other Unknown [facility] Allergy/4160 [id number]([facility] [address](SNOMED ORM) Repository CT) ENCOUNTERS ENCOUNTERS ADMIT/DISCHARGE ACCOUNT NUMBER ADMITTING ENCOUNTER LOCATION SOURCE CLASS 07/29/2018/07/30/19 [id number] S[facility]i, Ambulatory [address] ding:PCAni Repository : [id number]: 1 07/29/2018 [id number] S[facility]i, Ambulatory BMSBuilding: Cailin Neda [facility] Repository 07/29/2018 [id number] Sementi, Ambulatory BMSBuilding: [place] Neda [facility] Repository 05/21/2018/05/25/20 [id number] Ambulatory BBuilding:DR Childress 18 On license of [facility] Repository 04/19/2018 [id number] Ambulatory [facility] ding:DC Repository 03/15/2018/04/08/20 [id number] Ambulatory Cailin [facility] [address] [facility] ding:DC Repository 02/21/2018/02/22/20 [id number] Emergency Cailin Cailin [address] [facility] ding:ED Repository 02/12/2018 [id number] Ambulatory BMSBuilding: Cailin BMS.[facility] Repository 11/19/2017/11/20/19 [id number] Ambulatory FIOR Fior[address] ding:OLAB [facility] Repository 11/16/2017/12/08/19 [id number] Ambulatory Cailin [facility] [address] [facility] ding:DC Repository 10/11/2017/10/12/19 [id number] Ambulatory BMSBuilding: Cailin [address] Repository 08/20/2017 [id number] [facility] 08/16/2017/09/06/19 [id number] Ambulatory [facility] [address] [facility] ding:DC Repository 08/10/2017 [id number] [facility] PAYERS PAYERS ENCOUNTER GUARANTOR PAYER SUBSCRIBER SOURCE 07/29/2018 JODI COLLINS128 Insurance:ANTHEMPolicy WELLMANDOB: [facility] BOX Number: [id number] [address] [id number] Repository [place] [address]Ron: ve Date:6959-31-43MU [address] [place] [address]BM: 07/29/2018 Secondary NOT GIVENUNK [facility] Insurance:SELF PAY [facility] Number: Effective Repository Date:2018-07-29 07/29/2018 JODI COLLINS128 Insurance:ANTHEMPolicy WELLMANDOB: [facility] BOX Number: [id number] [address] [id number] [place]ository [place] [address]Ucd: ve Date:9614-84-06KZ [address], [place] () [address]YQ: 07/29/2018 Secondary NOT GIVENUNK Cailin Insurance:SELF PAY [facility] Number: Effective Repository Date:2018-07-29 07/29/2018 JODI Bello Primary JODI Simeon [id number] Insurance:ANTHEMPolicy WELLMANDOB: [facility] BOX Number: [id number] Repository [place] [address]Tkw: ve Date:8103-67-43CJ [address]NDWFCBF, [place] () [address]KS: 07/29/2018 Secondary NOT GIVENUNK [facility] Insurance:SELF PAY [facility] Number: Effective Repository Date:2018-07-29 05/21/2018 JODI Bello Primary JODI Bello [facility] WELLMANDOB: Insurance:ANTHEM BLUE WELLMANDOB: Foundation [id number] CROSS INSCOPolicy [id number] Repository [address] Number: [address], [id number], [place] [address]Rbf: 330) ve Date:2018-05-21 450[address]Jnr: [id number] [phone] ()Tel: (012) Name:[facility] () () [id number] Montes De [place] 000-0000 () [address]MQ: 04/19/2018 JODI Bello Primary JODI Simeon [id number] Insurance:ANTHEMPolicy WELLMANDOB: [facility] BOX Number: [id number] [id number] Repository [place] [address]Kci: ve Date:5383-10-22JG [address]TJJPNQL, [place] () [address]VZ: 04/19/2018 Secondary NOT GIVENUNK [facility] Insurance:SELF PAY [facility] Number: Effective Repository Date:2018-04-09 03/15/2018 JODI Bello Primary JODI COLLINS128 Insurance:ANTHEMPolicy WELLMANDOB: Community [address] Number: [id number], [id number] Repository [place] [address]Qos: ve Date:8827-02-79BH [address]XDROVQI [facility]) [address]NZ: 03/15/2018 Secondary NOT GIVENUNK Cailin Insurance:SELF PAY [facility] Number: Effective Repository Date:2017-12-08 02/21/2018 JODI Bello Primary [facility]I [facility]ello [facility] Insurance:ANTHEMPolicy WELLMANDOB: Community [facility] BOX Number: [id number] [id number] Repository [place] [address]Wix: ve Date:9924-80-58LR [address]OHEHW[address], [facility]) [address]IM: 02/21/2018 Secondary NOT GIVENUNK [facility] Insurance:SELF PAY [facility] Number: Effective Repository Date:2018-02-21 02/12/2018 JODI ZAPATA Cailin [id number] Insurance:ANTHEMPolicy WELLMANDOB: Community [address] Number: [id number], [id number] Repository [place] [address]Oov: ve Date:9481-15-27IM [address]BDXBJJS, [facility]) [address]VH: 02/12/2018 Secondary NOT GIVENUNK [facility] Insurance:SELF PAY [facility] Number: Effective Repository Date:2017-11-20 11/19/2017 JODI Bello Primary JODI Bello [facility] WELLMANDOB: Insurance:ANTHEM BLUE WELLMANDOB: Foundation [id number] CROSS COMMERCIALPolicy [id number] Repository [address] Number: [address], [place] [id number] [facility] [place] [address]Vwn: (330) ve Date:2017-11-19 1988[address]Ysj: [id number] [phone] (HP)Tel: ([phone]) Name:SAPPHIRE GARCIA (HP) () JESSICA Orellana 000-0000 () [address]ZX: 11/16/2017 JODI Primary JODI Simeon [id number] Insurance:ANTHEMPolicy WELLMANDOB: Community [address] Number: [id number] Repository [place] [address]Zrv: ve Date:6520-30-40AP [address] JESSICA ORELLANA () [address]FI: 11/16/2017 Secondary NOT GIVENUNK Cailin Insurance:SELF PAY Community [facility] Number: Effective Repository Date:2017-09-07 10/11/2017 JODI Primary JODI Simeon [id number] Insurance:ANTHEMPolicy WELLMANDOB: Community [address] Number: [id number] Repository [place] [address]Hyi: ve Date:8783-61-15UA [address] J[address] ORELLANA () [address]TY: 10/11/2017 Secondary NOT GIVENUNK Cailin Insurance:SELF PAY Community [facility] Number: Effective Repository Date:2017-10-11 08/20/2017 Jodi Primary Jodi Simeon [id number] Insurance:ANTHEMPolicy WellmanDOB: Community [address]: [id number] Repository [place] [address]Qnu: ve Date:9954-51-46SO [address] J[address] ORELLANA () [address]JO: 08/20/2017 Secondary NOT GIVENUNK Cailin Insurance:SELF PAY Community [facility] Number: Effective Repository Date:2017-08-10 08/16/2017 Jodi Primary Jodi Simeon [id number] Insurance:ANTHEMPolicy WellmanDOB: Community [address]: [id number] [id number] Repository [place] [address]Yir: ve Date:4201-66-47ED [address], [place] () [address]XB: 08/16/2017 Secondary NOT GIVENUNK [place] Insurance:SELF PAY [facility] Number: Effective Repository Date:2017-08-10 08/10/2017 Jodi Primary Jodi Cailin [id number] Insurance:ANTHEMPolicy WellmanDOB: Community [address] Number: [id number] [id number] Repository [place] [address]Kgk: ve Date:8388-27-33MI [address]LKZWGTX, [place] () [address]DI: 08/10/2017 Secondary NOT GIVENUNK Cailin Insurance:SELF PAY [facility] Number: Effective Repository Date:2017-08-10
== END 2018-07-30 10:15 | disposition home or self-care (01) ==
LOC: ED 14:17 → PCU 16:14
PROVIDERS: Admitting Provider Internal Medicine; Emergency Provider Emergency Medicine; Family Provider Nurse Practitioner Family; PCP Nurse Practitioner Family
DX: R07.89 Other chest pain (principal); R03.0 Elevated blood-pressure reading, without diagnosis of hypertension; R42 Dizziness and giddiness; E11.65 Type 2 diabetes mellitus with hyperglycemia; E78.5 Hyperlipidemia, unspecified; M25.512 Pain in left shoulder; E66.01 Morbid (severe) obesity due to excess calories; Z68.42 Body mass index [BMI] 45.0-49.9, adult; Z71.3 Dietary counseling and surveillance; J45.20 Mild intermittent asthma, uncomplicated; R29.6 Repeated falls; R29.701 NIHSS score 1; R20.2 Paresthesia of skin; M20.5X1 Other deformities of toe(s) (acquired), right foot; E11.42 Type 2 diabetes mellitus with diabetic polyneuropathy; Z79.899 Other long term (current) drug therapy; Z79.4 Long term (current) use of insulin; Z79.82 Long term (current) use of aspirin; F17.290 Nicotine dependence, other tobacco product, uncomplicated
CPT/HCPCS: 36415; 70450; 70496; 70498; 71046; 72125; 78452; 80048; 80053; 80061; 82962; 83036; 83735; 84484; 85025; 85610; 85730; 93005; 93017; 94660; 96372; 96374; 99218; 99283; A9500; Q9967; A4216; G0378

== ENCOUNTER 2020-01-29 23:13 | Emergency (ER) | payer BC, SELFPAY ==
[2018-07-29 17:05] VITALS: BMI 47.0
[2020-01-29 23:14] VITALS: BP 175/93; PULSE 89; RESP 16; TEMP 36.2; O2SAT 96; BMI 47.3
--- NOTE | 2020-01-29 23:25 | ED.DCSUM_ITS ---
- ER Visit Summary Date of Service: 01/29/20 Chief Complaint: Right lower leg redness History of Present Illness: The patient is a 49 M who has right lower leg redness and pain. Started 3 days ago. He states the inner portion of his right lower leg is been painful. Is worse when people touch it. He denies fevers. No trauma to the area. He has no history of DVT in the past. He has no swelling of the leg. No calf tenderness. He has no trouble ambulating. He is a diabetic. Physical Examination: Vitals are reviewed. Right leg exam reveals a 4 x 3 cm area of cellulitis on the right inner lower leg. There is no abscess. It is tender to palpation. He has no calf tenderness. His distal pulses are 2+ and equal. Test Results: None performed Emergency Department Course and Treatment: The patient appears to have a cellulitis of the right lower leg. He has no fever or tachycardia. I feel he can be treated as an outpatient. I will give him Cuero and Keflex here tonight. Keflex for home. He will call his doctor later this week for follow-up Treatment Plan: [] Disposition: Discharge Impression: Right lower leg cellulitis This note was generated with [employer] dictation software. It may contain incorrect words, spelling, and punctuation that were not noted in review of the chart prior to signing ED Disposition - Plan for ED Patient: Disposition: Home or Assisted Living Instructions: Cellulitis Prescriptions: Cephalexin [Keflex] 500 mg PO Q6 #40 cap Transmission Status: Pending to [facility]/pharmacy #[id number] Referrals: Emil Carranza, BAKARI-C [Primary Care Provider] -
[2020-01-29] MEDS: Cephalexin 250 MG Capsule 500 MG PO (23:31)
[2020-01-29] MEDS: HYDROcodone Bitartrate/Apap 5/325 Tablet PO (23:32)
== END 2020-01-30 00:03 | disposition home or self-care (01) ==
LOC: ED 23:40
PROVIDERS: Emergency Provider Emergency Medicine; PCP Nurse Practitioner Family
DX: L03.115 Cellulitis of right lower limb (principal); E11.9 Type 2 diabetes mellitus without complications
CPT/HCPCS: 99283

== ENCOUNTER → 2020-05-07 06:58 | Outpatient (CLI) | payer BC, SELFPAY ==
--- NOTE | 2020-05-07 07:12 | RAD_ITS ---
STUDY: X-RAY - LUMBAR SPINE REASON FOR EXAM: Male, 49 years old. CHRONIC LBP W/ RADIATION TOWARD LEFT SIDE TECHNIQUE: 2 view(s) of the lumbar spine were obtained. COMPARISON: None FINDINGS: Normal lumbar lordosis. There is no substantial scoliosis. There is a normal alignment of the vertebrae. Normal vertebral bodies and endplates. Normal disc space heights. The soft tissue structures are unremarkable. RAD/Lumbar Spine 2 or 3 Views IMPRESSION: Normal x-ray examination of the lumbar spine. Electronically Signed: Emil العلي MD at 9:15 EDT Tel , Service support ,
--- NOTE | 2020-05-07 07:12 | RAD_ITS ---
STUDY: X-RAY - CERVICAL SPINE REASON FOR EXAM: Male, 49 years old. CHRONIC NECK PAIN, KYPHOSIS NECK. PAIN RADIATES TOWARD LUE TECHNIQUE: 3 view(s) of the cervical spine were obtained. COMPARISON: None FINDINGS: Normal anterior atlantoaxial articulation. Normal odontoid process. Normal cervical lordosis. Normal vertebral bodies and endplates. Normal disc space heights. Normal visualized intervertebral neuroforamina. The soft tissue structures are unremarkable. RAD/Cerv Spine 2 or 3 Views IMPRESSION: Normal x-ray examination of the visualized cervical spine. Electronically Signed: Emil العلي MD at 9:17 EDT Tel , Service support ,
[2020-05-07 08:12] LABS: Hematocrit 48.4 % (40-54); Hemoglobin 15.7 g/dL (13.0-16.5); Mean Corp Hgb Conc 32.4 g/dL (32-36); Mean Corpuscular Volume 86.4 fL (80-94); Mean Platelet Vol. 11.4 fl (6.2-12.0); Platelet Count 184 K/mm3 (150-450); RBC Distribution Width CV 12.8 % (11.6-14.6); RBC Distribution Width SD 39.9 fl (35.1-43.9); White Blood Count 8.4 K/mm3 (4.4-11.0)
[2020-05-07 08:33] LABS: Hemoglobin A1c 8.7 % (3.8-5.6)
[2020-05-07 08:48] LABS: AST(SGOT) 20 U/L (15-37); Alanine Aminotransfer ALT/SGPT 30 U/L (16-61); Albumin, Serum 3.9 g/dL (3.2-5.0); Alkaline Phosphatase 76 U/L (45-117); Anion Gap 6 (5-15); BUN 18 mg/dL (7-18); BUN/Creat Ratio 22.6 RATIO (10-20); Calcium,Total 9.1 mg/dL (8.5-10.1); Chloride 107 mmol/L (98-107); Cholesterol 156 mg/dL (200); EST Glomerular Filtration Rate 110 mL/min (>60); Est Glom Filt Rate - Afr Amer 133 mL/min (>60); Globulin 3.8 g/dL (2.2-4.2); Glucose 150 mg/dL (74-106); High Density Lipoprotein 43 mg/dL; Potassium 4.2 mmol/L (3.5-5.1); Protein, Total 7.7 g/dL (6.4-8.2); Sodium Level 139 mmol/L (136-145); Triglycerides 145 mg/dL; Very Low Density Lipoprotein 29 mg/dL (5-40)
[2020-05-07 08:54] LABS: Vitamin D,25 Hydroxy 23.8 ng/mL
== END ==
PROVIDERS: PCP Nurse Practitioner Family; Referring Provider Nurse Practitioner Family; Visit Provider Nurse Practitioner Family
DX: M54.2 Cervicalgia (principal); I10 Essential (primary) hypertension; M54.9 Dorsalgia, unspecified; M40.209 Unspecified kyphosis, site unspecified; R63.8 Other symptoms and signs concerning food and fluid intake; E11.9 Type 2 diabetes mellitus without complications; E78.5 Hyperlipidemia, unspecified; E55.9 Vitamin D deficiency, unspecified
CPT/HCPCS: 36415; 72040; 72100; 80053; 80061; 82306; 83036; 85027

== ENCOUNTER 2020-06-25 19:27 | Observation (INO) | payer BC, SELFPAY ==
[2020-06-25] VITALS (7 sets, daily range): BP systolic 151–182; BP diastolic 79–94; PULSE 75–82; RESP 16–18; TEMP 36.2–36.9; O2SAT 94–99; BMI 47.1; BMI 48.8
--- NOTE | 2020-06-25 19:34 | EKG12_ITS ---
Test Reason : CHEST DISCOMFORT Blood Pressure : / mmHG Vent. Rate : 085 BPM Atrial Rate : 085 BPM P-R Int : 128 ms QRS Dur : 092 ms QT Int : 354 ms P-R-T Axes : 054 004 037 degrees QTc Int : 421 ms Normal sinus rhythm Normal ECG Confirmed by SEAMUS SIFUENTES, YENIFER ([id number]), general expeditor JAIRO GR ([id number]) on 07/01/2020 9:43:38 A M Referred By: JASON LUNDY Confirmed By:IVAN WAY MD
[2020-06-25] MEDS: Aspirin 81 MG TAB.CHEW 324 MG PO (19:39)
--- NOTE | 2020-06-25 19:41 | ED.VISSUMM ---
- ER Visit Summary Date of Service: 06/25/20 Chief Complaint: Chest pain History of Present Illness: The patient is a 49 M presenting with chest pain. Patient states he has had intermittent chest pain for the past 2 to 3 days. Pain is midsternal chest pressure. He states today the pain started radiating to his left arm. He has associated shortness of breath. He has had a mild cough. Denies fever. He was tested at work for Covid a few weeks ago and was negative. He has diabetes, he takes blood pressure and cholesterol medicine. He is not a smoker. Physical Examination: Vitals are stable. Patient is afebrile. Alert no acute distress. HEENT exam is unremarkable. Neck is supple. Lungs are clear and equal bilaterally. Heart is regular rate and rhythm. Abdomen is soft obese nontender nondistended. Extremities are unremarkable. Skin is warm and dry. No focal neurologic deficit. Remainder of exam is unremarkable. Emergency Department Course and Treatment: Patient was given aspirin, morphine, Zofran. EKG is sinus rhythm rate of 85 with no acute ischemic changes. Chest x-ray read by myself and radiology shows no acute cardiopulmonary findings or changes. Mild chronic elevation of the right diaphragm. CBC, chemistries unremarkable other than glucose 266. Troponin is negative. On reevaluation, patient is resting comfortably. Discussed with hospitalist for observation. Disposition: Observation Impression: Chest pain This note was generated with [employer] dictation software. It may contain incorrect words, spelling, and punctuation that were not noted in review of the chart prior to signing ED Disposition - Plan for ED Patient: Referrals: Emil Carranza ENERGY EFFICIENCY SPECIALIST, ENERGY EFFICIENCY SPECIALIST-C [Primary Care Provider] -
--- NOTE | 2020-06-25 19:45 | RAD_ITS ---
STUDY: X-RAY CHEST REASON FOR EXAM: Male, 49 years old. PT C/O INTERMITTENT CHEST DISCOMFORT OVER THE LAST COUPLE DAYS BUT TODAY ALSO HAD TINGLING IN HIS LEFT ARM TECHNIQUE: 1 view COMPARISON: Prior chest of 07/30/2018 FINDINGS: The lungs are clear and expanded. Chronic mild elevation of the right diaphragm. Normal size heart. Normal mediastinum and eneida. Normal visualized pulmonary arteries. Normal visualized aortic arch and descending thoracic aorta. Normal visualized thoracic spine. Normal visualized ribs, clavicles, and shoulders. There is no demonstrated abnormality of the visualized soft tissue structures of the upper abdomen. RAD/Chest 1 View (Portable) IMPRESSION: No acute cardiopulmonary findings or changes. Mild chronic elevation of the right diaphragm. Electronically Signed: Suzan Perez MD at 19:56 EST , Service support ,
[2020-06-25 19:50] LABS: Absolute Lymphocyte Count 2.59 X10^3/uL (0.83-4.51); Absolute Neutrophil Count 6.4 X10^3/uL (2.0-7.7); Basophil# 0.07 X10^3/uL; Basophil% 0.7 % (0-1); Eosinophil# 0.16 X10^3/uL; Eosinophils% 1.6 % (0-5); Hematocrit 43.6 % (40-54); Hemoglobin 14.5 g/dL (13.0-16.5); Lymphocyte # 2.59 X10^3/ul (4.0); Lymphocyte % 26.1 % (19-41); Mean Corp Hgb Conc 33.3 g/dL (32-36); Mean Corpuscular Hgb 28.7 pg (27.0-32.0); Mean Corpuscular Volume 86.3 fL (80-94); Mean Platelet Vol. 11.8 fl (6.2-12.0); Monocyte# 0.64 X10^3/uL; Monocyte% 6.5 % (0-10); NRBC Flagged by Analyzer 0 % (0-5); Neutrophil # 6.42 X10^3/uL (2.7-7.7); Neutrophil % 64.8 % (47-70); Platelet Count 175 K/mm3 (150-450); RBC Distribution Width CV 13.2 % (11.6-14.6); RBC Distribution Width SD 40.7 fl (35.1-43.9); Red Blood Count 5.05 M/mm3 (4.6-6.2); White Blood Count 9.9 K/mm3 (4.4-11.0)
[2020-06-25 20:10] LABS: Anion Gap 4 (5-15); BUN 19 mg/dL (7-18); BUN/Creat Ratio 18.4 RATIO (10-20); Calcium,Total 8.9 mg/dL (8.5-10.1); Chloride 102 mmol/L (98-107); Creatinine, Serum 1.03 mg/dL (0.70-1.30); EST Glomerular Filtration Rate 82 mL/min (>60); Est Glom Filt Rate - Afr Amer 99 mL/min (>60); Estimated Creatinine Clearance 93.41 ml/min; Glucose 266 mg/dL (74-106); Potassium 4.2 mmol/L (3.5-5.1); Sodium Level 135 mmol/L (136-145)
--- NOTE | 2020-06-25 20:20 | HP.PCM_ITS ---
Problem List (1) Chest pain Status: Acute (2) Diabetes mellitus, type II Status: Chronic Qualifiers: Diabetes mellitus complication detail: with polyneuropathy (3) Diabetes mellitus with neuropathy Status: Chronic Qualifiers: Diabetes mellitus type: type 2 (4) Exogenous obesity Status: Chronic (5) Ingrown nail Status: Chronic (6) Hallux limitus of right foot Status: Chronic History of Present Illness Date of Admission: 06/25/20 Chief Complaint: Chest pain The patient is a 49 year old M with a significant history of diabetes mellitus; morbid obesity; obstructive sleep apnea on home CPAP who presents to the emergency department with a 3-day history of constant substernal chest pain. He described chest pain as pressure. He rates his chest pain as 8 on a scale of 1- 10. Acute chest pain worsens with lying down to sleep at night. He denies any ameliorating factors to the pain. At work on the day of presentation he developed numbness to his right arm which scared him so he came to the ED. He denies any nausea or vomiting. He reports shortness of breath. He has diaphoresis which is no change from his baseline. Further patient reports shooting pain in his left leg. He also reports a flushing sensation at the back of his neck. Further he also reports lower back pain. He reported that about 2 months ago he was evaluated for lower back pain and neck pain. He denies loss of taste or smell sensation. Reportedly a coworker tested positive for Covid and so all workers at his job was tested. This was about 2 and half weeks ago. His Covid test at that time was negative. Past Medical History Past Medical History (Chronic Problems): Chronic Problems (Last Reviewed 06/25/20 @ 21:[address] Maksim Lee MD) Diabetes mellitus, type II (Chronic) Diabetes mellitus with neuropathy (Chronic) Exogenous obesity (Chronic) Ingrown nail (Chronic) Hallux limitus of right foot (Chronic) Medical History: Medical History (Last Reviewed 06/25/20 @ 21:[address] Maksim Lee MD) Diabetes type 2, controlled E11.9 Dx : 2007 Last exacerbation : DKA : never Hypoglycemic episode : never ER visit : never Early stage glaucoma H40.9 Vision problem H54.7 Allergies ibuprofen Adverse Reaction (Verified 06/25/20 19:29) Other Home Medications: Ambulatory Orders Medication Instructions Recorded Aspirin [Aspirin, Baby] 81 mg PO DAILY@0800 02/18/15 Dapagliflozin Propanediol [Farxiga] 5 mg PO DAILY 02/18/15 metFORMIN HCl [Glucophage] 1,000 mg PO BIDCM 02/18/15 insulin regular hum U-500 conc 500 75 - 85 unit SC TIDCM ml 10/11/17 unit/mL subcutaneous soln Ascorbic Acid [Vitamin C] 500 mg PO DAILY@0800 07/29/18 Atorvastatin Calcium [Lipitor] 40 mg PO QHS 07/29/18 Losartan Potassium 100 mg PO DAILY 01/29/20 Ergocalciferol (Vitamin D2) 50,000 unit PO WE 06/25/20 [Vitamin D2] Surgical History: - - podiatric surgeries. Circumcision about 20 years ago. Psychiatric History: No pertinent psych hx Smoking Status: Never smoker Tobacco Use: Non-smoker Alcohol: Heavy - On weekends. - *Family History Maternal Family History: Family History (Last Reviewed 06/25/20 @ 21:[address] Maksim Lee MD) Daughter Asthma Seizures Son Seizures Sister Breast cancer Mother Diabetes Heart disease Hypertension CVA (cerebral vascular accident) Brother Diabetes Father Diabetes Heart disease Hypertension History Items: Heart Disease, Stroke Paternal Family History: Family History (Last Reviewed 06/25/20 @ 21:[address] Maksim Lee MD) Daughter Asthma Seizures Son Seizures Sister Breast cancer Mother Diabetes Heart disease Hypertension CVA (cerebral vascular accident) Brother Diabetes Father Diabetes Heart disease Hypertension History Items: Heart Disease, - Review of Systems Constitutional: Denies: Chills, Fever, Weight Change HEENT: Denies: Head Aches, Sinus Congestion, Sinus Drainage Cardiovascular: Reports: Chest Pressure. Denies: Palpitations Respiratory: Reports: Shortness of Breath. Denies: Cough, Sputum production Gastrointestinal: Denies: Abdominal Pain, Nausea, Vomiting Genitourinary: Denies: Dysuria Musculoskeletal: Reports: Arm Pain, Back Pain, Leg Pain, Neck Pain. Denies: Joint Pain, Joint Tenderness Skin: Denies: Rash, Wounds Neurological: Denies: Numbness, Tingling, Focal weakness Psychiatric: Denies: Anxiety, Depression, Homicidal Ideations, Suicidal Ideations Hematologic/ Lymphatic: Denies: Easy Bruising, Easy Bleeding VTE Information - Inpt Only VTE Present on Admission: No VTE Mechan Device Prophylaxis: SCD's VTE Pharm Prophylaxis ordered?: No Patient Problems: Active and Suspected Problems (Last Reviewed 06/25/20 @ 21:[address] Maksim Lee MD) Chest pain (Acute) - Physical Exam Vitals/I&O's: Vital Signs Temp Pulse Resp BP Pulse Ox 97.2 F L 82 16 182/94 H 97 06/25/20 19:27 06/25/20 19:27 06/25/20 19:27 06/25/20 19:27 06/25/20 19:38 Oxygen Delivery Method Room Air Weight: 153.314 kg Body Mass Index (BMI) 47.1 General: Alert, Oriented x3, Cooperative, - - Morbidly obese HEENT: Atraumatic, PERRLA, EOMI, Normocephalic Neck: Supple, No JVD, Negative Carotid Bruits, Trachea Midline Lungs: Clear to auscultation, Normal air movement, No rhonchi, No wheeze, No rales Cardiovascular: Regular rate, Normal S1, Normal S2, No murmurs Abdomen: Bowel Sounds Present, Soft, Non Tender Extremities: No edema, Capillary Refill Less than 3 Seconds Skin: No rashes, No breakdown Musculoskeletal: No Tenderness to Palpation of Joints or Extremities Neurological: Cranial nerves II-XII grossly intact Psych/Mental Status: Normal Affect, Appropriate Laboratory Results 06/25/20 19:36: WBC 9.9, RBC 5.05, Hgb 14.5, Hct 43.6, MCV 86.3, MCH 28.7, MCHC 33.3, RDW Std Deviation 40.7, RDW Coeff of Annalise 13.2, Plt Count 175, MPV 11.8, Immature Gran % (Auto) 0.300, Neut % (Auto) 64.8, Lymph % (Auto) 26.1, [place] % (Auto) 6.5, Eos % (Auto) 1.6, Baso % (Auto) 0.7, Absolute Neuts (auto) 6.4, Absolute Lymphs (auto) 2.59, Nucleated RBC % 0 06/25/20 19:36: Sodium 135 L, Potassium 4.2, Chloride 102, Carbon Dioxide 29.0, Anion Gap 4 L, BUN 19 H, Creatinine 1.03, Estim Creat Clear Calc 93.41, Est GFR (MDRD) Af Amer 99, Est GFR (MDRD) Non-Af 82, BUN/Creatinine Ratio 18.4, Glucose 266 H, Calcium 8.9, Troponin I < 0.015 Assessment/Plan All Active Problems (Last Reviewed 06/25/20 @ 21:[address] Maksim Lee MD) Chest pain (Acute) Diabetic toe ulcer (Resolved) Edema of right lower extremity (Resolved) Healed ulcer of right foot on examination (Resolved) Infected ulcer of skin (Resolved) Ulcer of right foot with fat layer exposed (Resolved) Ulcer of right foot with fat layer exposed (Resolved) The patient is a 49 year old M with a significant history of diabetes mellitus; morbid obesity; obstructive sleep apnea on home CPAP who presents emergency department with a 3-day history of constant substernal chest pain that scared him after he developed an numbness of his left; and with a negative treadmill stress test on 07/29/2019. Chest pain Place on a monitored bed at PCU. Actual CXR image was independently visualized. No acute cardiopulmonary process was noted. Actual EKG tracing was independently visualized. EKG tracing showed sinus rhythm. Old records reviewed: Treadmill stress test on 07/29/2019 was unremarkable. ASA 324mg ordered.ASA 81 mg p.o. daily ordered SL NTG 0.4 mg prn as needed for chest pain ordered Morphine as needed for pain ordered. Patient refused morphine at the ED for pain. We will check lipid panel. Statin: Home Lipitor continued Stat EKG as needed for chest pain Treadmill stress test in the AM if the cardiac enzymes are negative Diabetes mellitus with poly-neuropathy Patient with hyperglycemia on presentation. History of hypoglycemia on previous admission SGLT2 inhibitors at home hold in the hospital setting. On 75 to 85 units of regular insulin with meals. Typically he eats twice a day and take insulin twice a day. In the hospital setting and while n.p.o. we will order Accu-Chek every 6 hours with short acting correction insulin. Hypertension Highest systolic blood pressure on presentation was 182; highest diastolic blood pressure Patient denies being hypertensive. Reportedly he takes losartan for diabetes. On review of medical records he had listed a diagnosis of elevated blood pressure without hypertension. With patient being on high-dose losartan and with still systolic blood pressure 151-182; and diastolic blood pressure 79-94 and a previous history of elevated blood pressure in the hospital setting likely patient has hypertension. Continue losartan. As needed hydralazine ordered. Trend blood pressure and adjust blood pressure medications. Chronic pain/diabetic polyneuropathy Patient to follow-up outpatient with his chronic pain. Acetaminophen as needed for pain. Obstructive sleep apnea Continue home CPAP. Alcoholism Drink heavily on the weekends On weekdays he does not drink and he does not withdrawal. Counselled. Morbid obesity: BMI:47.1. Complicates care. Lifestyle modification recommended. DVT prophylaxis SCD while planning for cardiac work up for chest pain OBSV E&M: [id number] Initial observation care L2
--- NOTE | 2020-06-25 21:43 | EKG12_ITS ---
Test Reason : AM EKG Blood Pressure : / mmHG Vent. Rate : 068 BPM Atrial Rate : 068 BPM P-R Int : 144 ms QRS Dur : 092 ms QT Int : 392 ms P-R-T Axes : 019 002 014 degrees QTc Int : 416 ms Normal sinus rhythm Normal ECG Confirmed by NICK SIFUENTES, TONYA ([id number]), editor news AMBER VOSS ([id number]) on 07/02/2020 9:08:41 AM Referred By: DR CHILDRESS Confirmed By:TONYA ROMERO MD
[2020-06-25] MEDS: Atorvastatin Calcium 40 MG Tablet PO (22:14)
--- NOTE | 2020-06-25 23:09 | PCS.PANDOC ---
PANDEMIC DOCUMENTATION INITIATED: Date: 06/25/20 Time: 2199
[2020-06-25 23:45] LABS: Bedside Glucose 190 mg/dL (70-110)
[2020-06-26] VITALS (9 sets, daily range): BP systolic 142–158; BP diastolic 71–98; PULSE 63–83; RESP 16–17; TEMP 36.4–36.9; O2SAT 96–99
[2020-06-26 02:24] LABS: Cholesterol 183 mg/dL (200); High Density Lipoprotein 33 mg/dL; Triglycerides 393 mg/dL; Very Low Density Lipoprotein 79 mg/dL (5-40)
--- NOTE | 2020-06-26 05:55 | EKG12_ITS ---
Test Reason : CP ADMIT Blood Pressure : / mmHG Vent. Rate : 071 BPM Atrial Rate : 071 BPM P-R Int : 154 ms QRS Dur : 094 ms QT Int : 380 ms P-R-T Axes : 058 -02 018 degrees QTc Int : 412 ms Normal sinus rhythm Normal ECG Confirmed by NICK SIFUENTES, TONYA ([id number]), editor at large AMBER VOSS ([id number]) on 07/02/2020 9:09:29 AM Referred By: DR CHILDRESS Confirmed By:TONYA ROMERO MD
[2020-06-26] MEDS: Aspirin E.C. 81 MG Tablet PO (06:26)
[2020-06-26] MEDS: Losartan Potassium 100 MG Tablet PO (06:26)
[2020-06-26 06:30] LABS: Bedside Glucose 190 mg/dL (70-110)
[2020-06-26] MEDS: Acetaminophen 325 MG Tablet 650 MG PO (10:20)
[2020-06-26] MEDS: Ascorbic Acid 500 MG Tablet PO (10:20)
[2020-06-26] MEDS: Insulin Lispro 100 UNIT/ML INSULN.PEN SC (11:28)
[2020-06-26 11:30] LABS: Bedside Glucose 225 mg/dL (70-110)
--- NOTE | 2020-06-26 15:25 | DCINST_ITS ---
- Discharge Diagnoses Current Active Problems: Current Active and Chronic Problems (Last Reviewed 06/25/20 @ 21:[address] 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) Ingrown nail (Chronic) Hallux limitus of right foot (Chronic) You will use the following diet at home:: Calorie/Carbohydrate Controlled (specify 1200, 1400, etc), Cardiac Discharge Activity: Return to Normal Activity Call your doctor if you observe: Shortness of breath, Dizziness, Fainting spells, Chest pain Allergies/Adverse Reactions: Allergies ibuprofen Adverse Reaction (Verified 06/25/20 21:47) Other Medications to take at Discharge Aspirin [Aspirin, Baby] 81 mg PO DAILY@0800 02/18/15 Dapagliflozin Propanediol [Farxiga] 5 mg PO DAILY 02/18/15 metFORMIN HCl [Glucophage] 1,000 mg PO BIDCM 02/18/15 insulin regular hum U-500 conc 500 unit/mL subcutaneous soln 75 - 85 unit SC TIDCM ml 10/11/17 Ascorbic Acid [Vitamin C] 500 mg PO DAILY@0800 07/29/18 Atorvastatin Calcium [Lipitor] 40 mg PO QHS 07/29/18 Losartan Potassium 100 mg PO DAILY 01/29/20 Ergocalciferol (Vitamin D2) [Vitamin D2] 50,000 unit PO WE 06/25/20 Primary Care Physician: Emil Carranza LOGISTICS MANAGEMENT SPECIALIST, LOGISTICS MANAGEMENT SPECIALIST-C [Primary Care Provider] - Please follow up with your Primary Care Physician in: 1 Week Test Results: Test results from this visit will be discussed in further detail at your follow- up appointment, if applicable. Proposed Discharge Date: 06/26/20
--- NOTE | 2020-06-26 15:28 | PCM.DC.SUM ---
Discharge Date and Diagnosis - Problem List Patient Problems: Active and Suspected Problems (Last Reviewed 06/25/20 @ 21:[address] Maksim Lee MD) Chest pain (Acute) Date of Admission: 06/25/20 Date of Discharge: 06/26/20 - Primary Discharge Diagnosis Acute Problems: Active Problems (Last Reviewed 06/25/20 @ 21:[address] Maksim Lee MD) Chest pain (Acute) - Secondary Discharge Diagnosis Chronic Problems: Chronic Problems (Last Reviewed 06/25/20 @ 21:[address] 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 Mild chronic elevation of the right diaphragm. Electronically Signed: Suzan Perez MD at 19:56 EST , Service support , Operations: None Procedures: Stress test Summary of Care Provided: The patient is a 49 year old M admitted 06/25/2020 due to chest pain. 1. Chest pain- ACS ruled out. Troponin negative. EKG without ST-T changes. Patient underwent nuclear stress test which was negative for ischemia. Echocardiogram completed, results pending. Will be reviewed prior to discharge. 2. Hypertension-started on lisinopril 10 mg daily. Will need further outpatient monitoring. 3. . Suspected left hand carpel tunnel syndrome-refer to ortho as outpatient. Sx have been ongoing. He does repetitive movement for work. 6. Type 2 diabetes mellitus-hemoglobin A1c 8.7% April 2020. Patient follows [facility]. Continue outpatient follow-up. 7. Hyperlipidemia- continue statin. 8. Mild intermittent asthma-no acute exacerbation. 9. Morbid obesity-encouraged diet and lifestyle modifications. Patient Problems: Active and Suspected Problems (Last Reviewed 06/25/20 @ 21:[address] Maksim Lee MD) Chest pain (Acute) - Physical Exam Vitals/I&O's: Vital Signs Temp Pulse Resp BP Pulse Ox 97.7 F L 69 16 142/71 H 96 06/26/20 10:19 06/26/20 14:48 06/26/20 10:19 06/26/20 10:19 06/26/20 10:19 Oxygen Flow Rate (L/min) 2 Oxygen Delivery Method Room Air Weight: 349 lb 13.977 oz Body Mass Index (BMI) 48.8 Intake and Output for Last 24 Hours 06/24/20 06/25/20 06/26/20 23:59 23:59 23:59 Intake Total 150 / 150 0 / 0 Balance 150 / 150 0 / 0 Laboratory Results 06/25/20 19:36: WBC 9.9, RBC 5.05, Hgb 14.5, Hct 43.6, MCV 86.3, MCH 28.7, MCHC 33.3, RDW Std Deviation 40.7, RDW Coeff of Annalise 13.2, Plt Count 175, MPV 11.8, Immature Gran % (Auto) 0.300, Neut % (Auto) 64.8, Lymph % (Auto) 26.1, [place] % (Auto) 6.5, Eos % (Auto) 1.6, Baso % (Auto) 0.7, Absolute Neuts (auto) 6.4, Absolute Lymphs (auto) 2.59, Nucleated RBC % 0 06/25/20 19:36: Sodium 135 L, Potassium 4.2, Chloride 102, Carbon Dioxide 29.0, Anion Gap 4 L, BUN 19 H, Creatinine 1.03, Estim Creat Clear Calc 93.41, Est GFR (MDRD) Af Amer 99, Est GFR (MDRD) Non-Af 82, BUN/Creatinine Ratio 18.4, Glucose 266 H, Calcium 8.9, Troponin I < 0.015 06/25/20 22:40: Troponin I < 0.015 06/25/20 23:40: POC Glucose 190 H 06/26/20 01:55: Triglycerides 393 H, Cholesterol 183, LDL Cholesterol 71, VLDL Cholesterol 79 H, HDL Cholesterol 33 L 06/26/20 01:55: Troponin I < 0.015 06/26/20 06:22: POC Glucose 190 H 06/26/20 11:24: POC Glucose 225 H Current Medications Acetaminophen (Acetaminophen 325 Mg Tablet) 650 mg PO Q6H PRN PRN PRN Reason: Pain Score 1-10/Temp > 100.7 F Last Admin: 06/26/20 10:20 Dose: 650 mg Documented by: Ascorbic Acid (Ascorbic Acid 500 Mg Tablet) 500 mg PO DAILY@0800 [facility] Last Admin: 06/26/20 10:20 Dose: 500 mg Documented by: Aspirin (Aspirin E.C. 81 Mg Tablet) 81 mg PO DAILY@0800 [facility] Last Admin: 06/26/20 06:26 Dose: 81 mg Documented by: Atorvastatin Calcium (Atorvastatin Calcium 40 Mg Tablet) 40 mg PO QHS [facility] Last Admin: 06/25/20 22:14 Dose: 40 mg Documented by: Dextrose (Dextrose 50%-Water 25 Gm/50 Ml Disp.Syrin) 0 gm IV X1 PRN; Protocol PRN Reason: Hypoglycemia Ergocalciferol (Ergocalciferol 50,000 Unit Capsule) 50,000 unit PO WE [facility] Glucagon (Glucagon 1 Mg/Ml Syringe) 1 mg IM .X1 PRN PRN Reason: Hypoglycemia Hydralazine HCl (Hydralazine 20 Mg/Ml Vial) 10 mg IV Q6H PRN PRN PRN Reason: SBP > 160; OR DBP > 120 Sodium Chloride () 250 mls @ 15 mls/hr IV .[id number] PRN PRN Reason: Saline Flush Sodium Chloride () 250 mls @ 15 mls/hr IV .[id number] PRN PRN Reason: Additional IVPB Infusion Insulin Human Lispro (Insulin Lispro 100 Unit/Ml Insuln.Pen) 0 unit SC Q6 [facility]; Protocol Last Admin: 06/26/20 11:28 Dose: 2 u Documented by: Losartan Potassium (Losartan Potassium 100 Mg Tablet) 100 mg PO DAILY [facility] Last Admin: 06/26/20 06:26 Dose: 100 mg Documented by: Melatonin (Melatonin 3 Mg Tablet) 3 mg PO QHS PRN PRN PRN Reason: INSOMNIA Morphine Sulfate (Morphine 2 Mg/Ml Syringe) 2 mg IV Q3H PRN PRN PRN Reason: Pain Score 6-10 Nitroglycerin (Nitroglycerin (Inpatient Use) 0.4 Mg Tab.Subl) 0.4 mg SUBLINGUAL Q5M PRN PRN Reason: CHEST PAIN Ondansetron HCl (Ondansetron 4 Mg/2 Ml Vial) 4 mg IV Q8H PRN PRN PRN Reason: NAUSEA/VOMITING Senna/Docusate Sodium (Senna/Docusate Sodium 1 Tablet) 2 tablet PO BID PRN PRN PRN Reason: Constipation Sodium Chloride (0.9% Saline Lock 10 Ml Syringe) 10 - 40 ml IV UD PRN PRN Reason: SALINE FLUSH Discharge Diet: Low fat/ Low Cholesterol, Carb Control Diet Discharge Activity: Return to Normal Activity Call your doctor if you observe: Shortness of breath, Dizziness, Fainting spells, Chest pain Home Medications: Medications to take at Discharge Aspirin [Aspirin, Baby] 81 mg PO DAILY@0800 02/18/15 Dapagliflozin Propanediol [Farxiga] 5 mg PO DAILY 02/18/15 metFORMIN HCl [Glucophage] 1,000 mg PO BIDCM 02/18/15 insulin regular hum U-500 conc 500 unit/mL subcutaneous soln 75 - 85 unit SC TIDCM ml 10/11/17 Ascorbic Acid [Vitamin C] 500 mg PO DAILY@0800 07/29/18 Atorvastatin Calcium [Lipitor] 40 mg PO QHS 07/29/18 Losartan Potassium 100 mg PO DAILY 01/29/20 Ergocalciferol (Vitamin D2) [Vitamin D2] 50,000 unit PO WE 06/25/20 Primary Care Physician: Emil Carranza RADIOLOGY RECEPTIONIST, RADIOLOGY RECEPTIONIST-C [Primary Care Provider] - Please follow up with your Primary Care Physician in: 1 Week Disposition: Home Minutes spent on discharge:: 35 Patient Condition:: Stable Medical Necessity - Tobacco Use Smoking Status: Never smoker Tobacco Use: Non-smoker Meaningful Use Info Meaningful Use Diagnoses (Choose all that apply): None applicable
--- NOTE | 2020-06-26 15:39 | PN_ITS ---
<BetoBrinda RIGHT OF WAY MAINTENANCE SUPERVISOR - Last Filed: 06/26/20 15:45> Patient Problems: Active and Suspected Problems (Last Reviewed 06/25/20 @ 21:[address] Maksim lowe MD) Chest pain (Acute) Subjective: Patient seen and examined. Underwent a stress test this morning, report pending however per cardiology, noted to have nonsustained V. tach during stress test. He states he felt short of breath during testing however denies further chest pressure. - Physical Exam Vitals/I&O's: Vital Signs Temp Pulse Resp BP Pulse Ox 98.0 F 73 16 151/73 H 96 06/26/20 15:29 06/26/20 15:29 06/26/20 15:29 06/26/20 15:29 06/26/20 15:29 Oxygen Flow Rate (L/min) 2 Oxygen Delivery Method Room Air Weight: 349 lb 13.977 oz Body Mass Index (BMI) 48.8 Intake and Output for Last 24 Hours 06/24/20 06/25/20 06/26/20 23:59 23:59 23:59 Intake Total 150 / 150 0 / 0 Balance 150 / 150 0 / 0 General: Alert, Oriented x3, Cooperative HEENT: Atraumatic, PERRLA, EOMI, Normocephalic Neck: Supple, No JVD, Negative Carotid Bruits Lungs: Clear to auscultation, Normal air movement Cardiovascular: Regular rate, No murmurs Abdomen: Bowel Sounds Present, Soft, Non Tender, Non-Distended, Obese Extremities: No clubbing, No cyanosis, No edema, Capillary Refill Less than 3 Seconds Skin: No rashes, No breakdown Musculoskeletal: No Tenderness to Palpation of Joints or Extremities Neurological: Cranial nerves II-XII grossly intact, Neuro grossly intact Psych/Mental Status: Normal Affect, Appropriate Laboratory Results 06/25/20 19:36: WBC 9.9, RBC 5.05, Hgb 14.5, Hct 43.6, MCV 86.3, MCH 28.7, MCHC 33.3, RDW Std Deviation 40.7, RDW Coeff of Annalise 13.2, Plt Count 175, MPV 11.8, Immature Gran % (Auto) 0.300, Neut % (Auto) 64.8, Lymph % (Auto) 26.1, Yates % (Auto) 6.5, Eos % (Auto) 1.6, Baso % (Auto) 0.7, Absolute Neuts (auto) 6.4, Absolute Lymphs (auto) 2.59, Nucleated RBC % 0 06/25/20 19:36: Sodium 135 L, Potassium 4.2, Chloride 102, Carbon Dioxide 29.0, Anion Gap 4 L, BUN 19 H, Creatinine 1.03, Estim Creat Clear Calc 93.41, Est GFR (MDRD) Af Amer 99, Est GFR (MDRD) Non-Af 82, BUN/Creatinine Ratio 18.4, Glucose 266 H, Calcium 8.9, Troponin I < 0.015 06/25/20 22:40: Troponin I < 0.015 06/25/20 23:40: POC Glucose 190 H 06/26/20 01:55: Triglycerides 393 H, Cholesterol 183, LDL Cholesterol 71, VLDL Cholesterol 79 H, HDL Cholesterol 33 L 06/26/20 01:55: Troponin I < 0.015 06/26/20 06:22: POC Glucose 190 H 06/26/20 11:24: POC Glucose 225 H Current Medications Acetaminophen (Acetaminophen 325 Mg Tablet) 650 mg PO Q6H PRN PRN PRN Reason: Pain Score 1-10/Temp > 100.7 F Last Admin: 06/26/20 10:20 Dose: 650 mg Documented by: Ascorbic Acid (Ascorbic Acid 500 Mg Tablet) 500 mg PO DAILY@0800 [facility] Last Admin: 06/26/20 10:20 Dose: 500 mg Documented by: Aspirin (Aspirin E.C. 81 Mg Tablet) 81 mg PO DAILY@0800 [facility] Last Admin: 06/26/20 06:26 Dose: 81 mg Documented by: Atorvastatin Calcium (Atorvastatin Calcium 40 Mg Tablet) 40 mg PO QHS [facility] Last Admin: 06/25/20 22:14 Dose: 40 mg Documented by: Dextrose (Dextrose 50%-Water 25 Gm/50 Ml Disp.Syrin) 0 gm IV X1 PRN; Protocol PRN Reason: Hypoglycemia Ergocalciferol (Ergocalciferol 50,000 Unit Capsule) 50,000 unit PO [facility] Glucagon (Glucagon 1 Mg/Ml Syringe) 1 mg IM .X1 PRN PRN Reason: Hypoglycemia Hydralazine HCl (Hydralazine 20 Mg/Ml Vial) 10 mg IV Q6H PRN PRN PRN Reason: SBP > 160; OR DBP > 120 Sodium Chloride () 250 mls @ 15 mls/hr IV .[id number] PRN PRN Reason: Saline Flush Sodium Chloride () 250 mls @ 15 mls/hr IV .[id number] PRN PRN Reason: Additional IVPB Infusion Insulin Human Lispro (Insulin Lispro 100 Unit/Ml Insuln.Pen) 0 unit SC Q6 [facility]; Protocol Last Admin: 06/26/20 11:28 Dose: 2 u Documented by: Losartan Potassium (Losartan Potassium 100 Mg Tablet) 100 mg PO DAILY [facility] Last Admin: 06/26/20 06:26 Dose: 100 mg Documented by: Melatonin (Melatonin 3 Mg Tablet) 3 mg PO QHS PRN PRN PRN Reason: INSOMNIA Morphine Sulfate (Morphine 2 Mg/Ml Syringe) 2 mg IV Q3H PRN PRN PRN Reason: Pain Score 6-10 Nitroglycerin (Nitroglycerin (Inpatient Use) 0.4 Mg Tab.Subl) 0.4 mg SUBLINGUAL Q5M PRN PRN Reason: CHEST PAIN Ondansetron HCl (Ondansetron 4 Mg/2 Ml Vial) 4 mg IV Q8H PRN PRN PRN Reason: NAUSEA/VOMITING Senna/Docusate Sodium (Senna/Docusate Sodium 1 Tablet) 2 tablet PO BID PRN PRN PRN Reason: Constipation Sodium Chloride (0.9% Saline Lock 10 Ml Syringe) 10 - 40 ml IV UD PRN PRN Reason: SALINE FLUSH Medical Necessity - Tobacco Use Smoking Status: Never smoker Tobacco Use: Non-smoker Assessment/Plan All Active Problems (Last Reviewed 06/25/20 @ 21:[address] Maksim Lee MD) Chest pain (Acute) Diabetic toe ulcer (Resolved) Edema of right lower extremity (Resolved) Healed ulcer of right foot on examination (Resolved) Infected ulcer of skin (Resolved) Ulcer of right foot with fat layer exposed (Resolved) Ulcer of right foot with fat layer exposed (Resolved) 1. Chest pain, abnormal stress test-consult cardiology. Stress report pending however per cardiology, episode of nonsustained V. tach during stress test along with shortness of breath. Plan for heart cath on Monday. Continue aspirin, statin. 2. Hypertension-stable, continue home losartan regimen. 3. Type 2 diabetes mellitus-hemoglobin A1c 8.7% April 2020. Patient follows NADINE [place]. Hold oral regimen. Accu-Cheks with sliding scale insulin. 4. Hyperlipidemia- continue statin. Lipid panel elevated. 5. Mild intermittent asthma-no acute exacerbation. 6. Morbid obesity-encouraged diet and lifestyle modifications. DVT prophylaxis-Lovenox subcu This patient was seen by JUSTIN Monterroso under the supervision of Dr. Tucker. <GarrettEmmanuel - Last Filed: 06/26/20 16:20> Objective: Patient was admitted with history of chest pain for last 3 days. Patient had chest pain in the morning. During exercise treadmill nuclear stress test he had 15 seconds of wide-complex tachycardia at peak exercise. Discussed with the creative services manager. Serial troponin enzymes are negative. - Physical Exam Vitals/I&O's: Vital Signs Temp Pulse Resp BP Pulse Ox 98.0 F 73 16 151/73 H 96 06/26/20 15:29 06/26/20 15:29 06/26/20 15:29 06/26/20 15:29 06/26/20 15:29 Oxygen Flow Rate (L/min) 2 Oxygen Delivery Method Room Air Weight: 349 lb 13.977 oz Body Mass Index (BMI) 48.8 Intake and Output for Last 24 Hours 06/24/20 06/25/20 06/26/20 23:59 23:59 23:59 Intake Total 150 / 150 0 / 0 Balance 150 / 150 0 / 0 Laboratory Results 06/25/20 19:36: WBC 9.9, RBC 5.05, Hgb 14.5, Hct 43.6, MCV 86.3, MCH 28.7, MCHC 33.3, RDW Std Deviation 40.7, RDW Coeff of Annalise 13.2, Plt Count 175, MPV 11.8, Immature Gran % (Auto) 0.300, Neut % (Auto) 64.8, Lymph % (Auto) 26.1, Yates % (Auto) 6.5, Eos % (Auto) 1.6, Baso % (Auto) 0.7, Absolute Neuts (auto) 6.4, Absolute Lymphs (auto) 2.59, Nucleated RBC % 0 06/25/20 19:36: Sodium 135 L, Potassium 4.2, Chloride 102, Carbon Dioxide 29.0, Anion Gap 4 L, BUN 19 H, Creatinine 1.03, Estim Creat Clear Calc 93.41, Est GFR (MDRD) Af Amer 99, Est GFR (MDRD) Non-Af 82, BUN/Creatinine Ratio 18.4, Glucose 266 H, Calcium 8.9, Troponin I < 0.015 06/25/20 22:40: Troponin I < 0.015 06/25/20 23:40: POC Glucose 190 H 06/26/20 01:55: Triglycerides 393 H, Cholesterol 183, LDL Cholesterol 71, VLDL Cholesterol 79 H, HDL Cholesterol 33 L 06/26/20 01:55: Troponin I < 0.015 06/26/20 06:22: POC Glucose 190 H 06/26/20 11:24: POC Glucose 225 H Current Medications Acetaminophen (Acetaminophen 325 Mg Tablet) 650 mg PO Q6H PRN PRN PRN Reason: Pain Score 1-10/Temp > 100.7 F Last Admin: 06/26/20 10:20 Dose: 650 mg Documented by: Ascorbic Acid (Ascorbic Acid 500 Mg Tablet) 500 mg PO DAILY@0800 [facility] Last Admin: 06/26/20 10:20 Dose: 500 mg Documented by: Aspirin (Aspirin E.C. 81 Mg Tablet) 81 mg PO DAILY@0800 [facility] Last Admin: 06/26/20 06:26 Dose: 81 mg Documented by: Atorvastatin Calcium (Atorvastatin Calcium 40 Mg Tablet) 40 mg PO QHS [facility] Last Admin: 06/25/20 22:14 Dose: 40 mg Documented by: Dextrose (Dextrose 50%-Water 25 Gm/50 Ml Disp.Syrin) 0 gm IV X1 PRN; Protocol PRN Reason: Hypoglycemia Enoxaparin Sodium (Enoxaparin 40 Mg/0.4 Ml Syringe) 40 mg SC DAILY [facility] Ergocalciferol (Ergocalciferol 50,000 Unit Capsule) 50,000 unit PO [facility] Glucagon (Glucagon 1 Mg/Ml Syringe) 1 mg IM .X1 PRN PRN Reason: Hypoglycemia Hydralazine HCl (Hydralazine 20 Mg/Ml Vial) 10 mg IV Q6H PRN PRN PRN Reason: SBP > 160; OR DBP > 120 Sodium Chloride () 250 mls @ 15 mls/hr IV .[id number] PRN PRN Reason: Saline Flush Sodium Chloride () 250 mls @ 15 mls/hr IV .[id number] PRN PRN Reason: Additional IVPB Infusion Insulin Human Lispro (Insulin Lispro 100 Unit/Ml Insuln.Pen) 0 unit SC Q6 [facility]; Protocol Last Admin: 06/26/20 11:28 Dose: 2 u Documented by: Losartan Potassium (Losartan Potassium 100 Mg Tablet) 100 mg PO DAILY [facility] Last Admin: 06/26/20 06:26 Dose: 100 mg Documented by: Melatonin (Melatonin 3 Mg Tablet) 3 mg PO QHS PRN PRN PRN Reason: INSOMNIA Morphine Sulfate (Morphine 2 Mg/Ml Syringe) 2 mg IV Q3H PRN PRN PRN Reason: Pain Score 6-10 Nitroglycerin (Nitroglycerin (Inpatient Use) 0.4 Mg Tab.Subl) 0.4 mg SUBLINGUAL Q5M PRN PRN Reason: CHEST PAIN Ondansetron HCl (Ondansetron 4 Mg/2 Ml Vial) 4 mg IV Q8H PRN PRN PRN Reason: NAUSEA/VOMITING Senna/Docusate Sodium (Senna/Docusate Sodium 1 Tablet) 2 tablet PO BID PRN PRN PRN Reason: Constipation Sodium Chloride (0.9% Saline Lock 10 Ml Syringe) 10 - 40 ml IV UD PRN PRN Reason: SALINE FLUSH Assessment/Plan This patient was seen in conjunction with RIGHT OF WAY MAINTENANCE SUPERVISORBrinda. I have independently interviewed and examined the patient and reviewed pertinent history, examination findings, laboratory and plan of management. I have reviewed the note and agree with the documented findings with the few additional points. In brief, patient is 49-year-old patient gentleman with morbid obesity BMI 48.8 kg/m? was admitted with chest pain for last 3 days along with mild shortness of breath. Serial troponin enzymes are negative. Patient had 15 seconds of wide- complex tachycardia at peak exercise. On further discussion with creative services manager Dr. Hwang who further discussed with federal appellate law clerk. He advised patient can go home and follow-up in the office. Other comorbidities including type 2 diabetes mellitus, dyslipidemia, mild intermittent asthma as mentioned above. Last A1c 8.7 in April 2020. I have discussed my assessment with Brinda VILLEGAS and orders have been reviewed.
--- NOTE | 2020-06-26 15:59 | STRESSREP_ITS ---
Stress Test Report Date: 06/26/2020 Procedure: Exercise tolerance test/imaging study Indications: Chest pain Consent: Per the patient Procedure: The patient exercised on a De protocol for 6 minutes and 32 seconds achieving a peak heart rate of 148 bpm (86% predicted maximal heart rate) with a peak blood pressure 170/86 mmHg and a peak MET capacity of 7.8 METs. The baseline ECG demonstrated normal sinus rhythm or pain. The peak exercise ECG demonstrated sinus tachycardia with no significant ischemic ST-T changes. However patient briefly went into nonsustained ventricular tachycardia lasting about 15 seconds at peak exercise into recovery. EKG during recovery revealed sinus rhythm The functional capacity was considered [decreased for age]. Patient had mild chest pressure at baseline that continued during exercise. The examination was discontinued secondary to dyspnea. Impression: 1. Technically adequate (percent predicted maximal heart rate greater than 85%) exercise tolerance test 2. Stress test is[negative] for ST segment changes but positive for nonsustained V. tach lasting about 15 seconds at peak exercise 3. Patient had chest pain at baseline that continued during exercise 4. Functional capacity is decreased for age 5. Nuclear images pending Myocardial perfusion imaging study: Technique: The patient was injected with [] mCi of technetium 99m Cardiolite and subsequently rest SPECT Cardiolite nuclear imaging was obtained in the horizontal long, vertical long, and short axis views. The patient exercised on a De protocol. Please see above for details. The patient was injected with [] mCi of technetium 99m Cardiolite and subsequently stress SPECT Cardiolite nuclear imaging was obtained in the horizontal long, vertical long, and short axis views. A gated Cardiolite study at peak stress was obtained. Interpretation: Rest and stress SPECT Cardiolite nuclear imaging status post realignment, normalization, and attenuation correction, demonstrates overall normal myocardial radioisotope uptake on the stress images after attenuation correction. The gated Cardiolite study demonstrates no significant regional wall motion abnormalities. The reported LVEF is to 56%. Impression: 1. There is no evidence of significant ischemia or infarction. 2. The gated Cardiolite study reports an LVEF of 56%. This note was generated with KitCheck[employer] software. It may contain incorrect words, spelling, and punctuation that were not noted in checking the note before signing.
--- NOTE | 2020-06-26 16:49 | PCM.DC ---
- Discharge Diagnoses Current Active Problems: Current Active and Chronic Problems (Last Reviewed 06/25/20 @ 21:[address] 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) Ingrown nail (Chronic) Hallux limitus of right foot (Chronic) You will use the following diet at home:: Calorie/Carbohydrate Controlled (specify 1200, 1400, etc), Cardiac Discharge Activity: Return to Normal Activity Call your doctor if you observe: Shortness of breath, Dizziness, Fainting spells, Chest pain Allergies/Adverse Reactions: Allergies ibuprofen Adverse Reaction (Verified 06/25/20 21:47) Other Medications to take at Discharge Aspirin [Aspirin, Baby] 81 mg PO DAILY@0800 02/18/15 Dapagliflozin Propanediol [Farxiga] 5 mg PO DAILY 02/18/15 metFORMIN HCl [Glucophage] 1,000 mg PO BIDCM 02/18/15 insulin regular hum U-500 conc 500 unit/mL subcutaneous soln 75 - 85 unit SC TIDCM ml 10/11/17 Ascorbic Acid [Vitamin C] 500 mg PO DAILY@0800 07/29/18 Atorvastatin Calcium [Lipitor] 40 mg PO QHS 07/29/18 Losartan Potassium 100 mg PO DAILY 01/29/20 Ergocalciferol (Vitamin D2) [Vitamin D2] 50,000 unit PO WE 06/25/20 Primary Care Physician: Emil Carranza MACHINE SHOP REPAIR TECHNICIAN, MACHINE SHOP REPAIR TECHNICIAN-C [Primary Care Provider] - Please follow up with your Primary Care Physician in: 1 Week Test Results: Test results from this visit will be discussed in further detail at your follow-up appointment, if applicable. Please Follow Up With: Agnes Hwnag MD When: 2 Weeks Proposed Discharge Date: 06/26/20
--- NOTE | 2020-06-26 17:41 | DS.PCM_ITS ---
<Brinda Pérez SIGN FABRICATOR - Last Filed: 06/26/20 18:00> Discharge Date and Diagnosis - Problem List Patient Problems: Active and Suspected Problems (Last Reviewed 06/25/20 @ 21:[address] Maksim Lee MD) Chest pain (Acute) Date of Admission: 06/25/20 Date of Discharge: 06/26/20 - Primary Discharge Diagnosis Acute Problems: Active Problems (Last Reviewed 06/25/20 @ 21:[address] Maksim Lee MD) 1. Chest pain, ACS ruled out 2. Hypertension 3. Type 2 diabetes mellitus 4. Hyperlipidemia 5. Mild intermittent asthma 6. Morbid obesity - Secondary Discharge Diagnosis Chronic Problems: Chronic Problems (Last Reviewed 06/25/20 @ 21:[address] 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 Mild chronic elevation of the right diaphragm. Electronically Signed: Suzan Perez MD at 19:56 EST , Service support , Operations: None Procedures: Stress test Summary of Care Provided: The patient is a 49 year old M admitted 06/25/2020 due to chest pain. 1. Chest pain, ACS ruled out-stress test without evidence of ischemia. Initially suspected nonsustained V. tach however upon further review per cardiology appears to be sinus tachycardia with aberrant conduction. EKG portion negative for exercise induced EKG changes of ischemia. Ejection fraction 56%. Continue home aspirin, statin. Follow-up with cardiology in 2 weeks. 2. Hypertension-stable, continue home losartan regimen. 3. Type 2 diabetes mellitus-hemoglobin A1c 8.7% April 2020. Patient follows NAD[facility] Thibodeaux. Continue home oral and insulin regimen. 4. Hyperlipidemia- continue statin. Lipid panel elevated. Outpatient follow- up. 5. Mild intermittent asthma-no acute exacerbation. 6. Morbid obesity-encouraged diet and lifestyle modifications. General: Alert, Oriented x3, Cooperative HEENT: Atraumatic, PERRLA, EOMI, Normocephalic Neck: Supple, No JVD, Negative Carotid Bruits Lungs: Clear to auscultation, Normal air movement Cardiovascular: Regular rate, No murmurs Abdomen: Bowel Sounds Present, Soft, Non Tender, Non-Distended, Obese Extremities: No clubbing, No cyanosis, No edema, Capillary Refill Less than 3 Seconds Skin: No rashes, No breakdown Musculoskeletal: No Tenderness to Palpation of Joints or Extremities Neurological: Cranial nerves II-XII grossly intact, Neuro grossly intact Psych/Mental Status: Normal Affect, Appropriate Patient seen and examined prior to discharge. Physical assessment as noted above. Patient is stable for discharge with follow up recommendations as noted above. This patient was seen by JUSTIN Monterroso under the supervision of Dr. Tucker. Patient Problems: Active and Suspected Problems (Last Reviewed 06/25/20 @ 21:[address] Maksim Lee MD) Chest pain (Acute) - Physical Exam Vitals/I&O's: Vital Signs Temp Pulse Resp BP Pulse Ox 98.0 F 73 16 151/73 H 96 06/26/20 15:29 06/26/20 15:29 06/26/20 15:29 06/26/20 15:29 06/26/20 15:29 Oxygen Flow Rate (L/min) 2 Oxygen Delivery Method Room Air Weight: 349 lb 13.977 oz Body Mass Index (BMI) 48.8 Intake and Output for Last 24 Hours 06/24/20 06/25/20 06/26/20 23:59 23:59 23:59 Intake Total 150 / 150 0 / 0 Balance 150 / 150 0 / 0 Laboratory Results 06/25/20 19:36: WBC 9.9, RBC 5.05, Hgb 14.5, Hct 43.6, MCV 86.3, MCH 28.7, MCHC 33.3, RDW Std Deviation 40.7, RDW Coeff of Annalise 13.2, Plt Count 175, MPV 11.8, Immature Gran % (Auto) 0.300, Neut % (Auto) 64.8, Lymph % (Auto) 26.1, Conway % (Auto) 6.5, Eos % (Auto) 1.6, Baso % (Auto) 0.7, Absolute Neuts (auto) 6.4, Absolute Lymphs (auto) 2.59, Nucleated RBC % 0 06/25/20 19:36: Sodium 135 L, Potassium 4.2, Chloride 102, Carbon Dioxide 29.0, Anion Gap 4 L, BUN 19 H, Creatinine 1.03, Estim Creat Clear Calc 93.41, Est GFR (MDRD) Af Amer 99, Est GFR (MDRD) Non-Af 82, BUN/Creatinine Ratio 18.4, Glucose 266 H, Calcium 8.9, Troponin I < 0.015 06/25/20 22:40: Troponin I < 0.015 06/25/20 23:40: POC Glucose 190 H 06/26/20 01:55: Triglycerides 393 H, Cholesterol 183, LDL Cholesterol 71, VLDL Cholesterol 79 H, HDL Cholesterol 33 L 06/26/20 01:55: Troponin I < 0.015 06/26/20 06:22: POC Glucose 190 H 06/26/20 11:24: POC Glucose 225 H Current Medications Acetaminophen (Acetaminophen 325 Mg Tablet) 650 mg PO Q6H PRN PRN PRN Reason: Pain Score 1-10/Temp > 100.7 F Last Admin: 06/26/20 10:20 Dose: 650 mg Documented by: Ascorbic Acid (Ascorbic Acid 500 Mg Tablet) 500 mg PO DAILY@0800 [facility] Last Admin: 06/26/20 10:20 Dose: 500 mg Documented by: Aspirin (Aspirin E.C. 81 Mg Tablet) 81 mg PO DAILY@0800 [facility] Last Admin: 06/26/20 06:26 Dose: 81 mg Documented by: Atorvastatin Calcium (Atorvastatin Calcium 40 Mg Tablet) 40 mg PO QHS [facility] Last Admin: 06/25/20 22:14 Dose: 40 mg Documented by: Dextrose (Dextrose 50%-Water 25 Gm/50 Ml Disp.Syrin) 0 gm IV X1 PRN; Protocol PRN Reason: Hypoglycemia Enoxaparin Sodium (Enoxaparin 40 Mg/0.4 Ml Syringe) 40 mg SC DAILY [facility] Ergocalciferol (Ergocalciferol 50,000 Unit Capsule) 50,000 unit PO [facility] RAMON Glucagon (Glucagon 1 Mg/Ml Syringe) 1 mg IM .X1 PRN PRN Reason: Hypoglycemia Hydralazine HCl (Hydralazine 20 Mg/Ml Vial) 10 mg IV Q6H PRN PRN PRN Reason: SBP > 160; OR DBP > 120 Sodium Chloride () 250 mls @ 15 mls/hr IV .[id number] PRN PRN Reason: Saline Flush Sodium Chloride () 250 mls @ 15 mls/hr IV .[id number] PRN PRN Reason: Additional IVPB Infusion Insulin Human Lispro (Insulin Lispro 100 Unit/Ml Insuln.Pen) 0 unit SC Q6 [facility]; Protocol Last Admin: 06/26/20 11:28 Dose: 2 u Documented by: Losartan Potassium (Losartan Potassium 100 Mg Tablet) 100 mg PO DAILY [facility] Last Admin: 06/26/20 06:26 Dose: 100 mg Documented by: Melatonin (Melatonin 3 Mg Tablet) 3 mg PO QHS PRN PRN PRN Reason: INSOMNIA Morphine Sulfate (Morphine 2 Mg/Ml Syringe) 2 mg IV Q3H PRN PRN PRN Reason: Pain Score 6-10 Nitroglycerin (Nitroglycerin (Inpatient Use) 0.4 Mg Tab.Subl) 0.4 mg SUBLINGUAL Q5M PRN PRN Reason: CHEST PAIN Ondansetron HCl (Ondansetron 4 Mg/2 Ml Vial) 4 mg IV Q8H PRN PRN PRN Reason: NAUSEA/VOMITING Senna/Docusate Sodium (Senna/Docusate Sodium 1 Tablet) 2 tablet PO BID PRN PRN PRN Reason: Constipation Sodium Chloride (0.9% Saline Lock 10 Ml Syringe) 10 - 40 ml IV UD PRN PRN Reason: SALINE FLUSH Discharge Diet: Low fat/ Low Cholesterol, Carb Control Diet Discharge Activity: Return to Normal Activity Call your doctor if you observe: Shortness of breath, Dizziness, Fainting spells, Chest pain Home Medications: Medications to take at Discharge Aspirin [Aspirin, Baby] 81 mg PO DAILY@0800 02/18/15 Dapagliflozin Propanediol [Farxiga] 5 mg PO DAILY 02/18/15 metFORMIN HCl [Glucophage] 1,000 mg PO BIDCM 02/18/15 insulin regular hum U-500 conc 500 unit/mL subcutaneous soln 75 - 85 unit SC TIDCM ml 10/11/17 Ascorbic Acid [Vitamin C] 500 mg PO DAILY@0800 07/29/18 Atorvastatin Calcium [Lipitor] 40 mg PO QHS 07/29/18 Losartan Potassium 100 mg PO DAILY 01/29/20 Ergocalciferol (Vitamin D2) [Vitamin D2] 50,000 unit PO WE 06/25/20 Primary Care Physician: Emil Carranza SIGN FABRICATOR, SIGN FABRICATOR-C [Primary Care Provider] - Please follow up with your Primary Care Physician in: 1 Week Please Follow Up With: Agnes Hwang MD When: 2 Weeks Disposition: Home Minutes spent on discharge:: 35 Patient Condition:: Stable Medical Necessity - Tobacco Use Smoking Status: Never smoker Tobacco Use: Non-smoker Meaningful Use Info Meaningful Use Diagnoses (Choose all that apply): None applicable <Emmanuel Tucker - Last Filed: 06/27/20 15:44> Discharge Date and Diagnosis - Primary Discharge Diagnosis Acute Problems: Active Problems (Last Reviewed 06/25/20 @ 21:[address] Maksim Lee MD) Chest pain (Acute) - Secondary Discharge Diagnosis Chronic Problems: Chronic Problems (Last Reviewed 06/25/20 @ 21:[address] 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 I have independently interviewed and examined the patient and reviewed pertinent history, examination findings, laboratory and plan of management. I have reviewed the note and agree with the documented findings with the few additional points. In brief, patient is 49-year-old patient gentleman with morbid obesity BMI 48.8 kg/m? was admitted with chest pain for last 3 days along with mild shortness of breath. Serial troponin enzymes are negative. Patient had 15 seconds of wide- complex tachycardia at peak exercise. On further discussion with electric meter installer Dr. Hwang who further discussed with agency legal counsel. Cardiac rhythm was actually sinus tachycardia with aberrancy. He advised patient can go home and follow-up in the office in 2 weeks. Patient will be taken as outpatient cardiac cath. Blood pressure is controlled Other comorbidities including type 2 diabetes mellitus, dyslipidemia, mild intermittent asthma as mentioned above. Last A1c 8.7 in April 2020. I have discussed my assessment with Brinda VILLEGAS and orders have been reviewed. [] Objective: Please see progress note of the same date for physical exam findings - Physical Exam Vitals/I&O's: Vital Signs Temp Pulse Resp BP Pulse Ox 98.0 F 83 16 155/77 H 97 06/26/20 18:31 06/26/20 18:31 06/26/20 18:31 06/26/20 18:31 06/26/20 18:31 Oxygen Flow Rate (L/min) 2 Oxygen Delivery Method Room Air Weight: 349 lb 13.977 oz Body Mass Index (BMI) 48.8 Intake and Output for Last 24 Hours 06/25/20 06/26/20 06/27/20 23:59 23:59 23:59 Intake Total 150 / 150 0 / 0 Balance 150 / 150 0 / 0 OBSV E&M: 15433 Observation care discharge
== END 2020-06-26 16:50 | disposition home or self-care (01) ==
LOC: ED 19:58 → PCU 20:34
PROVIDERS: Admitting Provider Hospitalist; Emergency Provider Emergency Medicine; PCP Nurse Practitioner Family; Visit Provider Internal Medicine
DX: R07.89 Other chest pain (principal); M79.602 Pain in left arm; E11.42 Type 2 diabetes mellitus with diabetic polyneuropathy; M20.5X1 Other deformities of toe(s) (acquired), right foot; Z68.42 Body mass index [BMI] 45.0-49.9, adult; E66.01 Morbid (severe) obesity due to excess calories; G47.33 Obstructive sleep apnea (adult) (pediatric); I10 Essential (primary) hypertension; G89.29 Other chronic pain; F10.20 Alcohol dependence, uncomplicated; E78.5 Hyperlipidemia, unspecified; J45.20 Mild intermittent asthma, uncomplicated; Z79.899 Other long term (current) drug therapy; Z79.82 Long term (current) use of aspirin; Z79.4 Long term (current) use of insulin
CPT/HCPCS: 36415; 71045; 78452; 80048; 80061; 82962; 84484; 85025; 93005; 93017; 99218; 99285; A9500; G0378

== ENCOUNTER 2020-07-08 06:53 | Outpatient (CLI) | payer BC, SELFPAY ==
[2020-07-06 12:53] VITALS: BMI 47.8
[2020-07-06 15:01] LABS: Prothrombin Time (Protime)PT. 12.8 SECONDS (11.7-14.9)
[2020-07-06 15:02] LABS: Partial Thromboplast Time 26.1 Seconds (24.1-36.2)
[2020-07-07 09:39] VITALS: BMI 47.8
--- NOTE | 2020-07-07 10:38 | ECHOCS_ITS ---
Reason For Study: CHEST PAIN Procedure This was a 2D Doppler, Color Flow transthoracic echocardiogram. The study was technically difficult. Contrast injection was performed. Exam performed in department. Left Ventricle Normal LV size. The estimated ejection fraction is 60 %. No evidence for diastolic dysfunction. No regional wall motion abnormalities noted. Right Ventricle Normal RV size. Normal systolic function. Atria Normal left atrium. Normal right atrium. No doppler evidence for ASD. Mitral Valve There is no mitral valve stenosis. No mitral valve insufficiency. Tricuspid Valve There is no tricuspid stenosis. Trivial tricuspid valve insufficiency. Unable to estimate RV systolic pressure due to insufficient tricuspid regurgitant envelope. Aortic Valve Trisinus/trileaflet aortic valve. There is no aortic stenosis. No aortic valve insufficiency. Pulmonic Valve There is no pulmonic valvular stenosis. No pulmonic valve insufficiency. Great Vessels Normal aortic root. Pericardium/Pleural No pericardial effusion. Medication 22 gauge I.V. with prn adaptor inserted into right arm. Diluted definity 5.0ml given slow IV push to enhance endocardial definition. MMode/2D Measurements & Calculations LVIDd: 5.4 cm IVSd: 0.95 cm Ao root diam: 4.3 cm LVIDs: 3.8 cm LVPWd: 1.0 cm RVDd: 4.7 cm FS: 28.9 % LAV(MOD-bp): 69.4 ml EDV(MOD-sp4): 198.2 ml SV(MOD-sp4): 110.8 ml LAV(MOD-bp) Indexed: 26.2 ml/m2 ESV(MOD-sp4): 87.5 ml LAV(MOD-sp2): 63.6 ml EF(MOD-sp4): 55.9 % LAV(MOD-sp4): 65.8 ml LA dimension(2D): 4.6 cm LA A4 area: 21.4 cm2 RA A4 area: 16.5 cm2 Time Measurements MV dec time: 0.28 sec Doppler Measurements & Calculations MV E max erwin: 100.1 cm/sec Lat Peak E' Erwin: 9.3 cm/sec Med Peak E' Erwin: 5.9 cm/sec MV A max erwin: 83.5 cm/sec E/E' lat: 10.8 E/E' med: 17.0 MV E/A: 1.2 Ao V2 max: 133.0 cm/sec LV V1 max: 110.4 cm/sec PA V2 max: 105.8 cm/sec Ao max P.1 mmHg LV V1 max P.9 mmHg TR max erwin: 264.7 cm/sec TR max P.0 mmHg Interpretation Summary No evidence for diastolic dysfunction. The estimated ejection fraction is 60 %. The study was technically difficult. Contrast injection was performed. Ordering Physician: Agnes Hwang Referring Physician: CIARA JENKINS Performed By: Dayana Garcia, RDCS, RVT
[2020-07-08 09:31] LABS: Blood Gas Specimen Type VEN; VBG BASE EXCESS 2 mmol/L (-1.0-3.5); VBG Bicarbonate 28 mmol/L (22-26); VBG PO2 39 mmHg (25-40); VBG SO2 70 % (50-70); VBG TCO2 29 mmol/L (23-33); VBG pCO2 51.9 mmHg (41-51); VBG pH 7.33 (7.32-7.42)
[2020-07-08 09:40] LABS: Blood Gas Specimen Type VEN; VBG BASE EXCESS 1 mmol/L (-1.0-3.5); VBG Bicarbonate 27 mmol/L (22-26); VBG Bicarbonate 28 mmol/L (22-26); VBG PO2 39 mmHg (25-40); VBG PO2 41 mmHg (25-40); VBG SO2 67 % (50-70); VBG SO2 71 % (50-70); VBG TCO2 29 mmol/L (23-33); VBG pCO2 51.9 mmHg (41-51); VBG pCO2 55.1 mmHg (41-51); VBG pH 7.31 (7.32-7.42); VBG pH 7.33 (7.32-7.42)
--- NOTE | 2020-07-08 10:10 | CL.D_ITS ---
Patient Name: JODI COLLINS Study Date: 07/08/2020 Performing: Manjula Hwang MD Ht: 70.86 inches 180 cm : 1970 Wt: 343.92 lbs 156 kg Age: 49 Gender: male BSA: 2.65 PROCEDURE(S) PERFORMED [id number]/COR CLINICAL PROFILE AND INDICATIONS Indications: Suspected CAD Heart Failure: None Stress/Imaging Stress Test w/SPECT MPI: Yes Result: NegativeStress Test with SPECT MPI: Negative CAD Presentations: Unstable angina. CONCLUSIONS Non obstructive CAD. No significant . Normal right heart pressures. Mildly elevated LVEDP and PCWP RECOMMENDATIONS Weight loss, Low Na diet. HCTZ 25mg daily DESCRIPTION OF PROCEDURE The patient arrived to the procedure lab. The risks and benefits of the procedure as well as a full d escription of our services here and current unavailability of surgical backup were fully explained to the patient and/or their significant other prior to the catheterization. The Timeout was completed, verifying the correct patient and procedure. The patient's procedural site was prepped and draped in the usual fashion. Local anesthetic was given subcutaneously to right radial region with Lidocaine 2% . Using a modified Seldinger technique, arterial access was obtained via the right radial artery, a 6 Fr sheath was inserted. A 7Fr thermal dilution catheter was inserted and right heart pressures were recorded, it was then advanced to PA position for cardiac outputs. O2 saturations were then obtained. The Thermal dilution catheter was then removed. Left Coronary Artery selective angiography was perfo rmed in multiple views using a 5 Fr. fL 5 catheter. LV to AO pullback pressures were then recorded. Right Coronary Artery selective angiography was then performed in multiple views using a 5 Fr. JR 4 catheter.The arterial sheath was pulled and a TR Band was applied for hemostasis-13 cc air. The venous sheath was then pulled and manual compression applied until hemostasis achieved CORONARY ANGIOGRAPHY DOMINANCE: Right Dominant LEFT HEART ASSESSMENT Left Ventricular Ejection Fraction: by Echo 60 % LVEDP: 17 mmHg RIGHT HEART ASSESSMENT Aneta CO: 6.16 Aneta CI: 2.32 PW: / 18 PA: 32/9 19 RV: 35/6 12 RA: 14/13 10 PVR: 12 SVR: 1285 LEFT MAIN: No significant disease noted LEFT ANTERIOR DESCENDING ARTERY: MID LAD: 25 % Stenosis CIRCUMFLEX ARTERY: DISTAL CIRC: 20 % Stenosis RIGHT CORONARY ARTERY: Mild luminal irregularities VALVE FINDINGS: No Aortic Valve Stenosis COMPLICATIONS No Complications PROCEDURE MEDICATIONS Versed 1 mg IV Fentanyl 50 mcg IV SUMMARY OF HEMODYNAMIC DATA Time AIR REST ECG 07:12:58 PA 32/9 (19) PA 09:26:19 PW 21/23 (18) PV 09:27:01 RV 35/6, 12 09:28:46 RA 14/13 (10) SV 09:29:47 AO 139/74 (109) SA 09:34:39 LV 146/2, 17 09:40:20 LV 135/5, 17 09:40:27 LVp 145/6, 14 09:40:42 AOp 140/83 (108) 09:40:47 Type SV CO (l/m) CI (l/m/ HR Time AIR REST Aneta 79.00 6.16 2.32 78 07:12:58 Label % O2 Pres/Loc Time AIR REST PA 70 PA 09:38:21 AO 96 PV 09:38:25 RV 71 09:38:41 RA 67 SV 09:38:49 Signed By Manjula Hwang MD On 07/08/2020 10:09:19 Manjula Hwang MD
== END 2020-07-08 11:55 | disposition home or self-care (01) ==
LOC: CLSP 06:54
PROVIDERS: PCP Nurse Practitioner Family; Referring Provider Specialist; Visit Provider Specialist
DX: R07.89 Other chest pain (principal); I10 Essential (primary) hypertension; E55.9 Vitamin D deficiency, unspecified; E78.5 Hyperlipidemia, unspecified; E11.40 Type 2 diabetes mellitus with diabetic neuropathy, unspecified; G47.33 Obstructive sleep apnea (adult) (pediatric); Z79.4 Long term (current) use of insulin; Z79.82 Long term (current) use of aspirin; Z79.899 Other long term (current) drug therapy
CPT/HCPCS: 36415; 82803; 85610; 85730; 93306; 93456; 99152; 99153; J7040; Q9957; A4216; C1769; C1894; C8929; Q9967

== ENCOUNTER → 2020-11-13 14:40 | Outpatient (CLI) | payer BC, SELFPAY ==
[2020-10-29 14:29] VITALS: BMI 46.8
[2020-11-13 17:32] LABS: Absolute Lymphocyte Count 2.07 X10^3/uL (0.83-4.51); Absolute Neutrophil Count 8.2 X10^3/uL (2.0-7.7); Basophil# 0.07 X10^3/uL; Basophil% 0.6 % (0-1); Eosinophil# 0.05 X10^3/uL; Eosinophils% 0.5 % (0-5); Hematocrit 46.1 % (40-54); Hemoglobin 14.9 g/dL (13.0-16.5); Lymphocyte # 2.07 X10^3/ul (0.83-4.51); Mean Corp Hgb Conc 32.3 g/dL (32-36); Mean Corpuscular Hgb 27.9 pg (27.0-32.0); Mean Corpuscular Volume 86.2 fL (80-94); Mean Platelet Vol. 11.9 fl (6.2-12.0); Monocyte% 4.6 % (0-10); NRBC Flagged by Analyzer 0 % (0-5); Neutrophil # 8.16 X10^3/uL (2.7-7.7); Neutrophil % 75.1 % (47-70); Platelet Count 211 K/mm3 (150-450); RBC Distribution Width CV 13.1 % (11.6-14.6); RBC Distribution Width SD 40.2 fl (35.1-43.9); Red Blood Count 5.35 M/mm3 (4.6-6.2); White Blood Count 10.9 K/mm3 (4.4-11.0)
[2020-11-13 17:43] LABS: Vitamin B12 512 pg/mL (211-911); Vitamin D,25 Hydroxy 31.9 ng/mL
[2020-11-13 17:48] LABS: Hemoglobin A1c 9.4 % (3.8-5.6)
[2020-11-13 17:49] LABS: ALB/GLOB Ratio 1.1 RATIO (0.9-2.4); AST(SGOT) 20 U/L (15-37); Alanine Aminotransfer ALT/SGPT 34 U/L (16-61); Albumin, Serum 4.1 g/dL (3.2-5.0); Alkaline Phosphatase 81 U/L (45-117); Anion Gap 9 (5-15); BUN 22 mg/dL (7-18); BUN/Creat Ratio 22.7 RATIO (10-20); CPK Total, Creatine Kinase 210 U/L (39-308); Calcium,Total 9.2 mg/dL (8.5-10.1); Chloride 101 mmol/L (98-107); Cholesterol 170 mg/dL (200); Creatinine, Serum 0.97 mg/dL (0.70-1.30); EST Glomerular Filtration Rate 88 mL/min (>60); Est Glom Filt Rate - Afr Amer 106 mL/min (>60); Ferritin 79 ng/mL (26-388); Globulin 3.7 g/dL (2.2-4.2); Glucose 182 mg/dL (74-106); High Density Lipoprotein 51 mg/dL; Potassium 4.1 mmol/L (3.5-5.1); Protein, Total 7.8 g/dL (6.4-8.2); Sodium Level 137 mmol/L (136-145); Thyroid Stim Hormone (TSH) 1.25 uIU/mL (0.358-3.74); Triglycerides 132 mg/dL; Very Low Density Lipoprotein 26 mg/dL (5-40)
[2020-11-13 17:50] LABS: Microalbumin:Creatinine Ratio 250.9 mg/g CRE (<30 mg/g CRE)
[2020-11-20 12:08] LABS: VITAMIN B6 40.1 ug/L (5.3-46.7)
[2020-11-20 13:58] LABS: Vitamin B1, Thiamine 128.3 nmol/L (66.5-200.0)
== END ==
LOC: MFPLAB 14:41
PROVIDERS: PCP Family Medicine; Referring Provider Family Medicine; Visit Provider Family Medicine
DX: E11.42 Type 2 diabetes mellitus with diabetic polyneuropathy (principal); R25.2 Cramp and spasm; E55.9 Vitamin D deficiency, unspecified
CPT/HCPCS: 36415; 80053; 80061; 82043; 82306; 82550; 82570; 82607; 82728; 83036; 83735; 84207; 84425; 84443; 85025

== ENCOUNTER → 2020-12-29 08:55 | Outpatient (CLI) | payer BC, SELFPAY ==
[2020-10-29 14:29] VITALS: BMI 46.8
--- NOTE | 2020-12-29 08:59 | NM_ITS ---
CLINICAL: 50-year-old diabetic male with reported history of early satiety. SEMI-SOLID PHASE 99m Tc SULFUR COLLOID GASTRIC EMPTYING STUDY COMPARISON: None available FINDINGS: The patient was administered 1.1 mCi of 99m Tc sulfur colloid mixed with oatmeal and consumed per os. Image acquisitions in the anterior-posterior projections for a total of 60 minutes. There is prompt visualization of the stomach. There is no gastroesophageal reflux identified. First order kinetics are maintained throughout the duration of the acquisitions. The T ? linear fit was calculated to be 57.96 minutes, (Normal: 12-56 minutes). NM/Gastric Emptying Study IMPRESSION: 1. MILDLY ABNORMAL 99m Tc sulfur colloid semi-solid phase (oatmeal) gastric emptying imaging examination. A. There is mild delayed semi-solid phase gastric emptying compared to normal controls with maintained first order kinetics throughout all components of the examination. (Bisi et al, J Nucl Med Tech 38: 186, 2010). Electronically Signed: Emil Bueno DO at 22:39 EDT Tel , Service support ,
== END ==
PROVIDERS: PCP Family Medicine; Referring Provider Family Medicine; Visit Provider Family Medicine
DX: R68.81 Early satiety (principal)
CPT/HCPCS: 78264; A9541

== ENCOUNTER → 2021-01-08 15:26 | Outpatient (CLI) | payer BC, SELFPAY ==
[2020-10-29 14:29] VITALS: BMI 46.8
[2021-01-08 17:53] LABS: Hemoglobin A1c 7.5 % (3.8-5.6)
[2021-01-08 17:54] LABS: ALB/GLOB Ratio 1.1 RATIO (0.9-2.4); AST(SGOT) 18 U/L (15-37); Alanine Aminotransfer ALT/SGPT 30 U/L (16-61); Albumin, Serum 3.9 g/dL (3.2-5.0); Alkaline Phosphatase 66 U/L (45-117); Anion Gap 7 (5-15); BUN 20 mg/dL (7-18); BUN/Creat Ratio 19.8 RATIO (10-20); Calcium,Total 9.4 mg/dL (8.5-10.1); Chloride 101 mmol/L (98-107); Cholesterol 144 mg/dL (200); Creatinine, Serum 1.01 mg/dL (0.70-1.30); EST Glomerular Filtration Rate 83 mL/min (>60); Est Glom Filt Rate - Afr Amer 101 mL/min (>60); Globulin 3.5 g/dL (2.2-4.2); Glucose 105 mg/dL (74-106); High Density Lipoprotein 46 mg/dL; Protein, Total 7.4 g/dL (6.4-8.2); Sodium Level 137 mmol/L (136-145); Triglycerides 102 mg/dL; Very Low Density Lipoprotein 20 mg/dL (5-40)
== END ==
PROVIDERS: PCP Family Medicine; Visit Provider Family Medicine
DX: E11.65 Type 2 diabetes mellitus with hyperglycemia (principal)
CPT/HCPCS: 36415; 80053; 80061; 83036

== ENCOUNTER 2021-03-09 14:54 | Outpatient (RCR) | payer BC, SELFPAY ==
[2020-10-29 14:29] VITALS: BMI 46.8
== END 2021-03-09 23:59 ==
LOC: DC 14:54
PROVIDERS: PCP Family Medicine; Visit Provider Family Medicine
DX: E11.65 Type 2 diabetes mellitus with hyperglycemia (principal)
CPT/HCPCS: G0108

== ENCOUNTER 2021-03-23 14:43 | Emergency (ER) | payer BC, SELFPAY ==
[2021-03-23 14:44] VITALS: BP 168/92; PULSE 93; RESP 16; TEMP 36.4; O2SAT 98; BMI 47.3
--- NOTE | 2021-03-23 15:45 | VDLE_ITS ---
Reason For Study: pain Procedure LEFT This is a venous duplex using B-mode, color GSV is normal. flow and spectral Doppler. CFV is compressible, spontaneous, phasic, Exam performed portable in ED. competent, and demonstrates normal The exam was abbreviated due to the COVID 19 augmentation. protocol. FV is compressible, spontaneous, phasic, The exam was diagnostic. competent and demonstrates normal A preliminary report was called and/or faxed augmentation. to Dr. Peralta. POP V is compressible, spontaneous, phasic, competent and demonstrates normal augmentation. T/P Trunk is compressible. PTV is compressible. LT PerV is compressible. VL/Venous Duplex US, Unilateral Interpretation Summary There is no evidence of left lower extremity deep vein thrombosis. Left great s aphenous vein appears patent and compressible segmentally. Abbreviated COVID-19 protocol utilized Ordering Physician: German Peralta Performed By: Alverto Mills RVT
[2021-03-23 16:28] LABS: Absolute Lymphocyte Count 2.23 X10^3/uL (0.83-4.51); Absolute Neutrophil Count 6.1 X10^3/uL (2.0-7.7); Basophil# 0.07 X10^3/uL; Basophil% 0.8 % (0-1); Eosinophil# 0.15 X10^3/uL; Eosinophils% 1.6 % (0-5); Hematocrit 46.2 % (40-54); Hemoglobin 15.4 g/dL (13.0-16.5); Lymphocyte # 2.23 X10^3/ul (0.83-4.51); Lymphocyte % 24.5 % (19-41); Mean Corp Hgb Conc 33.3 g/dL (32-36); Mean Corpuscular Hgb 28.6 pg (27.0-32.0); Mean Corpuscular Volume 85.9 fL (80-94); Monocyte# 0.55 X10^3/uL; NRBC Flagged by Analyzer 0 % (0-5); Neutrophil # 6.06 X10^3/uL (2.7-7.7); Neutrophil % 66.6 % (47-70); Platelet Count 181 K/mm3 (150-450); RBC Distribution Width CV 13.1 % (11.6-14.6); RBC Distribution Width SD 39.9 fl (35.1-43.9); Red Blood Count 5.38 M/mm3 (4.6-6.2); White Blood Count 9.1 K/mm3 (4.4-11.0)
--- NOTE | 2021-03-23 16:28 | ED.VIS.LOWEX ---
HPI History of Present Illness Chief Complaint: Lower Extremity Injury Informant: patient Onset/Context/Timing Onset: Weeks (2) Context: Gradual Onset Timing: Intermittent and Lasts (2-3 minutes) Quality of Pain: Sharp Location: Left lower leg Worsened by: Nothing Relieved by: Nothing Associated Symptoms Associated Symptoms: Positive for Parasthesia; Negative for Weakness and Loss of Funtion Narrative Narrative: Patient presents with pain in his left lower leg for the past 2 weeks. Patient states it comes and goes. Patient states last approximately 2 to 3 minutes. Patient describes the pain as sharp. Patient states nothing makes it better nothing makes it worse. Patient admits to intermittent warm sensation in his left lower leg. Patient denies any fevers or chills. Patient states he is diabetic. Patient denies any direct trauma or injury. [facility] Medical History (Updated 03/23/21 @ 17:[address] German Peralta, ) Chest pain Chest pain Chronic back pain Diabetes mellitus with neuropathy Diabetes type 2, controlled Disequilibrium Early stage glaucoma Elevated BP without diagnosis of hypertension Essential hypertension Exogenous obesity Hallux limitus of right foot History of vitamin D deficiency Hyperlipidemia Ingrown nail MONCHO on CPAP Vision problem Home Medications aspirin 81 mg PO DAILY@0800 02/18/15 [History Last Taken 07/08/20] dapagliflozin 5 mg PO DAILY 02/18/15 [History Last Taken 06/25/20] metformin 1,000 mg PO BIDCM 02/18/15 [History Last Taken 07/07/20] insulin regular hum U-500 conc 500 unit/mL subcutaneous soln 75 - 85 unit SC TIDCM ml 10/11/17 [History Last Taken 06/25/20] ascorbic acid (vitamin C) 500 mg PO DAILY@0800 07/29/18 [History Last Taken 06/25/20] atorvastatin 40 mg PO QHS 07/29/18 [History Last Taken 06/24/20] losartan 100 mg PO DAILY 01/29/20 [History Last Taken 07/08/20] ergocalciferol (vitamin D2) 50,000 unit PO WE 06/25/20 [History Last Taken 04/24/20] liraglutide 0.6 mg/0.1 mL (18 mg/3 mL) subcutaneous pen injector 1.8 mg SC QHS ml 07/06/20 [History Last Taken Unknown] hydrochlorothiazide 25 mg tablet 25 mg PO DAILY #90 tablet 10/29/20 [Rx Last Taken Unknown] Allergy/AdvReac Type Severity Reaction Status Date / Time ibuprofen AdvReac Other Verified 03/23/21 14:46 Family History Daughter Asthma Seizures Son Seizures Sister Breast cancer Mother Diabetes Heart disease Hypertension CVA (cerebral vascular accident) Brother Diabetes Father Diabetes Heart disease Hypertension Surgical History History of right and left heart catheterization (07/08/20) Social History Smoking Status: Never smoker second hand exposure: No alcohol intake: current alcohol intake frequency: a few times a month substance use type: does not use caffeine: Yes Type: coffee Number of servings: 2 ROS ROS ED Constitutional Constitutional ED: Denies chills or fever(s) Eyes Eyes: Denies blurry vision or change in vision ENT ENT ED: Denies rhinorrhea or sore throat Cardiovascular Cardiovascular: Denies chest pain or palpitations Respiratory/Chest Respiratory/Chest: Denies cough or dyspnea Gastrointestinal Gastrointestinal: Denies nausea or vomiting Genitourinary Genitourinary ED: Denies dysuria or hematuria Musculoskeletal Musculoskeletal: Denies back pain or neck pain Integumentary Denies abscess or rash Neurologic Neurologic: Denies headache(s) or weakness Allergic/Immunologic Allergic/Immunologic ED: Denies mouth swelling or urticaria EXAM Physical Exam Const Vital Signs: 03/23/21 14:44 Temperature 97.6 F L Temperature Source Temporal Pulse Rate 93 Respiratory Rate 16 Blood Pressure 168/92 H Blood Pressure Mean 117 Pulse Ox 98 Oxygen Delivery Method Room Air Positive well nourished, well developed and obese General Appearance ED: well developed Nutritional Appearance: obese HEENT Reports moist mucous membranes Resp normal respiratory effort and clear to auscultation bilaterally Cardio regular rate and regular rhythm Extremity Extremity Narrative: There is some mild tenderness to the left calf. There is no edema or ecchymosis noted. There is no bony crepitance or step-off. There is no deformity noted. There is good range of motion of the left lower extremity. Pedal pulses are equal bilaterally. Sensation was intact to light touch in all digits. Neuro oriented x3, CN's II-XII intact bilaterally, moves all extremities and no sensory deficits noted Sensorium / Orientation: alert Motor Exam: strength 5/5 throughout Psych mental status grossly normal MDM MDM MDM Narrative Medical decision making narrative: Venous duplex of the left lower extremity was obtained and was negative. CBC and comprehensive metabolic profile were obtained. CBC and comprehensive metabolic profile were obtained and were essentially within normal limits. Glucose was elevated at 290. Patient was advised to have his findings. Patient was instructed to continue to monitor his blood sugars. Patient was instructed to follow-up with his primary care physician in 3 to 5 days. Patient understood and was agreeable with the plan. All questions were answered. Lab Data Attestation: I reviewed the patient's lab results. Labs: Laboratory Results - last 24 hr 03/23/21 03/23/21 16:18 16:18 WBC 9.1 RBC 5.38 Hgb 15.4 Hct 46.2 MCV 85.9 MCH 28.6 MCHC 33.3 RDW Std Deviation 39.9 RDW Coeff of Annalise 13.1 Plt Count 181 MPV 11.0 Immature Gran % (Auto) 0.500 Neut % (Auto) 66.6 Lymph % (Auto) 24.5 Deuel % (Auto) 6.0 Eos % (Auto) 1.6 Baso % (Auto) 0.8 Absolute Neuts (auto) 6.1 Absolute Lymphs (auto) 2.23 Nucleated RBC % 0 Sodium 138 Potassium 4.0 Chloride 102 Carbon Dioxide 27.0 Anion Gap 9 BUN 22 H Creatinine 1.15 Estim Creat Clear Calc 80.23 Est GFR (MDRD) Af Amer 87 Est GFR (MDRD) Non-Af 72 BUN/Creatinine Ratio 19.1 Glucose 290 H Calcium 9.6 Total Bilirubin 0.50 AST 17 ALT 32 Alkaline Phosphatase 84 Total Protein 7.8 Albumin 3.8 Globulin 4.0 Albumin/Globulin Ratio 1.0 Discharge Plan Triage Chief Complaint: Lower Extremity Injury ED Provider: German Peralta Dx/Rx/DC Orders Clinical Impression: Pain in left lower leg Instructions: ED Pain, Acute, Uncertain Cause Prescriptions: No Action insulin regular hum U-500 conc [Humulin R U-500 (Conc) Insulin] 500 unit/mL solution 75 - 85 unit SC TIDCM RF: 0 liraglutide 0.6 mg/0.1 mL (18 mg/3 mL) pen injector 1.8 mg SC QHS RF: 0 hydrochlorothiazide 25 mg tablet 25 mg PO DAILY Qty: 90 RF: 3 metformin 1,000 MG tablet 1,000 mg PO BIDCM RF: 0 aspirin 81 MG tablet,chewable 81 mg PO DAILY@0800 RF: 0 dapagliflozin 5 MG tablet 5 mg PO DAILY RF: 0 atorvastatin 40 MG tablet 40 mg PO QHS RF: 0 ascorbic acid (vitamin C) 500 MG tablet 500 mg PO DAILY@0800 RF: 0 losartan 100 MG tablet 100 mg PO DAILY RF: 0 ergocalciferol (vitamin D2) 50,000 UNIT capsule 50,000 unit PO WE RF: 0 Primary Care Provider: Jayme Cunha Referrals: Jayme Cunha MD [Primary Care Provider] - 3-5 Days Disposition Disposition: Home, Self Care
[2021-03-23 16:41] LABS: AST(SGOT) 17 U/L (15-37); Alanine Aminotransfer ALT/SGPT 32 U/L (16-61); Albumin, Serum 3.8 g/dL (3.2-5.0); Alkaline Phosphatase 84 U/L (45-117); Anion Gap 9 (5-15); BUN 22 mg/dL (7-18); BUN/Creat Ratio 19.1 RATIO (10-20); Calcium,Total 9.6 mg/dL (8.5-10.1); Chloride 102 mmol/L (98-107); Creatinine, Serum 1.15 mg/dL (0.70-1.30); EST Glomerular Filtration Rate 72 mL/min (>60); Est Glom Filt Rate - Afr Amer 87 mL/min (>60); Estimated Creatinine Clearance 80.23 ml/min; Glucose 290 mg/dL (74-106); Protein, Total 7.8 g/dL (6.4-8.2); Sodium Level 138 mmol/L (136-145)
[2021-03-23 17:25] VITALS: RESP 18
== END 2021-03-23 17:26 | disposition home or self-care (01) ==
PROVIDERS: Emergency Provider Emergency Medicine; PCP Family Medicine
DX: M79.662 Pain in left lower leg (principal); I10 Essential (primary) hypertension; E11.40 Type 2 diabetes mellitus with diabetic neuropathy, unspecified; E78.5 Hyperlipidemia, unspecified; G47.33 Obstructive sleep apnea (adult) (pediatric); E66.9 Obesity, unspecified; Z68.42 Body mass index [BMI] 45.0-49.9, adult; E55.9 Vitamin D deficiency, unspecified; H40.9 Unspecified glaucoma; G89.29 Other chronic pain; Z79.4 Long term (current) use of insulin; Z79.82 Long term (current) use of aspirin; Z79.899 Other long term (current) drug therapy
CPT/HCPCS: 80053; 85025; 93971; 99282

== ENCOUNTER 2021-03-25 16:34 | Outpatient (RCR) | payer BC, SELFPAY ==
[2021-03-10 00:16] VITALS: BMI 46.8
== END 2021-04-08 23:59 ==
LOC: DC 16:34
PROVIDERS: PCP Family Medicine; Visit Provider Family Medicine
DX: E11.65 Type 2 diabetes mellitus with hyperglycemia (principal)
CPT/HCPCS: G0108

== ENCOUNTER → 2021-04-13 15:14 | Outpatient (CLI) | payer BC, SELFPAY ==
[2021-04-13 17:38] LABS: Absolute Lymphocyte Count 2.23 X10^3/uL (0.83-4.51); Absolute Neutrophil Count 5.8 X10^3/uL (2.0-7.7); Basophil# 0.06 X10^3/uL; Basophil% 0.7 % (0-1); Eosinophil# 0.12 X10^3/uL; Eosinophils% 1.4 % (0-5); Hematocrit 45.6 % (40-54); Hemoglobin 14.8 g/dL (13.0-16.5); Lymphocyte # 2.23 X10^3/ul (0.83-4.51); Lymphocyte % 25.5 % (19-41); Mean Corp Hgb Conc 32.5 g/dL (32-36); Mean Corpuscular Hgb 28.6 pg (27.0-32.0); Mean Corpuscular Volume 88.2 fL (80-94); Mean Platelet Vol. 11.7 fl (6.2-12.0); Monocyte# 0.48 X10^3/uL; Monocyte% 5.5 % (0-10); NRBC Flagged by Analyzer 0 % (0-5); Neutrophil # 5.82 X10^3/uL (2.7-7.7); Neutrophil % 66.6 % (47-70); Platelet Count 183 K/mm3 (150-450); RBC Distribution Width CV 12.9 % (11.6-14.6); RBC Distribution Width SD 41.9 fl (35.1-43.9); Red Blood Count 5.17 M/mm3 (4.6-6.2); White Blood Count 8.7 K/mm3 (4.4-11.0)
[2021-04-13 17:53] LABS: AST(SGOT) 17 U/L (15-37); Alanine Aminotransfer ALT/SGPT 31 U/L (16-61); Albumin, Serum 3.8 g/dL (3.2-5.0); Alkaline Phosphatase 62 U/L (45-117); Anion Gap 9 (5-15); BUN 20 mg/dL (7-18); BUN/Creat Ratio 20.3 RATIO (10-20); Calcium,Total 9.2 mg/dL (8.5-10.1); Chloride 100 mmol/L (98-107); Cholesterol 149 mg/dL (200); Creatinine, Serum 0.99 mg/dL (0.70-1.30); EST Glomerular Filtration Rate 85 mL/min (>60); Est Glom Filt Rate - Afr Amer 103 mL/min (>60); Globulin 3.7 g/dL (2.2-4.2); Glucose 126 mg/dL (74-106); High Density Lipoprotein 46 mg/dL; Potassium 4.5 mmol/L (3.5-5.1); Protein, Total 7.5 g/dL (6.4-8.2); Sodium Level 138 mmol/L (136-145); Triglycerides 182 mg/dL; Very Low Density Lipoprotein 36 mg/dL (5-40)
[2021-04-13 18:14] LABS: Vitamin D,25 Hydroxy 36.5 ng/mL
[2021-04-13 18:26] LABS: Microalbumin,Random Urine 51.9 mg/L (NO RANGE EST.); Microalbumin:Creatinine Ratio 70.5 mg/g CRE (<30 mg/g CRE)
[2021-04-13 18:41] LABS: Hemoglobin A1c 7.8 % (3.8-5.6)
== END ==
LOC: MFPLAB 15:15
PROVIDERS: PCP Family Medicine; Referring Provider Family Medicine; Visit Provider Family Medicine
DX: E11.65 Type 2 diabetes mellitus with hyperglycemia (principal); E55.9 Vitamin D deficiency, unspecified
CPT/HCPCS: 36415; 80053; 80061; 82043; 82306; 82570; 83036; 85025

== ENCOUNTER 2021-07-16 15:08 | Outpatient (CLI) | payer BC, SELFPAY ==
[2021-07-16 17:41] LABS: Absolute Lymphocyte Count 1.96 X10^3/uL (0.83-4.51); Absolute Neutrophil Count 6.9 X10^3/uL (2.0-7.7); Basophil# 0.07 X10^3/uL; Basophil% 0.7 % (0-1); Eosinophil# 0.17 X10^3/uL; Eosinophils% 1.7 % (0-5); Hematocrit 45.4 % (40-54); Hemoglobin 15.1 g/dL (13.0-16.5); Lymphocyte # 1.96 X10^3/ul (0.83-4.51); Lymphocyte % 20.1 % (19-41); Mean Corp Hgb Conc 33.3 g/dL (32-36); Mean Corpuscular Hgb 28.7 pg (27.0-32.0); Mean Corpuscular Volume 86.3 fL (80-94); Mean Platelet Vol. 11.5 fl (6.2-12.0); Monocyte% 6.2 % (0-10); NRBC Flagged by Analyzer 0 % (0-5); Platelet Count 177 K/mm3 (150-450); RBC Distribution Width CV 13.1 % (11.6-14.6); RBC Distribution Width SD 40.6 fl (35.1-43.9); Red Blood Count 5.26 M/mm3 (4.6-6.2); White Blood Count 9.7 K/mm3 (4.4-11.0)
[2021-07-16 18:02] LABS: ALB/GLOB Ratio 1.1 RATIO (0.9-2.4); AST(SGOT) 12 U/L (15-37); Alanine Aminotransfer ALT/SGPT 29 U/L (16-61); Albumin, Serum 3.9 g/dL (3.2-5.0); Alkaline Phosphatase 74 U/L (45-117); Anion Gap 9 (5-15); BUN 21 mg/dL (7-18); BUN/Creat Ratio 21.2 RATIO (10-20); Calcium,Total 9.3 mg/dL (8.5-10.1); Chloride 102 mmol/L (98-107); Cholesterol 146 mg/dL (200); Creatinine, Serum 0.99 mg/dL (0.70-1.30); EST Glomerular Filtration Rate 85 mL/min (>60); Est Glom Filt Rate - Afr Amer 103 mL/min (>60); Globulin 3.7 g/dL (2.2-4.2); Glucose 102 mg/dL (74-106); High Density Lipoprotein 43 mg/dL; Magnesium 2.1 mg/dL (1.6-2.6); Potassium 3.7 mmol/L (3.5-5.1); Protein, Total 7.6 g/dL (6.4-8.2); Sodium Level 140 mmol/L (136-145); Triglycerides 127 mg/dL; Very Low Density Lipoprotein 25 mg/dL (5-40)
[2021-07-16 18:04] LABS: Vitamin D,25 Hydroxy 37.8 ng/mL
[2021-07-16 18:09] LABS: Microalbumin,Random Urine 85.1 mg/L (NO RANGE EST.); Microalbumin:Creatinine Ratio 93.7 mg/g CRE (<30 mg/g CRE)
[2021-07-16 18:11] LABS: Hemoglobin A1c 7.3 % (3.8-5.6)
== END 2021-07-16 23:59 | disposition short-term general hospital (02) ==
LOC: MFPLAB 15:09
PROVIDERS: PCP Family Medicine; Referring Provider Family Medicine; Visit Provider Family Medicine
DX: E11.65 Type 2 diabetes mellitus with hyperglycemia (principal); E11.69 Type 2 diabetes mellitus with other specified complication; E11.29 Type 2 diabetes mellitus with other diabetic kidney complication; E11.59 Type 2 diabetes mellitus with other circulatory complications; E55.9 Vitamin D deficiency, unspecified
CPT/HCPCS: 36415; 80053; 80061; 82043; 82306; 82570; 83036; 83735; 85025

== ENCOUNTER 2021-07-30 17:23 | Outpatient (CLI) | payer BC, SELFPAY | END 2021-07-30 23:59 | disposition short-term general hospital (02) | PROVIDERS: PCP Family Medicine; Visit Provider Family Medicine | DX: Z20.822 Contact with and (suspected) exposure to COVID-19 (principal) | CPT/HCPCS: 87635; U0003; U0005 ==

== ENCOUNTER 2021-10-20 14:44 | Outpatient (CLI) | payer BC, SELFPAY ==
[2021-10-20 17:53] LABS: Absolute Lymphocyte Count 2.21 X10^3/uL (0.83-4.51); Absolute Neutrophil Count 6.5 X10^3/uL (2.0-7.7); Basophil# 0.06 X10^3/uL; Basophil% 0.6 % (0-1); Eosinophils% 1.1 % (0-5); Hematocrit 45.7 % (40-54); Hemoglobin 15.1 g/dL (13.0-16.5); Lymphocyte # 2.21 X10^3/ul (0.83-4.51); Lymphocyte % 23.2 % (19-41); Mean Corpuscular Hgb 28.2 pg (27.0-32.0); Mean Corpuscular Volume 85.3 fL (80-94); Mean Platelet Vol. 11.6 fl (6.2-12.0); Monocyte# 0.58 X10^3/uL; Monocyte% 6.1 % (0-10); NRBC Flagged by Analyzer 0 % (0-5); Neutrophil # 6.54 X10^3/uL (2.7-7.7); Neutrophil % 68.7 % (47-70); Platelet Count 185 K/mm3 (150-450); RBC Distribution Width SD 39.6 fl (35.1-43.9); Red Blood Count 5.36 M/mm3 (4.6-6.2); White Blood Count 9.5 K/mm3 (4.4-11.0)
[2021-10-20 18:12] LABS: Vitamin D,25 Hydroxy 67.1 ng/mL
[2021-10-20 18:18] LABS: ALB/GLOB Ratio 1.1 RATIO (0.9-2.4); AST(SGOT) 25 U/L (15-37); Alanine Aminotransfer ALT/SGPT 33 U/L (16-61); Alkaline Phosphatase 69 U/L (45-117); Anion Gap 6 (5-15); BUN 21 mg/dL (7-18); BUN/Creat Ratio 20.8 RATIO (10-20); Calcium,Total 8.9 mg/dL (8.5-10.1); Chloride 103 mmol/L (98-107); Cholesterol 130 mg/dL (200); Creatinine, Serum 1.01 mg/dL (0.70-1.30); EST Glomerular Filtration Rate 83 mL/min (>60); Est Glom Filt Rate - Afr Amer 100 mL/min (>60); Globulin 3.5 g/dL (2.2-4.2); Glucose 103 mg/dL (74-106); High Density Lipoprotein 42 mg/dL; Potassium 4.2 mmol/L (3.5-5.1); Protein, Total 7.5 g/dL (6.4-8.2); Sodium Level 137 mmol/L (136-145); Thyroid Stim Hormone (TSH) 1.08 uIU/mL (0.358-3.74); Triglycerides 81 mg/dL; Very Low Density Lipoprotein 16 mg/dL (5-40)
[2021-10-20 18:31] LABS: Microalbumin,Random Urine 69.1 mg/L (NO RANGE EST.); Microalbumin:Creatinine Ratio 52.7 mg/g CRE (<30 mg/g CRE)
[2021-10-20 18:47] LABS: Hemoglobin A1c 7.5 % (3.8-5.6)
== END 2021-10-20 23:59 | disposition home or self-care (01) ==
LOC: MFPLAB 14:49
PROVIDERS: PCP Family Medicine; Referring Provider Family Medicine; Visit Provider Family Medicine
DX: E11.59 Type 2 diabetes mellitus with other circulatory complications (principal); E11.65 Type 2 diabetes mellitus with hyperglycemia; E11.29 Type 2 diabetes mellitus with other diabetic kidney complication; E11.69 Type 2 diabetes mellitus with other specified complication; E55.9 Vitamin D deficiency, unspecified
CPT/HCPCS: 36415; 80053; 80061; 82043; 82306; 82570; 83036; 84443; 85025

== ENCOUNTER 2022-01-17 15:00 | Outpatient (RCR) | payer BC, SELFPAY ==
--- NOTE | 2021-12-22 16:06 | HP.PTEVAL ---
Patient's Visit Information JODI COLLINS is a 51 year old M referred to Physical Therapy by Dr. Jayme Cunha MD with a diagnosis of R med epicondylitis. 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 Pt reports he has the most pain when he is performing heavy lifting at work, and when he is trying to sleep. Pt is R hand dominant. Pt reports he uses a wrench at work a lot which also tends to increase his pain. Pt reports occasional tingling and numbness in his hands at times, especially when he is sleeping. Pt notes he has had the same job for 7 years which requires very heavy lifting at times. Pt reports he also gets shoulder pain at time's which seems like it is the pain in his forearms moving up to his shoulders. Pt reports no Dx tests at this time. 5/10 pain at rest, 10/10 when pain is at its worst (when he is sleeping) - Pain R med elbow Pain Intensity (Out of 10): 5 Pain Intensity Range: 10 - Objective Neuro: B UE sensation is WNL to light touch. B bicipital reflex= 2/3. Palpation: Pt has significant soreness on medial epicondyle. Wrist ROM: R wrist flex= 65, ext= 48; L wrist flex= 47, ext= 47. elbow strength : B Elbows 5/5 throughout. 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 115 #F - Balance/Special Test Scores Quick DASH Score: 52.2725 - Goals Goal 1:: I with HEP Goal Time Frame: 2-4 Weeks Goal 2:: Decrease R medial epicondyle pain x 50% to aid with sleep Goal Time Frame: 2-4 Weeks Goal 3:: Increase R wrist ext ROM x 10 degrees to aid with decreasing pain Goal Time Frame: 2-4 Weeks - Rehabilitation Potential Physical Therapy Diagnosis: R medial elbow pain secondary to R medial epicondylitis Rehabilitation Potential: Good - Anticipated Interventions Patient/Client Instruction: Educate patient on: Condition, Plan of Care For the Purpose of:: To improve self management Therapeutic Exercise to Include: Strength training, Endurance training, Flexibilty training, Passive ROM, Active ROM For the Purpose of:: To decrease pain, To increase ROM Manual Therapy Techniques to Include: Soft tissue mobilization For the Purpose of:: To decrease pain Thank you for the opportunity to evaluate your patient. For Medicare and Medicare HMO plans, please review the plan of care and approve it. It will need to be FAXED BACK to us at [phone] for Medicare purposes. For Medicare only, by signing this I certify the plan of care. Please let me know if there are questions or concerns regarding this plan of care. Physician Signature: Date:
--- NOTE | 2022-01-17 15:32 | HP.PTDCSUM ---
It has been my pleasure to treat JODI COLLINS referred by Dr. Jayme Cunha MD, with the diagnosis of R med epicondylitis for a total of 6 visit(s). Discharge Date: Please see the following information for a summary of their discharge status. Subjective: I feel really good today R med elbow Pain Intensity (Out of 10): 1 % Improvement: 80 Objective/Function: R medial elbow pain is 1/10. Pt is I with HEP. R wrist ext ROM= 70 degrees. Rx goals achieved Goal 1:: I with HEP Goal Progress: Goal Met Goal 2:: Decrease R medial epicondyle pain x 50% to aid with sleep Goal Progress: Goal Met Goal 3:: Increase R wrist ext ROM x 10 degrees to aid with decreasing pain Goal Progress: Goal Met Plan: Discharge to HEP If there are questions or concerns regarding this patient's physical therapy, please feel free to call me at [phone]. Thank you for the referral of this patient. Sincerely, Neftaly York, PT, ATC Balance/Gait/Functional tests - Balance/Special Test Scores Quick DASH Score: 9.0900
== END 2022-01-17 19:00 | disposition home or self-care (01) ==
LOC: PT 15:00
PROVIDERS: PCP Family Medicine; Referring Provider Family Medicine; Visit Provider Family Medicine
DX: M77.00 Medial epicondylitis, unspecified elbow (principal)
CPT/HCPCS: 97035; 97110; 97161; 97164

== ENCOUNTER 2022-02-15 05:50 | Emergency (ER) | payer BC, SELFPAY ==
[2022-02-15 05:52] VITALS: BP 188/90; PULSE 86; RESP 16; TEMP 36.6; O2SAT 98; BMI 46.0
--- NOTE | 2022-02-15 05:57 | CT_ITS ---
STUDY: CT BRAIN WITHOUT CONTRAST REASON FOR EXAM: Male, 51 years old. Headache and confusion RADIATION DOSAGE (If Supplied By Facility): CTDIvol = ( 44.99 ) mGy, DLP = ( 812.98 ) mGycm TECHNIQUE: Transaxial CT imaging of the brain was performed without administration of intravenous contrast material. Individualized dose optimization techniques were used for this CT. COMPARISON: CT brain 07/29/2018 FINDINGS: BRAIN: Normal schwartz/white matter differentiation. VENTRICLES: No hydrocephalus. EXTRA-AXIAL SPACES: No hemorrhages, fluid collections, or masses. CALVARIUM/SKULL BASE: Normal. FACE/SINUSES: Small left mastoid fluid and cortical thickening. SOFT TISSUES: Normal. OTHER: None. CONCLUSION: 1. No intracranial hemorrhage, mass or acute territorial infarction. 2. Left mastoid fluid with cortical thickening, correlate for mastoiditis. Electronically Signed: Jose Gage MD at 6:27 EDT , CT/Brain/Head without Contrast IMPRESSION: undefined
--- NOTE | 2022-02-15 05:58 | EKG12_ITS ---
Test Reason : CP Blood Pressure : / mmHG Vent. Rate : 085 BPM Atrial Rate : 085 BPM P-R Int : 150 ms QRS Dur : 092 ms QT Int : 358 ms P-R-T Axes : 068 -05 043 degrees QTc Int : 426 ms Normal sinus rhythm Normal ECG Confirmed by NICK SIFUENTES, TONYA ([id number]), continuity editor JAIRO GR ([id number]) on 02/18/2022 1:56:03 PM Referred By: CINDA Confirmed By:TONYA ROMERO MD
--- NOTE | 2022-02-15 05:58 | RAD_ITS ---
INDICATION: Left-sided pain EXAMINATION/TECHNIQUE: X-RAY - XR Chest 2 Views COMPARISON: 06/25/2020 FINDINGS: LINES/DEVICES: None. LUNGS: No consolidation, edema or effusion. No pneumothorax. MEDIASTINUM AND CARDIOVASCULAR STRUCTURES: Cardiac silhouette not enlarged. Central airways and mediastinal contour are unremarkable. BONES AND SOFT TISSUES: Degenerative changes visualized spine. No acute osseous abnormality.. RAD/Chest PA and Lateral IMPRESSION: No acute cardiopulmonary disease. Electronically Signed: Jose Gage MD at 6:28 EDT ,
--- NOTE | 2022-02-15 05:59 | EDS_ITS ---
HPI History of Present Illness Chief Complaint: General Illness Detail of Chief Complaint: Read HPI narrative Informant: patient and spouse/S.O. Onset/Context/Timing Onset: Days (Onset last week Monday) Context: Sudden Onset Timing: Intermittent and Waxes and wanes Quality: Pain Location: Anteri thoracic back and left side of head or left chest, Current Severity: Mild Maximum Severity: Moderate Worsened by: Nothing specific Relieved by: Nothing Associated Symptoms Associated Symptoms: Confusion and disorientation per patient Narrative Narrative: Patient is a 51-year-old male with history of hypertension, hyperlipidemia, diabetes with neuropathy who presents with left-sided discomfort and associated confusion. There is been no slurring of the words. states there has been episodes where he takes longer to answer and forgot what he is side. He presently has left-sided head pain as well as left-sided torso pain. He denies dyspnea, dyspnea on exertion, orthopnea or PND. He does have obstructive sleep apnea and does use his CPAP machine. He denies history of VTE. He denies swelling of his legs, discoloration. He does have pain due to neuropathy he denies urologic symptoms. Review of prior records indicates he has history of shortness of breath and chest pain. He states he had a cardiac catheterization last year by Dr. Turner Morales and was told that he does have lesions that are 10 to 20%. Prior similar symptoms: No (With regards to the confusion) Recent Illness/Hospitalization: No [facility] Medical History Chronic back pain Diabetes mellitus with neuropathy Diabetes type 2, controlled Disequilibrium Early stage glaucoma Essential hypertension Exogenous obesity Hallux limitus of right foot History of vitamin D deficiency Hyperlipidemia Ingrown nail MONCHO on CPAP Vision problem Home Medications aspirin 81 mg chewable tablet 81 mg PO DAILY@0800 heart health 02/18/15 [History Last Taken 07/08/20] metformin 1,000 mg tablet 1,000 mg PO BIDCM diabetes 02/18/15 [History Last Taken 07/07/20] ascorbic acid (vitamin C) 500 mg tablet 500 mg PO DAILY@0800 vitamin 07/29/18 [History Last Taken 06/25/20] atorvastatin 40 mg tablet 40 mg PO QHS cholesterol 07/29/18 [History Last Taken 06/24/20] losartan 100 mg tablet 100 mg PO DAILY 01/29/20 [History Last Taken 07/08/20] ergocalciferol (vitamin D2) 1,250 mcg (50,000 unit) capsule 50,000 unit PO WE supplement 06/25/20 [History Last Taken 04/24/20] dapagliflozin 10 mg tablet 10 mg PO DAILY 10/21/21 [History Last Taken Unknown] furosemide 40 mg tablet (Lasix) 40 mg PO DAILY #90 tabs 10/21/21 [Rx Last Taken Unknown] insulin regular hum U-500 conc 500 unit/mL subcutaneous soln (Humulin R U-500 (Concentrated) Insulin) 30 unit subcut TIDCM diabetes 10/21/21 [History Last Taken Unknown] semaglutide 1 mg/dose (4 mg/3 mL) subcutaneous pen injector 1 mg subcut QWEEK 10/21/21 [History Last Taken Unknown] amoxicillin 875 mg-potassium clavulanate 125 mg tablet 875 mg PO Q12H #20 TABLETS 02/15/22 [Rx Last Taken Unknown] Allergy/AdvReac Type Severity Reaction Status Date / Time ibuprofen AdvReac Other Verified 02/15/22 05:55 Family History Daughter Asthma Seizures Son Seizures Sister Breast cancer Mother Diabetes Heart disease Hypertension CVA (cerebral vascular accident) Brother Diabetes Father Diabetes Heart disease Hypertension Surgical History History of right and left heart catheterization (07/08/20) Social History (Updated 02/15/22 @ 06:[address] Rony Gould MD) household members: spouse Smoking Status: Never smoker second hand exposure: No alcohol intake: current alcohol intake frequency: a few times a month substance use type: does not use caffeine: Yes Type: coffee Number of servings: 2 ROS ROS ED Constitutional Constitutional ED: Denies chills, fever(s), subjective, sweats or weight loss Eyes Eyes: Denies blurry vision, change in vision or diplopia ENT ENT ED: Denies ear pain, rhinorrhea or sore throat Cardiovascular Cardiovascular: Reports chest pain; Denies orthopnea, palpitations, paroxysmal nocturnal dyspnea or racing heartbeat Respiratory/Chest Respiratory/Chest: Denies cough, dyspnea on exertion, orthopnea, paroxysmal nocturnal dyspnea or sputum Gastrointestinal Gastrointestinal: Denies abdominal pain, constipation, diarrhea, melena or nausea Genitourinary Genitourinary ED: Denies dysuria, hematuria or urinary frequency Musculoskeletal Musculoskeletal: Reports back pain; Denies arthralgias, myalgias or neck pain Integumentary Denies Abrasions or rash Neurologic Neurologic: Reports headache(s); Denies paresthesias or weakness Endocrine Endocrinology: Denies cold intolerance or heat intolerance Hematologic/Lymphatic Hematologic/Lymphatic: Denies anemia, easy bleeding or easy bruising EXAM Physical Exam Const Vital Signs: 02/15/22 05:52 02/15/22 05:55 02/15/22 06:02 Temperature 97.9 F Temperature Source Temporal Pulse Rate 86 81 Respiratory Rate 16 22 H Respiratory Effort Normal Short of Breath Respiratory Pattern Normal Blood Pressure 188/90 H 159/85 H Blood Pressure Mean 122 109 Pulse Ox 98 97 Oxygen Delivery Method Room Air Room Air Positive well nourished, well developed and obese General Appearance ED: well developed and NAD; Negative for cyanotic, diaphoretic or pallor Nutritional Appearance: obese HEENT Reports dry mucous membranes HEENT Narrative: Head is atraumatic normocephalic. Ears normal. Nares patent. Uvula midline. There is no erythema or exudate. Mouth ED: Yes dry mucous membranes Mouth: dry mucous membranes Eyes PERRL and EOMs intact bilaterally General Eye ED: Negative for pale conjunctiva or scleral icterus Neck no lymphadenopathy, supple and no JVD Chest Wall inspection of chest normal and palpation of chest normal Resp normal respiratory effort and clear to auscultation bilaterally Cardio regular rate, regular rhythm, S1 normal heart sound and S2 normal heart sound Palpation: Negative for palpable S3 or palpable S4 GI normal to inspection, nondistended, normoactive bowel sounds, non-tender and non-distended; Negative for hepatosplenomegaly Back/Spine no CVA tenderness Cervical Spine: Negative for cervical spine tenderness Thoracic Spine / Upper Back: Negative for thoracic spinal tenderness Extremity Negative for normal to inspection Extremity Narrative: Stigmata of peripheral arterial disease. Pain to palpation. Discoloration due to venous stasis dermatitis. Pulses are diminished. Neuro oriented x3, CN's II-XII intact bilaterally and no sensory deficits noted Sensorium / Orientation: alert Psych mental status grossly normal Skin no rashes or lesions noted, no wounds and skin turgor normal General Skin Exam: Negative for jaundice or pallor MDM MDM MDM Narrative Medical decision making narrative: Patient with very atypical presentation. Chest pain does not sound or suggest cardiac however patient has multiple medical problems and diabetic neuropathy; therefore, an EKG and troponin was ordered. To evaluate his headache and confusion a CT of the head was obtained. CBC was obtained to assess white count differential. Electrolyte panel was obtained to assess CO2, glucose and electrolytes. Need to evaluate for metabolic or infectious cause. Patient is PERC negative. Lab Data Attestation: I reviewed the patient's lab results. Lab results narrative: With symptoms for greater than 12 hours and a troponin less than 8 a 2-hour troponin was not obtained. Negative predictive value is 100%. Blood sugar is elevated. He does have history of diabetes with poor control. Labs: Laboratory Results - last 24 hr 02/15/22 02/15/22 06:00 06:00 WBC 8.2 RBC 5.05 Hgb 14.6 Hct 43.8 MCV 86.7 MCH 28.9 MCHC 33.3 RDW Std Deviation 40.7 RDW Coeff of Annalise 13.2 Plt Count 143 L MPV 10.8 Sodium 135 L Potassium 4.1 Chloride 102 Carbon Dioxide 29.0 Anion Gap 4 L BUN 21 H Creatinine 0.91 Estim Creat Clear Calc 103.43 Est GFR (MDRD) Af Amer 113 Est GFR (MDRD) Non-Af 93 BUN/Creatinine Ratio 23.1 H Glucose 160 H Calcium 9.2 Troponin I High Sens 5 Radiography Diagnostic Testing: Clinical Impression(s) from Imaging Studies Brain CT 02/15/22 05:57 IMPRESSION: undefined Chest X-Ray 02/15/22 05:58 IMPRESSION: No acute cardiopulmonary disease. Electronically Signed: Jose Gage MD at 6:28 EDT , CT of the head per my review reveals no acute process. There is no evidence of sinusitis. Awaiting formal read by radiologist. After reading the interpretation of the CT patient was reexamined and he has tenderness over the left mastoid. She states that is where his pain is. He was given an Augmentin tablet in the Emergency Department discharged with a prescription for Augmentin. He was referred to ENT, Dr. Sameer Fraga. EKG Initial EKG: Attestation: I personally reviewed and interpreted this EKG as follows: Interpretation: Sinus Rhythm (The EKG is normal. Rate is 85. AL interval 250 ms. QRS duration 92 ms. QT duration 358 ms. Ute is normal.) Discharge Plan Triage Chief Complaint: General Illness ED Provider: Rony Gould Dx/Rx/DC Orders Clinical Impression: Acute mastoiditis of left side, Hyperlipidemia, Left-sided chest pain, Hyperglycemia due to type 2 diabetes mellitus, Hypertension Instructions: When Your Child Has Mastoiditis Prescriptions: New amoxicillin-pot clavulanate [amoxicillin-pot clavulanate] 875-125 mg tablet 875 mg PO Q12H Qty: 20 0RF No Action Humulin R U-500 (Conc) Insulin 500 unit/mL solution 30 unit SC TIDCM Farxiga 10 mg tablet 10 mg PO DAILY Label Comments: TAKE 1 TABLET BY MOUTH EVERY DAY Ozempic 1 mg/dose (4 mg/3 mL) pen injector 1 mg subcut QWEEK Label Comments: INJECT 1 MG UNDER THE SKIN WEEKLY furosemide [Lasix] 40 mg tablet 40 mg PO DAILY Qty: 90 3RF metformin 1,000 MG tablet 1,000 mg PO BIDCM aspirin 81 MG tablet,chewable 81 mg PO DAILY@0800 atorvastatin 40 MG tablet 40 mg PO QHS ascorbic acid (vitamin C) 500 MG tablet 500 mg PO DAILY@0800 losartan 100 MG tablet 100 mg PO DAILY ergocalciferol (vitamin D2) 50,000 UNIT capsule 50,000 unit PO WE Stand Alone Forms: ED Work / School Excuse Primary Care Provider: Jayme Cunha Referrals: Robin Fraga MD [Med Staff - Active Staff] - 3-5 Days Jayme Cunha MD [Primary Care Provider] - Disposition Disposition: Home, Self Care
[2022-02-15 06:02] VITALS: BP 159/85; PULSE 81; RESP 22; O2SAT 97
[2022-02-15 06:05] LABS: Hematocrit 43.8 % (40-54); Hemoglobin 14.6 g/dL (13.0-16.5); Mean Corp Hgb Conc 33.3 g/dL (32-36); Mean Corpuscular Hgb 28.9 pg (27.0-32.0); Mean Corpuscular Volume 86.7 fL (80-94); Mean Platelet Vol. 10.8 fl (6.2-12.0); Platelet Count 143 K/mm3 (150-450); RBC Distribution Width CV 13.2 % (11.6-14.6); RBC Distribution Width SD 40.7 fl (35.1-43.9); Red Blood Count 5.05 M/mm3 (4.6-6.2); White Blood Count 8.2 K/mm3 (4.4-11.0)
[2022-02-15 06:23] LABS: Anion Gap 4 (5-15); BUN 21 mg/dL (7-18); BUN/Creat Ratio 23.1 RATIO (10-20); Calcium,Total 9.2 mg/dL (8.5-10.1); Chloride 102 mmol/L (98-107); Creatinine, Serum 0.91 mg/dL (0.70-1.30); EST Glomerular Filtration Rate 93 mL/min (>60); Est Glom Filt Rate - Afr Amer 113 mL/min (>60); Estimated Creatinine Clearance 103.43 ml/min; Glucose 160 mg/dL (74-106); Potassium 4.1 mmol/L (3.5-5.1); Sodium Level 135 mmol/L (136-145); Troponin-I HS 5 pg/mL (3.0-78.0)
[2022-02-15] MEDS: Amox/Clavulanate 875 MG Tablet PO (07:32)
[2022-02-15 07:35] VITALS: BP 145/86; PULSE 82; RESP 22; O2SAT 96
== END 2022-02-15 07:42 | disposition home or self-care (01) ==
PROVIDERS: Emergency Provider Emergency Medicine; PCP Family Medicine; Visit Provider Emergency Medicine
DX: H70.002 Acute mastoiditis without complications, left ear (principal); E11.51 Type 2 diabetes mellitus with diabetic peripheral angiopathy without gangrene; E11.40 Type 2 diabetes mellitus with diabetic neuropathy, unspecified; E11.65 Type 2 diabetes mellitus with hyperglycemia; Z68.42 Body mass index [BMI] 45.0-49.9, adult; Z79.4 Long term (current) use of insulin; R07.89 Other chest pain; I10 Essential (primary) hypertension; E78.5 Hyperlipidemia, unspecified; G47.33 Obstructive sleep apnea (adult) (pediatric); Z79.899 Other long term (current) drug therapy; Z79.82 Long term (current) use of aspirin; E66.9 Obesity, unspecified; I87.2 Venous insufficiency (chronic) (peripheral)
CPT/HCPCS: 70450; 71046; 80048; 84484; 85027; 93005; 99284; A4216

== ENCOUNTER → 2022-03-15 | Outpatient (CLI) | payer BC, SELFPAY ==
[2022-03-15 18:10] LABS: Absolute Lymphocyte Count 2.13 X10^3/uL (0.83-4.51); Absolute Neutrophil Count 6.5 X10^3/uL (2.0-7.7); Basophil# 0.09 X10^3/uL; Eosinophils% 1.1 % (0-5); Hematocrit 47.9 % (40-54); Hemoglobin 15.2 g/dL (13.0-16.5); Lymphocyte # 2.13 X10^3/ul (0.83-4.51); Mean Corp Hgb Conc 31.7 g/dL (32-36); Mean Corpuscular Hgb 28.2 pg (27.0-32.0); Mean Corpuscular Volume 88.9 fL (80-94); Mean Platelet Vol. 11.8 fl (6.2-12.0); Monocyte# 0.44 X10^3/uL; Monocyte% 4.7 % (0-10); NRBC Flagged by Analyzer 0 % (0-5); Neutrophil # 6.49 X10^3/uL (2.7-7.7); Neutrophil % 69.9 % (47-70); Platelet Count 193 K/mm3 (150-450); RBC Distribution Width CV 13.2 % (11.6-14.6); RBC Distribution Width SD 42.5 fl (35.1-43.9); Red Blood Count 5.39 M/mm3 (4.6-6.2); White Blood Count 9.3 K/mm3 (4.4-11.0)
[2022-03-15 18:21] LABS: ALB/GLOB Ratio 1.1 RATIO (0.9-2.4); AST(SGOT) 18 U/L (15-37); Alanine Aminotransfer ALT/SGPT 28 U/L (16-61); Albumin, Serum 4.1 g/dL (3.2-5.0); Alkaline Phosphatase 64 U/L (45-117); Anion Gap 10 (5-15); BUN 27 mg/dL (7-18); BUN/Creat Ratio 24.5 RATIO (10-20); Calcium,Total 9.3 mg/dL (8.5-10.1); Chloride 102 mmol/L (98-107); Cholesterol 155 mg/dL (200); EST Glomerular Filtration Rate 75 mL/min (>60); Est Glom Filt Rate - Afr Amer 91 mL/min (>60); Globulin 3.9 g/dL (2.2-4.2); Glucose 113 mg/dL (74-106); High Density Lipoprotein 46 mg/dL; Potassium 4.4 mmol/L (3.5-5.1); Sodium Level 141 mmol/L (136-145); Triglycerides 222 mg/dL; Very Low Density Lipoprotein 44 mg/dL (5-40)
[2022-03-15 18:24] LABS: Vitamin D,25 Hydroxy 42.5 ng/mL
[2022-03-15 18:31] LABS: Hemoglobin A1c 7.7 % (3.8-5.6)
[2022-03-15 18:37] LABS: Microalbumin,Random Urine 74.6 mg/L (NO RANGE EST.); Microalbumin:Creatinine Ratio 88.5 mg/g CRE (<30 mg/g CRE)
== END | disposition home or self-care (01) ==
LOC: MFPLAB 14:57
PROVIDERS: PCP Family Medicine; Visit Provider Family Medicine
DX: E11.69 Type 2 diabetes mellitus with other specified complication (principal); E55.9 Vitamin D deficiency, unspecified
CPT/HCPCS: 36415; 80053; 80061; 82043; 82306; 82570; 83036; 85025

== ENCOUNTER → 2022-03-26 | Outpatient (CLI) | payer BC, SELFPAY ==
--- NOTE | 2022-03-26 10:27 | US_ITS ---
STUDY: ABDOMINAL ULTRASOUND REASON FOR EXAM: Male, 51 years old. Lower abdominal pain- bilateral TECHNIQUE: Transabdominal ultrasound was performed with real-time and static schwartz scale imaging. TECHNICAL QUALITY: Adequate. COMPARISON: None. FINDINGS: Liver: The liver measures 17.8 cm. There is increased echogenicity consistent with fatty infiltration. The bile ducts are within normal limits. There is hepatic color flow. The direction of portal flow is hepatopetal. There is no demonstrated mass lesion. Portal vein measurement: 12.9 mm. Gallbladder: Normal distended gallbladder. The gallbladder wall measures 2.9 mm. There is a negative sonographic Orozco''s sign. There is no pericholecystic fluid. There are no gallstones. Common Bile Duct (C.B.D.): The common bile duct measures 5.3 mm. Pancreas: Normal size of the visualized head and body of the pancreas. The tail of the pancreas is relatively obscured. There is normal echogenicity of the pancreas. There is no demonstrated pancreatic mass or cyst. Spleen: There is mild splenomegaly. The spleen measures 13.73 x 6.05 x 4.91 cm. Right Kidney: Normal size of the right kidney. The right kidney measures 14.13 x 7.55 x 6.18 cm. Normal renal cortex. The right cortex measures 2.0 cm. There is no demonstrated renal mass or cyst. There is no right hydronephrosis. Left Kidney: Normal size of the left kidney. The left kidney measures 14.93 x 6.22 x 5.55 cm. Normal renal cortex. The left cortex measures 2.2 cm. There is no demonstrated renal mass or cyst. There is no left hydronephrosis. Aorta: Proximal obscured. Mid 2.16 x 1.37 cm, distal 1.83 x 1.7 cm I.V.C.: The IVC is patent. There is no ascites. Additional imaging in the bilateral groin and lower abdominal regions did not demonstrate any mass or fluid collection. US/Abdomen Complete IMPRESSION: 1. Hepatic steatosis. 2. Mild splenomegaly. 3. Tail of the pancreas is obscured. If clinical suspicion of pancreatic pathology warrants additional imaging, CT is advised. Electronically Signed: Jose Elias Gomez MD at 12:15 EDT ,
== END | disposition home or self-care (01) ==
LOC: US 10:26
PROVIDERS: PCP Family Medicine; Referring Provider Nurse Practitioner Family; Visit Provider Nurse Practitioner Family
DX: R10.9 Unspecified abdominal pain (principal)
CPT/HCPCS: 76700

== ENCOUNTER 2022-05-26 12:29 | Outpatient (CLI) | payer BC, SELFPAY ==
--- NOTE | 2022-05-26 12:38 | NM_ITS ---
CLINICAL: 51-year-old male with history of early satiety. SEMI-SOLID PHASE 99m Tc SULFUR COLLOID GASTRIC EMPTYING STUDY COMPARISON: Gastric emptying study report 12/29/2020 FINDINGS: The patient was administered 1.0 mCi of 99m Tc sulfur colloid mixed with oatmeal and consumed per os. Image acquisitions in the anterior-posterior projections were obtained for 60 minutes. There is prompt visualization of the stomach. There is no gastroesophageal reflux identified. The T ? emptying was calculated to be 42.48 minutes, (Normal: 12-56 minutes) compared to 56.97 defined on the prior examination dated 12/29/2020. NM/Gastric Emptying Study IMPRESSION: 1. NORMAL 99m Tc sulfur colloid semi-solid phase (oatmeal) gastric emptying imaging examination. A. There is normal and preserved semi-solid phase gastric emptying compared to normal controls with maintained first order kinetics throughout all components of the examination. (Bisi et al, J Nucl Med Tech 38: 186, 2010). B. Overall compared to the previous semisolid phase gastric emptying study dated 12/29/2020, there is current normal semisolid phase emptying. Electronically Signed: Emil Bueno, at 17:41 EST ,
== END 2022-05-26 23:59 | disposition home or self-care (01) ==
LOC: NM 12:35
PROVIDERS: PCP Family Medicine; Referring Provider Family Medicine; Visit Provider Family Medicine
DX: R68.81 Early satiety (principal)
CPT/HCPCS: 78264; A9541

== ENCOUNTER → 2022-06-21 | Outpatient (CLI) | payer BC, SELFPAY ==
[2022-06-21 17:58] LABS: Absolute Lymphocyte Count 2.82 X10^3/uL (0.83-4.51); Absolute Neutrophil Count 6.6 X10^3/uL (2.0-7.7); Basophil# 0.07 X10^3/uL; Basophil% 0.7 % (0-1); Eosinophil# 0.12 X10^3/uL; Eosinophils% 1.2 % (0-5); Hematocrit 45.4 % (40-54); Hemoglobin 15.1 g/dL (13.0-16.5); Lymphocyte # 2.82 X10^3/ul (0.83-4.51); Lymphocyte % 27.8 % (19-41); Mean Corp Hgb Conc 33.3 g/dL (32-36); Mean Corpuscular Hgb 29.5 pg (27.0-32.0); Mean Corpuscular Volume 88.8 fL (80-94); Mean Platelet Vol. 11.6 fl (6.2-12.0); Monocyte# 0.53 X10^3/uL; Monocyte% 5.2 % (0-10); NRBC Flagged by Analyzer 0 % (0-5); Neutrophil # 6.57 X10^3/uL (2.7-7.7); Neutrophil % 64.7 % (47-70); Platelet Count 222 K/mm3 (150-450); RBC Distribution Width SD 41.9 fl (35.1-43.9); Red Blood Count 5.11 M/mm3 (4.6-6.2); White Blood Count 10.2 K/mm3 (4.4-11.0)
[2022-06-21 18:28] LABS: ALB/GLOB Ratio 1.3 RATIO (0.9-2.4); AST(SGOT) 18 U/L (15-37); Alanine Aminotransfer ALT/SGPT 44 U/L (16-61); Alkaline Phosphatase 76 U/L (45-117); Anion Gap 9 (5-15); BUN 23 mg/dL (7-18); BUN/Creat Ratio 18.5 RATIO (10-20); Calcium,Total 9.4 mg/dL (8.5-10.1); Chloride 100 mmol/L (98-107); Cholesterol 186 mg/dL (200); Creatinine, Serum 1.24 mg/dL (0.70-1.30); EST Glomerular Filtration Rate 65 mL/min (>60); Est Glom Filt Rate - Afr Amer 79 mL/min (>60); Globulin 3.1 g/dL (2.2-4.2); Glucose 286 mg/dL (74-106); High Density Lipoprotein 32 mg/dL; Potassium 4.3 mmol/L (3.5-5.1); Protein, Total 7.1 g/dL (6.4-8.2); Sodium Level 138 mmol/L (136-145); Triglycerides 749 mg/dL
[2022-06-21 18:31] LABS: Hemoglobin A1c 8.5 % (3.8-5.6)
[2022-06-21 18:37] LABS: Microalbumin,Random Urine 30.5 mg/L (NO RANGE EST.); Microalbumin:Creatinine Ratio 56.8 mg/g CRE (<30 mg/g CRE)
[2022-06-21 20:17] LABS: Vitamin D,25 Hydroxy 32.4 ng/mL
== END | disposition home or self-care (01) ==
LOC: MFPLAB 16:08
PROVIDERS: PCP Family Medicine; Referring Provider Family Medicine; Visit Provider Family Medicine
DX: E11.29 Type 2 diabetes mellitus with other diabetic kidney complication (principal); E55.9 Vitamin D deficiency, unspecified
CPT/HCPCS: 36415; 80053; 80061; 82043; 82306; 82570; 83036; 85025

== ENCOUNTER → 2022-06-24 | Outpatient (CLI) | payer BC, SELFPAY ==
[2022-06-29 14:39] LABS: Pancreatic Elastase, Fecal 480 (>200)
== END | disposition home or self-care (01) ==
LOC: LABSPEC 16:02
PROVIDERS: PCP Family Medicine; Referring Provider Family Medicine; Visit Provider Family Medicine
DX: K86.89 Other specified diseases of pancreas (principal)
CPT/HCPCS: 82653

== ENCOUNTER → 2022-08-11 | Outpatient (CLI) | payer BC, SELFPAY ==
[2022-08-11 17:00] LABS: Hematocrit 43.6 % (40-54); Hemoglobin 14.5 g/dL (13.0-16.5); Mean Corp Hgb Conc 33.3 g/dL (32-36); Mean Corpuscular Hgb 29.2 pg (27.0-32.0); Mean Corpuscular Volume 87.9 fL (80-94); Mean Platelet Vol. 11.7 fl (6.2-12.0); Platelet Count 182 K/mm3 (150-450); RBC Distribution Width CV 12.4 % (11.6-14.6); Red Blood Count 4.96 M/mm3 (4.6-6.2); White Blood Count 9.3 K/mm3 (4.4-11.0)
[2022-08-11 18:01] LABS: Anion Gap 8 (5-15); BUN 19 mg/dL (7-18); BUN/Creat Ratio 19.6 RATIO (10-20); Calcium,Total 9.3 mg/dL (8.5-10.1); Chloride 104 mmol/L (98-107); Creatinine, Serum 0.97 mg/dL (0.70-1.30); EST Glomerular Filtration Rate 87 mL/min (>60); Est Glom Filt Rate - Afr Amer 105 mL/min (>60); Glucose 221 mg/dL (74-106); Potassium 4.1 mmol/L (3.5-5.1); Sodium Level 138 mmol/L (136-145)
== END | disposition home or self-care (01) ==
LOC: LAB 15:55
PROVIDERS: PCP Family Medicine; Visit Provider Urology
DX: Z01.812 Encounter for preprocedural laboratory examination (principal)
CPT/HCPCS: 36415; 80048; 85027

== ENCOUNTER → 2022-08-17 | Outpatient (CLI) | payer BC, SELFPAY ==
--- NOTE | 2022-08-17 13:43 | EKG12_ITS ---
Test Reason : PRE OP Blood Pressure : / mmHG Vent. Rate : 080 BPM Atrial Rate : 080 BPM P-R Int : 158 ms QRS Dur : 090 ms QT Int : 372 ms P-R-T Axes : 051 -10 040 degrees QTc Int : 429 ms Normal sinus rhythm Normal ECG Confirmed by RENAE SIFUENTES, MEHDI ([id number]), editor department JAIRO GR ([id number]) on 08/18/2022 11:31:00 AM Referred By: Sami Chavez Confirmed By:MEHDI MACDONALD MD
== END | disposition home or self-care (01) ==
LOC: PSN 13:42
PROVIDERS: PCP Family Medicine; Referring Provider Urology; Visit Provider Urology
DX: Z01.810 Encounter for preprocedural cardiovascular examination (principal)
CPT/HCPCS: 93005

== ENCOUNTER → 2022-08-26 | Outpatient (CLI) | payer BC, OTHER, SELFPAY ==
--- NOTE | 2022-08-26 09:45 | EPI_PTH ---
PATIENT: [facility] COLLINS [facility] U[id number] AGE/SX: 52/M ROOM: RE08/26/[address]: Dr. Sami Chavez MD : 1970 BED: DIS: 08/26/2022 SPEC #: [id number] RECD: 08/26/22 15:09 STATUS: FABIO RE #: [id number] SANGITA: 08/26/22 09:[address]: Sami Chavez DEPT: SURGICAL PATHOLOGY RECD BY: Daria Boudreaux ENTERED: 08/29/22 08:45 SP TYPE: EPIDIDYMIS OTHR DR: Dr. Jayme Cunha MD [facility] Tissues: Epididymis, NOS Procedures: Surgery Specimen Level III HEADER OPERATION: Left epididymectomy PRE-OP DIAGNOSIS: Epididymitis TISSUE SUBMITTED: Epididymis and vas deferens MICROSCOPIC DIAGNOSIS Epididymis and vas deferens, epididymectomy: Epididymis and vas deferens with focal minimal chronic inflammation and reactive changes. JASON:ankush 08/30/2022 MICROSCOPIC DESCRIPTION Slides are reviewed. GROSS DESCRIPTION Received in fixative is one container labeled with the patient's name and designated epididymis and vas deferens. The specimen consists of epididymis and vas deferens. The epididymis measures 3.5 x 1.5 x 1.5 cm and vas deferens measures 4.0 cm in length and up to 0.7 cm in diameter. The specimen weighs 4.8 gm. Sections do not reveal any mass lesion. Also present in the container is a detached piece of soft tissue measuring 2.0 x 0.5 x 0.5 cm. Sections do not reveal any mass lesion. Claim Examiner sections are submitted in four cassettes as follows: 1 - epididymis and vas deferens resection margin, 2 - more sections of epididymis, 3 & 4 - epididymis. Cassette 4 also contains the detached piece of tissue. / JASON:ankush 08/29/2022 TC:5 CPT: 44995
== END | disposition home or self-care (01) ==
LOC: LABSPEC 16:28
PROVIDERS: PCP Family Medicine; Referring Provider Urology; Visit Provider Urology
DX: N45.1 Epididymitis (principal)
CPT/HCPCS: 88304

== ENCOUNTER → 2022-10-17 | Outpatient (CLI) | payer BC, SELFPAY ==
[2022-10-17 17:38] LABS: Absolute Lymphocyte Count 1.96 X10^3/uL (0.83-4.51); Absolute Neutrophil Count 6.3 X10^3/uL (2.0-7.7); Basophil# 0.07 X10^3/uL; Basophil% 0.8 % (0-1); Eosinophil# 0.09 X10^3/uL; Hematocrit 40.4 % (40-54); Hemoglobin 13.4 g/dL (13.0-16.5); Lymphocyte # 1.96 X10^3/ul (0.83-4.51); Lymphocyte % 22.1 % (19-41); Mean Corp Hgb Conc 33.2 g/dL (32-36); Mean Corpuscular Hgb 28.9 pg (27.0-32.0); Mean Corpuscular Volume 87.3 fL (80-94); Mean Platelet Vol. 11.5 fl (6.2-12.0); Monocyte% 4.5 % (0-10); NRBC Flagged by Analyzer 0 % (0-5); Neutrophil # 6.33 X10^3/uL (2.7-7.7); Neutrophil % 71.4 % (47-70); Platelet Count 174 K/mm3 (150-450); RBC Distribution Width CV 13.5 % (11.6-14.6); RBC Distribution Width SD 42.7 fl (35.1-43.9); Red Blood Count 4.63 M/mm3 (4.6-6.2); White Blood Count 8.9 K/mm3 (4.4-11.0)
[2022-10-17 17:49] LABS: Microalbumin,Random Urine 15.3 mg/L (NO RANGE EST.); Microalbumin:Creatinine Ratio 48.9 mg/g CRE (<30 mg/g CRE)
[2022-10-17 17:54] LABS: ALB/GLOB Ratio 1.1 RATIO (0.9-2.4); AST(SGOT) 19 U/L (15-37); Alanine Aminotransfer ALT/SGPT 32 U/L (16-61); Albumin, Serum 3.7 g/dL (3.2-5.0); Alkaline Phosphatase 68 U/L (45-117); Anion Gap 5 (5-15); BUN 27 mg/dL (7-18); Calcium,Total 9.2 mg/dL (8.5-10.1); Chloride 104 mmol/L (98-107); Cholesterol 151 mg/dL (200); Creatinine, Serum 1.04 mg/dL (0.70-1.30); EST Glomerular Filtration Rate 80 mL/min (>60); Est Glom Filt Rate - Afr Amer 97 mL/min (>60); Globulin 3.3 g/dL (2.2-4.2); Glucose 277 mg/dL (74-106); High Density Lipoprotein 40 mg/dL; Sodium Level 136 mmol/L (136-145); Triglycerides 294 mg/dL; Very Low Density Lipoprotein 59 mg/dL (5-40)
[2022-10-17 17:56] LABS: Vitamin D,25 Hydroxy 40.2 ng/mL
== END | disposition home or self-care (01) ==
LOC: MFPLAB 14:46
PROVIDERS: PCP Family Medicine; Visit Provider Family Medicine
DX: E55.9 Vitamin D deficiency, unspecified (principal)
CPT/HCPCS: 36415; 80053; 80061; 82043; 82306; 82570; 83036; 85025

== ENCOUNTER 2023-05-29 15:01 | Emergency (ER) | payer BC, SELFPAY ==
[2023-05-29 15:02] VITALS: BP 161/79; PULSE 67; RESP 16; TEMP 36.6; O2SAT 98; BMI 48.1
--- NOTE | 2023-05-29 15:30 | ED.VIS.CHEST ---
HPI History of Present Illness Chief Complaint: Chest Pain Informant: patient Onset/Context/Timing Onset: Days (4) Activity at onset: gradual Timing: Continuous Quality: Positive for Heaviness and Tightness Location: Substernal, Right Chest and Left Chest Worsened By: Exertion Relieved By: Nothing Associated Symptoms: Positive for Lightheadedness; Negative for Nausea, Vomiting, Diaphoresis, Dyspnea, Cough, Fever, Acid Reflux or Palpitations Narrative Narrative: Patient presents with chest pain that has been constant for the past 4 days. Patient states it is gradually getting worse. Patient states it is worse with any exertion. Patient describes it as tightness and heaviness. Patient states it is diffuse across his entire chest. Patient admits to some lightheadedness with the pain. Patient denies any nausea or vomiting. Patient denies any diaphoresis. Patient denies any shortness of breath or cough. Patient denies any palpitations. CVD Risk Factors: Positive for Hypertension, Diabetes and Hypercholesterolemia; Negative for Family History 1' </=55 or Smoking PE Risk Factors: Negative for Recent Travel/Surgery, Recent Immobilization, Prior DVT or PE, Cancer or OCP + Smoking + >/=35 PFSH [facility] Medical History Chronic back pain Diabetes mellitus with neuropathy Diabetes type 2, controlled Disequilibrium Early stage glaucoma Essential hypertension Exogenous obesity Hallux limitus of right foot History of vitamin D deficiency Hyperlipidemia Ingrown nail MONCHO on CPAP Vision problem Home Medications metformin 1,000 mg tablet 1,000 mg PO BIDCM diabetes 02/18/15 [History Last Taken 07/07/20] ascorbic acid (vitamin C) 500 mg tablet 500 mg PO DAILY@0800 vitamin 07/29/18 [History Last Taken 06/25/20] atorvastatin 40 mg tablet 40 mg PO QHS cholesterol 07/29/18 [History Last Taken 06/24/20] losartan 100 mg tablet 100 mg PO DAILY 01/29/20 [History Last Taken 07/08/20] ergocalciferol (vitamin D2) 1,250 mcg (50,000 unit) capsule 50,000 unit PO WE supplement 06/25/20 [History Last Taken 04/24/20] dapagliflozin propanediol 10 mg tablet 10 mg PO DAILY 10/21/21 [History Last Taken Unknown] insulin regular hum U-500 conc 500 unit/mL subcutaneous soln (Humulin R U-500 (Concentrated) Insulin) 30 unit subcut TIDCM diabetes 10/21/21 [History Last Taken Unknown] cetirizine 10 mg tablet (Allergy Relief (cetirizine)) 10 mg PO DAILY PRN 04/22/22 [History Last Taken Unknown] furosemide 40 mg tablet (Lasix) 40 mg PO DAILY #90 tabs 04/22/22 [Rx Last Taken Unknown] insulin degludec 200 unit/mL (3 mL) subcutaneous pen (Tresiba FlexTouch U-200 insulin) 36 unit subcut DAILY 04/22/22 [History Last Taken Unknown] semaglutide 2 mg/dose (8 mg/3 mL) subcutaneous pen injector (Ozempic) 2 mg subcut QWEEK 04/22/22 [History Last Taken Unknown] sildenafil 100 mg tablet 50 mg PO DAILY PRN 04/22/22 [History Last Taken Unknown] meclizine 25 mg tablet 25 mg PO BID PRN dizziness #30 tabs 08/23/22 [Rx Last Taken Unknown] Allergy/AdvReac Type Severity Reaction Status Date / Time No Known Allergies Allergy Verified 05/29/23 15:05 Family History Daughter Asthma Seizures Son Seizures Sister Breast cancer Mother Diabetes Heart disease Hypertension CVA (cerebral vascular accident) Brother Diabetes Father Diabetes Heart disease Hypertension Surgical History History of right and left heart catheterization (07/08/20) Social History household members: spouse Smoking Status: Never smoker second hand exposure: No alcohol intake: current alcohol intake frequency: a few times a month substance use type: does not use caffeine: Yes Type: coffee Number of servings: 2 ROS ROS ED Constitutional Constitutional ED: Reports chills and subjective; Denies fever(s) Eyes Eyes: Denies blurry vision or change in vision ENT ENT ED: Denies rhinorrhea or sore throat Cardiovascular Cardiovascular: Reports chest pain; Denies palpitations Respiratory/Chest Respiratory/Chest: Denies cough or dyspnea Gastrointestinal Gastrointestinal: Denies abdominal pain, nausea or vomiting Genitourinary Genitourinary ED: Denies dysuria or hematuria Musculoskeletal Musculoskeletal: Denies back pain or neck pain Integumentary Denies abscess or rash Neurologic Neurologic: Denies headache(s) or weakness Allergic/Immunologic Allergic/Immunologic ED: Denies mouth swelling or urticaria EXAM Physical Exam Const Vital Signs: 05/29/23 15:02 05/29/23 15:23 05/29/23 15:23 Temperature 98 F Temperature Source Temporal Pulse Rate 67 Respiratory Rate 16 Respiratory Effort Normal Non-Labored Blood Pressure 161/79 H Blood Pressure Mean 106 Pulse Ox 98 Oxygen Delivery Method Room Air Room Air 05/29/23 16:08 05/29/23 17:27 Temperature Temperature Source Pulse Rate 66 71 Respiratory Rate 18 22 H Respiratory Effort Blood Pressure Blood Pressure Mean Pulse Ox 96 98 Oxygen Delivery Method Room Air Room Air Positive well nourished, well developed and obese General Appearance ED: well developed and NAD Nutritional Appearance: obese HEENT Reports moist mucous membranes Neck supple and no JVD Chest Wall inspection of chest normal and palpation of chest normal Resp normal respiratory effort and clear to auscultation bilaterally Cardio regular rate and regular rhythm GI soft to palpation, non-tender and non-distended Extremity normal to inspection General Extremety ED: Negative for edema or tenderness General Extremity: Negative for edema Neuro oriented x3, CN's II-XII intact bilaterally and no sensory deficits noted Sensorium / Orientation: awake and alert Motor Exam: strength 5/5 throughout Psych mental status grossly normal Heart Score History: Slightly/Non-Suspicious ECG: Normal Age: >45 - <65 years Risk Factors: >/= 3 Risk Factors or History of CAD Troponin: </= Normal Limit Score: 3 MDM MDM MDM Narrative Medical decision making narrative: Differential diagnosis includes cardiac dysrhythmia, cardiac ischemia, pneumonia, pneumothorax, electrolyte abnormality, gastroesophageal reflux disease, and anxiety. EKG will be obtained to assess for cardiac dysrhythmia and cardiac ischemia. Chest x-ray will be obtained to assess for pneumonia and pneumothorax. CBC will be obtained to assess for leukocytosis and anemia. Basic metabolic profile will be obtained to assess for electrolyte abnormality and renal function. PT with INR will be obtained to assess for coagulopathy. High-sensitivity troponin will be obtained to assess for cardiac ischemia. 2-hour repeat high-sensitivity troponin will be obtained to assess for ongoing cardiac ischemia. Lab Data Attestation: I reviewed the patient's lab results. Lab results narrative: CBC was reviewed. Platelets were slightly low at 143. The remainder is within normal limits. Basic metabolic profile was reviewed and was within normal limits. High-sensitivity troponin was reviewed and was normal at 5. 2-hour repeat high-sensitivity troponin was reviewed and was normal at 6. Pro time with INR was reviewed and was within normal limits. Labs: Laboratory Results - last 24 hr 05/29/23 05/29/23 15:21 17:35 WBC 7.5 RBC 4.72 Hgb 13.5 Hct 41.2 MCV 87.3 MCH 28.6 MCHC 32.8 RDW Std Deviation 41.2 RDW Coeff of Annalise 13.0 Plt Count 143 L MPV 11.5 Immature Gran % (Auto) 0.100 Neut % (Auto) 67.2 Lymph % (Auto) 25.1 Isabella % (Auto) 5.2 Eos % (Auto) 1.5 Baso % (Auto) 0.9 Absolute Neuts (auto) 5.0 Absolute Lymphs (auto) 1.87 Nucleated RBC % 0 PT 13.8 INR 1.1 Sodium 137 Potassium 4.4 Chloride 104 Carbon Dioxide 27.0 Anion Gap 6 BUN 23 H Creatinine 1.02 Estim Creat Clear Calc 88.47 Est GFR (MDRD) Af Amer 99 Est GFR (MDRD) Non-Af 82 BUN/Creatinine Ratio 22.5 H Glucose 381 H Calcium 8.9 Troponin I High Sens 5 6 Radiography Diagnostic Testing: Clinical Impression(s) from Imaging Studies Chest X-Ray 05/29/23 15:32 IMPRESSION: Elevated right hemidiaphragm and mild basilar atelectasis or infiltrate Electronically Signed: Chad Blank MD at 16:05 EST Reading Location ID and State: [facility] / MD Tel , Service support , Portable 1 view chest x-ray was obtained. On my independent interpretation, lung silver showed a elevated right hemidiaphragm and right basilar atelectasis. There is normal cardiac silhouette. Bony thorax is normal. There is no acute process noted. Radiologist also interpreted the x-ray and agrees. EKG Initial EKG: Attestation: I personally reviewed and interpreted this EKG as follows: Interpretation: Sinus Rhythm (72) and No Acute Injury Pattern Comments: EKG was obtained. On my independent interpretation, it showed a normal sinus rhythm with a rate of 72. TX interval, QRS interval, and QTc intervals were all normal. [place] was normal. There are no acute ST or T wave changes. Prior EKG tracings: available for review Prior: Unchanged (08/17/2022) Treatment and Re-Evaluation :: Patient was advised of his findings. Patient has a HEART score of 3. Patient was advised that this is low risk for acute cardiac event. Patient was instructed to follow-up with his primary care physician in 5 to 7 days for further evaluation. Patient understood and was agreeable with the plan. All questions were answered. Discharge Plan Triage Chief Complaint: Chest Pain ED Provider: German Peralta Dx/Rx/DC Orders Clinical Impression: Chest pain, Essential hypertension, Exogenous obesity Instructions: ED Chest Pain, Uncertain Cause Prescriptions: No Action Humulin R U-500 (Conc) Insulin 500 unit/mL solution 30 unit SC TIDCM Farxiga 10 mg tablet 10 mg PO DAILY Patient Comments: TAKE 1 TABLET BY MOUTH EVERY DAY cetirizine [Allergy Relief (cetirizine)] 10 mg tablet 10 mg PO DAILY PRN sildenafil 100 mg tablet 50 mg PO DAILY PRN Patient Comments: 1/2 TABLET DAILY PRIOR TO SEX NEEDED insulin degludec [Tresiba FlexTouch U-200] 200 unit/mL (3 mL) insulin pen 36 unit subcut DAILY Ozempic 2 mg/dose (8 mg/3 mL) pen injector 2 mg subcut QWEEK furosemide [Lasix] 40 mg tablet 40 mg PO DAILY Qty: 90 3RF meclizine 25 mg tablet 25 mg PO BID PRN (Reason: dizziness) Qty: 30 0RF metformin 1,000 MG tablet 1,000 mg PO BIDCM atorvastatin 40 MG tablet 40 mg PO QHS ascorbic acid (vitamin C) 500 MG tablet 500 mg PO DAILY@0800 losartan 100 MG tablet 100 mg PO DAILY ergocalciferol (vitamin D2) 50,000 UNIT capsule 50,000 unit PO WE Primary Care Provider: Jayme Cunha Referrals: Jayme Cunha MD [Primary Care Provider] - 5-7 Days Disposition Disposition: Home, Self Care
--- NOTE | 2023-05-29 15:32 | RAD_ITS ---
STUDY: X-RAY CHEST REASON FOR EXAM: Male, 52 years old. chest pain TECHNIQUE: AP portable COMPARISON: February 15, 2022 FINDINGS: Elevated right hemidiaphragm and mild subsegmental atelectasis or infiltrate. There is no demonstrated pleural abnormality. Normal size heart. Normal mediastinum and eneida. Normal visualized pulmonary arteries. Normal visualized aortic arch and descending thoracic aorta. Dorsal spine demonstrates degenerative change. Normal visualized ribs, clavicles, and shoulders. There is no demonstrated abnormality of the visualized soft tissue structures of the upper abdomen. RAD/Chest 1 View (Portable) IMPRESSION: Elevated right hemidiaphragm and mild basilar atelectasis or infiltrate Electronically Signed: Chad Blank MD at 16:05 EST ,
[2023-05-29 15:34] LABS: Absolute Lymphocyte Count 1.87 X10^3/uL (0.83-4.51); Basophil# 0.07 X10^3/uL; Basophil% 0.9 % (0-1); Eosinophil# 0.11 X10^3/uL; Eosinophils% 1.5 % (0-5); Hematocrit 41.2 % (40-54); Hemoglobin 13.5 g/dL (13.0-16.5); Lymphocyte # 1.87 X10^3/ul (0.83-4.51); Lymphocyte % 25.1 % (19-41); Mean Corp Hgb Conc 32.8 g/dL (32-36); Mean Corpuscular Hgb 28.6 pg (27.0-32.0); Mean Corpuscular Volume 87.3 fL (80-94); Mean Platelet Vol. 11.5 fl (6.2-12.0); Monocyte# 0.39 X10^3/uL; Monocyte% 5.2 % (0-10); NRBC Flagged by Analyzer 0 % (0-5); Neutrophil % 67.2 % (47-70); Platelet Count 143 K/mm3 (150-450); RBC Distribution Width SD 41.2 fl (35.1-43.9); Red Blood Count 4.72 M/mm3 (4.6-6.2); White Blood Count 7.5 K/mm3 (4.4-11.0)
[2023-05-29 15:52] LABS: Anion Gap 6 (5-15); BUN 23 mg/dL (7-18); BUN/Creat Ratio 22.5 RATIO (10-20); Calcium,Total 8.9 mg/dL (8.5-10.1); Chloride 104 mmol/L (98-107); Creatinine, Serum 1.02 mg/dL (0.70-1.30); EST Glomerular Filtration Rate 82 mL/min (>60); Est Glom Filt Rate - Afr Amer 99 mL/min (>60); Estimated Creatinine Clearance 88.47 ml/min; Glucose 381 mg/dL (74-106); Potassium 4.4 mmol/L (3.5-5.1); Sodium Level 137 mmol/L (136-145); Troponin-I HS 5 pg/mL (3.0-78.0); Troponin-I HS (w/2H Reflex) 5 pg/mL (3.0-78.0)
[2023-05-29 15:53] LABS: International Normalized Ratio 1.1; Prothrombin Time (Protime)PT. 13.8 SECONDS (11.7-14.9)
[2023-05-29 16:08] VITALS: PULSE 66; RESP 18; O2SAT 96
[2023-05-29 17:24] LABS: Reflex Troponin-HS? (from REC) Y
[2023-05-29 17:27] VITALS: PULSE 71; RESP 22; O2SAT 98
[2023-05-29 17:59] LABS: Troponin-I HS 6 pg/mL (3.0-78.0)
[2023-05-29 19:20] VITALS: PULSE 78; RESP 18; O2SAT 98
== END 2023-05-29 19:21 | disposition home or self-care (01) ==
PROVIDERS: Emergency Provider Emergency Medicine; PCP Family Medicine; Visit Provider Emergency Medicine
DX: R07.9 Chest pain, unspecified (principal); E11.40 Type 2 diabetes mellitus with diabetic neuropathy, unspecified; Z79.4 Long term (current) use of insulin; I10 Essential (primary) hypertension; E78.00 Pure hypercholesterolemia, unspecified; Z79.899 Other long term (current) drug therapy; Z79.84 Long term (current) use of oral hypoglycemic drugs; Z79.85 Long-term (current) use of injectable non-insulin antidiabetic drugs
CPT/HCPCS: 71045; 80048; 84484; 85025; 85610; 93005; 99284; A4216

== ENCOUNTER → 2023-07-05 | Outpatient (CLI) | payer BC, SELFPAY ==
[2023-07-05 17:34] LABS: Hematocrit 43.4 % (40-54); Hemoglobin 14.8 g/dL (13.0-16.5); Mean Corp Hgb Conc 34.1 g/dL (32-36); Mean Corpuscular Hgb 29.7 pg (27.0-32.0); Mean Corpuscular Volume 87.1 fL (80-94); Platelet Count 163 K/mm3 (150-450); RBC Distribution Width CV 12.9 % (11.6-14.6); RBC Distribution Width SD 40.9 fl (35.1-43.9); Red Blood Count 4.98 M/mm3 (4.6-6.2); White Blood Count 9.3 K/mm3 (4.4-11.0)
[2023-07-05 18:09] LABS: Thyroid Stim Hormone (TSH) 0.94 uIU/mL (0.358-3.74)
[2023-07-05 18:11] LABS: Vitamin B12 465 pg/mL (211-911)
[2023-07-05 18:13] LABS: Hemoglobin A1c 7.7 % (3.8-5.6)
[2023-07-08 14:08] LABS: Vitamin D 1,25-Dihydroxy 29.9 pg/mL (24.8-81.5)
== END | disposition home or self-care (01) ==
LOC: MFPLAB 15:35
PROVIDERS: Nurse Practitioner Family; PCP Family Medicine; Visit Provider Family Medicine
DX: R20.0 Anesthesia of skin (principal)
CPT/HCPCS: 36415; 82607; 82652; 83036; 84443; 85027

== ENCOUNTER → 2023-07-29 | Outpatient (CLI) | payer BC, SELFPAY ==
--- NOTE | 2023-07-29 07:52 | CT_ITS ---
EXAM: CT LUMBAR SPINE WITHOUT INTRAVENOUS CONTRAST CLINICAL INDICATION: radiculopathy TECHNIQUE: Helically acquired images were obtained of the lumbar spine without intravenous contrast. 2D reformats were reviewed. This CT exam was performed using one or more of the following dose reduction techniques: automated exposure control, adjustment of the mA and/or kV according to patient size, and/or use of iterative reconstruction technique. COMPARISON: No relevant prior studies available. FINDINGS: VERTEBRAE: Bilateral L5 spondylolysis noted with grade 1 spondylolisthesis. No discrete lytic or blastic abnormality. No acute fracture. DISCS/SPINAL CANAL/NEURAL FORAMINA: Normal. No significant narrowing of the lumbar disks. No evidence of disc herniation. No spinal or neural foraminal stenosis. VASCULATURE: Visualized abdominal aorta is not dilated. LYMPH NODES: Normal. No retroperitoneal adenopathy. CT/Spine Lumbar without Contrast IMPRESSION: Grade 1 L5-S1 spondylolisthesis with bilateral spondylolysis. Electronically Signed: Marino Palm MD at 9:27 EST ,
--- OUTSIDE RECORDS SUMMARY | 2023-07-29 07:55 | XMS RPT_ITS | CCD ---
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 Name Role Phone Brinda Rivera Unavailable Brinda Rivera Unavailable Jatin Gross Unavailable Brinda Rivera Unavailable ZAINA LEGER Unavailable Unavailable EMIL JENKINS Unavailable Unavailable EMIL JENKINS Unavailable Unavailable Jatin Gross Unavailable Unavailable Primary Care Provider UnavailSilvano Kamara Primary Care Provider Silvano Cruz MD Primary Care Provider EMIL HODGES Referring Unavailable SILVANO CRUZ Primary Care Unavailable EMIL HODGES Referring Unavailable SILVANO CRUZ Primary Care Unavailable EMIL HODGES Attending Unavailable SILVANO CRUZ Primary Care Unavailable SILVANO CRUZ Primary Care Unavailable DINORAH ROWELL Attending Unavailable SILVANO CRUZ Primary Care Unavailable EMIL HODGES Attending Unavailable EMIL HODGES Referring Unavailable SILVANO CRUZ Primary Care Unavailable EMIL HODGES Attending Unavailable EMIL HODGES Referring Unavailable SILVANO CRUZ Primary Care Unavailable EMIL HODGES Referring Unavailable SILVANO CRUZ Primary Care Unavailable Medications Current Medications Medication Drug Class(es) Dates Sig (Normalized) Sig (Original) betamethasone 0.5 mg/ml / clotrimazole 10 mg/ml topical cream (1 source) Azole Antifungal, Corticosteroid Start: 04-13-2023 End: 05-13-2023 clotrimazole-bet amethasone (LOTRISONE) cream Apply to affected area two times a day. APPLY TO AFFECTED AREA 45 g 4 04/13/2023 05/13/2023 Active Completed/Discontinued Medications Medication Drug Class(es) Dates Sig (Normalized) Sig (Original) ascorbic acid 500 mg oral tablet (5 sources) Vitamin C Start: 07-29-2018 ascorbic acid, vitamin C, (VITAMIN C) 500 mg tablet 500 mg. 0 07/29/2018 Active Problems Active Problems Problem Classification Problem Date Documented Da te Episodic/Chronic Diabetes mellitus with complications (1 source) Diabetic mononeuropathy; Translations: [Diabetes mellitus due to underlying condition with diabetic mononeuropathy] 04-13-2023 Chronic Mycoses (1 source) Onychomycosis; Translations: [Tinea unguium] 04-13-2023 Episodic Nonspecific chest pain (1 source) Chest pain; Translations: [Chest pain, unspecified] 05-29-2023 Episodic Other gastrointestinal disorders (1 source) Altered bowel function; Translations: [Change in bowel habit] Episodic Other gastrointestinal disorders (1 source) Abdominal wind pain; Translations: [Gas pain] Episodic Other nutritional; endocrine; and metabolic disorders (3 sources) Body mass index 40+ - severely obese; Translations: [Morbid (severe) obesity due to excess calories] Onset: 12-18-2022 12-18-2022 Chronic Unclassified (1 source) No current problems or disability 12-14-2016 Unclassified (1 source) Unknown / UNK(Unknown) Onset: 01-13-2017 Past or Other Problems Problem Classification Problem Date Documented Da te Episodic/Chronic Abdominal pain (2 sources) Lower abdominal pain; Translations: [Lower abdominal pain, unspecified] Onset: 09-15-2022 Episodic Bacterial infection; unspecified site (1 source) Helicobacter pylori [H. pylori] as the cause of diseases classified elsewhere; Translations: [Helicobacter pylori gastritis] Onset: 09-15-2022 Episodic Gastritis and duodenitis (2 sources) Helicobacter pylori-associated gastritis; Translations: [Gastritis, unspecified, without bleeding] Onset: 09-15-2022 Episodic Gastrointestinal hemorrhage (3 sources) Rectal hemorrhage; Translations: [Hemorrhage of anus and rectum] Onset: 09-15-2022 Episodic Other connective tissue disease (5 sources) Gluteal tendinitis, right hip; Translations: [Pain in lower limb] Onset: 12-15-2016 01-05-2017 Episodic Other gastrointestinal disorders (1 source) Change in bowel habit; Translations: [Change in bowel habits] Onset: 09-15-2022 Episodic Other gastrointestinal disorders (1 source) Gas pain; Translations: [Gas pain] Onset: 09-15-2022 Episodic Other non-traumatic joint disorders (4 sources) Hip pain; Translations: [Pain in right hip] Onset: 12-15-2016 01-05-2017 Episodic Superficial injury; contusion (4 sources) Contusion of right hip, initial encounter; Translations: [Contusion of right hip, initial encounter] Onset: 12-15-2016 01-05-2017 Episodic Results Test Name Value Interpretation Reference Range Facil ity Vital Signs Date Time Vital Sign Value Performing Clinician Facility 01-06-2023 14:22-0400 Body height 177.8 cm Emil Hodges MD Work Phone: [facility] 01-06-2023 14:22-0400 Body temperature 97 [degF] Emil Hodges MD Work Phone: [facility] 01-06-2023 14:22-0400 Body weight 147.06 kg Emil Hodges MD Work Phone: [facility] 01-06-2023 14:22-0400 Diastolic blood pressure 80 mm[Hg] Emil Hodges MD Work Phone: [facility] 01-06-2023 14:22-0400 Heart rate 95 /min Emil Hodges MD Work Phone: [facility] 01-06-2023 14:22-0400 SaO2% (BldA) [Mass fraction] 96 % Emil Hodges MD Work Phone: [facility] 01-06-2023 14:22-0400 Systolic blood pressure 136 mm[Hg] Emil Hodges MD Work Phone: [facility] 09-15-2022 14:58-0500 Body height 177.8 cm Emil Hodges MD Work Phone: [facility] 09-15-2022 14:58-0500 Body temperature 97.11 [degF] Emil Hodges MD Work Phone: [facility] 09-15-2022 14:58-0500 Body weight 142.61 kg Emil Hodges MD Work Phone: [facility] 09-15-2022 14:58-0500 Diastolic blood pressure 78 mm[Hg] Emil Hodges MD Work Phone: [facility] 09-15-2022 14:58-0500 Heart rate 96 /min Emil Hodges MD Work Phone: [facility] 09-15-2022 14:58-0500 SaO2% (BldA) [Mass fraction] 98 % Emil Hodges MD Work Phone: [facility] 09-15-2022 14:58-0500 Systolic blood pressure 122 mm[Hg] Emil Hodges MD Work Phone: [facility] 12-15-2016 10:30-0400 BMI (Body Mass Index) 47.34 kg/m2 [facility] Work Phone: 12-15-2016 10:30-0400 Height 177.[address] [facility] Work Phone: 12-15-2016 10:30-0400 Weight 149.[address] [facility] Work Phone: Encounters Encounter Date Encounter Type Care Provider Facility Start: 05-29-2023 End: 05-29-2023 ambulatory SILVANO CRUZ Facility:[facility] Start: 05-29-2023 End: 05-29-2023 Patient encounter procedure Brinda Shine APRN.[employer] Work Phone: [facility] Procedures Date Procedure Procedure Detail Performing Clinician Start: 12-13-2022 Colonoscopy Emil woodward MD Work Phone: Start: 11-10-2020 Colonoscopy Katia tee PA-C Work Phone: Start: 09-24-2020 PT ED PATIENT INFORMATION Katia Chaidez Work Phone: Plan of Treatment Date Care Activity Detail Author Start: 02-13-2033 Urine microalbumin profile DTaP,Tdap,Td Vaccine (4 - Td or Tdap) [facility] Start: 12-13-2032 Colonoscopy COLONOSCOPY [facility] Start: 12-13-2032 COLORECTAL CANCER SCREENING COLORECTAL CANCER SCREENING [facility] Start: 11-10-2030 Colonoscopy COLONOSCOPY [facility] Start: 11-10-2030 COLORECTAL CANCER SCREENING COLORECTAL CANCER SCREENING [facility] Start: 09-15-2025 DIABETES SCREEN DIABETES SCREEN [facility] Start: 09-15-2025 Diabetes Screening Diabetes Screening [facility] Start: 07-14-2023 End: 09-13-2023 Hepatic function 2000 panel - Serum or Plasma HEPATIC FUNCTION PNL Lab Routine Onychomycosis Expected: 07/14/2023, Expires: 09/13/2023 [facility] Work Phone: Immunizations Immunization Date Immunization Notes Care Provider Concha martinez 05-05-2020 influenza virus vacc ine, unspecified formulation Dinorah Bandaperez Work Phone: [facility] Payers Date Payer Category Payer Unknown [employer] PPO [id number] 2020-Present PPO [id number] 2020 Unknown [id number] 2015 Unknown [id number] Social History Date Type Detail Facility [facility] Start: 1970 Sex Assigned At Not on file [facility] Exposure to SARS-CoV -2 (event) Not sure [facility] Start: 10-06-2020 [facility] Never smoked tobacco [facility] Start: 10-06-2020 Tobacco use and exposure Smoke less tobacco non-user [facility] Start: 09-16-2022 End: 04-13-2023 Alcohol intake Current drinker of alcohol (finding) [facility] Start: 12-23-2022 End: 04-13-2023 History of Social function [facility] Start: 12-23-2022 End: 04-13-2023 Tobacco use panel [facility] National Score (1-10 0), lower number is lower risk 71 [facility] Clinical Notes 09-15-2022 to 05-29-2023 Brinda Shine APRN.CNP - 05/29/2023 3:42 PM ESTDinorah Rowell - 04/13/2023 3:33 PM Adela Sparks LPN - 04/13/2023 3:25 PM Selena Hodges MD - 01/06/2023 2:26 PM EDTPatient Instructions Note Date & Type Note Facility 05-29-2023 Note HNO ID: [id number] Author: Brinda Shine APRN.CNP Service: ? Author Type: Nurse Practitioner Type: Progress Notes Filed: 05/29/2023 3:49 PM Note Text: 52 year old male with no PMH presents for complaints of chest tightness and shortness of breath Acute onset yesterday, worsening today Pain increases with exertion. Discussed limitations of express care, Specifically no EKG Referred to ED [facility] 05-29-2023 History of Presen t illness Narrative 52 year old male with no PMH presents for complaints of chest tightness and shortness of breath Acute onset yesterday, worsening today Pain increases with exertion. Discussed limitations of express care, Specifically no EKG Referred to ED [facility] documented in this encounter [facility] 04-13-2023 Note HNO ID: [id number] Author: Dinorah Rowell Service: ? Author Type: Physician Type: Progress Notes Filed: 04/13/2023 10:21 PM Note Text: Last saw pcp: 09/28/22 Initial Office Visit Subjective: This 52 year old male presents to clinic for diabetic foot check. Patient has the following complaints: diabetic foot exam. He complains of thick painful toenails. Patient admits to being diabetic for 20-30 years now. Patient +B/T/N in feet at this time. Patient -pain in legs when walking. No other pedal complaints at this time. No change in medications or medical history since last visit. PAIN EVALUATION No data found in the last 1 encounters. No results found for: HBA1C PCP: Silvano Cruz MD, MD PAST MEDICAL HISTORY Diagnosis Date Diabetes (HCC) Epididymitis 2022 Hyperlipidemia Hypertension Obstructive sleep apnea Current Outpatient Medications Medication Sig omeprazole (PRILOSEC) 40 mg capsule Take 1 capsule by mouth once daily. insulin degludec (TRESIBA FLEXTOUCH) 100 unit/mL (3 mL) injection pen Inject subcutaneously daily at bedtime. bismuth subsalicylate (PEPTO-BISMOL) 262 mg chew Take 1 tablet by mouth four times daily for 14 days. omeprazole (PRILOSEC) 20 mg capsule Take 1 capsule by mouth twice daily for 14 days. (Patient not taking: Reported on 09/15/2022) insulin NPH human isophane (HUMULIN N PEN SUBCUTANEOUS) Inject 80 Units subcutaneously. 80 units with each meal metFORMIN (GLUCOPHAGE) 1,000 mg tablet Take 1,000 mg by mouth twice daily. FARXIGA 5 mg tablet Take 5 mg by mouth once daily. losartan (COZAAR) 100 mg tablet Take 100 mg by mouth once daily. hydroCHLOROthiazide (HYDRODIURIL, ESIDRIX) 25 mg tablet Take 25 mg by mouth once daily. gabapentin (NEURONTIN) 300 mg capsule ergocalciferol 50,000 unit capsule (VITAMIN D2, DRISDOL) Take 1 capsule by mouth one time a week. atorvastatin (LIPITOR) 40 mg tablet Take 40 mg by mouth once daily. aspirin 81 mg chewable tablet 81 mg. (Patient not taking: Reported on 09/15/2022) ascorbic acid, vitamin C, (VITAMIN C) 500 mg tablet 500 mg. VICTOZA 3-MARCIO 0.6 mg/0.1 mL (18 mg/3 mL) INJECT 0.3 ML SUBCUTANEOUSLY ONCE DAILY STIOLTO RESPIMAT 2.5-2.5 mcg/actuation INHALE 2 PUFFS DAILY FOR 30 DAYS (Patient not taking: Reported on 09/15/2022) No current facility-administered medications for this visit. ALLERGIES No Known Allergies PAST SURGICAL HISTORY Procedure Laterality Date CIRCUMCISION 2009 COLONOSCOPY 12/13/2022 COLONOSCOPY FLX DX W/COLLJ SPEC WHEN PFRMD 11/10/2020 EGD 12/13/2022 ESOPHAGOGASTRODUODENOSCOPY TRANSORAL DIAGNOSTIC 11/10/2020 HEART CATHETERIZATION 2020 INCISION AND DRAINAGE 2022 testicles due to epididymitis FAMILY HISTORY Problem Relation Age of Onset Breast Cancer Sister 38 Social History Tobacco Use Smoking status: Never Smokeless tobacco: Never Vaping Use Vaping Use: Never used Substance Use Topics Alcohol use: Yes Drug use: Never REVIEW OF SYSTEMS GENERAL: Negative for Malaise, significant weight loss, fever RESPIRATORY: Negative for cough, wheezing and shortness of breath CARDIOVASCULAR: Negative for chest pain, leg swelling and palpitations GI: Negative for abdominal discomfort, blood in stools or black stools and change in bowel habits : Negative for dysuria, frequency and incontinence MUSCULOSKELETAL: Negative for joint pain or swelling, back pain, and muscle pain. SKIN: Negative for lesions, rash, and itching. HEMATOLOGY/LYMPHOLOGY Negative for prolonged bleeding, bruising easily, and swollen nodes. ENDOCRINE: Negative for cold or heat intolerance, polyuria, polydipsia and goiter. NEURO: negative The remainder of the review of systems is noncontributory. Objective: Patient presents to clinic ambulating in [facility] Constitutional: Pt is a well developed 52 year old male who is alert, oriented, cooperative and in no apparent distress. Eyes: Following during examination. No redness or drainage. Respiratory: RR normal and nonlabored. Even breathing. No evidence of distress. Psychology: Patient is engaged during conversation. Normal affect and mood. Does not appear depressed or anxious. Vasc: DP and PT pulses are palpable bilateral. CFT is less than 5 seconds bilateral. Skin temperature is warm to warm proximal to distal bilateral. There is no edema or varicosities noted. Hair growth present. Neuro: Protective sensation is intact to the foot and toes when tested with the 5.07 SWM bilateral. Vibratory sensation is decreased at the hallux bilateral. + Significant neurological defecits. Derm: Inspection and palpation performed. Nails 1-5 b/l are painful, discolored-yellow, thick, crumbly, dystrophic and with subungal debris. Skin is scaled, b/l. Hyperkeratosis noted to not present. NO ulcerations, scars, verruca or other lesions noted. Ortho: Ankle joint DF is full with the knee extended and f (more content not included)... [facility] 04-13-2023 Note HNO ID: [id number] Author: Adela Castillo LPN Service: ? Author Type: LICENSED NURSE Type: Progress Notes Filed: 04/13/2023 10:21 PM Note Text: AMB ROOMING INTAKE FLOWSHEET DATA Patient presents with: Left Foot - Diabetic Foot Care, New Right Foot - Diabetic Foot Care, New Adela Castillo LPN [facility] 04-13-2023 History of Presen t illness Narrative Last saw pcp: 09/28/22 Initial Office Visit Subjective: This 52 year old male presents to clinic for diabetic foot check. Patient has the following complaints: diabetic foot exam. He complains of thick painful toenails. Patient admits to being diabetic for 20-30 years now. Patient +B/T/N in feet at this time. Patient -pain in legs when walking. No other pedal complaints at this time. No change in medications or medical history since last visit. PAIN EVALUATION No data found in the last 1 encounters. No results found for: HBA1C PCP: Silvano Cruz MD, MD PAST MEDICAL HISTORY Diagnosis Date Diabetes (HCC) Epididymitis 2022 Hyperlipidemia Hypertension Obstructive sleep apnea Current Outpatient Medications Medication Sig omeprazole (PRILOSEC) 40 mg capsule Take 1 capsule by mouth once daily. insulin degludec (TRESIBA FLEXTOUCH) 100 unit/mL (3 mL) injection pen Inject subcutaneously daily at bedtime. bismuth subsalicylate (PEPTO-BISMOL) 262 mg chew Take 1 tablet by mouth four times daily for 14 days. omeprazole (PRILOSEC) 20 mg capsule Take 1 capsule by mouth twice daily for 14 days. (Patient not taking: Reported on 09/15/2022) insulin NPH human isophane (HUMULIN N PEN SUBCUTANEOUS) Inject 80 Units subcutaneously. 80 units with each meal metFORMIN (GLUCOPHAGE) 1,000 mg tablet Take 1,000 mg by mouth twice daily. FARXIGA 5 mg tablet Take 5 mg by mouth once daily. losartan (COZAAR) 100 mg tablet Take 100 mg by mouth once daily. hydroCHLOROthiazide (HYDRODIURIL, ESIDRIX) 25 mg tablet Take 25 mg by mouth once daily. gabapentin (NEURONTIN) 300 mg capsule ergocalciferol 50,000 unit capsule (VITAMIN D2, DRISDOL) Take 1 capsule by mouth one time a week. atorvastatin (LIPITOR) 40 mg tablet Take 40 mg by mouth once daily. aspirin 81 mg chewable tablet 81 mg. (Patient not taking: Reported on 09/15/2022) ascorbic acid, vitamin C, (VITAMIN C) 500 mg tablet 500 mg. VICTOZA 3-MARCIO 0.6 mg/0.1 mL (18 mg/3 mL) INJECT 0.3 ML SUBCUTANEOUSLY ONCE DAILY STIOLTO RESPIMAT 2.5-2.5 mcg/actuation INHALE 2 PUFFS DAILY FOR 30 DAYS (Patient not taking: Reported on 09/15/2022) No current facility-administered medications for this visit. ALLERGIES No Known Allergies PAST SURGICAL HISTORY Procedure Laterality Date CIRCUMCISION 2009 COLONOSCOPY 12/13/2022 COLONOSCOPY FLX DX W/COLLJ SPEC WHEN PFRMD 11/10/2020 EGD 12/13/2022 ESOPHAGOGASTRODUODENOSCOPY TRANSORAL DIAGNOSTIC 11/10/2020 HEART CATHETERIZATION 2020 INCISION AND DRAINAGE 2022 testicles due to epididymitis FAMILY HISTORY Problem Relation Age of Onset Breast Cancer Sister 38 Social History Tobacco Use Smoking status: Never Smokeless tobacco: Never Vaping Use Vaping Use: Never used Substance Use Topics Alcohol use: Yes Drug use: Never REVIEW OF SYSTEMS GENERAL: Negative for Malaise, significant weight loss, fever RESPIRATORY: Negative for cough, wheezing and shortness of breath CARDIOVASCULAR: Negative for chest pain, leg swelling and palpitations GI: Negative for abdominal discomfort, blood in stools or black stools and change in bowel habits : Negative for dysuria, frequency and incontinence MUSCULOSKELETAL: Negative for joint pain or swelling, back pain, and muscle pain. SKIN: Negative for lesions, rash, and itching. HEMATOLOGY/LYMPHOLOGY Negative for prolonged bleeding, bruising easily, and swollen nodes. ENDOCRINE: Negative for cold or heat intolerance, polyuria, polydipsia and goiter. NEURO: negative The remainder of the review of systems is noncontributory. Objective: Patient presents to clinic ambulating in [place] Constitutional: Pt is a well developed 52 year old male who is alert, oriented, cooperative and in no apparent distress. Eyes: Following during examination. No redness or drainage. Respiratory: RR normal and nonlabored. Even breathing. No evidence of distress. Psychology: Patient is engaged during conversation. Normal affect and mood. Does not appear depressed or anxious. Vasc: DP and PT pulses are palpable bilateral. CFT is less than 5 seconds bilateral. Skin temperature is warm to warm proximal to distal bilateral. There is no edema or varicosities noted. Hair growth present. Neuro: Protective sensation is intact to the foot and toes when tested with the 5.07 SWM bilateral. Vibratory sensation is decreased at the hallux bilateral. + Significant neurological defecits. Derm: Inspection and palpation performed. Nails 1-5 b/l are painful, discolored-yellow, thick, crumbly, dystrophic and with subungal debris. Skin is scaled, b/l. Hyperkeratosis noted to not present. NO ulcerations, scars, verruca or other lesions noted. Ortho: Ankle joint DF is full with the knee extended and full with knee flexed. No pain or crepitus noted. STJ, MTJ ROM are full and free of pain or crepitus. Muscle strength is 5/5 for dorsiflexors, plantarflexors, inverters, everters. Digital deformities include none. Assessment: (E08.41) Diabetic mononeuropathy associated with diabetes mellitus due to underlying condition (HCC) (primary encounter diagnosis) (B35.1) Onychomycosis Pain in toe Plan: 1. Patient was seen and evaluated. 2. Patient was instructed on the continued importance of diabetic foot care along with proper diet and keeping their blood sugar under control to prevent complications. Instructions given both oral and written. 3. Discussed scaling of feet. Lotrisone prescribed 4. We discussed the possible etiologies of discolored, dystrophic, and thickened nails including fungus, yeast, mold as well as in some instances, prior trauma, or mechanical causes such as repetitive microtrauma in shoe gear. We discussed topical medication for discolored toenails which has very low success but no major side effects. We discussed oral medication. Patient will need hepatic testing prior to use. Patient informed of risks associated with Lamisil. We discussed removal of toenails. Patient would like to proceed with lamisil. R/b/a to lamisil prescribed. Patient agrees to lamisil 5. Toenails 1-5 b/l debrided in length and thickness . Dinorah Rowell DPM AMB ROOMING INTAKE FLOWSHEET DATA Patient presents with: Left Foot - Diabetic Foot Care, New Right Foot - Diabetic Foot Care, New Adela Castillo LPN documented in this encounter [facility] 01-06-2023 Note HNO ID: [id number] Author: Emil Hodges MD Service: ? Author Type: Physician Type: Progress Notes Filed: 01/06/2023 3:06 PM Note Text: FOLLOW UP VISIT - ENDOSCOPY NAME: Jodi Bello [facility] NO.: [id number] DATE OF SERVICE: 01/06/2023 : 1970 REFERRING PHYSICIAN: Silvano Cruz MD Jodi is a patient I am following for rectal bleeding. The patient is a 52 year old male referred for endoscopy. Jodi notes the following GI complaints: Jodi notes abdominal pain. The pain occurs in the following locations: lower abdominal area, The pain has the following character: cramping, The pain has been present for a few months . Jodi notes diarrhea. Jodi denies constipation. Jodi notes a change in bowel habits. Jodi denies melena. Jodi notes bright red blood per rectum. Jodi denies hemorrhoids. The patient notes the following upper complaints: Jodi notes bloating not denies upper pain. Jodi denies heartburn. Jodi denies dysphagia. Jodi denies a history of ulcers/ peptic ulcer disease. He feels a fullness in his lower abdomen ands questions a mass in the area Jodi has undergone prior endoscopy. I performed upper and lower endoscopy on 11/10/20. The patient was found to have gastritis, mildly severe reflux esophagitis, and a normal colon with random biopsies taken. Pathology demonstrated: FINAL DIAGNOSIS 1. Jejunum, biopsy (A) - Small bowel mucosa with no diagnostic alteration. - No evidence of celiac disease. 2. Stomach, biopsy (B) - Helicobacter pylori-induced chronic active gastritis. 3. Esophagus, distal, biopsy (C) - Esophageal squamous and inflamed gastric cardiofundic-type mucosa. - Negative for intestinal metaplasia. 4. Esophagus, mid, biopsy (D) - Esophageal squamous mucosa with no diagnostic alteration. - No evidence of eosinophilic esophagitis. 5. Colon, random, biopsy (E) - Fragment of colonic mucosa with no diagnostic alteration. - Fragment of small bowel mucosa with no diagnostic alteration. /[facility] 11/11/2020 The patient is being seen by me today at the request of Dr. Silvano Cruz MD for my opinion and advice regarding worsening lower abdominal symptoms, lower abdominal pain, A question of a lower abdominal mass and diarrhea with bleeding. Ultrasound was obtained in the fall which demonstrated no gallstones, a fatty liver and also noted was the tail of the pancrease was not visualized. CT scan of the abdomen pelvis was obtained. This demonstrated: IMPRESSION: No acute abnormality or unenhanced findings to explain cause of reported rectal bleeding. Hepatomegaly with mild hepatic steatosis. Mild three-vessel coronary artery disease. I performed upper and lower endoscopy on December 13, 2022. The patient was found to have Upper endoscopy Impression: - Normal examined jejunum. Biopsied. - Normal duodenal bulb. - Duodenitis. - Gastritis. Biopsied. - Small hiatal hernia. - Non-severe reflux esophagitis with no bleeding. Biopsied. - Normal middle third of esophagus. Biopsied. Lower endoscopy Impression: - The entire examined colon is normal. Biopsied. - Diverticulosis in the sigmoid colon. - The examination was otherwise normal on direct and retroflexion views. Pathology demonstrated: FINAL DIAGNOSIS A. Jejunum, biopsy: -Small intestinal mucosa with predominantly intact villous architecture and patchy mild increase in intraepithelial lymphocytes, see comment B. Stomach, antrum, biopsy: -Predominantly oxyntic type gastric mucosa with reactive changes -Negative for Helicobacter pylori organisms on routine staining C. Esophagus, lower, biopsy: -Squamocolumnar mucosa, negative for intestinal metaplasia -Negative for intraepithelial eosinophils D. Esophagus, mid, biopsy: -Portions of squamous epithelium with no significant histologic abnormality -Negative for intraepithelial eosinophils E. Colon, ascending, biopsy: -Colonic mucosa with no significant histologic abnormality -Negative for chronic, active or microscopic colitis F. Colon, descending, biopsy: -Colonic mucosa with no significant histologic abnormality -Negative for chronic, active or microscopic colitis G. Colon, sigmoid, polypectomy: -Hyperplastic polyp The patient notes some continued complaints since the procedure. He is not currently taking a proton pump inhibitor VITALS: Blood pressure 136/80, pulse 95, temperature 36.1 ?C (97 ?F), height 177.8 cm (5' 10 ), weight (!) 147.1 kg (324 lb 3.2 oz), SpO2 96 %. On examination, the abdomen is benign. Assessment IMPRESSION: Gastritis, duodenitis, esophagitis, mild PLAN: If the patient notes any problems or changes in bowel function, the patient should contact me immediately. Otherwise I recommend follow up endoscopy as needed. He should start Prilosec 40 mg a day. The prescription was sent to the pharmacy. I discussed with you the findings of your colonoscopy. Since there were (more content not included)... [facility] 01-06-2023 History of Presen t illness Narrative FOLLOW UP VISIT - ENDOSCOPY NAME: Jodi Bello [facility] NO.: [id number] DATE OF SERVICE: 01/06/2023 : 1970 REFERRING PHYSICIAN: Silvano Cruz MD Jodi is a patient I am following for rectal bleeding. The patient is a 52 year old male referred for endoscopy. Jodi notes the following GI complaints: Jodi notes abdominal pain. The pain occurs in the following locations: lower abdominal area, The pain has the following character: cramping, The pain has been present for a few months . Jodi notes diarrhea. Jodi denies constipation. Jodi notes a change in bowel habits. Jodi denies melena. Jodi notes bright red blood per rectum. Jodi denies hemorrhoids. The patient notes the following upper complaints: Jodi notes bloating not denies upper pain. Jodi denies heartburn. Jodi denies dysphagia. Jodi denies a history of ulcers/ peptic ulcer disease. He feels a fullness in his lower abdomen ands questions a mass in the area Jodi has undergone prior endoscopy. I performed upper and lower endoscopy on 11/10/20. The patient was found to have gastritis, mildly severe reflux esophagitis, and a normal colon with random biopsies taken. Pathology demonstrated: FINAL DIAGNOSIS 1. Jejunum, biopsy (A) - Small bowel mucosa with no diagnostic alteration. - No evidence of celiac disease. 2. Stomach, biopsy (B) - Helicobacter pylori-induced chronic active gastritis. 3. Esophagus, distal, biopsy (C) - Esophageal squamous and inflamed gastric cardiofundic-type mucosa. - Negative for intestinal metaplasia. 4. Esophagus, mid, biopsy (D) - Esophageal squamous mucosa with no diagnostic alteration. - No evidence of eosinophilic esophagitis. 5. Colon, random, biopsy (E) - Fragment of colonic mucosa with no diagnostic alteration. - Fragment of small bowel mucosa with no diagnostic alteration. /[facility] 11/11/2020 The patient is being seen by me today at the request of Dr. Silvano Cruz MD for my opinion and advice regarding worsening lower abdominal symptoms, lower abdominal pain, A question of a lower abdominal mass and diarrhea with bleeding. Ultrasound was obtained in the fall which demonstrated no gallstones, a fatty liver and also noted was the tail of the pancrease was not visualized. CT scan of the abdomen pelvis was obtained. This demonstrated: IMPRESSION: No acute abnormality or unenhanced findings to explain cause of reported rectal bleeding. Hepatomegaly with mild hepatic steatosis. Mild three-vessel coronary artery disease. I performed upper and lower endoscopy on December 13, 2022. The patient was found to have Upper endoscopy Impression: - Normal examined jejunum. Biopsied. - Normal duodenal bulb. - Duodenitis. - Gastritis. Biopsied. - Small hiatal hernia. - Non-severe reflux esophagitis with no bleeding. Biopsied. - Normal middle third of esophagus. Biopsied. Lower endoscopy Impression: - The entire examined colon is normal. Biopsied. - Diverticulosis in the sigmoid colon. - The examination was otherwise normal on direct and retroflexion views. Pathology demonstrated: FINAL DIAGNOSIS A. Jejunum, biopsy: -Small intestinal mucosa with predominantly intact villous architecture and patchy mild increase in intraepithelial lymphocytes, see comment B. Stomach, antrum, biopsy: -Predominantly oxyntic type gastric mucosa with reactive changes -Negative for Helicobacter pylori organisms on routine staining C. Esophagus, lower, biopsy: -Squamocolumnar mucosa, negative for intestinal metaplasia -Negative for intraepithelial eosinophils D. Esophagus, mid, biopsy: -Portions of squamous epithelium with no significant histologic abnormality -Negative for intraepithelial eosinophils E. Colon, ascending, biopsy: -Colonic mucosa with no significant histologic abnormality -Negative for chronic, active or microscopic colitis F. Colon, descending, biopsy: -Colonic mucosa with no significant histologic abnormality -Negative for chronic, active or microscopic colitis G. Colon, sigmoid, polypectomy: -Hyperplastic polyp The patient notes some continued complaints since the procedure. He is not currently taking a proton pump inhibitor VITALS: Blood pressure 136/80, pulse 95, temperature 36.1 C (97 F), height 177.8 cm (5' 10 ), weight (!) 147.1 kg (324 lb 3.2 oz), SpO2 96 %. On examination, the abdomen is benign. Assessment IMPRESSION: Gastritis, duodenitis, esophagitis, mild PLAN: If the patient notes any problems or changes in bowel function, the patient should contact me immediately. Otherwise I recommend follow up endoscopy as needed. He should start Prilosec 40 mg a day. The prescription was sent to the pharmacy. I discussed with you the findings of your colonoscopy. Since there were no worrisome abnormalities, I recommend you undergo repeat endoscopic screening every 10 years. This is the current recommendation for colon cancer screening. If you note bleeding, change in bowel habits, or other suspicious colon related symptoms before that time, those symptoms should be evaluated as necessary. Diagnoses: (K62.5) Rectal bleeding (primary encounter diagnosis) Return to Clinic: The patient is instructed to follow-up with me as needed. Emil Hodges MD documented in this encounter [facility] 10-14-2022 Note HNO ID: [id number] Author: RT Marie(R) Service: ? Author Type: [employer] Type: Progress Notes Filed: 10/14/2022 4:05 PM Note Text: Radiology Service Progress Note PATIENT NAME: Jodi Collins DATE OF SERVICE: October 14, 2022 TIME: 4:04 PM PATIENT IDENTITY VERIFICATION COMPLETED USING TWO (2) IDENTIFIERS: Name and Date of confirmed by patient verbally. FALL SCREENING: Has the patient had 2 falls in the last year or 1 fall with injury or currently using an Ambulatory Assistive Device (Walker, Cane, Wheelchair, Crutches, etc.)? No PATIENT GENDER DATA: Male PATIENT RELEVANT IMPLANT DATA REVIEWED: Yes RADIOLOGY DEPARTMENT: CT; Exam(s) Completed: Abdomen/Pelvis PERIPHERAL IV DATA: Not applicable SIGNED BY: Claudia ThaCaron, RT(R) October 14, 2022 4:[address] [facility] 09-16-2022 Note HNO ID: [id number] Author: Emil Hodges MD Service: ? Author Type: Physician Type: Progress Notes Filed: 09/16/2022 10:44 AM Note Text: HISTORY AND PHYSICAL Jodi Collins 1970 REFERRING PHYSICIAN: Dr. Cruz CHIEF COMPLAINT: Consult (Abd pain) HPI: The patient is a 52 year old male referred for endoscopy. Jodi notes the following GI complaints: Jodi notes abdominal pain. The pain occurs in the following locations: lower abdominal area, The pain has the following character: cramping, The pain has been present for a few months . Jodi notes diarrhea. Jodi denies constipation. Jodi notes a change in bowel habits. Jodi denies melena. Jodi notes bright red blood per rectum. Jodi denies hemorrhoids. The patient notes the following upper complaints: Jodi notes bloating not denies upper pain. Jodi denies heartburn. Jodi denies dysphagia. Jodi denies a history of ulcers/ peptic ulcer disease. He feels a fullness in his lower abdomen ands questions a mass in the area Jodi has undergone prior endoscopy. I performed upper and lower endoscopy on 11/10/20. The patient was found to have gastritis, mildly severe reflux esophagitis, and a normal colon with random biopsies taken. Pathology demonstrated: FINAL DIAGNOSIS 1. Jejunum, biopsy (A) - Small bowel mucosa with no diagnostic alteration. - No evidence of celiac disease. 2. Stomach, biopsy (B) - Helicobacter pylori-induced chronic active gastritis. 3. Esophagus, distal, biopsy (C) - Esophageal squamous and inflamed gastric cardiofundic-type mucosa. - Negative for intestinal metaplasia. 4. Esophagus, mid, biopsy (D) - Esophageal squamous mucosa with no diagnostic alteration. - No evidence of eosinophilic esophagitis. 5. Colon, random, biopsy (E) - Fragment of colonic mucosa with no diagnostic alteration. - Fragment of small bowel mucosa with no diagnostic alteration. /[place] 11/11/2020 The patient is being seen by me today at the request of Dr. Slivano Cruz MD for my opinion and advice regarding worsening lower abdominal symptoms, lower abdominal pain, A question of a lower abdominal mass and diarrhea with bleeding. Ultrasound was obtained in the fall which demonstrated no gallstones, a fatty liver and also noted was the tail of the pancrease was not visualized PAST MEDICAL HISTORY Diagnosis Date Diabetes (HCC) Epididymitis 2022 Hyperlipidemia Hypertension Obstructive sleep apnea PAST SURGICAL HISTORY Procedure Laterality Date CIRCUMCISION 2009 COLONOSCOPY FLX DX W/COLLJ SPEC WHEN PFRMD 11/10/2020 ESOPHAGOGASTRODUODENOSCOPY TRANSORAL DIAGNOSTIC 11/10/2020 HEART CATHETERIZATION 2020 INCISION AND DRAINAGE 2022 testicles due to epididymitis Current Outpatient Medications Medication Sig insulin degludec (TRESIBA FLEXTOUCH U-100) 100 unit/mL (3 mL) injection pen Inject subcutaneously daily at bedtime. insulin NPH human isophane (HUMULIN N PEN SUBCUTANEOUS) Inject 80 Units subcutaneously. 80 units with each meal metFORMIN (GLUCOPHAGE) 1,000 mg tablet Take 1,000 mg by mouth twice daily. FARXIGA 5 mg tablet Take 5 mg by mouth once daily. losartan (COZAAR) 100 mg tablet Take 100 mg by mouth once daily. hydroCHLOROthiazide (HYDRODIURIL, ESIDRIX) 25 mg tablet Take 25 mg by mouth once daily. ergocalciferol 50,000 unit capsule (VITAMIN D2, DRISDOL) Take 1 capsule by mouth one time a week. atorvastatin (LIPITOR) 40 mg tablet Take 40 mg by mouth once daily. ascorbic acid, vitamin C, (VITAMIN C) 500 mg tablet 500 mg. bismuth subsalicylate (PEPTO-BISMOL) 262 mg chew Take 1 tablet by mouth four times daily for 14 days. omeprazole (PRILOSEC) 20 mg capsule Take 1 capsule by mouth twice daily for 14 days. (Patient not taking: Reported on 09/15/2022) gabapentin (NEURONTIN) 300 mg capsule (Patient not taking: Reported on 09/15/2022) aspirin 81 mg chewable tablet 81 mg. (Patient not taking: Reported on 09/15/2022) VICTOZA 3-MARCIO 0.6 mg/0.1 mL (18 mg/3 mL) INJECT 0.3 ML SUBCUTANEOUSLY ONCE DAILY (Patient not taking: Reported on 09/15/2022) STIOLTO RESPIMAT 2.5-2.5 mcg/actuation INHALE 2 PUFFS DAILY FOR 30 DAYS (Patient not taking: Reported on 09/15/2022) No current facility-administered medications for this visit. ALLERGIES: Patient has no known allergies. PERSONAL HISTORY: Social History Tobacco Use Smoking status: Never Smokeless tobacco: Never Vaping Use Vaping Use: Never used Substance Use Topics Alcohol use: Yes Drug use: Never FAMILY HISTORY: FAMILY HISTORY Problem Relation Age of Onset Breast Cancer Sister 38 REVIEW OF SYMPTOMS: The review of systems data was entered by the nurse and reviewed by me Nursing Notes: Keyona Melendrez LPN 09/15/2022 3:11 PM Signed REVIEW OF SYSTEMS: General: The patient denies fatigue, denies weight loss, denies weight gain, denies feeling hot, and denies feelings of cold. Eyes: The (more content not included)... [facility] 09-16-2022 History of Presen t illness Narrative HISTORY AND PHYSICAL Jodi Eugenia Collins 1970 REFERRING PHYSICIAN: Dr. Cruz CHIEF COMPLAINT: Consult (Abd pain) HPI: The patient is a 52 year old male referred for endoscopy. Jodi notes the following GI complaints: Jodi notes abdominal pain. The pain occurs in the following locations: lower abdominal area, The pain has the following character: cramping, The pain has been present for a few months . Jodi notes diarrhea. Jodi denies constipation. Jodi notes a change in bowel habits. Jodi denies melena. Jodi notes bright red blood per rectum. Jodi denies hemorrhoids. The patient notes the following upper complaints: Jodi notes bloating not denies upper pain. Jodi denies heartburn. Jodi denies dysphagia. Jodi denies a history of ulcers/ peptic ulcer disease. He feels a fullness in his lower abdomen ands questions a mass in the area Jodi has undergone prior endoscopy. I performed upper and lower endoscopy on 11/10/20. The patient was found to have gastritis, mildly severe reflux esophagitis, and a normal colon with random biopsies taken. Pathology demonstrated: FINAL DIAGNOSIS 1. Jejunum, biopsy (A) - Small bowel mucosa with no diagnostic alteration. - No evidence of celiac disease. 2. Stomach, biopsy (B) - Helicobacter pylori-induced chronic active gastritis. 3. Esophagus, distal, biopsy (C) - Esophageal squamous and inflamed gastric cardiofundic-type mucosa. - Negative for intestinal metaplasia. 4. Esophagus, mid, biopsy (D) - Esophageal squamous mucosa with no diagnostic alteration. - No evidence of eosinophilic esophagitis. 5. Colon, random, biopsy (E) - Fragment of colonic mucosa with no diagnostic alteration. - Fragment of small bowel mucosa with no diagnostic alteration. KL/dsh 11/11/2020 The patient is being seen by me today at the request of Dr. Silvano Cruz MD for my opinion and advice regarding worsening lower abdominal symptoms, lower abdominal pain, A question of a lower abdominal mass and diarrhea with bleeding. Ultrasound was obtained in the fall which demonstrated no gallstones, a fatty liver and also noted was the tail of the pancrease was not visualized PAST MEDICAL HISTORY Diagnosis Date Diabetes (HCC) Epididymitis 2022 Hyperlipidemia Hypertension Obstructive sleep apnea PAST SURGICAL HISTORY Procedure Laterality Date CIRCUMCISION 2009 COLONOSCOPY FLX DX W/COLLJ SPEC WHEN PFRMD 11/10/2020 ESOPHAGOGASTRODUODENOSCOPY TRANSORAL DIAGNOSTIC 11/10/2020 HEART CATHETERIZATION 2020 INCISION AND DRAINAGE 2022 testicles due to epididymitis Current Outpatient Medications Medication Sig insulin degludec (TRESIBA FLEXTOUCH U-100) 100 unit/mL (3 mL) injection pen Inject subcutaneously daily at bedtime. insulin NPH human isophane (HUMULIN N PEN SUBCUTANEOUS) Inject 80 Units subcutaneously. 80 units with each meal metFORMIN (GLUCOPHAGE) 1,000 mg tablet Take 1,000 mg by mouth twice daily. FARXIGA 5 mg tablet Take 5 mg by mouth once daily. losartan (COZAAR) 100 mg tablet Take 100 mg by mouth once daily. hydroCHLOROthiazide (HYDRODIURIL, ESIDRIX) 25 mg tablet Take 25 mg by mouth once daily. ergocalciferol 50,000 unit capsule (VITAMIN D2, DRISDOL) Take 1 capsule by mouth one time a week. atorvastatin (LIPITOR) 40 mg tablet Take 40 mg by mouth once daily. ascorbic acid, vitamin C, (VITAMIN C) 500 mg tablet 500 mg. bismuth subsalicylate (PEPTO-BISMOL) 262 mg chew Take 1 tablet by mouth four times daily for 14 days. omeprazole (PRILOSEC) 20 mg capsule Take 1 capsule by mouth twice daily for 14 days. (Patient not taking: Reported on 09/15/2022) gabapentin (NEURONTIN) 300 mg capsule (Patient not taking: Reported on 09/15/2022) aspirin 81 mg chewable tablet 81 mg. (Patient not taking: Reported on 09/15/2022) VICTOZA 3-MARCIO 0.6 mg/0.1 mL (18 mg/3 mL) INJECT 0.3 ML SUBCUTANEOUSLY ONCE DAILY (Patient not taking: Reported on 09/15/2022) STIOLTO RESPIMAT 2.5-2.5 mcg/actuation INHALE 2 PUFFS DAILY FOR 30 DAYS (Patient not taking: Reported on 09/15/2022) No current facility-administered medications for this visit. ALLERGIES: Patient has no known allergies. PERSONAL HISTORY: Social History Tobacco Use Smoking status: Never Smokeless tobacco: Never Vaping Use Vaping Use: Never used Substance Use Topics Alcohol use: Yes Drug use: Never FAMILY HISTORY: FAMILY HISTORY Problem Relation Age of Onset Breast Cancer Sister 38 REVIEW OF SYMPTOMS: The review of systems data was entered by the nurse and reviewed by nc Nursing Notes: Keyona Melendrez LPN 09/15/2022 3:11 PM Signed REVIEW OF SYSTEMS: General: The patient denies fatigue, denies weight loss, denies weight gain, denies feeling hot, and denies feelings of cold. Eyes: The patient denies glaucoma, denies eye injury/surgery, does not wear glasses or contacts. Ear/Nose/Throat: The patient denies allergies, denies hayfever, NOTES ear infections, and denies bloody noses. Cardiovascular: The patient denies chest pain, denies heart disease, denies high blood pressure,denies cardiac stent, denies prior heart attack, denies irregular heart beat, NOTES high cholesterol, denies poor circulation, denies heart failure, other cardiac issues, denies claudication, denies cold feet, denies peripheral arterial stent. Respiratory: The patient denies tuberculosis, denies pneumonia, denies frequent cough, denies pulmonary embolism, denies shortness of breath, and denies coughing up blood. Gastrointestinal: The patient denies difficulty swallowing, denies acid reflux, denies ulcers, denies vomiting, denies jaundice/hepatitis, denies gallbladder problems, denies black or tarry stools, NOTES hemorrhoids, denies bleeding from rectum, denies diverticulitis, denies constipation, denies diarrhea, denies loss of stool control, and denies hernias. Kidney/Bladder: The patient denies kidney stones, denies urine infections, and denies bloody urine. Skin: The patient denies a history of skin cancer, denies bleeding/changing moles, and denies a history of skin rash. Neurologic: The patient denies a history of epilepsy/convulsions, denies headaches, denies head/spinal injuries, and denies stroke/TIA. Psychiatric: The patient denies psychiatric medications, denies depression, and denies voices, denies substance abuse. Endocrine: The patient denies thyroid disorders, NOTES diabetes, and denies hormonal problems. Hematologic: The patient denies a history of bruising, denies bleeding, and denies anemia, denies blood clots. Infections: The patient denies a history of measles and mumps, denies rheumatic fever, and denies sexually transmitted diseases. Musculoskeletal: The patient denies back pain/injury, denies back problems, denies sciatica, denies knee/foot trouble, NOTES arthritis, or denies gout. When was patient's last Mammogram screening? N/A Last Colonoscopy: 2020 Keyona Melendrez LPN PHYSICAL EXAMINATION: General: The patient is 52 year old male, well nourished, well hydrated in no acute distress. The patient is oriented to time, place, and person. VITALS: Blood pressure 122/78, pulse 96, temperature 36.2 C (97.1 F), height 177.8 cm (5' 10 ), weight (!) 142.6 kg (314 lb 6.4 oz), SpO2 98 %. Body mass index is 45.11 kg/m . HEENT: Normal cephalic, ataumatic, pupils are equally round, sclera are anicteric, mucous membranes are moist, oropharynx is clear. Neck has no masses, asymmetry or lymphadenopathy. Thyroid is unremarkable. Respiratory: Clear to auscultation and percussion. Normal respiratory excursion and pattern. Cardiac: Examination is regular rate and rhythm. Abdominal exam: Soft tender in the bilateral lower abdomen without peritoneal signs, with no obvious palpable masses. No hepatosplenomegaly. No palpable hernias. Rectal exam: exam deferred Extremities: no clubbing, cyanosis or edema. No adenopathy. Other: LABORATORY VALUES: As Noted RADIOLOGIC STUDIES: As Noted Assessment IMPRESSION: bloating, lower abdominal pain, diarrhea, rectal bleeding, sensation of a lower abdominal mass PLAN: I plan to perform upper and lower endoscopy. We discussed the risks and benefits of the planned endoscopy. I have informed the patient that complications can occur including failure to complete the endoscopy and perforation. The patient had the opportunity to ask questions concerning the planned endoscopy. My staff has also explained the procedure to the patient in understandable terms and has given the patient printed material concerning the procedure. The patient freely consents to surgery. I plan to use golytely bowel preparation for endoscopy I plan to obtain a CBC and CMP and order a CT of his abdomen given hjs sensation of a lower abdominal fullness versus a mass Diagnoses: (K62.5) Rectal bleeding (primary encounter diagnosis) (K29.70, B96.81) Helicobacter pylori gastritis (R19.4) Change in bowel habits (R14.1) Gas pain (R10.30) Lower abdominal pain A letter was sent to Dr. Silvano Cruz MD indicating the above finding for this patient. Return to Clinic: The patient is instructed to follow-up with me after the testing has been completed. Emil Hodges MD documented in this encounter [facility] 09-15-2022 Instructions Emil Hodges MD - 09/15/2022 3:45 PM EST Images from the original note were not included. Bowel Preparation Instructions for: Golytely, Nulytely, Trilyte or Colyte (polyethylene glycol 3350 and electrolytes) IF YOU DO NOT FOLLOW THESE DIRECTIONS, YOUR COLONOSCOPY WILL BE CANCELLED. Marte Instructions: Your bowel must be empty so that your doctor can clearly view your colon. Follow all of the instructions in this handout EXACTLY as they are written. Do NOT eat any solid food the ENTIRE day before your colonoscopy. Drink only clear liquids. Buy your bowel preparation at least 5 days before your colonoscopy. TRANSPORTATION on the Day of Your Exam A responsible person MUST be present with you at Check In prior to your colonoscopy and REMAIN in the endoscopy area until you are discharged. You are NOT ALLOWED to drive, take a taxi or bus, or leave the Endoscopy Center ALONE. If you do not have a responsible passenger coach driver (family member or friend) with you to take you home, your exam cannot be done with sedation and will be cancelled. Please bring a list of all of your current medications, including any Over-the Counter medications with you. Medications If you take insulin, diabetic medications or blood thinners such as Coumadin (warfarin), Plavix (clopidogrel), Ticlid (ticlopidine hydrochloride), Agrylin (anagrelide), Xarelto (Rivaroxaban), Pradaxa (Dabigatran), Eliquis (Apixaban), and Effient (Prasugrel). You MUST call the doctors who orders those medicines for instructions on altering the dosage before your colonoscopy. All other medications should be taken the day of the exam with a sip of water including ASPIRIN. Five (5) Days Before Your Colonoscopy Do NOT take medicines that stop diarrhea - such as Imodium, Kaopectate, or Pepto Bismol. Do NOT take fiber supplements - such as Metamucil, Citrucel, or Perdiem. Do NOT take products that contain iron - such as multi-vitamins (the label lists what is in the products). Do NOT take Vitamin E. Buy the prescription bowel preparation solution at your local pharmacy or drugstore pharmacy. 06/2019 Bowel Preparation Instructions for: Golytely, Nulytely, Trilyte or Colyte (polyethylene glycol 3350 and electrolytes) Three (3) Days Before Your Colonoscopy Do NOT eat high-fiber foods - such as popcorn, beans, seeds (flax, sunflower, quinoa), multigrain bread, nuts, salad/vegetables, or fresh and dried fruit. One (1) Day Before Your Colonoscopy Only drink clear liquids the ENTIRE DAY before your colonoscopy. Do NOT eat any solid foods. Drink at least 8 ounces of clear liquids every hour after waking up. The clear liquids you can drink include: Clear Liquid (NO RED LIQUIDS) DO NOT DRINK Gatorade, Pedialyte or Powerade Clear broth or bouillon Coffee or tea (no milk or non-dairy creamer) Carbonated and non-carbonated soft drinks Edgar-Aid or other fruit flavored drinks Strained fruit juices (no pulp) Jell-O, popsicles, hard candy Water Alcohol Milk or non-dairy creamers Noodles or vegetables in soup Juice with pulp Liquid you cannot see through Do not use tobacco/vaping products The bowel preparation solution will be consumed in two parts. Mix the solution the evening before your colonoscopy and refrigerate before drinking. You may add the flavor pack that came with the bowel preparation. Do NOT add ice, sugar or any other flavorings to the solution. Part 1 At 6:00 PM - Evening before your colonoscopy Drink an 8-oz glass of bowel preparation every 10 minutes for a total of 8 glasses. You may continue to drink clear liquids until midnight. Part 2 On the day of your colonoscopy you may drink clear liquids up to (three) 3 hours before your procedure. 4 1/2 hours before your colonoscopy Drink an 8-oz glass of bowel preparation every 10 minutes for a total of 8 glasses. Fifteen (15) minutes later, drink an 8-oz glass of clear liquids every 15 minutes for a total of 2 glasses. You may continue to drink clear liquids up to (three) 3 hours before your exam. 2 06/2019 documented in this encounter [facility] 09-15-2022 Nurse Note REVIEW OF SYSTEMS: General: The patient denies fatigue, denies weight loss, denies weight gain, denies feeling hot, and denies feelings of cold. Eyes: The patient denies glaucoma, denies eye injury/surgery, does not wear glasses or contacts. Ear/Nose/Throat: The patient denies allergies, denies hayfever, NOTES ear infections, and denies bloody noses. Cardiovascular: The patient denies chest pain, denies heart disease, denies high blood pressure,denies cardiac stent, denies prior heart attack, denies irregular heart beat, NOTES high cholesterol, denies poor circulation, denies heart failure, other cardiac issues, denies claudication, denies cold feet, denies peripheral arterial stent. Respiratory: The patient denies tuberculosis, denies pneumonia, denies frequent cough, denies pulmonary embolism, denies shortness of breath, and denies coughing up blood. Gastrointestinal: The patient denies difficulty swallowing, denies acid reflux, denies ulcers, denies vomiting, denies jaundice/hepatitis, denies gallbladder problems, denies black or tarry stools, NOTES hemorrhoids, denies bleeding from rectum, denies diverticulitis, denies constipation, denies diarrhea, denies loss of stool control, and denies hernias. Kidney/Bladder: The patient denies kidney stones, denies urine infections, and denies bloody urine. Skin: The patient denies a history of skin cancer, denies bleeding/changing moles, and denies a history of skin rash. Neurologic: The patient denies a history of epilepsy/convulsions, denies headaches, denies head/spinal injuries, and denies stroke/TIA. Psychiatric: The patient denies psychiatric medications, denies depression, and denies voices, denies substance abuse. Endocrine: The patient denies thyroid disorders, NOTES diabetes, and denies hormonal problems. Hematologic: The patient denies a history of bruising, denies bleeding, and denies anemia, denies blood clots. Infections: The patient denies a history of measles and mumps, denies rheumatic fever, and denies sexually transmitted diseases. Musculoskeletal: The patient denies back pain/injury, denies back problems, denies sciatica, denies knee/foot trouble, NOTES arthritis, or denies gout. When was patient's last Mammogram screening? N/A Last Colonoscopy: 2020 Keyona Melendrez LPN documented in this encounter [facility] Rectal bleeding- Primary Hemorrhage of rectum and anus [facility] Diagnosis Diabetic mononeuropathy associated with diabetes mellitus due to underlying condition (HCC)- Primary Onychomycosis Dermatophytosis of nail [facility]* Diagnosis Chest pain, unspecified type- Primary [facility] Outpatient Procedure (Routine) - Pending Review Specialty Diagnoses / Procedures Referred By Vazquez martino Referred To Contact [facility] Diagnoses Rectal bleeding Helicobacter pylori gastritis Change in bowel habits Gas pain Lower abdominal pain Procedures COLONOSCOPY DIAGNOSTIC COLONOSCOPY FLX DX W/COLLJ SPEC WHEN PFCOLIND Emil Hodges MD [address] [place] [address] [address] Referral ID Status Reason Start Date Expiration Date Visits Requested Visits Authorized [id number] Pending Review Auto-Generat ed Referral 09/15/2022 09/16/2023 1 1 * Outpatient Procedure (Routine) - Pending Review Specialty Diagnoses / Procedures Referred By Vazquez martino Referred To Contact [facility] Diagnoses Rectal bleeding Helicobacter pylori gastritis Change in bowel habits Gas pain Lower abdominal pain Procedures EGD DIAGNOSTIC ESOPHAGOGASTRODUODENOSC OPY TRANSORAL DIAGNOSTIC Emil Hodges MD [address] [place] [address] [facility] [place] [id number] Referral ID Status Reason Start Date Expiration Date Visits Requested Visits Authorized [id number] Pending Review Auto-Generat ed Referral 09/15/2022 09/16/2023 1 1 * MRI/CT (Routine) - Pending Review Specialty Diagnoses / Procedures Referred By Vazquez martino Referred To Contact CT IMAGING Diagnoses Rectal bleeding Helicobacter pylori gastritis Change in bowel habits Gas pain Lower abdominal pain Procedures CT ABD/PEL WO IVCON CT ABD & PELVIS W/O CONTRAST Emil Hodges MD [address] [place] [address] Ct Imaging Referral ID Status Reason Start Date Expiration Date Visits Requested Visits Authorized [id number] Pending Review Auto-Generat ed Referral 09/15/2022 10/15/2023 1 1 [facility] Summary Purpose Family History No Family History Records FoundNo Family History Records FoundNo Family History Records Found Advance Directives No Advanced Directives Records FoundNo Advanced Directives Records FoundNo Advanced Directives Records Found Additional Source Comments (unrecognized sect ion and content) No Status Records FoundNo Status Records FoundNo Status Records Found INFORMATION SOURCE (unrecogn ized section and content) DATE CREATED AUTHOR AUTHOR'S ORGANIZ ATION 04/23/2020 [facility] ([place]) DATE CREATED AUTHOR AUTHOR'S ORGANIZ ATION 05/31/[address] [facility] Source Comments (unrecognize d section and content) In the event this informatio n is protected by the Federal Confidentiality of Alcohol and Drug Abuse Patient Records regulations: The Federal rules restrict any use of the information to criminally investigate or prosecute any alcohol or drug abuse patient.[facility] the event this information is protected by the Federal Confidentiality of Alcohol and Drug Abuse Patient Records regulations: The Federal rules restrict any use of the information to criminally investigate or prosecute any alcohol or drug abuse patient.[facility] the event this information is protected by the Federal Confidentiality of Alcohol and Drug Abuse Patient Records regulations: The Federal rules restrict any use of the information to criminally investigate or prosecute any alcohol or drug abuse patient.[facility] the event this information is protected by the Federal Confidentiality of Alcohol and Drug Abuse Patient Records regulations: The Federal rules restrict any use of the information to criminally investigate or prosecute any alcohol or drug abuse patient.[facility] the event this information is protected by the Federal Confidentiality of Alcohol and Drug Abuse Patient Records regulations: The Federal rules restrict any use of the information to criminally investigate or prosecute any alcohol or drug abuse patient.[facility] the event this information is protected by the Federal Confidentiality of Alcohol and Drug Abuse Patient Records regulations: The Federal rules restrict any use of the information to criminally investigate or prosecute any alcohol or drug abuse patient.[facility] Reason for Visit (unrecogniz ed section and content) Reason Comments Consult Abd pain Reason Comments Follow Up Colon & EGD Reason Comments Diabetic Foot Care New Reason Comments Chest Pain Care Teams (unrecognized sec tion and content) 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 Relationship Specialty Start Date End Date Silvano Cruz [address] [place] [address] PCP - General Family Medicine 11/10/20 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 Relationship Specialty Start Date End Date Silvano Cruz [address] [place] [address] PCP - General Family Medicine 11/10/20 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 This clinical summary was aggregated from multiple sources. Caution should be exercised in using it in the provision of clinical care. This summary normalizes information from multiple sources, and as a consequence, information in this document may materially change the coding, format and clinical context of patient data. In addition, data may be omitted in some cases. CLINICAL DECISIONS SHOULD BE BASED ON THE PRIMARY CLINICAL RECORDS. [facility] [employer] [facility]. provides no warranty or guarantee of the accuracy or completeness of information in this document.
== END | disposition home or self-care (01) ==
PROVIDERS: PCP Family Medicine; Referring Provider Nurse Practitioner Family; Visit Provider Nurse Practitioner Family
DX: M54.10 Radiculopathy, site unspecified (principal)
CPT/HCPCS: 72131

== ENCOUNTER → 2023-07-31 | Outpatient (CLI) | payer BC, SELFPAY ==
--- NOTE | 2023-07-31 15:10 | RAD_ITS ---
EXAM: XR ABDOMEN, 1 VIEW CLINICAL INDICATION: ABD PAIN TECHNIQUE: Frontal supine view of the abdomen/pelvis. COMPARISON: No relevant prior studies available. FINDINGS: LOWER THORAX: No acute pathology. GASTROINTESTINAL TRACT: Unremarkable. Non-obstructive. No bowel or stomach distention. ORGANS: Unremarkable as visualized. No organomegaly. No abnormal calcifications. BONES/JOINTS: No acute pathology. SOFT TISSUES: No acute pathology. RAD/Abdomen Single View IMPRESSION: Non-obstructive bowel gas pattern. Electronically Signed: Jatin Quiroga MD at 1:02 EST ,
--- NOTE | 2023-07-31 15:15 | RAD_ITS ---
EXAM: XR PELVIS, 1 OR 2 VIEWS CLINICAL INDICATION: Chronic left hip pain. TECHNIQUE: Frontal view of the pelvis. COMPARISON: No relevant prior studies available. FINDINGS: BONES/JOINTS: Unremarkable. No displaced fracture. No destructive or sclerotic lesions. Note that overlapping bowel shadows may however obscure fine detail. Sacroiliac joints are unremarkable. No widening of the pubic symphysis. The articular structures are unremarkable. SOFT TISSUES: Unremarkable. No soft tissue swelling or gas. RAD/Pelvis 1 or 2 Views IMPRESSION: No specific pelvic or hip abnormality identified. Electronically Signed: Jatin Quiroga MD at 1:01 EST ,
== END | disposition home or self-care (01) ==
LOC: MTRAD 15:09
PROVIDERS: PCP Family Medicine; Referring Provider Nurse Practitioner Family; Visit Provider Nurse Practitioner Family
DX: R10.9 Unspecified abdominal pain (principal)
CPT/HCPCS: 72170; 74018

== ENCOUNTER 2023-11-07 15:00 | Outpatient (RCR) | payer BC, SELFPAY ==
--- NOTE | 2023-09-26 08:13 | HP.PTEVAL ---
Patient's Visit Information Visit Information Visit Information: JODI COLLINS is a 53 year old M referred to Physical Therapy by Dr. Jayme Cunha MD with a diagnosis of Grade 1 spondylolisthesis. Date of Evaluation: 09/20/23 Physical Therapist: Saw Hsu DPT Visit Plan Frequency: 2x /Week Duration: 6 Weeks Plan: -lumbar stretching/ROM/STM bilat but L worse than R (pt not able to tolerate prone, consider placing pillow under hips to promote flexion) -thoracic mobility (PAs if able to tolerate, cat/cow, thread the needle, open books, scapular rows/strengthening) -LE stretching (passively): hamstrings, piriformis, can turn into sciatic nerve glide -hip strengthening (glute bridges, standing 3 way hip, hip hinges --> chair squat taps) *If pt in a lot of pain, begin or end with hot pack in supine position with wedge under LEs Pt is VERY STIFF and painful, LLE and L side of back seem to be main area of pain. D/t spondylolisthesis, try to promote flexion more than ext. My goal is to improve mobility and stretch to help control pain, then working on hip strength....strength not really the issue overall but L hip has definitely been affected. Sitting, laying down, and walking all painful so allow for position changes as needed and avoid hyperextended positions. STM okay, but seated may be more comfortable than prone. (HEP: LTR, seated thoracic/lumbar ext, seated lumbar flex, seated HS/QL/piriformis stretch, scapular retractions) Subjective Subjective: Pt presents to PT with back pain that started late in 2022. Pain started in shoulders and received injections, but with time pain increased and is constant in L low back. Pain sometimes goes down L buttock and leg. Pt does have hx of DM, but knows the difference between neuropathy and back pain. Pt works at [employer] and is on his feet frequently, has to get down on the floor occasionally to work on machines. Needs to be able to lift up to 100#, this is currently difficult to do d/t pain. Pain is worse when lifting/twisting, walking (gradual increase in pain with time), extending when lifting something heavy overhead, sitting for prolonged periods, and navigating stairs. Pt sleeps on heating blanket at night which helps pain, in a bed, rolling to R side increases pain. Pt reports some giving way feeling in L hip, no issues with knee. Uses OTC cushioned insoles in work boots. GOALS: decrease pain and be able to perform work tasks and exercise with decreased pain Pain Back: Pain Intensity (Out of 10): 3 Pain Intensity Range: 2 and 8 Objective Objective: ROM: lumbar - flex 75% with stiffness and pull in L low back, ext 50% with pain (worse with repeated motions), L rotation 25%, R rotation 50%, L SB 25%, R SB 75% L hip - pain at end range flex in low back, 60% IR/ER big stretch/pull in piriformis with ER at 90 deg flex, pain at end range IR R hip - pain at end range flex in R low back, 75% IR/ER with less pain with end range MMT: LLE - knee ext 5/5, knee flex 5/5, DF 4+/5, PF 5/5, hip ABD 3-/5 pain, hip flex 4+/5, hip ext DNT d/t pain just laying prone RLE - knee ext 5/5, knee flex 5/5, DF 4+/5, PF 5/5, hip ABD 5/5, hip flex 4+/5, hip ext DNT d/t pain in prone position GAIT: stiffness with increased lateral trunk sway, toe out gait PALPATION: prone PAs, hypomobility T1-L1 and painful, normal to hypermobile segments L1-S1 OBSERVATIONS: max restriction in krystina hamstrings (45/90 deg), prone/DENNIS position more painful than supine, spasm/pain when changing positions on table, added OP to lumbar rotation and able to increase some ROM but with discomfort POSTURE: flat back, rounded shoulders Passive SLR test: (+) Pt in chronic phase of low back, with muscle guarding, decreased flexibility, and high level of irritability. Pt is very stiff in low back in thoracic and lumbar spine, gave pt high amount of stretches to promote movement, especially in flexed position to decrease level of irritation d/t spondylosis. Balance/Special Test Scores Oswestry Low Back Score: 15 Goals Goal 1:: Pt will score <10 on ETHAN (back) Goal Time Frame: 6-8 Weeks Goal 2:: Pt will report <3/10 pain at end of work day Goal Time Frame: 4-6 Weeks Goal 3:: Pt will demonstrate symmetrical hip strength with <3/10 pain Goal Time Frame: 4-6 Weeks Goal 4:: Pt will achieve >60/90 deg in krystina HS Goal Time Frame: 4-6 Weeks Goal 5:: Pt will be able to sit for 30+ min with <3/10 pain Goal Time Frame: 4-6 Weeks Rehabilitation Potential Physical Therapy Diagnosis: Pt presents to PT with low back pain, low back stiffness, decreased tissue extensibility in low back/hips, and ROM deficits in lumbar and L hip regions. Pt would benefit from skilled PT services to address pain, muscular tightness, ROM, and diminished spinal mobility. Rehabilitation Potential: Good Anticipated Interventions Patient/Client Instruction: Educate patient on: Condition and Plan of Care For the Purpose of:: To decrease pain, To increase ROM, To improve muscle performance and motor function, To improve ability to perform ADL's, To increase tolerance to activity/condition/position, To improve performance and independence with ADL's, To improve ability of physical actions for home/community/work/leisure, To improve gait and locomotor functions, To improve health of tissue, To decrease soft tissue restriction, To increase flexibility/ROM, To reduce risk of recurrence, To improve safety and To improve health and function Therapeutic Exercise to Include: Strength training, Postural training, Flexibilty training, Neuromotor development, Passive ROM, Brennon Exercises and Scapular Strength/Stabilization For the Purpose of:: To decrease pain, To increase ROM, To improve muscle performance and motor function, To improve ability of physical actions for home/community/work/leisure, To improve health of tissue, To decrease soft tissue restriction, To increase flexibility/ROM, To assume or resume ADL's, To improve self management, To prevent re-injury, To improve ability to perform tasks related to life management and To improve tolerance to ADL's Manual Therapy Techniques to Include: Mobilization, Passive ROM, Functional dry needling and Soft tissue mobilization For the Purpose of:: To decrease pain, To increase ROM, To improve health of tissue, To decrease soft tissue restriction and To increase flexibility/ROM TENS: Yes Cryotherapy (ice pack, ice massage): Yes Thermo therapy (hot pack): Yes Ultrasound (thermal/non thermal): Yes Pelvic traction supine: Yes For the Purpose of:: To decrease pain, To improve nutrient delivery to tissue, To improve health of tissue, To decrease soft tissue restriction and To increase flexibility/ROM Text: Thank you for the opportunity to evaluate your patient. For Medicare and Medicare HMO plans, please review the plan of care and approve it. It will need to be FAXED BACK to us at [phone] for Medicare purposes. For Medicare only, by signing this I certify the plan of care. Please let me know if there are questions or concerns regarding this plan of care. Physician Signature: Date:
== END 2023-11-07 19:00 | disposition home or self-care (01) ==
LOC: PT 15:00
PROVIDERS: PCP Family Medicine; Referring Provider Family Medicine; Visit Provider Family Medicine
DX: M43.16 Spondylolisthesis, lumbar region (principal)
CPT/HCPCS: 97110; 97140; 97161

== ENCOUNTER → 2023-12-18 | Outpatient (CLI) | payer BC, SELFPAY ==
[2023-12-18 17:20] LABS: PSA,Total - Annual Screen 0.51 ng/mL (0.00-4.00)
== END | disposition home or self-care (01) ==
LOC: LAB 15:48
PROVIDERS: PCP Family Medicine; Referring Provider Nurse Practitioner; Visit Provider Nurse Practitioner
DX: Z12.5 Encounter for screening for malignant neoplasm of prostate (principal)
CPT/HCPCS: 36415; 84153; G0103

== ENCOUNTER → 2023-12-21 | Outpatient (CLI) | payer BC, SELFPAY ==
[2023-12-21 16:25] LABS: Bacteria 0 SEEN /hpf (None Seen); Mucous, Urine 0 SEEN /hpf (<or=2+); Red Blood Cells-Urine 0 SEEN /hpf (0-5)
[2023-12-21 17:51] LABS: Absolute Neutrophil Count 7.9 X10^3/uL (2.0-7.7); Basophil% 0.9 % (0-1); Eosinophil# 0.07 X10^3/uL; Eosinophils% 0.6 % (0-5); Hematocrit 46.6 % (40-54); Hemoglobin 15.2 g/dL (13.0-16.5); Lymphocyte % 23.5 % (19-41); Mean Corp Hgb Conc 32.6 g/dL (32-36); Mean Corpuscular Hgb 28.5 pg (27.0-32.0); Mean Corpuscular Volume 87.3 fL (80-94); Mean Platelet Vol. 11.4 fl (6.2-12.0); Monocyte# 0.68 X10^3/uL; Monocyte% 5.9 % (0-10); NRBC Flagged by Analyzer 0 % (0-5); Neutrophil % 68.8 % (47-70); Platelet Count 200 K/mm3 (150-450); RBC Distribution Width CV 13.1 % (11.6-14.6); RBC Distribution Width SD 40.8 fl (35.1-43.9); Red Blood Count 5.34 M/mm3 (4.6-6.2); White Blood Count 11.5 K/mm3 (4.4-11.0)
[2023-12-21 18:18] LABS: Color, Urine Yellow (Yellow); Glucose, Dipstick 1000 mg/dl (Normal); Ketone-Dipstick 5 mg/dl (Negative); Leukocyte Esterase-Dipstick 25 /ul (Negative); Nitrite-Dipstick Negative (Negative); Occult Blood-Urine Negative /ul (Negative); Protein-Dipstick 30 mg/dl (Negative); Specific Gravity, Urine 1.025 (1.002-1.030); Urine Bilirubin Dipstick Negative (Negative); Urine Clarity Clear (Clear); Urine Urobilinogen Normal (Normal); Vitamin D,25 Hydroxy 61.4 ng/mL
[2023-12-21 18:39] LABS: ALB/GLOB Ratio 1.2 RATIO (0.9-2.4); AST(SGOT) 27 U/L (15-37); Alanine Aminotransfer ALT/SGPT 34 U/L (16-61); Albumin, Serum 4.2 g/dL (3.2-5.0); Alkaline Phosphatase 68 U/L (45-117); Anion Gap 9 (5-15); BUN 29 mg/dL (7-18); BUN/Creat Ratio 30.7 RATIO (10-20); Calcium,Total 9.6 mg/dL (8.5-10.1); Chloride 105 mmol/L (98-107); Cholesterol 156 mg/dL (200); Creatinine, Serum 0.95 mg/dL (0.70-1.30); EST Glomerular Filtration Rate 89 mL/min (>60); Est Glom Filt Rate - Afr Amer 107 mL/min (>60); Globulin 3.4 g/dL (2.2-4.2); Glucose 81 mg/dL (74-106); High Density Lipoprotein 59 mg/dL; Potassium 3.7 mmol/L (3.5-5.1); Protein, Total 7.6 g/dL (6.4-8.2); Sodium Level 138 mmol/L (136-145); Triglycerides 65 mg/dL; Very Low Density Lipoprotein 13 mg/dL (5-40)
[2023-12-21 18:41] LABS: Squamous Epithelial Cells - UA 0-5 SEEN /hpf (0-5); White Blood Cells 0-5 SEEN /hpf (0-5)
[2023-12-21 18:45] LABS: Hemoglobin A1c 7.2 % (3.8-5.6)
[2023-12-21 18:53] LABS: Microalbumin:Creatinine Ratio 101.4 mg/g CRE (<30 mg/g CRE)
== END | disposition home or self-care (01) ==
LOC: MFPLAB 16:19
PROVIDERS: PCP Family Medicine; Visit Provider Family Medicine
DX: E11.8 Type 2 diabetes mellitus with unspecified complications (principal); E55.9 Vitamin D deficiency, unspecified
CPT/HCPCS: 36415; 80053; 80061; 81001; 82043; 82306; 82570; 83036; 85025

== ENCOUNTER → 2023-12-26 | Outpatient (CLI) | payer BC, SELFPAY ==
--- NOTE | 2023-12-26 18:53 | CT_ITS ---
STUDY: CT ABDOMEN AND PELVIS WITH CONTRAST REASON FOR EXAM: Male, 53 years old. 2 month history of left testicular pain. RADIATION DOSAGE (If Supplied By Facility): CTDIvol = ( 17.05 ) mGy, DLP = ( 1754.77 ) mGycm TECHNIQUE: Transaxial images were obtained from the dome of the diaphragm to the symphysis pubis with oral contrast. Oral and amp; IV Readi-CAT and amp; 100mL Isovue-370 was administered. Sagittal and coronal images were reconstructed. Individualized dose optimization techniques were used for this CT. COMPARISON: None. FINDINGS: The visualized lung bases are unremarkable. The visualized portions of the heart are within normal limits. Normal liver. Normal gallbladder and extrahepatic biliary system. Normal spleen. Normal pancreas. Normal bilateral adrenal glands. Normal right kidney. Normal left kidney. Normal visualized stomach. Normal small intestine. There are scattered colonic diverticula consistent with diverticulosis. The appendix is visualized and appears normal. There is scattered atherosclerotic calcification of the abdominal aorta, without a demonstrated aneurysm. Normal inferior vena cava. Normal retroperitoneum. Mild degree of diffuse bladder wall thickening although the bladder is not completely distended. There is calcification of the vas deferens. Small benign appearing lymph nodes are seen in both groins. There is spondylolysis of the pars interarticularis of the L5 vertebrae with minimal anterior listhesis at the L5-S1 level. CT/Abdomen/Pelvis WITH Contrast IMPRESSION: Calcification of the vas deferens. Mild degree of diffuse bladder wall thickening although the bladder is not completely distended. Electronically Signed: Eliceo Taylor MD at 11:20 EDT ,
== END | disposition home or self-care (01) ==
LOC: CT 18:51
PROVIDERS: PCP Family Medicine; Referring Provider Urology; Visit Provider Urology
DX: M54.9 Dorsalgia, unspecified (principal); N50.812 Left testicular pain
CPT/HCPCS: 74177; Q9967

== ENCOUNTER → 2024-01-24 | Outpatient (CLI) | payer BC, SELFPAY ==
--- NOTE | 2024-01-24 16:44 | RAD_ITS ---
STUDY: X-RAY - RIGHT SHOULDER REASON FOR EXAM: Male, 53 years old. Pain. TECHNIQUE: 4 views of the right shoulder. COMPARISON: None. FINDINGS: Normal glenohumeral articulation. There is mild hypertrophic acromioclavicular arthrosis. Normal acromion. Intact humeral head and visualized proximal humerus. The soft tissue structures are unremarkable. There is no demonstrated fracture. Normal visualized pulmonary apex. RAD/Shoulder min 2 Views IMPRESSION: Mild hypertrophic acromioclavicular arthrosis. No demonstrated fracture. Electronically Signed: Marco A Jeffery MD at 16:13 EDT ,
--- NOTE | 2024-01-24 16:44 | RAD_ITS ---
INDICATION: hip pain EXAMINATION/TECHNIQUE: X-RAY - XR Hips Bilateral with Pelvis when performed; 2 Views COMPARISON: No relevant prior comparison study available FINDINGS: PELVIC BONES: No displaced fracture, destructive or sclerotic lesions. Note that overlapping bowel shadows may however obscure fine detail. Sacroiliac joints are unremarkable. No widening of the pubic symphysis. HIPS: Mild degenerative changes of the bilateral hips. No displaced fracture seen in this frontal view. SOFT TISSUES: No soft tissue swelling or gas. RAD/Hips B/L min 2 views w/ Pelvis IMPRESSION: No evidence of displaced pelvic or hip fracture. Electronically Signed: Sameer Mireles MD at 21:44 EDT ,
--- NOTE | 2024-01-24 16:46 | RAD_ITS ---
INDICATION: bilateral pain EXAMINATION/TECHNIQUE: X-RAY - LEFT XR Shoulder Min 2 Views 4 VIEWS COMPARISON: No relevant prior comparison study available FINDINGS: SOFT TISSUES: No soft tissue swelling or gas. No radiopaque foreign body. BONES/JOINTS: No acute fracture or subluxation.. Normal alignment. Mild degenerative changes of the glenohumeral and acromioclavicular joints.. No sclerotic or destructive changes observed. RAD/Shoulder min 2 Views IMPRESSION: No acute abnormalities. Mild degenerative changes. Electronically Signed: Sameer Mireles MD at 21:46 EDT ,
== END | disposition home or self-care (01) ==
LOC: MTRAD 16:43
PROVIDERS: PCP Family Medicine; Referring Provider Family Medicine; Visit Provider Family Medicine
DX: M25.511 Pain in right shoulder (principal); M25.559 Pain in unspecified hip
CPT/HCPCS: 73030; 73521

== ENCOUNTER 2024-04-17 15:00 | Outpatient (RCR) | payer BC, SELFPAY ==
--- NOTE | 2024-03-26 10:09 | HP.PTEVAL_ITS ---
Patient's Visit Information Visit Information Visit Information: JODI COLLINS is a 53 year old M referred to Physical Therapy by Dr. Jayme Cunha MD with a diagnosis of B shoulder pain and L hip pain. Date of Evaluation: 03/13/24 Physical Therapist: Saw Hsu DPT Visit Plan Frequency: 1x/Week Duration: 6 Weeks Plan: 1) Start with hip ER, HS and hip flexor stretching on L side. Add in prone PA joint mobs to L hip. 2) Start B pec stretching, shoulder stretching into flexion, ER motions. 3) DFM to B proximal biceps tendons, consider using IASTIM for this 4) eccentric biceps loading. Subjective Subjective: Pt. is here today for his initial evaluation with diagnosis of L hip arthritis and B shoulder. Pt. reports overall having difficulty with walking and with lifting. He reports that his L hip is causing him the most pain. 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 Pt. reports he is still able to work, but has times where his hip is very painful. Pt. reports pain at groin region. Pt. has pain in B shoulders as well, mostly at anterior aspect. Pt. reports being generally stiff everywhere. Pt. is hopeful to decrease his symptoms in order to complete all daily activities without limitations. Pain L hip: Pain Intensity (Out of 10): 3 Pain Intensity Range: 2 and 8 R shoulder: Pain Intensity (Out of 10): 1 Pain Intensity Range: 0 and 4 L shoulder: Pain Intensity (Out of 10): 0 Pain Intensity Range: 0 and 4 Objective Objective: POSTURE: Pt. has wide SUNIL in stance, rounded shoulders with increased thoracic kyphosis. PALPATION: Pt. has tenderness at B biceps tendon. Pt. has mild hip flexor soreness, no major pain at L greater trochanter. NEURO: normal throughout BUE and BLEs. ROM: R shoulder: flexion 140deg, abd 130deg, functional ER occiput, functional IR gluteal region. L shoulder: flexion 140deg, abd 130deg, functional ER occiput, functional IR gluteal region. L hip: flexion 90deg, IR 15deg, ER 30deg, ext 5deg. MMT: PT. has good strength in BUEs and B hips, no marked weakness noted. GAIT: Very stiff in his mobility. Pt. tends to have wide SUNIL with limited hip extension. Pt. walks with B hip ER as well. Pt. had signs of some B biceps pathology, RTC had decent strength today. He is overall very stiff everywhere. I would like to work on his general mobility of L hip and B shoulders. Balance/Special Test Scores Lower Extremity Functional Score: 34 Goals Goal 1:: LTG: pt. to be I with HEP. Goal Time Frame: 4-6 Weeks Goal 2:: STG: Pt. to sleep throughout the night without increase in symptoms. Goal Time Frame: 4-6 Weeks Goal 3:: LTG: Pt. to have increased B shoulder ROM to at least 75% of full AROM. Goal Time Frame: 4-6 Weeks Goal 4:: LTG: Pt. to have increased L hip ROM to 75% of full without increase in L hip symptoms. Goal Time Frame: 4-6 Weeks Goal 5:: LTG: pt. to be able to complete all work and daily activities with less than 2/10 pain in L hip. Goal Time Frame: 4-6 Weeks Rehabilitation Potential Physical Therapy Diagnosis: Pt. has signs and symptoms consistent with L hip pain and B shoulder pain. Pt. is a generally very tight individual. I would recommend that we initiate a stretching program of B UEs and L hip. Adding in DFM to L biceps and slow progressive loading of this tendon. Rehabilitation Potential: Good Anticipated Interventions Patient/Client Instruction: Educate patient on: Condition, Plan of Care, Risk Factors and Benefits of Fitness Program For the Purpose of:: To facilitate caregiver knowledge, To improve self manage ment, To prevent re-injury, To improve ability to perform tasks related to life management and To improve tolerance to ADL's Therapeutic Exercise to Include: Strength training, Body mechanics, Postural training, Flexibilty training, Passive ROM, Active ROM and Scapular Strength/Stabilization For the Purpose of:: To decrease pain, To increase ROM, To improve nutrient delivery to tissue, To increase oxygenation perfusion, To improve muscle performance and motor function, To improve ability of physical actions for home/community/work/leisure, To improve gait and locomotor functions, To improve health of tissue, To decrease soft tissue restriction and To increase flexibility/ROM Manual Therapy Techniques to Include: Mobilization, Passive ROM and Soft tissue mobilization For the Purpose of:: To decrease pain, To increase ROM, To improve nutrient delivery to tissue, To increase oxygenation perfusion and To improve muscle performance and motor function Text: Thank you for the opportunity to evaluate your patient. For Medicare and Medicare HMO plans, please review the plan of care and approve it. It will need to be FAXED BACK to us at [phone] for Medicare purposes. For Medicare only, by signing this I certify the plan of care. Please let me know if there are questions or concerns regarding this plan of care. Physician Signature: Date:
--- NOTE | 2024-04-17 17:27 | HP.PTREVAL ---
Re-Evaluation Intro: Dr. Jayme Cunha MD, It has been my pleasure to treat JODI COLLINS over the last 7 visits for B shoulder pain and L hip pain. Please see the progress note below for an update on the physical therapy plan of care! Subjective Subjective: Pt. reports overall doing better. His L hip pain is overall doing well, but did have an episode last week. His shoulders are still pretty sore, especially with sleeping. He has been good with his stretching at home. He continues to report increased anterior shoulder pain with any OH activities. He also last week at an issue with his R ankle. He reports it swelled up on hip and is still slightly swollen. He has been elevating and icing at home. Pt. is to see physician tomorrow about his R ankle. Objective Objective/Function: ROM: L hip, flexion 110deg, ext 10deg. ER 60deg, IR 30deg. B shoulders: fairly good ROM flexion 175deg and 170deg. Functional ER C2 but aberrant motions (tightness), functional IR SI going bilaterally. + horn blowers test bilaterally indicating biceps tendinitis tender to palpation of B biceps tendon in bicipital groove I gave him to eccentric strengthening of his biceps to progressively load his tendon to work on remodling. Pt. is to continue with his stretching as well. Plan Plan Plan: Pt. is to continue with his shoulder flexibility as well as his progressive loading of his biceps. Pt. to do this on his own and follow up with PT in a few weeks. If I do not hear from him in the time frame I will Dc back to physician. Balance/Gait/Functional tests Balance/Special Test Scores Lower Extremity Functional Score: 46 Goals Goals Goal 1:: LTG: pt. to be I with HEP. Goal Time Frame: 4-6 Weeks Goal Progress: Goal Met Goal 2:: STG: Pt. to sleep throughout the night without increase in symptoms. Goal Time Frame: 4-6 Weeks Goal Progress: Progressing Goal 3:: LTG: Pt. to have increased B shoulder ROM to at least 75% of full AROM. Goal Time Frame: 4-6 Weeks Goal Progress: Goal Met Goal 4:: LTG: Pt. to have increased L hip ROM to 75% of full without increase in L hip symptoms. Goal Time Frame: 4-6 Weeks Goal Progress: Progressing Goal 5:: LTG: pt. to be able to complete all work and daily activities with less than 2/10 pain in L hip. Goal Time Frame: 4-6 Weeks Goal Progress: Progressing Anticipated Interventions Anticipated Interventions Patient/Client Instruction: Educate patient on: Condition, Plan of Care, Risk Factors and Benefits of Fitness Program For the Purpose of:: To facilitate caregiver knowledge, To improve self management, To prevent re-injury, To improve ability to perform tasks related to life management and To improve tolerance to ADL's Therapeutic Exercise to Include: Strength training, Body mechanics, Postural training, Flexibilty training, Passive ROM, Active ROM and Scapular Strength/Stabilization For the Purpose of:: To decrease pain, To increase ROM, To improve nutrient delivery to tissue, To increase oxygenation perfusion, To improve muscle performance and motor function, To improve ability of physical actions for home/community/work/leisure, To improve gait and locomotor functions, To improve health of tissue, To decrease soft tissue restriction and To increase flexibility/ROM Manual Therapy Techniques to Include: Mobilization, Passive ROM and Soft tissue mobilization For the Purpose of:: To decrease pain, To increase ROM, To improve nutrient delivery to tissue, To increase oxygenation perfusion and To improve muscle performance and motor function Re-Evaluation Ending Re-evaluation ending: Please do not hesitate to contact me at [phone] by phone or if you have questions or concerns regarding this new plan of care! Sincerely, Saw Hsu DPT
== END 2024-04-17 19:00 | disposition home or self-care (01) ==
LOC: PT 15:00
PROVIDERS: PCP Family Medicine; Referring Provider Family Medicine; Visit Provider Family Medicine
DX: M19.019 Primary osteoarthritis, unspecified shoulder (principal); M16.9 Osteoarthritis of hip, unspecified
CPT/HCPCS: 97110; 97140; 97161; 97530

== ENCOUNTER → 2024-05-02 | Outpatient (CLI) | payer BC, SELFPAY ==
[2024-05-02 15:18] LABS: Bacteria 0 SEEN /hpf (None Seen); Mucous, Urine 0 SEEN /hpf (<or=2+); Red Blood Cells-Urine 0 SEEN /hpf (0-5); Squamous Epithelial Cells - UA 0 SEEN /hpf (0-5); White Blood Cells 0 SEEN /hpf (0-5)
[2024-05-02 17:50] LABS: Absolute Lymphocyte Count 2.59 X10^3/uL (0.83-4.51); Absolute Neutrophil Count 5.5 X10^3/uL (2.0-7.7); Basophil# 0.07 X10^3/uL; Basophil% 0.8 % (0-1); Eosinophil# 0.08 X10^3/uL; Eosinophils% 0.9 % (0-5); Hematocrit 41.2 % (40-54); Hemoglobin 13.3 g/dL (13.0-16.5); Lymphocyte # 2.59 X10^3/ul (0.83-4.51); Lymphocyte % 29.8 % (19-41); Mean Corp Hgb Conc 32.3 g/dL (32-36); Mean Corpuscular Hgb 28.7 pg (27.0-32.0); Mean Corpuscular Volume 88.8 fL (80-94); Mean Platelet Vol. 11.4 fl (6.2-12.0); Monocyte# 0.47 X10^3/uL; Monocyte% 5.4 % (0-10); NRBC Flagged by Analyzer 0 % (0-5); Neutrophil # 5.45 X10^3/uL (2.7-7.7); Neutrophil % 62.8 % (47-70); Platelet Count 185 K/mm3 (150-450); RBC Distribution Width CV 13.2 % (11.6-14.6); RBC Distribution Width SD 42.2 fl (35.1-43.9); Red Blood Count 4.64 M/mm3 (4.6-6.2); White Blood Count 8.7 K/mm3 (4.4-11.0)
[2024-05-02 17:50] LABS: Color, Urine Yellow (Yellow); Glucose, Dipstick 1000 mg/dl (Normal); Ketone-Dipstick Negative (Negative); Leukocyte Esterase-Dipstick Negative /ul (Negative); Nitrite-Dipstick Negative (Negative); Occult Blood-Urine Negative /ul (Negative); Protein-Dipstick 15 mg/dl (Negative); Urine Bilirubin Dipstick Negative (Negative); Urine Clarity Clear (Clear); Urine Urobilinogen Normal (Normal)
[2024-05-02 18:00] LABS: Vitamin D,25 Hydroxy 35.5 ng/mL
[2024-05-02 18:06] LABS: Hemoglobin A1c 7.1 % (3.8-5.6)
[2024-05-02 18:28] LABS: Microalbumin,Random Urine 80.5 mg/L (NO RANGE EST.); Microalbumin:Creatinine Ratio 137.6 mg/g CRE (<30 mg/g CRE)
[2024-05-02 19:24] LABS: AST(SGOT) 33 U/L (15-37); Alanine Aminotransfer ALT/SGPT 38 U/L (16-61); Albumin, Serum 3.7 g/dL (3.2-5.0); Alkaline Phosphatase 65 U/L (45-117); Anion Gap 3 (5-15); BUN 22 mg/dL (7-18); BUN/Creat Ratio 19.6 RATIO (10-20); Calcium,Total 9.2 mg/dL (8.5-10.1); Chloride 106 mmol/L (98-107); Cholesterol 156 mg/dL (200); Creatinine, Serum 1.12 mg/dL (0.70-1.30); EST Glomerular Filtration Rate 73 mL/min (>60); Est Glom Filt Rate - Afr Amer 88 mL/min (>60); Globulin 3.7 g/dL (2.2-4.2); Glucose 133 mg/dL (74-106); High Density Lipoprotein 58 mg/dL; Potassium 4.2 mmol/L (3.5-5.1); Protein, Total 7.4 g/dL (6.4-8.2); Sodium Level 139 mmol/L (136-145); Triglycerides 108 mg/dL; Very Low Density Lipoprotein 22 mg/dL (5-40)
== END | disposition home or self-care (01) ==
LOC: MFPLAB 15:15
PROVIDERS: PCP Family Medicine; Referring Provider Family Medicine; Visit Provider Family Medicine
DX: E11.8 Type 2 diabetes mellitus with unspecified complications (principal); E55.9 Vitamin D deficiency, unspecified
CPT/HCPCS: 36415; 80053; 80061; 81001; 82043; 82306; 82570; 83036; 85025

== ENCOUNTER 2024-07-04 01:03 | Inpatient (IN) | payer BC, SELFPAY ==
[2024-07-04] VITALS (15 sets, daily range): BP systolic 123–162; BP diastolic 39–90; PULSE 68–109; RESP 15–24; TEMP 36.4–39.2; O2SAT 92–99; BMI 48.0; BMI 48.2; BMI 48.1
--- NOTE | 2024-07-04 01:11 | RAD_ITS ---
EXAM: XR LEFT TIBIA AND FIBULA, 2 VIEWS CLINICAL INDICATION: ?. Blood TECHNIQUE: Frontal and lateral views of the left tibia and fibula. COMPARISON: No relevant prior studies available. FINDINGS: BONES/JOINTS: Small suprapatellar enthesophyte. Calcaneal enthesopathy at plantar and posterior aspects. No acute fracture. No subluxation. Normal alignment. Preservation of the joint space. No sclerotic or destructive changes observed. SOFT TISSUES: Unremarkable. No soft tissue swelling or gas. No radiopaque foreign body. RAD/Tibia & Fibula 2 Views IMPRESSION: No acute or healing fracture or malalignment. Electronically Signed: Rodolfo Motta MD at 2:23 EST ,
[2024-07-04] MEDS: 0.9% Normal Saline (1000mL) 1,000 ML 999 ML IV ×4 (01:30→05:20)
[2024-07-04] MEDS: Acetaminophen 500 MG Tablet 1000 MG PO (01:30)
[2024-07-04] MEDS: Ondansetron 4 MG/2 ML Vial IV (01:30)
[2024-07-04] MEDS: Piperacil/Tazobactam 3.375 GM in 0.9% Normal Saline (50mL MB+) 50 ML IV ×2 (01:31→05:20)
[2024-07-04] MEDS: Morphine 4 MG/ML Syringe IV (01:31)
[2024-07-04 01:35] LABS: Absolute Lymphocyte Count 1.52 X10^3/uL (0.83-4.51); Absolute Neutrophil Count 15.4 X10^3/uL (2.0-7.7); Basophil# 0.06 X10^3/uL; Basophil% 0.3 % (0-1); Hematocrit 41.2 % (40-54); Hemoglobin 14.1 g/dL (13.0-16.5); Lymphocyte # 1.52 X10^3/ul (0.83-4.51); Lymphocyte % 8.4 % (19-41); Mean Corp Hgb Conc 34.2 g/dL (32-36); Mean Corpuscular Hgb 29.7 pg (27.0-32.0); Mean Corpuscular Volume 86.7 fL (80-94); Mean Platelet Vol. 10.7 fl (6.2-12.0); Monocyte# 1.04 X10^3/uL; Monocyte% 5.7 % (0-10); NRBC Flagged by Analyzer 0 % (0-5); Neutrophil # 15.44 X10^3/uL (2.7-7.7); Platelet Count 115 K/mm3 (150-450); RBC Distribution Width CV 12.8 % (11.6-14.6); RBC Distribution Width SD 40.4 fl (35.1-43.9); Red Blood Count 4.75 M/mm3 (4.6-6.2); White Blood Count 18.2 K/mm3 (4.4-11.0)
[2024-07-04 01:49] LABS: Anion Gap 9 (5-15); BUN 26 mg/dL (7-18); BUN/Creat Ratio 24.1 RATIO (10-20); Calcium,Total 8.8 mg/dL (8.5-10.1); Chloride 93 mmol/L (98-107); Creatinine, Serum 1.08 mg/dL (0.70-1.30); EST Glomerular Filtration Rate 76 mL/min (>60); Est Glom Filt Rate - Afr Amer 92 mL/min (>60); Estimated Creatinine Clearance 118.37 ml/min; Glucose 357 mg/dL (74-106); Potassium 4.1 mmol/L (3.5-5.1); Sodium Level 129 mmol/L (136-145)
[2024-07-04 01:59] LABS: Lactic Acid 1.5 mmol/L (0.4-1.9)
[2024-07-04] MEDS: Ibuprofen 600 MG Tablet PO (02:55)
[2024-07-04] MEDS: Vancomycin HCl 2,000 MG in 0.9% Normal Saline (500mL Bag) 500 ML 250 MG IV (02:55)
[2024-07-04] MEDS: HYDROmorphone 1 MG/ML Syringe IV (02:55)
--- NOTE | 2024-07-04 03:05 | PCM.HP.STD ---
[facility] - General General Date of Admission: 07/04/24 Date of Service: 07/04/24 Chief Complaint: LLE Pain and Swelling with Fever and Chills. HPI Narrative JODI COLLINS, is a 53 M with a past medical history of essential hypertension; on losartan and furosemide, hyperlipidemia; on Vascepa and atorvastatin, morbid obesity; with BMI of 48.1 this admission, MONCHO; on CPAP, DM-2 (since 2007); uncontrolled with Hyperglycemia on metformin, dapagliflozin, semaglutide, regular insulin 45U sq TID and insulin degludec 52U sq daily, diabetic neuropathy, history of LHC and RHC (2019), ED; on prn sildenafil, seasonal allergies; on cetirizine, history of vitamin D deficiency, history of disequilibrium/vertigo; on prn meclizine and Severe OA; with chronic back pain who presents to [facility] ER complaining of Left lower extremity pain with swelling, fever and chills. Mr. Collins reports his symptoms began approximately 2 days prior to admission with the gradual-onset of swelling and redness of his Left lower extremity with fever of 102.6 ?F (which were confirmed in ER) and increasing pain which caused him to come in for further evaluation and treatment. He also admits to increased shortness of breath and nonproductive cough along with elevated blood glucose persistently in the ~300 mg/dL range. He denies associated abdominal pain, nausea, vomiting, diarrhea, constipation, chest pain or headache. In the ER he was noted to have clinical evidence of Severe LLE Cellulitis complicated by suspected early sepsis with Leukocytosis of 18.2 K present on admission and fever of 102.6 ?F along with mild tachycardia of 109 bpm present on admission complicated by Hyperglycemia of 357 mg/dL (with pseudohyponatremia of 129 mmol/L) present on admission due to suspected uncontrolled DM-2 compounded by laboratory evidence of elevated D-dimer of 1.12 present on admission and moderate thrombocytopenia of 115K present on admission and he was then admitted to the ICU for treatment under the Sepsis protocol for a stay that is expected to extend beyond 2 midnights. [facility] Medical History MONCHO on CPAP Chronic back pain History of vitamin D deficiency Hyperlipidemia Essential hypertension Disequilibrium Early stage glaucoma Vision problem Diabetes type 2, controlled Ingrown nail Hallux limitus of right foot Diabetes mellitus with neuropathy Exogenous obesity Home Medications ?Medication ?Instructions ?Recorded ?Last Taken ?Type metformin 1,000 mg tablet 1,000 mg PO BIDCM diabetes 02/18/15 07/07/20 History ascorbic acid (vitamin C) 500 mg 500 mg PO DAILY@0800 vitamin 07/29/18 06/25/20 History tablet atorvastatin 40 mg tablet 40 mg PO QHS cholesterol 07/29/18 06/24/20 History losartan 100 mg tablet 100 mg PO DAILY 01/29/20 07/08/20 History ergocalciferol (vitamin D2) 1,250 50,000 unit PO WE supplement 06/25/20 04/24/20 History mcg (50,000 unit) capsule dapagliflozin propanediol 10 mg 10 mg PO DAILY 10/21/21 Unknown History tablet insulin regular hum U-500 conc 500 45 unit subcut TIDCM diabetes 10/21/21 Unknown History unit/mL subcutaneous soln (Humulin R U-500 (Concentrated) Insulin) cetirizine 10 mg tablet (Allergy 10 mg PO DAILY PRN allergy symptoms 04/22/22 Unknown History Relief (cetirizine)) insulin degludec 200 unit/mL (3 52 unit subcut DAILY 04/22/22 Unknown History mL) subcutaneous pen (Tresiba FlexTouch U-200 insulin) semaglutide 2 mg/dose (8 mg/3 mL) 2 mg subcut QWEEK 04/22/22 Unknown History subcutaneous pen injector (Ozempic) sildenafil 100 mg tablet 50 mg PO DAILY PRN sexual activity 04/22/22 Unknown History meclizine 25 mg tablet 25 mg PO BID PRN dizziness #30 tabs 08/23/22 Unknown Rx furosemide 40 mg tablet (Lasix) 40 mg PO DAILY #90 tabs 07/18/23 Unknown Rx icosapent ethyl 1 gram capsule 2 g PO BID 07/04/24 Unknown History (Vascepa) Allergy/AdvReac Type Severity Reaction Status Date / Time No Known Allergies Allergy Verified 07/04/24 01:04 Family History Daughter Asthma Seizures Son Seizures Sister Breast cancer Mother Diabetes Heart disease Hypertension CVA (cerebral vascular accident) Brother Diabetes Father Diabetes Heart disease Hypertension Surgical History History of right and left heart catheterization (07/08/20) Social History household members: spouse Smoking Status: Never smoker second hand exposure: No alcohol intake: current alcohol intake frequency: a few times a month substance use type: does not use caffeine: Yes Type: coffee Number of servings: 2 ROS ROS Narrative Review of Systems: Constitutional: Patient admits to fever and chills. Eyes: Patient denies changes in vision or discharge from eyes. ENT: Patient denies runny nose, sore throat or ear pain. Resp: Patient admits to shortness of breath and nonproductive cough as per HPI. CV: Patient denies chest pain, palpitations or heart racing. GI: Patient denies abdominal pain, nausea, vomiting, diarrhea or constipation. : Patient denies dysuria or hematuria. MSK: Patient admits to increasing pain, swelling and redness in his Left lower extremity as per HPI. Skin: Patient admits to erythema of LLE but he denies abscess or jaundice. Psych: Patient denies symptoms of uncontrolled depression or anxiety. Neuro: Patient denies headache, paresthesias or focal neurologic deficits. Allergy: Patient denies lip swelling, tongue swelling or urticaria. Hematology: Patient denies easy bleeding or easy bruisability. Endocrinology: Patient admits to persistent hyperglycemia in the ~300 mg/dL range. He denies polydipsia or polyphagia. 14 point review of systems is negative except for positives noted above in HPI. Vital Signs Vital Signs Vital Signs: 07/04/24 01:06 07/04/24 01:08 07/04/24 02:00 Temperature 102.6 F H 102.6 F H 101.6 F H Temperature Source Oral Oral Oral Pulse Rate 109 H 106 H 97 Respiratory Rate 18 18 20 H Blood Pressure 158/90 H 158/90 H 162/58 H Blood Pressure Mean 112 112 92 Pulse Ox 94 95 92 Oxygen Delivery Method Room Air Room Air Room Air 07/04/24 03:00 Temperature 102.1 F H Temperature Source Oral Pulse Rate 88 Respiratory Rate 20 H Blood Pressure 155/59 H Blood Pressure Mean 91 Pulse Ox 92 Oxygen Delivery Method Room Air Weight Weight: 335 lb 1.642 oz Body Mass Index (BMI) 48.0 Physical Exam Const alert, oriented x3 and no apparent distress Constitutional Narrative: Morbidly obese with nontoxic appearance. General Appearance: cooperative HEENT normocephalic, head/scalp atraumatic, hearing grossly normal bilaterally and moist oral mucous membranes Eyes PERRL and EOMs intact bilaterally Neck no lymphadenopathy and supple Resp normal respiratory effort, no retractions, no use of accessory muscles and clear to auscultation bilaterally Cardio regular rate and regular rhythm GI normal to inspection, nondistended, normoactive bowel sounds, soft to palpation, non-tender and non-distended GI Narrative: Morbidly obese. Extremity Extremity Narrative: Severe erythema and edema of LLE with TTP. No obvious signs of vascular compromise. Skin Skin Narrative: Severe erythema and edema of LLE with TTP. No obvious signs of vascular compromise. Neuro oriented x3, CN's II-XII intact bilaterally, moves all extremities and no focal motor deficits Sensorium / Orientation: awake, alert, oriented to person, oriented to place and oriented to time Speech: speech normal Psych affect normal Results Medical Records Data Attestation: I reviewed the patient's medical records Lab / Micro Data Attestation: I reviewed the patient's lab results. 07/04/24 01:27 07/04/24 01:27 Labs: Laboratory Results - last 24 hr 07/04/24 01:27: WBC 18.2 H, RBC 4.75, Hgb 14.1, Hct 41.2, MCV 86.7, MCH 29.7, MCHC 34.2, RDW Std Deviation 40.4, RDW Coeff of Annalise 12.8, Plt Count 115 L, MPV 10.7, Immature Gran % (Auto) 0.600, Neut % (Auto) 85.0 H, Lymph % (Auto) 8.4 L, Barron % (Auto) 5.7, Eos % (Auto) 0.0, Baso % (Auto) 0.3, Absolute Neuts (auto) 15.4 H, Absolute Lymphs (auto) 1.52, Nucleated RBC % 0, Sodium 129 L, Potassium 4.1, Chloride 93 L, Carbon Dioxide 27.0, Anion Gap 9, BUN 26 H, Creatinine 1.08, Estim Creat Clear Calc 118.37, Est GFR (MDRD) Af Amer 92, Est GFR (MDRD) Non-Af 76, BUN/Creatinine Ratio 24.1 H, Glucose 357 H, Lactic Acid 1.5, Calcium 8.8, Procalcitonin 0.50 H Micro: Microbiology 07/04/24 01:27 Mucosa - Nasopharyngeal SARS-CoV-2, Influenza & RSV (PCR) - Final Imaging Radiology Impression Tibia/Fibula X-Ray 07/04/24 01:11 IMPRESSION: No acute or healing fracture or malalignment. Electronically Signed: Rodolfo Motta MD at 2:23 EST , [facility] Imaging Services [address] [place] [id number] CTA Chest W/WO Contrast MR#: [id number] Acct: [id number] Name: JODI COLLINS Rep #: [id number] : 1970 M 53 From: Neftaly Magdaleno MD PCP: Dr. Jayme Cunha MD Status: ADM IN Study: CTA Chest W/WO Contrast Date of Exam: 07/04/24 Exam# [id number] Ordering Dr: Jodi Hidalgo DO EXAM: CT ANGIOGRAPHY CHEST WITHOUT AND WITH INTRAVENOUS CONTRAST CLINICAL INDICATION: SOB and elevated D-dimer. TECHNIQUE: Helically acquired angiography images were obtained of the chest without and with intravenous contrast. This CT exam was performed using one or more of the following dose reduction techniques: automated exposure control, adjustment of the mA and/or kV according to patient size, and/or use of iterative reconstruction technique. MIP reconstructed images were created and reviewed. CONTRAST: IV 100mL Isovue-370 RADIATION DOSE: CTDIvol = 12.66 mGy, DLP = 567.16 mGy-cm COMPARISON: CTA chest 10/27/2014 FINDINGS: PULMONARY ARTERIES: Unremarkable. Normal in caliber. No evidence of pulmonary embolism. AORTA: Unremarkable. Normal in caliber. No evidence of dissection. GREAT VESSELS OF AORTIC ARCH: Unremarkable. Normal in caliber. No evidence of dissection. LUNGS AND PLEURAL SPACES: Unremarkable. No mass. No consolidation or edema. No pleural effusion or thickening. No pneumothorax. HEART: Coronary artery calcifications. Heart size is normal. No pericardial effusion. MEDIASTINUM: Unremarkable. No mediastinal or hilar adenopathy. Esophagus is unremarkable. No hiatal hernia. THYROID: Unremarkable. No thyroid lesions. BONES/JOINTS: Degenerative changes of the spine. No suspicious lytic or blastic abnormality. UPPER ABDOMEN: Eventration of the right diaphragm. CT/CTA Chest W/WO Contrast IMPRESSION: 1. No pulmonary embolism or other acute findings in the chest. 2. Coronary artery calcifications. Electronically Signed: Neftaly Magdaleno MD at 6:06 EST , CC: Dr. Jodi Hidalgo DO; Dr. 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 Severe LLE Cellulitis complicated by suspected early sepsis with Leukocytosis of 18.2 K along with elevated procalcitonin of 0.5 ng/mL present on admission and fever of 102.6 ?F along with mild tachycardia of 109 bpm present on admission - Admit to ICU for treatment under the Sepsis protocol. Continue empiric IV vancomycin and IV Zosyn begun in the ER and await culture and sensitivity data. Check MRSA PCR. D-dimer elevated at 1.12 present on admission with CTA of chest and lower extremity Doppler pending at this time. Give Tylenol as needed for [id number] (level 1-5/10) pain or fever. Give morphine IV as needed for severe (level 6-10/10) pain. Finally, we will continue vitamin D3 supplementation and will add vitamin C and zinc to help boost immunity and hopefully speed recovery. 2. Severe Hyperglycemia of 357 mg/dL present on admission in the setting of known DM-2 (since 2007); uncontrolled with Hyperglycemia on metformin, dapagliflozin, semaglutide, regular insulin 45U sq TID and insulin degludec 52U sq daily and diabetic neuropathy complicating #1 - Continue home insulin regimen plus check FSBS q. AC/HS plus SSI. Hold metformin for at least 72 hours after administration of contrast dye and also hold dapagliflozin and semaglutide. Check hemoglobin A1c to objectively assess quality of diabetic control. Finally, we will have clinical dietitian evaluate patient for further diabetic teaching this admission on rounds in a.m. with help appreciated in advance. 3. Moderate thrombocytopenia of 115K present on admission compounding #1 & #2 - Check daily CBC to follow trend and stop LMWH if platelet count drops below 100 K. 4. Morbid obesity; with BMI of 48.1 this admission and MONCHO; on CPAP adding to the medical complexity of #1 - #3- Weight loss will be recommended. Check TSH. Continue nocturnal CPAP. This complicates his case and may hamper recovery. 5. Essential hypertension; on losartan and furosemide - Hold scheduled antihypertensives in light of #1. Give IV hydralazine as needed for systolic blood pressure greater than 160 mmHg systolic. 6. Hyperlipidemia; on Vascepa and atorvastatin - Maintain home regimen and check Lipid Profile this admission. 7. History of LHC and RHC (2019) - Noted. 8. ED; on prn sildenafil - Hold sildenafil until further notice. 9. Seasonal allergies; on cetirizine - Resume cetirizine as previous. 10. History of vitamin D deficiency - Continue vitamin d3 supplementation. 11. History of disequilibrium/vertigo; on prn meclizine - Give meclizine prn dysequilibrium/vertigo. 12. Severe OA; with chronic back pain - Give Tylenol prn. PT/OT and Case Management to consult and treat on-rounds in AM for further recommendations with help appreciated in advance. 13. DVT prophylaxis - Lovenox 40 mg sq BID. Hold LMWH if platelet count drops < 100K. Total time: Approximately (but not less than) 75 minutes. Sepsis Attestation Sepsis Alert: Yes Sepsis Attestation: Sepsis Ruled Out Date exam was performed: 07/04/24 Time exam was performed: 04:15 Possible Source of Sepsis: Skin/soft tissue Supportive Findings: Patient was noted to have a fever of 102.6 ?F with tachycardia at 109 bpm and Leukocytosis of 18.2 K along with elevated procalcitonin of 0.5 ng/mL present on admission suggestive of early sepsis. Fluid Resuscitation Fluid resuscitation indicated?: Yes Fluid Resuscitation ordered: 30 ml/kg fluid bolus ordered Amount of fluid ordered: 3 Sepsis Note Date exam was performed: 07/04/24 Time exam was performed: 07:00 Sepsis Attestation: Sepsis re-evaluation was performed Response to fluids: Fluid responsive hypotension Charges/Coding Visit Charges Inpatient E&M: 93098 Init Hosp L3
--- NOTE | 2024-07-04 03:22 | EDS_ITS ---
HPI History of Present Illness Chief Complaint: Lower Extremity Injury Informant: patient and spouse/S.O. Narrative Narrative: Patient is a 53-year-old male with past medical history of hypertension hyperlipidemia and insulin-dependent diabetes. He states that he has had mild congestion and cough for the past few days but has not thought much of this. However yesterday he felt chills and laid down with a heating heated blanket secondary to this. He states he awoke and had redness swelling and pain to his left leg. He states he did not know if he was burned by the heated blankets or if he had developed an infection and therefore he comes in for evaluation. [facility] Medical History MONCHO on CPAP Chronic back pain History of vitamin D deficiency Hyperlipidemia Essential hypertension Disequilibrium Early stage glaucoma Vision problem Diabetes type 2, controlled Ingrown nail Hallux limitus of right foot Diabetes mellitus with neuropathy Exogenous obesity Home Medications ?Medication ?Instructions ?Recorded ?Last Taken ?Type metformin 1,000 mg tablet 1,000 mg PO BIDCM diabetes 02/18/15 07/07/20 History ascorbic acid (vitamin C) 500 mg 500 mg PO DAILY@0800 vitamin 07/29/18 06/25/20 History tablet atorvastatin 40 mg tablet 40 mg PO QHS cholesterol 07/29/18 06/24/20 History losartan 100 mg tablet 100 mg PO DAILY 01/29/20 07/08/20 History ergocalciferol (vitamin D2) 1,250 50,000 unit PO WE supplement 06/25/20 04/24/20 History mcg (50,000 unit) capsule dapagliflozin propanediol 10 mg 10 mg PO DAILY 10/21/21 Unknown History tablet insulin regular hum U-500 conc 500 45 unit subcut TIDCM diabetes 10/21/21 Unknown History unit/mL subcutaneous soln (Humulin R U-500 (Concentrated) Insulin) cetirizine 10 mg tablet (Allergy 10 mg PO DAILY PRN allergy symptoms 04/22/22 Unknown History Relief (cetirizine)) insulin degludec 200 unit/mL (3 52 unit subcut DAILY 04/22/22 Unknown History mL) subcutaneous pen (Tresiba FlexTouch U-200 insulin) semaglutide 2 mg/dose (8 mg/3 mL) 2 mg subcut QWEEK 04/22/22 Unknown History subcutaneous pen injector (Ozempic) sildenafil 100 mg tablet 50 mg PO DAILY PRN sexual activity 04/22/22 Unknown History meclizine 25 mg tablet 25 mg PO BID PRN dizziness #30 tabs 08/23/22 Unknown Rx furosemide 40 mg tablet (Lasix) 40 mg PO DAILY #90 tabs 07/18/23 Unknown Rx icosapent ethyl 1 gram capsule 2 g PO BID 07/04/24 Unknown History (Vascepa) Allergy/AdvReac Type Severity Reaction Status Date / Time No Known Allergies Allergy Verified 07/04/24 01:04 Family History Daughter Asthma Seizures Son Seizures Sister Breast cancer Mother Diabetes Heart disease Hypertension CVA (cerebral vascular accident) Brother Diabetes Father Diabetes Heart disease Hypertension Surgical History History of right and left heart catheterization (07/08/20) Social History household members: spouse Smoking Status: Never smoker second hand exposure: No alcohol intake: current alcohol intake frequency: a few times a month substance use type: does not use caffeine: Yes Type: coffee Number of servings: 2 ROS ROS ED Constitutional Constitutional ED: Reports chills and fever(s) Eyes Eyes: Denies change in vision ENT ENT ED: Reports rhinorrhea Cardiovascular Cardiovascular: Denies chest pain Respiratory/Chest Respiratory/Chest: Reports cough; Denies dyspnea Gastrointestinal Gastrointestinal: Denies abdominal pain, diarrhea, nausea or vomiting Genitourinary Genitourinary ED: Denies dysuria Musculoskeletal Musculoskeletal: Reports other Details: Positive left hutchinson/leg pain Integumentary Reports other Details: Positive redness left lower leg Neurologic Neurologic: Denies headache(s) Hematologic/Lymphatic Hematologic/Lymphatic: Denies easy bleeding or easy bruising EXAM Physical Exam Const Vital Signs: 07/04/24 01:06 07/04/24 01:08 07/04/24 02:00 Temperature 102.6 F H 102.6 F H 101.6 F H Temperature Source Oral Oral Oral Pulse Rate 109 H 106 H 97 Respiratory Rate 18 18 20 H Blood Pressure 158/90 H 158/90 H 162/58 H Blood Pressure Mean 112 112 92 Pulse Ox 94 95 92 Oxygen Delivery Method Room Air Room Air Room Air 07/04/24 03:00 Temperature 102.1 F H Temperature Source Oral Pulse Rate 88 Respiratory Rate 20 H Blood Pressure 155/59 H Blood Pressure Mean 91 Pulse Ox 92 Oxygen Delivery Method Room Air Positive well nourished, well developed and obese General Appearance ED: well developed Nutritional Appearance: obese HEENT Reports moist mucous membranes HEENT Narrative: No tongue or lip swelling no oral lesions no airway edema or compromise Cobblestoning is noted in the posterior pharynx consistent with sinus drainage No secondary findings to suggest infection Eyes PERRL and EOMs intact bilaterally General Eye ED: Negative for scleral icterus Neck supple Neck Narrative: No nuchal rigidity or meningeal signs noted Resp normal respiratory effort and clear to auscultation bilaterally Cardio regular rhythm Rate: tachycardic and other Other Details: Tachycardic rate with regular rhythm Radial and carotid pulses are equal and symmetric No murmurs rubs or gallops noted GI normal to inspection, nondistended, normoactive bowel sounds, non-tender, non- distended and no masses Auscultation: normoactive bowel sounds Palpation: soft Extremity Extremity Narrative: There is asymmetric erythema and warmth that extends from just above the left ankle to approximately 2 inches below the knee. The erythema and warmth is almost completely circumferential of the left lower leg with approximate 2 inch margin along the lateral aspect that does not show signs of soft tissue change. There is associated lymphangitic streaking up the medial aspect from the top of the erythema to the middle third of the thigh. Negative Homans' sign bilaterally Compartments are still soft and compressible going against compartment syndrome No bony deformity or joint effusion noted Neuro oriented x3, CN's II-XII intact bilaterally and no sensory deficits noted Sensorium / Orientation: alert Psych mental status grossly normal Skin Skin Narrative: Soft tissue changes of erythema and asymmetric warmth to the left lower leg as documented above MDM MDM MDM Narrative Medical decision making narrative: Patient arrived to the ER hypertensive but otherwise had approximate 103 fever and was tachycardic. He reported relatively fast change of redness swelling and pain to the left lower leg. He denied any trauma. He denied any recent travel surgery or history of DVT/PE. He does not have pleuritic chest pain. Based on his high fever and asymmetric erythema and warmth I do have concern for cellulitis versus osteomyelitis versus sepsis secondary to the vital sign changes. An x-ray was obtained to check for osteomyelitis of the left hutchinson. Blood work revealed leukocytosis 18.2 with a left shift as his absolute neutrophil count is elevated at approximately 15. Secondary to his blood cultures were obtained and patient was on vancomycin and Zosyn. As he does have report of congestion and cough the fever could be secondary to a viral process such as COVID influenza or RSV so viral swab was added. Viral swab was negative. At this time based on his fever tachycardia and white blood cell count above 12.4 he is triggering changes concerning for suspected mild sepsis. He will be given 3 L of fluid secondary to this. With concern for developing systemic infection I do not feel the patient is safe for discharge and therefore discussed the case with the hospitalist. He agrees with plan of care and therefore the patient and significant other were informed of his need for admission for continued IV antibiotics and symptom management. Patient and family are okay with admission and therefore will be sent to the ICU for continued monitoring History & Record Review Discussion w/independent historian: Patient and Significant other Lab Data Attestation: I reviewed the patient's lab results. Labs: Laboratory Results - last 24 hr 07/04/24 01:27 WBC 18.2 H RBC 4.75 Hgb 14.1 Hct 41.2 MCV 86.7 MCH 29.7 MCHC 34.2 RDW Std Deviation 40.4 RDW Coeff of Annalise 12.8 Plt Count 115 L MPV 10.7 Immature Gran % (Auto) 0.600 Neut % (Auto) 85.0 H Lymph % (Auto) 8.4 L Henderson % (Auto) 5.7 Eos % (Auto) 0.0 Baso % (Auto) 0.3 Absolute Neuts (auto) 15.4 H Absolute Lymphs (auto) 1.52 Nucleated RBC % 0 Sodium 129 L Potassium 4.1 Chloride 93 L Carbon Dioxide 27.0 Anion Gap 9 BUN 26 H Creatinine 1.08 Estim Creat Clear Calc 118.37 Est GFR (MDRD) Af Amer 92 Est GFR (MDRD) Non-Af 76 BUN/Creatinine Ratio 24.1 H Glucose 357 H Lactic Acid 1.5 Calcium 8.8 Procalcitonin 0.50 H Radiography Diagnostic Testing: Clinical Impression(s) from Imaging Studies Tibia/Fibula X-Ray 07/04/24 01:11 IMPRESSION: No acute or healing fracture or malalignment. Electronically Signed: Rodolfo Motta MD at 2:23 EST , Left tibia/fibula x-ray as interpreted by the emergency medicine physician varinder solis no acute fracture dislocation free air or signs of osteomyelitis Management Discussion w/another healthcare provider: Hospitalist Critical Care Time Critical Care Time: Yes Critical care time (excluding procedures): Discussing w/Patient &/or Family/Entertainment & Media Correspondent, Arranging Admission or Transfer and - (Please note critical care time of 31 minutes) Discharge Plan Dx/Rx/DC Orders Clinical Impression: Essential hypertension, Hyperlipidemia, Cellulitis, Sepsis, Insulin dependent diabetes mellitus Disposition Disposition: Acute Care [facility]
[2024-07-04 03:43] LABS: D-Dimer Quantitative (DVT/PE) 1.22 FEU/ug/m (0.27-0.49)
--- NOTE | 2024-07-04 03:47 | CT_ITS ---
EXAM: CT ANGIOGRAPHY CHEST WITHOUT AND WITH INTRAVENOUS CONTRAST CLINICAL INDICATION: SOB and elevated D-dimer. TECHNIQUE: Helically acquired angiography images were obtained of the chest without and with intravenous contrast. This CT exam was performed using one or more of the following dose reduction techniques: automated exposure control, adjustment of the mA and/or kV according to patient size, and/or use of iterative reconstruction technique. MIP reconstructed images were created and reviewed. CONTRAST: IV 100mL Isovue-370 RADIATION DOSE: CTDIvol = 12.66 mGy, DLP = 567.16 mGy-cm COMPARISON: CTA chest 10/27/2014 FINDINGS: PULMONARY ARTERIES: Unremarkable. Normal in caliber. No evidence of pulmonary embolism. AORTA: Unremarkable. Normal in caliber. No evidence of dissection. GREAT VESSELS OF AORTIC ARCH: Unremarkable. Normal in caliber. No evidence of dissection. LUNGS AND PLEURAL SPACES: Unremarkable. No mass. No consolidation or edema. No pleural effusion or thickening. No pneumothorax. HEART: Coronary artery calcifications. Heart size is normal. No pericardial effusion. MEDIASTINUM: Unremarkable. No mediastinal or hilar adenopathy. Esophagus is unremarkable. No hiatal hernia. THYROID: Unremarkable. No thyroid lesions. BONES/JOINTS: Degenerative changes of the spine. No suspicious lytic or blastic abnormality. UPPER ABDOMEN: Eventration of the right diaphragm. CT/CTA Chest W/WO Contrast IMPRESSION: 1. No pulmonary embolism or other acute findings in the chest. 2. Coronary artery calcifications. Electronically Signed: Neftaly Magdaleno MD at 6:06 EST ,
--- NOTE | 2024-07-04 03:48 | VDLE_ITS ---
Reason For Study: Elevated D-dimer, 1.22 RIGHT LEFT GSV is normal. GSV is normal. CFV is compressible, spontaneous, phasic, CFV is compressible, spontaneous, phasic, competent and demonstrates normal competent, and demonstrates normal augmentation. augmentation. FV is compressible, spontaneous, phasic, FV is compressible, spontaneous, phasic, competent and demonstrates normal competent and demonstrates normal augmentation. augmentation. POP V is compressible, spontaneous, phasic, POP V is compressible, spontaneous, phasic, competent and demonstrates normal competent and demonstrates normal augmentation. augmentation. T/P Trunk is compressible. T/P Trunk is compressible. PTV is compressible. PTV is compressible. RT PerV is compressible. LT PerV is compressible. Procedure This is a venous duplex using B-mode, color flow and spectral Doppler. Exam performed portable in patient room. A preliminary report was called and/or faxed to [facility]. VL/Venous Duplex US - Aurelio Extrem Interpretation Summary Deep veins of the bilateral lower extremities are patent and compressible segme ntally. There is no evidence of bilateral lower extremity deep vein thrombosis. The bilateral great saphenous veins appear patent and compressible segmentally. Ordering Physician: Mio Hidalgo Referring Physician: Jayme Cunha Performed By: Sury Lakhani RVT
[2024-07-04 03:56] LABS: CPK Total, Creatine Kinase 155 U/L (39-308); Thyroid Stim Hormone (TSH) 0.756 uIU/mL (0.358-3.740)
--- NOTE | 2024-07-04 04:45 | PCM.RX.CS ---
Consult Antibiotic Management Pharmacy has been consulted to manage selected antibiotic: Vancomycin Type of Intervention Type of Consult: New start Suspected Infection Suspected Infection: Skin/Soft tissue Labs Labs: Sodium 129 mmol/L (136-145) L 07/04/24 01:27 Potassium 4.1 mmol/L (3.5-5.1) 07/04/24 01:27 Chloride 93 mmol/L (98-107) L 07/04/24 01:27 Carbon Dioxide 27.0 mmol/L (21.0-32.0) 07/04/24 01:27 Anion Gap 9 (5-15) 07/04/24 01:27 BUN 26 mg/dL (7-18) H 07/04/24 01:27 Creatinine 1.08 mg/dL (0.70-1.30) 07/04/24 01:27 Est GFR (MDRD) Af Amer 92 mL/min (>60) 07/04/24 01:27 Est GFR (MDRD) Non-Af 76 mL/min (>60) 07/04/24 01:27 BUN/Creatinine Ratio 24.1 RATIO (10-20) H 07/04/24 01:27 Glucose 357 mg/dL (74-106) H 07/04/24 01:27 Microbiology Microbiology: Microbiology 07/04/24 01:27 Mucosa - Nasopharyngeal SARS-CoV-2, Influenza & RSV (PCR) - Final Dosing Weight Weight used for dosin kg Estimated Creatinine Clearance Estimated Creatinine Clearance: 118 Goal Trough Goal Trough: 15-20 mcg/mL Pharmacy Plan for Drug Dosing Pharmacy Plan for Drug Dosing: Pharmacy Service will continue to monitor and adjust dosing as required. Follow-Up Labs Follow-Up Labs: Trough: Vancomycin Date/Time Labs Ordered Labs to be done on [date and time ordered]: 07/05/24 @0230
[2024-07-04 04:53] LABS: Cholesterol 156 mg/dL (200); High Density Lipoprotein 41 mg/dL; Triglycerides 524 mg/dL
[2024-07-04 08:33] LABS: Bedside Glucose 258 mg/dL (74-106)
--- NOTE | 2024-07-04 08:56 | CASEMGMT ---
FABIOLA CAPUTO Assessment Face to Face with patient for initial transition planning/care coordination assessment. FABIOLA CAPUTO introduced self and role at [facility], pt voices understanding. Pt is A&Ox4 and is resting comfortably in bed and is calm. Care providers, pharmacy, and demographics verified. Admitting dx: LLE Cellulits LACE Strata: 2 PCP: Jayme Cunha Specialists: Denies Preferred Pharmacy: [facility] Insurance: ANTHEM Prescription Benefit: Yes LNOK: Negra Jones (W), Mio Jones Jr (Son) Living Arrangements: Pt lives with his in a 2 story home with 5 steps to enter ADLs/IADLs: Ind Transportation: Self, DME: CPAP @ [facility] with no additional oxygen. Pt sttaes that he has a functioning BGM with sufficient supplies and that his work insurance helps pay for these supplies. Pt takes insulin shots and denies needs. HHC/SNF: Denies hx or needs. Pt has been to in the past for OP Tx and has been to the [facility] Pt?s goal: Return home Plan: Home no needs. Pt is independent and states that he has all the supplies and equipment that he needs. Pt states that he feels safe returning home with his once he is medically ready. Pt reports that his is currently in a neck brace and is getting continual testing done on a cyst that is on her cervical spine. Pt states that he wishes to get home to help care for her. Pt states that he feels much better and is able to walk around a lot easier compared to when I first came into the hospital. Pt denies further questions or concerns at this time. Anuja Otero RN, CM
[2024-07-04] MEDS: Zinc Sulfate 50 mg zinc (220 mg) ORAL capsule PO (09:00)
[2024-07-04] MEDS: Enoxaparin 40 MG/0.4 ML Syringe SC (09:00)
[2024-07-04] MEDS: Cholecalciferol (Vit D3) 125 MCG CAPSULE (5,000 UNITS) PO (09:01)
[2024-07-04] MEDS: Insulin U-500 UNITS/ML PEN 45 UNITS SC ×3 (09:02→16:25)
[2024-07-04] MEDS: Insulin Glargine-YFGN 100 UNIT/ML Pen 52 UNIT SC (09:02)
[2024-07-04] MEDS: Ascorbic Acid 500 MG Tablet PO (09:02)
[2024-07-04] MEDS: Lactobacillis Acidophilus 1 CAP PO ×4 (09:02→21:39)
[2024-07-04] MEDS: Vancomycin HCl 1,500 MG in 0.9% Normal Saline (500mL Bag) 500 ML 250 MG IV (11:02)
--- NOTE | 2024-07-04 12:32 | NURSING ---
spoke with David pharmacist to clarify if let the current bag of Vanc to infuse or stop. per David, says to stop the current bag.
[2024-07-04 12:49] LABS: Hemoglobin A1c 8.6 % (3.8-5.6)
[2024-07-04] MEDS: Cefazolin 2 GM in Syringe IV ×2 (12:49→21:40)
[2024-07-04] MEDS: oxyCODONE 5 MG Tablet PO ×3 (12:49→22:00)
[2024-07-04] MEDS: Acetaminophen 325 MG Tablet 650 MG PO ×2 (12:50→19:56)
[2024-07-04] MEDS: 0.9% Saline Lock 10 ML Syringe IV ×2 (12:50→21:46)
[2024-07-04 16:45] LABS: Bedside Glucose 224 mg/dL (74-106)
--- NOTE | 2024-07-04 16:58 | PN.HOSP_ITS ---
Hospitalist Note Patient was seen and examined today in the ICU, he has an area of redness over his left lower leg, this area is also warm to the touch as compared with the right leg. Patient also complains of pain in the area. Patient has a history of diabetes, his A1c which was obtained this admission was 8.6. At this time, I do not feel the patient is septic and he can be moved to the medical floor for further care, I have decided to change his antibiotics to Ancef 2 g every 8 hours. Blood sugars will continue to be monitored, labs will be repeated t omorrow morning
[2024-07-04] MEDS: Atorvastatin Calcium 40 MG Tablet PO (21:40)
[2024-07-05 00:45] LABS: Bedside Glucose 258 mg/dL (74-106)
[2024-07-05 03:44] VITALS: BP 148/80; PULSE 83; RESP 16; TEMP 36.8; O2SAT 95
[2024-07-05] MEDS: oxyCODONE 5 MG Tablet PO ×3 (03:48→20:17)
[2024-07-05] MEDS: Acetaminophen 325 MG Tablet 650 MG PO ×3 (03:49→20:18)
[2024-07-05 04:53] LABS: Absolute Lymphocyte Count 1.36 X10^3/uL (0.83-4.51); Absolute Neutrophil Count 10.6 X10^3/uL (2.0-7.7); Basophil# 0.04 X10^3/uL; Basophil% 0.3 % (0-1); Eosinophil# 0.15 X10^3/uL; Eosinophils% 1.2 % (0-5); Hematocrit 41.7 % (40-54); Hemoglobin 13.5 g/dL (13.0-16.5); Lymphocyte # 1.36 X10^3/ul (0.83-4.51); Lymphocyte % 10.5 % (19-41); Mean Corp Hgb Conc 32.4 g/dL (32-36); Mean Corpuscular Hgb 28.9 pg (27.0-32.0); Mean Corpuscular Volume 89.3 fL (80-94); Mean Platelet Vol. 11.3 fl (6.2-12.0); Monocyte% 5.4 % (0-10); NRBC Flagged by Analyzer 0 % (0-5); Neutrophil # 10.61 X10^3/uL (2.7-7.7); Platelet Count 125 K/mm3 (150-450); RBC Distribution Width CV 13.2 % (11.6-14.6); RBC Distribution Width SD 42.8 fl (35.1-43.9); Red Blood Count 4.67 M/mm3 (4.6-6.2); White Blood Count 12.9 K/mm3 (4.4-11.0)
[2024-07-05] MEDS: Cefazolin 2 GM in Syringe IV ×3 (05:02→21:50)
[2024-07-05] MEDS: 0.9% Saline Lock 10 ML Syringe IV ×6 (05:02→21:51)
[2024-07-05 05:20] LABS: ALB/GLOB Ratio 0.7 RATIO (0.9-2.4); AST(SGOT) 21 U/L (15-37); Alanine Aminotransfer ALT/SGPT 36 U/L (16-61); Albumin, Serum 3.1 g/dL (3.2-5.0); Alkaline Phosphatase 81 U/L (45-117); Anion Gap 3 (5-15); BUN 19 mg/dL (7-18); BUN/Creat Ratio 20.2 RATIO (10-20); Calcium,Total 8.9 mg/dL (8.5-10.1); Chloride 102 mmol/L (98-107); Creatinine, Serum 0.94 mg/dL (0.70-1.30); EST Glomerular Filtration Rate 89 mL/min (>60); Est Glom Filt Rate - Afr Amer 108 mL/min (>60); Estimated Creatinine Clearance 136.21 ml/min; Globulin 4.6 g/dL (2.2-4.2); Glucose 214 mg/dL (74-106); Potassium 3.7 mmol/L (3.5-5.1); Protein, Total 7.7 g/dL (6.4-8.2); Sodium Level 133 mmol/L (136-145)
[2024-07-05 05:41] VITALS: BMI 48.1
[2024-07-05 07:45] LABS: Bedside Glucose 204 mg/dL (74-106)
[2024-07-05] MEDS: Ondansetron ODT 4 MG Tablet PO ×2 (08:33→17:01)
[2024-07-05] MEDS: Insulin U-500 UNITS/ML PEN 45 UNITS SC ×2 (08:34→11:42)
[2024-07-05] MEDS: Insulin Glargine-YFGN 100 UNIT/ML Pen 52 UNIT SC (08:35)
[2024-07-05 08:40] VITALS: BP 138/87; PULSE 81; RESP 18; TEMP 36.7; O2SAT 97
[2024-07-05] MEDS: HYDROmorphone 1 MG/ML Syringe IV (09:05)
[2024-07-05] MEDS: Furosemide 40 MG/4 ML Vial IV (09:05)
[2024-07-05] MEDS: Lactobacillis Acidophilus 1 CAP PO ×3 (09:08→21:52)
[2024-07-05] MEDS: proCHLORPERazine 10 MG/2 ML Vial IV (11:37)
--- NOTE | 2024-07-05 12:02 | PCM.PN.HOSP ---
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 Patient's white blood cell count is improved today, I have also decided to add doxycycline for added coverage at this point, I will continue IV Ancef. Objective Data Objective Data Vital Signs: Vital Signs Temp Pulse Resp BP Pulse Ox O2 Del Method 98.0 F 81 18 138/87 H 97 Room Air 07/05/24 08:40 07/05/24 08:40 07/05/24 08:40 07/05/24 08:40 07/05/24 08:40 07/05/24 08:40 Oxygen Delivery Method Room Air Weight: 152.5 kg Body Mass Index (BMI) 48.1 Intake & Output: Intake and Output for Last 24 Hours 07/03/24 07/04/24 07/05/24 23:59 23:59 23:59 Intake Total 5295.7 / 5295.7 420 / 420 Output Total 800 / 800 1200 / 1200 Balance 4495.7 / 4495.7 -780 / -780 Lab / Micro Data 07/05/24 04:21 07/05/24 04:21 Labs: Laboratory Results - last 24 hr 07/04/24 01:27: Hemoglobin A1c 8.6 H 07/04/24 11:37: POC Glucose 258 H 07/04/24 16:23: POC Glucose 224 H 07/05/24 04:21: WBC 12.9 H, RBC 4.67, Hgb 13.5, Hct 41.7, MCV 89.3, MCH 28.9, MCHC 32.4 D, RDW Std Deviation 42.8, RDW Coeff of Annalise 13.2, Plt Count 125 L, MPV 11.3, Immature Gran % (Auto) 0.600, Neut % (Auto) 82.0 H, Lymph % (Auto) 10.5 L, [place] % (Auto) 5.4, Eos % (Auto) 1.2, Baso % (Auto) 0.3, Absolute Neuts (auto) 10.6 H, Absolute Lymphs (auto) 1.36, Nucleated RBC % 0, Sodium 133 L, Potassium 3.7, Chloride 102, Carbon Dioxide 29.0, Anion Gap 3 L, BUN 19 H, Creatinine 0.94, Estim Creat Clear Calc 136.21, Est GFR (MDRD) Af Amer 108, Est GFR (MDRD) Non-Af 89, BUN/Creatinine Ratio 20.2 H, Glucose 214 H, Calcium 8.9, Total Bilirubin 0.50, AST 21, ALT 36, Alkaline Phosphatase 81, Total Protein 7.7, Albumin 3.1 L, Globulin 4.6 H, Albumin/Globulin Ratio 0.7 L 07/05/24 07:24: POC Glucose 204 H Micro: Microbiology 07/04/24 01:27 Mucosa - Nasopharyngeal SARS-CoV-2, Influenza & RSV (PCR) - Final Radiography Diagnostic Testing: Radiology Impression Venous Doppler Study 07/04/24 03:48 Interpretation Summary Deep veins of the bilateral lower extremities are patent and compressible segmentally. There is no evidence of bilateral lower extremity deep vein thrombosis. The bilateral great saphenous veins appear patent and compressible segmentally. Ordering Physician: Mio Hidalgo Referring Physician: Jayme Cunha Performed By: Sury Lakhani RVT Physical Exam Const alert, oriented x3 and no apparent distress Constitutional Narrative: Patient is morbidly obese General Appearance: cooperative, well kempt and well developed Orientation / Consciousness: awake, oriented to person, oriented to place and oriented to time HEENT normocephalic, head/scalp atraumatic and moist oral mucous membranes Eyes PERRL, EOMs intact bilaterally and conjunctivae normal Neck supple, no JVD, thyroid normal and no carotid bruits General: trachea midline Resp normal respiratory effort, no retractions, no use of accessory muscles and clear to auscultation bilaterally Auscultation: Negative for rales, rhonchi or wheezes Cardio regular rate, regular rhythm, S1 normal heart sound, S2 normal heart sound, no murmurs, no rub and no gallops GI normal to inspection, nondistended, normoactive bowel sounds, soft to palpation, non-tender and non-distended Extremity Extremity Narrative: Patient has generalized edema in both lower legs worse on the left Skin Skin Narrative: Patient has diffuse red rash over the anterior left tibial area extending into the medial aspect of the left lower leg. This area is also warm to the touch. General Skin Exam: no breakdown Neuro oriented x3, CN's II-XII intact bilaterally, moves all extremities, no focal motor deficits and no sensory deficits noted Sensorium / Orientation: awake and alert Speech: speech normal Psych affect normal Assessment & Plan Assessment/Plan (1) Cellulitis: QUALIFIERS: Site of cellulitis: extremity Site of cellulitis of extremity: lower extremity Laterality: left Qualified Code(s): L03.116 - Cellulitis of left lower limb PLAN: Plan 1. Cellulitis of the left lower leg-patient will remain on IV Ancef and I placed him on p.o. doxycycline today for additional coverage, CBC will be repeated tomorrow morning, I have elected to place the patient on oral Lasix #2 type 2 diabetes under poor control-blood sugar will be monitored and sliding scale insulin will be administered as needed #3 hyperlipidemia-patient is on a statin and Vascepa #4 morbid obesity-complicates care, management, recovery, and prognosis Total clinical time spent by myself addressing patient's medical issues, reviewing all of his data, and collaborating with patient's care team: 35 minutes Charges/Coding Visit Charges Inpatient E&M: 94569 Subs Hosp L2
[2024-07-05 12:04] LABS: Bedside Glucose 237 mg/dL (74-106)
[2024-07-05 14:21] VITALS: BP 140/83; PULSE 78; RESP 18; TEMP 36.4; O2SAT 99
[2024-07-05] MEDS: Doxycycline 100 MG CAPSULE PO ×2 (14:27→21:58)
[2024-07-05 16:57] LABS: Bedside Glucose 247 mg/dL (74-106)
[2024-07-05] MEDS: Metoclopramide 10 MG/2 ML Vial 5 MG IV (17:02)
[2024-07-05] MEDS: Furosemide 20 MG/2 ML VIAL IV (17:02)
[2024-07-05] MEDS: Insulin U-500 UNITS/ML PEN 20 UNITS SC (17:03)
[2024-07-05 20:16] VITALS: BP 150/88; PULSE 76; O2SAT 99
[2024-07-05 21:49] VITALS: BP 124/71; PULSE 72; RESP 16; TEMP 36.6; O2SAT 100
[2024-07-05] MEDS: Atorvastatin Calcium 40 MG Tablet PO (21:58)
[2024-07-05 22:43] LABS: Bedside Glucose 233 mg/dL (74-106)
[2024-07-06 00:47] VITALS: BP 134/78; PULSE 62; RESP 16; TEMP 36.3; O2SAT 96
[2024-07-06] MEDS: 0.9% Saline Lock 10 ML Syringe IV ×2 (00:50→06:12)
[2024-07-06] MEDS: Metoclopramide 10 MG/2 ML Vial 5 MG IV ×2 (00:51→06:13)
[2024-07-06 06:00] VITALS: BMI 47.8
[2024-07-06 06:10] VITALS: BP 152/81; PULSE 76; RESP 20; TEMP 36.6; O2SAT 97
[2024-07-06] MEDS: Cefazolin 2 GM in Syringe IV (06:13)
[2024-07-06] MEDS: Acetaminophen 325 MG Tablet 650 MG PO (06:14)
[2024-07-06] MEDS: oxyCODONE 5 MG Tablet PO (06:14)
[2024-07-06] MEDS: Furosemide 40 MG Tablet PO (08:35)
[2024-07-06] MEDS: Potassium Chloride Oral Tablet 20 MEQ PO (08:36)
[2024-07-06] MEDS: Doxycycline 100 MG CAPSULE PO (08:36)
[2024-07-06] MEDS: Lactobacillis Acidophilus 1 CAP PO (08:36)
[2024-07-06 08:40] LABS: Absolute Lymphocyte Count 1.61 X10^3/uL (0.83-4.51); Absolute Neutrophil Count 7.2 X10^3/uL (2.0-7.7); Basophil# 0.05 X10^3/uL; Basophil% 0.5 % (0-1); Eosinophil# 0.15 X10^3/uL; Eosinophils% 1.5 % (0-5); Hematocrit 39.5 % (40-54); Hemoglobin 12.8 g/dL (13.0-16.5); Lymphocyte # 1.61 X10^3/ul (0.83-4.51); Lymphocyte % 16.4 % (19-41); Mean Corp Hgb Conc 32.4 g/dL (32-36); Mean Corpuscular Volume 89.6 fL (80-94); Mean Platelet Vol. 11.5 fl (6.2-12.0); Monocyte# 0.69 X10^3/uL; NRBC Flagged by Analyzer 0 % (0-5); Neutrophil # 7.22 X10^3/uL (2.7-7.7); Neutrophil % 73.9 % (47-70); Platelet Count 128 K/mm3 (150-450); RBC Distribution Width CV 12.9 % (11.6-14.6); RBC Distribution Width SD 42.6 fl (35.1-43.9); Red Blood Count 4.41 M/mm3 (4.6-6.2); White Blood Count 9.8 K/mm3 (4.4-11.0)
[2024-07-06 08:54] VITALS: BP 116/62; PULSE 63; RESP 18; TEMP 36.6; O2SAT 95
[2024-07-06 09:12] LABS: Bedside Glucose 148 mg/dL (74-106)
[2024-07-06] MEDS: Insulin Glargine-YFGN 100 UNIT/ML Pen 52 UNIT SC (09:17)
--- NOTE | 2024-07-06 09:25 | DCINST_ITS ---
Discharge Instructions Diet Discharge Diet: - (Resume previous diet) DC O2, CPAP, BIPAP needs Home O2 Discharge instructions: No Dressing / Incision Discharge Activity: Return to Normal Activity Weight Bearing Status: Full weight bearing Follow Up Care Test Results: Test results from this visit will be discussed in further detail at your follow- up appointment, if applicable. Discharge Plan Admission Admit Date/Time: 07/04/24 03:15 Primary Reason for Your Visit: Cellulitis of the left lower leg Attending Provider: Danial Mercado Primary Care Provider: Jayme Cunha Consulting Providers: Mio Hidalgo Discharge Orders/Prescriptions Prescriptions: New furosemide 40 mg Tablet 40 mg PO BIDCM Qty: 60 0RF potassium chloride 20 mEq Tablet,Er Particles/Crystals 20 meq PO DAILYCM Qty: 30 0RF doxycycline monohydrate 100 mg Capsule 100 mg PO BID Qty: 14 0RF cefdinir 300 mg capsule 300 mg PO BID Qty: 14 0RF hydrocodone-acetaminophen 5-325 mg tablet 2 tab PO Q6H PRN (Reason: pain) 7 Days Qty: 30 0RF Rx Instructions: 1-2 tabs every 6 hours as needed pain Continued Humulin R U-500 (Conc) Insulin 500 unit/mL solution 45 unit SC TIDCM dapagliflozin propanediol 10 mg tablet 10 mg PO DAILY Patient Comments: TAKE 1 TABLET BY MOUTH EVERY DAY cetirizine [Allergy Relief (cetirizine)] 10 mg tablet 10 mg PO DAILY PRN (Reason: allergy symptoms) sildenafil 100 mg tablet 50 mg PO DAILY PRN (Reason: sexual activity) Patient Comments: 1/2 TABLET DAILY PRIOR TO SEX NEEDED insulin degludec [Tresiba FlexTouch U-200] 200 unit/mL (3 mL) insulin pen 52 unit subcut DAILY Ozempic 2 mg/dose (8 mg/3 mL) pen injector 2 mg subcut QWEEK meclizine 25 mg tablet 25 mg PO BID PRN (Reason: dizziness) Qty: 30 0RF metformin 1,000 MG tablet 1,000 mg PO BIDCM atorvastatin 40 MG tablet 40 mg PO QHS ascorbic acid (vitamin C) 500 MG tablet 500 mg PO DAILY@0800 losartan 100 MG tablet 100 mg PO DAILY ergocalciferol (vitamin D2) 50,000 UNIT capsule 50,000 unit PO WE icosapent ethyl [Vascepa] 1 gram capsule 2 g PO BID Discontinued furosemide [Lasix] 40 mg tablet 40 mg PO DAILY Qty: 90 3RF Referrals / Follow Up: Jayme Cunha MD [Primary Care Provider] - In 1 Week Disposition Disposition (needs filled in before D/C Order can be placed): Home, Self Care
--- NOTE | 2024-07-06 09:37 | PCM.DC.SUM ---
Providers Date of Admission: 07/04/24 Date of Discharge: 07/06/24 Primary Care Physician: Dr. Jayme Cunha MD Reason For Visit: LLE CELLULITIS WITH SUSPECTED EARLY SEPSIS Diagnosis Discharge Diagnosis (1) Cellulitis: Status: Acute Code(s): L03.90 - Cellulitis, unspecified Qualifiers: Laterality: left Site of cellulitis: extremity Site of cellulitis of extremity: lower extremity Qualified Code(s): L03.116 - Cellulitis of left lower limb Plan 1. Cellulitis of the left lower leg-patient will remain on IV Ancef and I placed him on p.o. doxycycline today for additional coverage, CBC will be repeated tomorrow morning, I have elected to place the patient on oral Lasix #2 type 2 diabetes under poor control-blood sugar will be monitored and sliding scale insulin will be administered as needed #3 hyperlipidemia-patient is on a statin and Vascepa #4 morbid obesity-complicates care, management, recovery, and prognosis Total clinical time spent by myself addressing patient's medical issues, reviewing all of his data, and collaborating with patient's care team: 35 minutes Medications at Discharge Home Medications metformin 1,000 mg tablet 1,000 mg PO BIDCM diabetes 02/18/15 ascorbic acid (vitamin C) 500 mg tablet 500 mg PO DAILY@0800 vitamin 07/29/18 atorvastatin 40 mg tablet 40 mg PO QHS cholesterol 07/29/18 losartan 100 mg tablet 100 mg PO DAILY 01/29/20 ergocalciferol (vitamin D2) 1,250 mcg (50,000 unit) capsule 50,000 unit PO WE supplement 06/25/20 dapagliflozin propanediol 10 mg tablet 10 mg PO DAILY 10/21/21 insulin regular hum U-500 conc 500 unit/mL subcutaneous soln (Humulin R U-500 (Concentrated) Insulin) 45 unit subcut TIDCM diabetes 10/21/21 cetirizine 10 mg tablet (Allergy Relief (cetirizine)) 10 mg PO DAILY PRN allergy symptoms 04/22/22 insulin degludec 200 unit/mL (3 mL) subcutaneous pen (Tresiba FlexTouch U-200 insulin) 52 unit subcut DAILY 04/22/22 semaglutide 2 mg/dose (8 mg/3 mL) subcutaneous pen injector (Ozempic) 2 mg subcut QWEEK 04/22/22 sildenafil 100 mg tablet 50 mg PO DAILY PRN sexual activity 04/22/22 meclizine 25 mg tablet 25 mg PO BID PRN dizziness #30 tabs 08/23/22 icosapent ethyl 1 gram capsule (Vascepa) 2 g PO BID 07/04/24 cefdinir 300 mg capsule 300 mg PO BID #14 caps 07/06/24 doxycycline monohydrate 100 mg capsule 100 mg PO BID #14 caps 07/06/24 furosemide 40 mg tablet 40 mg PO BIDCM #60 tabs 07/06/24 hydrocodone-acetaminophen 5-325mg 5mg-325mg 2 tab PO Q6H PRN pain 1 week #30 tabs 07/06/24 potassium chloride 20 mEq tablet,extended release(part/cryst) 20 meq PO DAILYCM #30 tabs 07/06/24 Hospital Course Operations None Procedures None Summary of Care Provided Minutes Spent on Discharge: 32 Hospital Course: This 54-year-old white male was seen in the emergency room at [facility] with complaints of pain and swelling and redness of his left lower extremity. Workup in the emergency room revealed an elevated white blood cell count at 18.2, chemistry profile showed a decreased sodium at 129, BUN was 26 and glucose was 357. Patient was admitted to [place] [address] and placed on IV antibiotics, he was also placed on mild IV diuresis to reduce his swelling in his lower extremities. Patient improved during his hospital stay however his left lower extremity remained reddened at the time of discharge from the hospital. On 07/06/2024, patient was seen and examined:alert, oriented x3 and no apparent distress Constitutional Narrative: Patient is morbidly obese General Appearance: cooperative, well kempt and well developed Orientation / Consciousness: awake, oriented to person, oriented to place and oriented to time HEENT normocephalic, head/scalp atraumatic and moist oral mucous membranes Eyes PERRL, EOMs intact bilaterally and conjunctivae normal Neck supple, no JVD, thyroid normal and no carotid bruits General: trachea midline Resp normal respiratory effort, no retractions, no use of accessory muscles and clear to auscultation bilaterally Auscultation: Negative for rales, rhonchi or wheezes Cardio regular rate, regular rhythm, S1 normal heart sound, S2 normal heart sound, no murmurs, no rub and no gallops GI normal to inspection, nondistended, normoactive bowel sounds, soft to palpation, non-tender and non-distended Extremity Extremity Narrative: Patient has generalized edema in both lower legs worse on the left Skin Skin Narrative: Patient has diffuse red rash over the anterior left tibial area extending into the medial aspect of the left lower leg. This area is also warm to the touch. General Skin Exam: no breakdown Neuro oriented x3, CN's II-XII intact bilaterally, moves all extremities, no focal motor deficits and no sensory deficits noted Sensorium / Orientation: awake and alert Speech: speech normal Psych affect normal Patient was discharged home in stable condition on 07/06/2024. Weight / BMI Weight Weight: 151.7 kg Body Mass Index (BMI) 47.8 ABG / Lab / Microbiology Data 07/06/24 07:05 07/05/24 04:21 Laboratory: Laboratory Results - last 24 hr 07/05/24 11:40: POC Glucose 237 H 07/05/24 16:38: POC Glucose 247 H 07/05/24 21:54: POC Glucose 233 H 07/06/24 07:05: WBC 9.8, RBC 4.41 L, Hgb 12.8 L, Hct 39.5 L, MCV 89.6, MCH 29.0, MCHC 32.4, RDW Std Deviation 42.6, RDW Coeff of Annalise 12.9, Plt Count 128 L, MPV 11.5, Immature Gran % (Auto) 0.700, Neut % (Auto) 73.9 H, Lymph % (Auto) 16.4 L, [place] % (Auto) 7.0, Eos % (Auto) 1.5, Baso % (Auto) 0.5, Absolute Neuts (auto) 7.2, Absolute Lymphs (auto) 1.61, Nucleated RBC % 0 07/06/24 08:31: POC Glucose 148 H Microbiology: Microbiology 07/04/24 01:27 Blood Culture (Wb) - Anticubital Left Blood Culture - Final No growth in 5 days. 07/04/24 01:41 Blood Culture (Wb) - Anticubital Right Blood Culture - Final No growth in 5 days. 07/04/24 01:27 Mucosa - Nasopharyngeal SARS-CoV-2, Influenza & RSV (PCR) - Final D/C Instructions Discharge Diet: - (Resume previous diet) Weight Bearing Status: Full weight bearing DC O2, CPAP, BIPAP Needs Home O2 Discharge instructions: No Meaningful Use Info Meaningful Use Meaningful Use Diagnoses (Choose all that apply): None applicable Ischemic Stroke Statin Dosing Therapy Reference: STATIN DOSE THERAPY REFERENCE: * Patients > 75 years receive moderate or high dose statin therapy. * Patients 75 years or YOUNGER should receive HIGH intensity statin dose unless contraindicated. You will be required to document reason for non-treatment if statin daily dose does not meet guidelines. HIGH DOSE STATIN THERAPY DAILY Atorvastatin > than or = to 40 mg Rosuvastatin > than or = to 20 mg Amlodipine + Atorvastatin > than or = to 2.5/40 mg Ezetimibe + Simvastatin 10/80 mg Simvastatin 80mg Discharge Plan Admission Admit Date/Time: 07/04/24 03:15 Primary Reason for Your Visit: Cellulitis of the left lower leg Attending Provider: Danial Mercado Primary Care Provider: Jayme Cunha Consulting Providers: Mio Hidalgo Discharge Orders/Prescriptions Prescriptions: New furosemide 40 mg Tablet 40 mg PO BIDCM Qty: 60 0RF potassium chloride 20 mEq Tablet,Er Particles/Crystals 20 meq PO DAILYCM Qty: 30 0RF doxycycline monohydrate 100 mg Capsule 100 mg PO BID Qty: 14 0RF cefdinir 300 mg capsule 300 mg PO BID Qty: 14 0RF hydrocodone-acetaminophen 5-325 mg tablet 2 tab PO Q6H PRN (Reason: pain) 7 Days Qty: 30 0RF Rx Instructions: 1-2 tabs every 6 hours as needed pain Continued Humulin R U-500 (Conc) Insulin 500 unit/mL solution 45 unit SC TIDCM dapagliflozin propanediol 10 mg tablet 10 mg PO DAILY Patient Comments: TAKE 1 TABLET BY MOUTH EVERY DAY cetirizine [Allergy Relief (cetirizine)] 10 mg tablet 10 mg PO DAILY PRN (Reason: allergy symptoms) sildenafil 100 mg tablet 50 mg PO DAILY PRN (Reason: sexual activity) Patient Comments: 1/2 TABLET DAILY PRIOR TO SEX NEEDED insulin degludec [Tresiba FlexTouch U-200] 200 unit/mL (3 mL) insulin pen 52 unit subcut DAILY Ozempic 2 mg/dose (8 mg/3 mL) pen injector 2 mg subcut QWEEK meclizine 25 mg tablet 25 mg PO BID PRN (Reason: dizziness) Qty: 30 0RF metformin 1,000 MG tablet 1,000 mg PO BIDCM atorvastatin 40 MG tablet 40 mg PO QHS ascorbic acid (vitamin C) 500 MG tablet 500 mg PO DAILY@0800 losartan 100 MG tablet 100 mg PO DAILY ergocalciferol (vitamin D2) 50,000 UNIT capsule 50,000 unit PO WE icosapent ethyl [Vascepa] 1 gram capsule 2 g PO BID Discontinued furosemide [Lasix] 40 mg tablet 40 mg PO DAILY Qty: 90 3RF Referrals / Follow Up: Jayme Cunha MD [Primary Care Provider] - In 1 Week Disposition Disposition (needs filled in before D/C Order can be placed): Home, Self Care Charges/Coding Visit Charges Inpatient E&M: 91810 Disch Hosp >30min
== END 2024-07-06 11:53 | disposition home or self-care (01) | DRG 872 ==
LOC: ED 03:22 → ICU 04:24 → MS3 12:02
PROVIDERS: Admitting Provider Internal Medicine; Emergency Provider Emergency Medicine; PCP Family Medicine; Visit Provider Internal Medicine
DX: A41.9 Sepsis, unspecified organism (principal); Z68.42 Body mass index [BMI] 45.0-49.9, adult; L03.116 Cellulitis of left lower limb; D69.6 Thrombocytopenia, unspecified; E11.40 Type 2 diabetes mellitus with diabetic neuropathy, unspecified; I10 Essential (primary) hypertension; E66.01 Morbid (severe) obesity due to excess calories; E78.5 Hyperlipidemia, unspecified; Z79.4 Long term (current) use of insulin; G47.33 Obstructive sleep apnea (adult) (pediatric); E11.65 Type 2 diabetes mellitus with hyperglycemia; M19.90 Unspecified osteoarthritis, unspecified site; M54.9 Dorsalgia, unspecified; Z82.3 Family history of stroke; Z82.5 Family history of asthma and other chronic lower respiratory diseases; R06.02 Shortness of breath; Z99.89 Dependence on other enabling machines and devices; G89.29 Other chronic pain
CPT/HCPCS: 36415; 71275; 73590; 80048; 80053; 80061; 82550; 82962; 83036; 83605; 84145; 84443; 85025; 85379; 87040; 87631; 93970; 97802; 99285; Q9967; A4216; J1940; J2405

== ENCOUNTER → 2024-08-27 | Outpatient (CLI) | payer BC, SELFPAY ==
[2024-08-27 15:53] LABS: Bacteria 0 SEEN /hpf (None Seen); Mucous, Urine 0 SEEN /hpf (<or=2+); Squamous Epithelial Cells - UA 0 SEEN /hpf (0-5)
[2024-08-27 18:05] LABS: Color, Urine Yellow (Yellow); Glucose, Dipstick Normal (Normal); Ketone-Dipstick Negative (Negative); Leukocyte Esterase-Dipstick Negative /ul (Negative); Nitrite-Dipstick Negative (Negative); Occult Blood-Urine Negative /ul (Negative); Protein-Dipstick 30 mg/dl (Negative); Urine Bilirubin Dipstick Negative (Negative); Urine Clarity Clear (Clear); Urine Urobilinogen Normal (Normal)
[2024-08-27 18:16] LABS: Microalbumin,Random Urine 82.4 mg/L (NO RANGE EST.); Microalbumin:Creatinine Ratio 91.3 mg/g CRE (<30 mg/g CRE)
[2024-08-27 18:18] LABS: Absolute Lymphocyte Count 2.69 X10^3/uL (0.83-4.51); Absolute Neutrophil Count 5.2 X10^3/uL (2.0-7.7); Basophil# 0.07 X10^3/uL; Basophil% 0.8 % (0-1); Eosinophil# 0.09 X10^3/uL; Hematocrit 43.7 % (40-54); Hemoglobin 14.2 g/dL (13.0-16.5); Lymphocyte # 2.69 X10^3/ul (0.83-4.51); Lymphocyte % 30.9 % (19-41); Mean Corp Hgb Conc 32.5 g/dL (32-36); Mean Corpuscular Hgb 28.7 pg (27.0-32.0); Mean Corpuscular Volume 88.3 fL (80-94); Mean Platelet Vol. 11.2 fl (6.2-12.0); Monocyte% 6.9 % (0-10); NRBC Flagged by Analyzer 0 % (0-5); Neutrophil # 5.22 X10^3/uL (2.7-7.7); Neutrophil % 60.1 % (47-70); Platelet Count 194 K/mm3 (150-450); RBC Distribution Width CV 13.8 % (11.6-14.6); RBC Distribution Width SD 44.4 fl (35.1-43.9); Red Blood Count 4.95 M/mm3 (4.6-6.2); White Blood Count 8.7 K/mm3 (4.4-11.0)
[2024-08-27 18:30] LABS: Hemoglobin A1c 8.3 % (3.8-5.6)
[2024-08-27 18:40] LABS: AST(SGOT) 24 U/L (15-37); Alanine Aminotransfer ALT/SGPT 33 U/L (16-61); Albumin, Serum 3.7 g/dL (3.2-5.0); Alkaline Phosphatase 79 U/L (45-117); Anion Gap 6 (5-15); BUN 24 mg/dL (7-18); BUN/Creat Ratio 23.1 RATIO (10-20); Calcium,Total 9.8 mg/dL (8.5-10.1); Chloride 101 mmol/L (98-107); Cholesterol 173 mg/dL (200); Creatinine, Serum 1.04 mg/dL (0.70-1.30); EST Glomerular Filtration Rate 79 mL/min (>60); Est Glom Filt Rate - Afr Amer 96 mL/min (>60); Globulin 3.7 g/dL (2.2-4.2); Glucose 126 mg/dL (74-106); High Density Lipoprotein 55 mg/dL; Potassium 4.2 mmol/L (3.5-5.1); Protein, Total 7.4 g/dL (6.4-8.2); Sodium Level 138 mmol/L (136-145); Triglycerides 205 mg/dL; Very Low Density Lipoprotein 41 mg/dL (5-40)
[2024-08-27 19:29] LABS: Red Blood Cells-Urine 0-5 SEEN /hpf (0-5); White Blood Cells 0-5 SEEN /hpf (0-5)
[2024-08-29 14:45] LABS: Vitamin D,25 Hydroxy 50.6 ng/mL
== END | disposition home or self-care (01) ==
LOC: MFPLAB 15:44
PROVIDERS: PCP Family Medicine; Referring Provider Family Medicine; Visit Provider Family Medicine
DX: E11.8 Type 2 diabetes mellitus with unspecified complications (principal); E55.9 Vitamin D deficiency, unspecified
CPT/HCPCS: 36415; 80053; 80061; 81001; 82043; 82306; 82570; 83036; 85025

== ENCOUNTER → 2024-10-09 | Outpatient (CLI) | payer BC, SELFPAY ==
--- NOTE | 2024-10-09 14:51 | VDLE_ITS ---
Reason For Study Reason For Study: Left leg pain RIGHT LEFT CFV is compressible, spontaneous, phasic, competent GSV is normal. and demonstrates normal augmentation. CFV is compressible, spontaneous, phasic, competent, Procedure and demonstrates normal augmentation. This is a venous duplex using B-mode, color flow and FV is compressible, spontaneous, phasic, competent spectral Doppler. and demonstrates normal augmentation. Exam performed in department. POP V is compressible, spontaneous, phasic, competent A preliminary report was called and/or faxed to and demonstrates normal augmentation. Mario. T/P Trunk is compressible. PTV is compressible. LT PerV is compressible. VL/Venous Duplex US, Unilateral Interpretation Summary Deep veins of the left lower extremity are patent and compressible segmentally. There is no evidence of left lower extremity deep vein thrombosis. The left great saphenous vein appears patent an d compressible segmentally. Ordering Physician: Sameer Martin Referring Physician: Jayme Cunha Performed By: Sury Lakhani RVT
== END | disposition home or self-care (01) ==
PROVIDERS: PCP Family Medicine; Referring Provider Family Medicine; Visit Provider Family Medicine
DX: M79.662 Pain in left lower leg (principal)
CPT/HCPCS: 93971

== ENCOUNTER → 2025-04-22 | Outpatient (CLI) | payer BC, SELFPAY ==
[2025-04-22 15:25] LABS: Mucous, Urine 0 SEEN /hpf (<or=2+)
[2025-04-22 18:39] LABS: Hematocrit 40.9 % (40-54); Hemoglobin 13.5 g/dL (13.0-16.5); Immature Granulocytes Count 0.010 X10^3/uL (0.0-0.0); Mean Corp Hgb Conc 33.0 g/dL (32-36); Mean Corpuscular Volume 90.5 fL (80-94); Mean Platelet Vol. 11.6 fl (6.2-12.0); NRBC Flagged by Analyzer 0 % (0-5); Platelet Count 158 K/mm3 (150-450); RBC Distribution Width CV 13.2 % (11.6-14.6); RBC Distribution Width SD 44.2 fl (35.1-43.9); Red Blood Count 4.52 M/mm3 (4.6-6.2); White Blood Count 8.2 K/mm3 (4.4-11.0)
[2025-04-22 18:44] LABS: Color, Urine Straw (Yellow); Glucose, Dipstick 1000 mg/dl (Normal); Ketone-Dipstick 5 mg/dl (Negative); Leukocyte Esterase-Dipstick Negative /ul (Negative); Nitrite-Dipstick Negative (Negative); Occult Blood-Urine Negative /ul (Negative); Protein-Dipstick 30 mg/dl (Negative); Specific Gravity, Urine 1.015 (1.002-1.030); Urine Bilirubin Dipstick Negative (Negative)
[2025-04-22 19:13] LABS: Creatinine, Urine (random) 65.20 mg/dL (39.00-259.00); Microalbumin,Random Urine 36.2 mg/L (<20 mg/L)
[2025-04-22 19:22] LABS: AST(SGOT) 28 U/L (<=37); Alanine Aminotransfer ALT/SGPT 29 U/L (<=46); Albumin, Serum 4.3 g/dL (3.5-5.0); Alkaline Phosphatase 59 U/L (40-129); Anion Gap 11 (5-15); BUN 23 mg/dL (4-19); BUN/Creat Ratio 24.5 RATIO (10-20); Calcium,Total 9.3 mg/dL (7.6-11.0); Carbon Dioxide 25.0 mmol/L (21.0-32.0); Chloride 101 mmol/L (98-108); Cholesterol 151 mg/dL (<=200); Globulin 2.7 g/dL (2.2-4.2); Glucose 136 mg/dL (70-99); Low Density Lipoprotein Calc. 53 mg/dL; Potassium 4.0 mmol/L (3.3-5.1); Triglycerides 182 mg/dL; Very Low Density Lipoprotein 36 mg/dL (5-40); Vitamin D,25 Hydroxy 34.8 ng/mL (30-100); cholesterol:hdl ratio screen 2.46
[2025-04-22 21:21] LABS: Red Blood Cells-Urine 0-5 SEEN /hpf (0-5); Squamous Epithelial Cells - UA 0-5 SEEN /hpf (0-5)
== END | disposition home or self-care (01) ==
LOC: MFPLAB 15:19
PROVIDERS: PCP Family Medicine; Visit Provider Family Medicine
DX: E11.29 Type 2 diabetes mellitus with other diabetic kidney complication (principal); E11.69 Type 2 diabetes mellitus with other specified complication; E55.9 Vitamin D deficiency, unspecified
CPT/HCPCS: 36415; 80053; 80061; 81001; 82043; 82306; 82570; 83036; 85025